=== PATIENT | female | born 1970 | race Caucasian/White ===

== ENCOUNTER 2016-10-13 09:54 | Emergency (ER) | payer BC ==
[~2016-10-13] VITALS: Ht 165.1 cm; Wt 75.7 kg
[~2016-10-13 09:54] MED LIST: ALPR0.25 PO; ALPR0.5T7 PO; CEPH500C PO; CLIN150C17 PO; CYCL10TA9 PO; DIAZ10TA PO; DIAZ10TA3 PO; DOCU100C37 PO; ESCI20TA PO; FLUC100T PO; FURO-125 PO; HYDR-3730 PO; HYDR-3816 PO; HYDR-757 PO; IBUP-1773 PO; INSASP10V SC; INSU100C7 SQ; MAGN400C PO; PROP20TA5 PO; SERT50TA9 PO; SIME80TA16 PO; SPIR50TA2 PO; SULF1TAB35 PO; [UNRECOGNIZED DRUG - CODE] PO
--- OUTSIDE RECORDS SUMMARY | 2016-10-13 10:00 | XMS REPORT | Continuity of Care Document ---
Author Author [facility] Organization [facility] Address Unknown Phone Unavailable Care Team Providers Care Packer Name Role Phone BETTE RUSH DO PCP Insurance Providers Payer Name Policy Number Subscriber Name Relationship [facility] [id number] Dayanara Caal 18 Self / Same As Patient Advance Directives Directive Response Recorded Date/Time Advance Directives No 04/16/15 8:34pm Health Care Power of Punchboard Stuffer No 04/16/15 8:34pm Organ Donor No 04/16/15 8:34pm Resuscitation Status Full Code 04/16/15 8:34pm Problems Medical Problems Problem Onset Date Status Urinary tract infection Unknown Active Type I diabetes mellitus Unknown Active Medications Medication Dose Route Sig Days/Qty Instructions Order Date Discontinued Date Status Insulin Glargine,Hum.rec.anlog 16 Unit SQ TWICE A DAY 12/08/13 Active Insulin Aspart 0 SC DIRECTED sliding scale 12/08/13 Active Cephalexin Monohydrate (Keflex) 1 Each PO FOUR TIMES DAILY 28 Qty 04/16 Active Social History Social History Problem Response Recorded Date/Time Alcohol Use Regular Use 04/16/2015 9:35pm Recreational Drug Use No 04/16/2015 8:34pm Recent Foreign Travel No 04/16/2015 8:34pm Recent Infectious Disease Exposure No 04/16/2015 8:34pm Hospitalization with Isolation Denies 04/16/2015 8:34pm Smoking Status Current Everyday Smoker 04/16/2015 8:34pm Query Response Start Date Stop Date Smoking Status Current Everyday Smoker Hospital Discharge Instructions No hospital discharge instructions. Plan of Care No plan of care. Functional Status No functional status results. Allergies, Adverse Reactions, Alerts Allergen Type Severity Reaction Status Last Updated Codeine Allergy Unknown Active 11/09/14 Immunizations No immunization records. Vital Signs Acute Vital Signs Vital Response Date/Time Temperature (Fahrenheit) 98.2 degrees F (97.6 - 99.5) Temperature (Calculated Celsius) 36.78504 degrees C (36.4 - 37.5) Pulse Rate (adult) 93 bpm (60 - 90) Respiratory Rate 18 bpm (12 - 24) O2 Sat by Pulse Oximetry 99 % (88 - 100) Blood Pressure 136/83 mm Hg Blood Pressure Mean 100 mm Hg Pain Pain Intensity 0 Height (Feet) 5 feet Height (Inches) 5 inches Height (Calculated Centimeters) 165.399167 cm Weight (Pounds) 156 pounds Weight (Calculated Kilograms) 70.062562 kilograms Calculated BMI 25.96 Results Laboratory Results Test Name Result Units Flags Reference Collection Date/Time Result Date/ Time Comments White Blood Count 8.3 10^3/uL 4.3-11.0 04/09/2015 12:52pm 04/09/2015 12 :57pm Red Blood Count 4.94 10^6/uL 4.35-5.85 04/09/2015 12:52pm 04/09/2015 12 :57pm Hemoglobin 14.3 G/DL 11.5-16.0 04/09/2015 12:52pm 04/09/2015 12:57pm Hematocrit 43 % 35-52 04/09/2015 12:52pm 04/09/2015 12:57pm Mean Corpuscular Volume 88 FL 80-99 04/09/2015 12:52pm 04/09/2015 12: 57pm Mean Corpuscular Hemoglobin 29 PG 25-34 04/09/2015 12:52pm 04/09/2015 12:57pm Mean Corpuscular Hemoglobin Concent 33 G/DL 32-36 04/09/2015 12:52pm 12:57pm Red Cell Distribution Width 14.3 % 10.0-14.5 04/09/2015 12:52pm 2014 12:57pm Platelet Count 286 10^3/uL 130-400 04/09/2015 12:52pm 04/09/2015 12: 57pm Mean Platelet Volume 10.4 FL 7.4-10.4 04/09/2015 12:52pm 04/09/2015 12: 57pm Neutrophils (%) (Auto) 52 % 42-75 04/09/2015 12:52pm 04/09/2015 12: 57pm Lymphocytes (%) (Auto) 38 % 12-44 04/09/2015 12:52pm 04/09/2015 12: 57pm Monocytes (%) (Auto) 7 % 0-12 04/09/2015 12:52pm 04/09/2015 12:57pm Eosinophils (%) (Auto) 2 % 0-10 04/09/2015 12:52pm 04/09/2015 12:57pm Basophils (%) (Auto) 1 % 0-10 04/09/2015 12:52pm 04/09/2015 12:57pm Neutrophils # (Auto) 4.3 X 10^3 1.8-7.8 04/09/2015 12:52pm 04/09/2015 12:57pm Lymphocytes # (Auto) 3.1 X 10^3 1.0-4.0 04/09/2015 12:52pm 04/09/2015 12:57pm Monocytes # (Auto) 0.6 X 10^3 0.0-1.0 04/09/2015 12:52pm 04/09/2015 12: 57pm Eosinophils # (Auto) 0.2 10^3/uL 0.0-0.3 04/09/2015 12:52pm 04/09/2015 12:57pm Basophils # (Auto) 0.0 10^3/uL 0.0-0.1 04/09/2015 12:52pm 04/09/2015 12 :57pm Sodium Level 133 MMOL/L L 135-145 04/09/2015 12:52pm 04/09/2015 1:16pm Potassium Level 4.3 MMOL/L 3.6-5.0 04/09/2015 12:52pm 04/09/2015 1: 16pm Chloride Level 100 MMOL/L 98-107 04/09/2015 12:52pm 04/09/2015 1:16pm Carbon Dioxide Level 26 MMOL/L 21-32 04/09/2015 12:52pm 04/09/2015 1: 16pm Anion Gap 7 MMOL/L 5-14 04/09/2015 12:52pm 04/09/2015 1:16pm Blood Urea Nitrogen 6 MG/DL L 7-18 04/09/2015 12:52pm 04/09/2015 1:16pm Creatinine 0.93 MG/DL 0.60-1.30 04/09/2015 12:52pm 04/09/2015 1:16pm BUN/Creatinine Ratio 6 04/09/2015 12:52pm 04/09/2015 1:16pm Estimat Glomerular Filtration Rate > 60 04/09/2015 12:52pm 2014 1:16pm GFR INTERPRETIVE DATA UNITS FOR ESTIMATED GFR (eGFR): mL/min/1.73 M2 REFERENCE RANGE FOR ESTIMATED GFR (eGFR) eGFR NORMAL eGFR >60 MODERATELY DECREASED eGFR 30-59 SEVERLY DECREASED eGFR 15-29 KIDNEY FAILURE <15 (OR DIALYSIS) Glucose Level 382 MG/DL H 70-105 04/09/2015 12:52pm 04/09/2015 1:16pm Calcium Level 8.9 MG/DL 8.5-10.1 04/09/2015 12:52pm 04/09/2015 1:16pm Total Bilirubin 0.5 MG/DL 0.1-1.0 04/09/2015 12:52pm 04/09/2015 1:16pm Alkaline Phosphatase 78 U/L 40-136 04/09/2015 12:52pm 04/09/2015 1: 16pm Aspartate Amino Transf (AST/SGOT) 14 U/L 5-34 04/09/2015 12:52pm 2014 1:16pm Alanine Aminotransferase (ALT/SGPT) 12 U/L 0-55 04/09/2015 12:52pm 1:16pm Total Protein 6.6 G/DL 6.4-8.2 04/09/2015 12:52pm 04/09/2015 1:16pm Albumin 3.8 G/DL 3.2-4.5 04/09/2015 12:52pm 04/09/2015 1:16pm Hemoglobin A1c 12.2 % H 4.5-6.2 04/09/2015 12:52pm 04/09/2015 1:37pm White Blood Count 7.9 10^3/uL 4.3-11.0 04/16/2015 9:08pm 04/16/2015 9: 22pm Red Blood Count 5.07 10^6/uL 4.35-5.85 04/16/2015 9:08pm 04/16/2015 9: 22pm Hemoglobin 14.7 G/DL 11.5-16.0 04/16/2015 9:08pm 04/16/2015 9:22pm Hematocrit 44 % 35-52 04/16/2015 9:08pm 04/16/2015 9:22pm Mean Corpuscular Volume 87 FL 80-99 04/16/2015 9:08pm 04/16/2015 9: 22pm Mean Corpuscular Hemoglobin 29 PG 25-34 04/16/2015 9:08pm 04/16/2015 9: 22pm Mean Corpuscular Hemoglobin Concent 33 G/DL 32-36 04/16/2015 9:08pm 11/2014 9:22pm Red Cell Distribution Width 14.6 % H 10.0-14.5 04/16/2015 9:08pm 2014 9:22pm Platelet Count 289 10^3/uL 130-400 04/16/2015 9:08pm 04/16/2015 9:22pm Mean Platelet Volume 9.9 FL 7.4-10.4 04/16/2015 9:08pm 04/16/2015 9: 22pm Neutrophils (%) (Auto) 44 % 42-75 04/16/2015 9:08pm 04/16/2015 9:22pm Lymphocytes (%) (Auto) 44 % 12-44 04/16/2015 9:08pm 04/16/2015 9:22pm Monocytes (%) (Auto) 10 % 0-12 04/16/2015 9:08pm 04/16/2015 9:22pm Eosinophils (%) (Auto) 2 % 0-10 04/16/2015 9:08pm 04/16/2015 9:22pm Basophils (%) (Auto) 0 % 0-10 04/16/2015 9:08pm 04/16/2015 9:22pm Neutrophils # (Auto) 3.5 X 10^3 1.8-7.8 04/16/2015 9:08pm 04/16/2015 9: 22pm Lymphocytes # (Auto) 3.5 X 10^3 1.0-4.0 04/16/2015 9:08pm 04/16/2015 9: 22pm Monocytes # (Auto) 0.8 X 10^3 0.0-1.0 04/16/2015 9:08pm 04/16/2015 9: 22pm Eosinophils # (Auto) 0.2 10^3/uL 0.0-0.3 04/16/2015 9:08pm 04/16/2015 9 :22pm Basophils # (Auto) 0.0 10^3/uL 0.0-0.1 04/16/2015 9:08pm 04/16/2015 9: 22pm Urine Color YELLOW 04/16/2015 9:14pm 04/16/2015 9:35pm Urine Clarity VERY CLOUDY * 04/16/2015 9:14pm 04/16/2015 9:35pm Urine pH 6 5-9 04/16/2015 9:14pm 04/16/2015 9:35pm Urine Specific [place] 1.020 1.016-1.022 04/16/2015 9:14pm 2014 9:35pm Urine Protein 1+ * NEGATIVE 04/16/2015 9:14pm 04/16/2015 9:35pm Urine Glucose (UA) 4+ * NEGATIVE 04/16/2015 9:14pm 04/16/2015 9:35pm Urine RBC (Auto) 1+ * NEGATIVE 04/16/2015 9:14pm 04/16/2015 9:35pm Urine Ketones NEGATIVE NEGATIVE 04/16/2015 9:14pm 04/16/2015 9:35pm Urine Nitrite NEGATIVE NEGATIVE 04/16/2015 9:14pm 04/16/2015 9:35pm Urine Bilirubin NEGATIVE NEGATIVE 04/16/2015 9:14pm 04/16/2015 9: 35pm Urine Urobilinogen NORMAL MG/DL NORMAL 04/16/2015 9:14pm 04/16/2015 9: 35pm Urine Leukocyte Esterase 3+ * NEGATIVE 04/16/2015 9:14pm 04/16/2015 9: 35pm Urine RBC 2-5 /HPF * 04/16/2015 9:14pm 04/16/2015 9:35pm Urine WBC TNTC /HPF * 04/16/2015 9:14pm 04/16/2015 9:35pm Urine Bacteria LARGE /HPF * 04/16/2015 9:14pm 04/16/2015 9:35pm Urine Squamous Epithelial Cells 10-25 /HPF * 04/16/2015 9:14pm 2014 9:35pm Urine Crystals NONE /LPF 04/16/2015 9:14pm 04/16/2015 9:35pm Urine Casts NONE /LPF 04/16/2015 9:14pm 04/16/2015 9:35pm Urine Mucus NEGATIVE /LPF 04/16/2015 9:14pm 04/16/2015 9:35pm Urine Culture Indicated YES 04/16/2015 9:14pm 04/16/2015 9:35pm Sodium Level 140 MMOL/L 135-145 04/16/2015 9:08pm 04/16/2015 9:46pm Potassium Level 3.7 MMOL/L 3.6-5.0 04/16/2015 9:08pm 04/16/2015 9:46pm Chloride Level 106 MMOL/L 98-107 04/16/2015 9:08pm 04/16/2015 9:46pm Carbon Dioxide Level 27 MMOL/L 21-32 04/16/2015 9:08pm 04/16/2015 9: 46pm Anion Gap 7 MMOL/L 5-14 04/16/2015 9:08pm 04/16/2015 9:46pm Blood Urea Nitrogen 8 MG/DL 7-18 04/16/2015 9:08pm 04/16/2015 9:46pm Creatinine 0.73 MG/DL 0.60-1.30 04/16/2015 9:08pm 04/16/2015 9:46pm BUN/Creatinine Ratio 11 04/16/2015 9:08pm 04/16/2015 9:46pm Estimat Glomerular Filtration Rate > 60 04/16/2015 9:08pm 2014 9:46pm GFR INTERPRETIVE DATA UNITS FOR ESTIMATED GFR (eGFR): mL/min/1.73 M2 REFERENCE RANGE FOR ESTIMATED GFR (eGFR) eGFR NORMAL eGFR >60 MODERATELY DECREASED eGFR 30-59 SEVERLY DECREASED eGFR 15-29 KIDNEY FAILURE <15 (OR DIALYSIS) Glucose Level 78 MG/DL 70-105 04/16/2015 9:08pm 04/16/2015 9:46pm Glucometer 62 MG/DL L 70-110 04/16/2015 9:35pm 04/16/2015 9:42pm Calcium Level 9.6 MG/DL 8.5-10.1 04/16/2015 9:08pm 04/16/2015 9:46pm Magnesium Level 2.1 MG/DL 1.8-2.4 04/16/2015 9:08pm 04/16/2015 9:46pm Total Bilirubin 0.4 MG/DL 0.1-1.0 04/16/2015 9:08pm 04/16/2015 9:46pm Alkaline Phosphatase 68 U/L 40-136 04/16/2015 9:08pm 04/16/2015 9:46pm Aspartate Amino Transf (AST/SGOT) 19 U/L 5-34 04/16/2015 9:08pm 2014 9:46pm Alanine Aminotransferase (ALT/SGPT) 13 U/L 0-55 04/16/2015 9:08pm 04/16 9:46pm Total Protein 6.6 G/DL 6.4-8.2 04/16/2015 9:08pm 04/16/2015 9:46pm Albumin 3.8 G/DL 3.2-4.5 04/16/2015 9:08pm 04/16/2015 9:46pm T[facility] Testing 2.72 UIU/ML 0.35-4.94 04/16/2015 9:08pm 04/16/2015 10:01pm Procedures No known history of procedures. Encounters Encounter Location Date/Time Departed Emergency Room [facility] 04/16/15 8:28pm Registered Clinic [facility] 04/10/15 10:15am Registered Clinic [facility] 04/09/15 12:43pm Recent Diagnosis
--- NOTE | 2016-10-13 10:28 | ED Abdominal Pain ---
General Chief Complaint: Abdominal/GI Problems Stated Complaint: LOWER ABD PAIN Nursing Triage Note: PT STATES SHE HAD A PARTIAL HYSTERECTOMY 07/10/16. PT WAITED LONGER THAN ORDERED TO HAVE SEX BUT WHEN SHE DID SHE HAD PAIN AND BLEEDING AFTER, ABOUT 2 WEEKS AGO. THURSDAY PT HAD SEX AGAIN AND HAD PAIN AND BLEEDING AGAIN. CC TODAY OF BLOATING IN LOW ABD, PAIN, AND STATES "I FEEL LIKE MY INSIDES ARE GOING TO DROP OUT." Sepsis Screen: No Definite Risk Source of Information: Patient, RN Notes Reviewed Exam Limitations: No Limitations History of Present Illness Time Seen By Provider: Initial Comments As above. Timing/Duration: 1-2 Days Severity/Quality: Moderate (7/10), Sharp, Stabbing Location: Other (vagina) Radiation: No Radiation Activities at Onset: Other (sexual intercourse) Modifying Factors: Worsens With Movement Associated Symptoms: Denies Symptoms Allergies and Home Medications Allergies Coded Allergies: codeine (Verified Allergy, Intermediate, HIVES (PATIENT HAS RECEIVED LORTAB IN THE PAST), 07/10/16) Home Medications Alprazolam 0.25 Mg Tablet 0.25 MG PO HS PRN PRN ANXIETY (Reported) Diazepam 10 Mg Tablet 10 MG PO HS PRN PRN ANXIETY (Reported) Docusate Sodium 100 Mg Capsule #40 100 MG PO BID PRN PRN CONSTIPATION Prescribed by: LAY HELM on 07/10/16916 Escitalopram Oxalate 20 Mg Tablet 20 MG PO DAILY (Reported) Fluconazole 150 Mg Tablet #2 150 MG PO as directed Prescribed by: BETTE FARRIS on 10/13/16 1349 Hydrocodone/Acetaminophen 1 Each Tablet #50 1-2 EA PO Q6H PRN PRN PAIN Prescribed by: LAY HELM on 07/10/16916 Hydrocodone/Acetaminophen 1 Each Tablet #20 1 EACH PO Q6H PRN PRN PAIN Prescribed by: BETTE FARRIS on 10/13/16 1352 Ibuprofen 600 Mg Tablet #80 600 MG PO Q6H PRN PRN PAIN Prescribed by: LAY HELM on 07/10/16916 Insulin Aspart 10 Unit/0.1 Ml Susp 0 SC UD (Reported) sliding scale Insulin Glargine,Hum.rec.anlog 100 Unit/1 Ml Cartridge 15 UNIT SQ BID (Reported ) Metronidazole 500 Mg Tablet #14 500 MG PO BID Prescribed by: BETTE FARRIS on 10/13/16 1349 Propranolol HCl 20 Mg Tablet 20 MG PO BID PRN PRN ANXIETY (Reported) Simethicone 80 Mg Tab.chew #20 40 MG PO TID PRN PRN INDIGESTION Prescribed by: LAY HELM on 07/10/16 0917 Spironolactone 50 Mg Tablet 50 MG PO PRN (Reported) Review of Systems Constitutional: see HPI Genitourinary: See HPI Pain (pelvic/vaginal) Other ((+) vag bleeding) All Other Systems Reviewed Negative Unless Noted: Yes (Negative excepted noted.) Past Nrmtsuh-Jqpgls-Zxssfo Hx Patient Social History Alcohol Use: Occasionally Uses Recreational Drug Use: No Smoking Status: Current Everyday Smoker Type Used: Cigarettes Recent Foreign Travel: No Contact w/Someone Who Travel: No Recent Infectious Disease Expo: No Recent Hopitalizations: Yes (SURGERY ) Physical Abuse Screen: No Sexual Abuse: No Immunizations Up To Date Tetanus Booster (TDap): More than 5yrs Date of Pneumonia Vaccine: Jun 18, 2016 Date of Influenza Vaccine: Jun 18, 2016 Seasonal Allergies Seasonal Allergies: No Surgeries HX Surgeries: Yes (PILONIDAL CYST SURGERY (SEVERAL), CYST FROM HAND and breast , KNEE SURG X2,) Surgeries: Breast, Hysterectomy, Orthopedic, 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 Respiratory Hx Respiratory Disorders: No Respiratory Disorders: Pneumonia Cardiovascular Hx Cardiac Disorders: Yes (HEART RACES AT TIMES) Neurological Hx Neurological Disorders: Yes (DIABETIC NEUROPATHY IN HANDS ) Neurological Disorders: Neuropathy Reproductive System Hx Reproductive Disorders: No (FIBRIODS) Sexually Transmitted Disease: No HIV/AIDS: No Female Reproductive Disorders: Menstrual Problems, Ovarian Cyst [employer] 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, 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 Genitourinary Hx Genitourinary Disorders: Yes (CYST ON KIDNEY ) Genitourinary Disorders: UTI-Chronic Gastrointestinal Hx Gastrointestinal Disorders: Yes (OCC-TAKES TUMS) Gastrointestinal Disorders: Gastroesophageal Reflux Musculoskeletal Hx Musculoskeletal Disorders: No Endocrine Hx Endocrine Disorders: Yes Endocrine Disorders: Diabetes, Insulin dep HEENT HX ENT Disorders: Yes (READING GLASSES) Loss of Vision: Bilateral Hearing Impairment: Denies Cancer Hx Cancer: Yes (LEEP PROCEDURE IN OFFICE) Cancer: Cervical Psychosocial Hx Psychiatric Problems: Yes Behavioral Health Disorders: Sleep Difficulties, Anxiety, Depression Integumentary HX Skin/Integumentary Disorder: Yes (DIABETIC SORE ON LEG ) Blood Transfusions Hx Blood Disorders: No Adverse Reaction to a Blood Tr: No Family Medical History Significant Family History: Cancer Family Medial History: Cardiovascular disease 19 FATHER Completed stroke GRANDMOTHER FH: brain cancer GRANDFATHER High cholesterol 19 MOTHER Thyroid disease 19 MOTHER Physical Exam Vital Signs VS - Last 72 Hours, by Label 10/13/16 10/13/16 10:03 14:00 Temp 98.2 98.2 Pulse 88 79 Resp 20 20 B/P 155/73 Pulse Ox 98 98 O2 Delivery Room Air Room Air Capillary Refill : Less Than 3 Seconds General Appearance: WD/WN moderate distress Respiratory: no respiratory distress Cardiovascular: regular rate, rhythm Gastrointestinal: tenderness (suprapubic) Rectal: deferred Pelvic: discharge vaginal bleeding other (cervix is red, swollen, raw, & bleeding.) Neurologic/Psychiatric: no motor/sensory deficits alert oriented x 3 Skin: warm/dry Progress/Results/Core Measures Results/Orders Lab Results Laboratory Tests Test 10/13/16 10:45 10/13/16 11:00 10/13/16 13:00 Range/Units Urine Bacteria MODERATE H /HPF Urine Bilirubin NEGATIVE NEGATIVE Urine Casts NONE /LPF Urine Clarity CLEAR Urine Color YELLOW Urine Crystals NONE /LPF Urine Culture Indicated NO Urine Glucose (UA) 4+ H NEGATIVE Urine Ketones NEGATIVE NEGATIVE Urine Leukocyte Esterase 1+ H NEGATIVE Urine Mucus NEGATIVE /LPF Urine Nitrite NEGATIVE NEGATIVE Urine Protein 1+ H NEGATIVE Urine RBC NONE /HPF Urine RBC (Auto) NEGATIVE NEGATIVE Urine Specific [place] 1.010 L 1.016-1.022 Urine Squamous Epithelial Cells TNTC H /HPF Urine Urobilinogen NORMAL NORMAL MG/DL Urine WBC 2-5 /HPF Urine pH 7 5-9 Alanine Aminotransferase (ALT/SGPT) 15 0-55 U/L Albumin 4.0 3.2-4.5 G/DL Alkaline Phosphatase 117 40-136 U/L Anion Gap 9 5-14 MMOL/L Aspartate Amino Transf (AST/SGOT) 16 5-34 U/L BUN/Creatinine Ratio 9 Basophils # (Auto) 0.0 0.0-0.1 10^3/uL Basophils (%) (Auto) 0 0-10 % Blood Urea Nitrogen 8 7-18 MG/DL Calcium Level 9.4 8.5-10.1 MG/DL Carbon Dioxide Level 27 21-32 MMOL/L Chloride Level 100 98-107 MMOL/L Creatinine 0.85 0.60-1.30 MG/DL Eosinophils # (Auto) 0.1 0.0-0.3 10^3/uL Eosinophils (%) (Auto) 1 0-10 % Estimat Glomerular Filtration Rate > 60 Glucose Level 292 H 70-105 MG/DL Hematocrit 43 35-52 % Hemoglobin 14.2 11.5-16.0 G/DL Lymphocytes # (Auto) 2.0 1.0-4.0 X 10^3 Lymphocytes (%) (Auto) 18 12-44 % Mean Corpuscular Hemoglobin 29 25-34 PG Mean Corpuscular Hemoglobin Concent 33 32-36 G/DL Mean Corpuscular Volume 86 80-99 FL Mean Platelet Volume 9.7 7.4-10.4 FL Monocytes # (Auto) 1.0 0.0-1.0 X 10^3 Monocytes (%) (Auto) 9 0-12 % Neutrophils # (Auto) 7.6 1.8-7.8 X 10^3 Neutrophils (%) (Auto) 71 42-75 % Platelet Count 268 130-400 10^3/uL Potassium Level 4.1 3.6-5.0 MMOL/L Red Blood Count 4.95 4.35-5.85 10^6/uL Red Cell Distribution Width 14.0 10.0-14.5 % Sodium Level 136 135-145 MMOL/L Total Bilirubin 0.7 0.1-1.0 MG/DL Total Protein 7.0 6.4-8.2 G/DL White Blood Count 10.7 4.3-11.0 10^3/uL Chlamydia DNA Probe Negative Negative Neisseria gonorrhoeae DNA Probe Negative Negative Micro Results Microbiology 10/13/16 Wet Prep - Final, Complete My Orders Orders-BETTE FARRIS DO Cbc With Automated Diff (10/13/16 10:28) Comprehensive Metabolic Panel (10/13/16 10:28) Ua Culture If Indicated (10/13/16 10:28) Ct Abdomen/Pelvis W (10/13/16 11:41) Iohexol Injection (Omnipaque 350 Mg/Ml 1 (10/13/16 12:00) Ns (Ivpb) (Sodium Chloride 0.9% Ivpb Bag (10/13/16 12:00) Ketorolac Injection (Toradol Injection) (10/13/16 12:30) Wet Prep (10/13/16 12:50) Neisseria Gonorrhea Dna (10/13/16 12:50) Chlam Dna Probe (10/13/16 12:50) Medications Given in ED Vital Signs/I&O Vital Sign - Last 12Hours 10/13/16 10/13/16 10:03 14:00 Temp 98.2 98.2 Pulse 88 79 Resp 20 20 B/P 155/73 Pulse Ox 98 98 O2 Delivery Room Air Room Air Blood Pressure Mean: 100 Departure Impression Impression: Primary Impression: BV (bacterial vaginosis) Additional Impressions: Pelvic pain Cervicitis, acute, non-specific Disposition: 01 HOME, SELF-CARE Condition: Stable Departure-Patient Inst. Decision time for Depature: 13:46 Referrals: LAY HELM DO Patient Instructions: Bacterial Vaginosis (DC) Scripts Hydrocodone/Acetaminophen (Hydrocodon-Acetaminophn 10-325)1 Each Tablet1 Each PO Q6H PRN PAIN #20 TAB Ref 0 Prov:BETTE FARRIS DO 10/13/16 Fluconazole 150 Mg [id number] Mg PO as directed #2 TAB Ref 1 Prov:BETTE FARRIS DO 10/13/16 Metronidazole 500 Mg [id number] Mg PO BID #14 TAB Ref 0 Prov:BETTE FARRIS DO 10/13/16 BETTE FARRIS DO Oct 13, 2016 10:28
[2016-10-13 10:54] LABS: BILIRUBIN,URINE NEGATIVE (NEGATIVE); KETONES,URINE NEGATIVE (NEGATIVE); LEUKOCYTE ESTERASE ,URINE 1+ (NEGATIVE); NITRITE,URINE NEGATIVE (NEGATIVE); PH,URINE 7 (5-9); PROTEIN,URINE 1+ (NEGATIVE); UROBILINOGEN,URINE NORMAL (NORMAL)
[2016-10-13 11:07] LABS: SQUAMOUS EPITHELIAL CELL,UR TNTC /HPF
[2016-10-13 11:11] LABS: BASOPHILS % (AUTO) 0 % (0-10); EOSINOPHILS # (AUTO) 0.1 10^3/uL (0.0-0.3); EOSINOPHILS % (AUTO) 1 % (0-10); LYMPHOCYTES % (AUTO) 18 % (12-44); MEAN CORPUSCULAR HEMOGLOBIN 29 PG (25-34); MEAN CORPUSCULAR HGB CONC 33 G/DL (32-36); MEAN CORPUSCULAR VOLUME 86 FL (80-99); MEAN PLATELET VOLUME 9.7 FL (7.4-10.4); MONOCYTES % (AUTO) 9 % (0-12); NEUTROPHILS # (AUTO) 7.6 X 10^3 (1.8-7.8); NEUTROPHILS % (AUTO) 71 % (42-75); PLATELET COUNT 268 10^3/uL (130-400); RED BLOOD COUNT 4.95 10^6/uL (4.35-5.85); WHITE BLOOD COUNT 10.7 10^3/uL (4.3-11.0)
[2016-10-13 11:32] LABS: ALANINE AMINOTRANSFERASE 15 U/L (0-55); ANION GAP 9 MMOL/L (5-14); ASPARTATE AMINO TRANSFERASE 16 U/L (5-34); BILIRUBIN,TOTAL 0.7 MG/DL (0.1-1.0); BLOOD UREA NITROGEN 8 MG/DL (7-18); BUN/CREATININE RATIO 9; CALCIUM 9.4 MG/DL (8.5-10.1); CARBON DIOXIDE 27 MMOL/L (21-32); CHLORIDE 100 MMOL/L (98-107); CREATININE SERUM 0.85 MG/DL (0.60-1.30); GFR ESTIMATED > 60; GLUCOSE 292 MG/DL (70-105); POTASSIUM 4.1 MMOL/L (3.6-5.0); SODIUM 136 MMOL/L (135-145)
[2016-10-13] MEDS ORDERED: NS 100 ML (IVPB) BAG IV ONE (12:00)
[2016-10-13] MEDS ORDERED: IOHEXOL 350 MG/ML 100 ML (OMNIPAQUE 350) VIAL IV ONE (12:00)
[2016-10-13] MEDS ORDERED: KETOROLAC 30 MG/ML VIAL IVP ONE (12:30)
--- NOTE | 2016-10-13 12:42 | Diagnostic Imaging Report ---
PROCEDURE: CT abdomen and pelvis with contrast. TECHNIQUE: Multiple contiguous axial images were obtained through the abdomen and pelvis after administration of intravenous contrast. INDICATION: Lower pelvic pain. Status post recent hysterectomy. COMPARISON: 06/24/2016. FINDINGS: The included views of the lung bases are clear. CT ABDOMEN: The kidneys, adrenal glands, spleen, pancreas, and liver have a normal appearance. The small bowel loops are nondistended. A normal appendix is identified. There is no loculated fluid collection, free fluid, or free air within the abdomen. No abnormal mesenteric or retroperitoneal adenopathy is seen. There is some mild scattered calcified aortic and arterial atherosclerosis. The bony structures show no acute abnormalities. CT PELVIS: A small amount of free fluid is noted within the pelvis. No distinct loculated drainable air/fluid collection is identified. There is no free air. There is some air within the vaginal cuff. There is also an abnormal thickened and hyperenhancing appearance to the adjacent small bowel loops in the lower pelvis. There is no pneumatosis. No abnormal adenopathy is seen. The urinary bladder is grossly unremarkable. The bony structures show no acute abnormalities. IMPRESSION: 1. Small amount of free fluid within the lower pelvis but no loculated drainable fluid collection to suggest an abscess. 2. Abnormal thickened and hyperenhancing appearance to small bowel loops within the lower pelvis. The exact etiology is indeterminate but the findings could be reactive to an underlying postsurgical infectious or inflammatory process. 3. No evidence of small bowel obstruction or acute appendicitis. Dictated by: Dictated on workstation # [id number]
[2016-10-13] MEDS ORDERED: METR500T21 PO (13:49)
[2016-10-13] MEDS ORDERED: FLUC150T2 PO (13:49)
[2016-10-13] MEDS ORDERED: HYDR-3820 PO (13:52)
[2016-10-13 14:00] VITALS: BP 126/89
[2016-10-14 07:38] LABS: CHLAMYDIA DNA PROBE PT Negative (Negative); NEISSERIA GONORRHEA DNA Negative (Negative)
== END 2016-10-13 14:00 | disposition home or self-care (01) ==
LOC: EDUNIT# 09:54 → ER 09:56
DX: R10.2 Pelvic and perineal pain (principal); N72 Inflammatory disease of cervix uteri; N76.0 Acute vaginitis; E11.9 Type 2 diabetes mellitus without complications; F17.210 Nicotine dependence, cigarettes, uncomplicated; Z79.4 Long term (current) use of insulin; Z90.711 Acquired absence of uterus with remaining cervical stump
CPT/HCPCS: 36415; 74177; 80053; 81000; 85025; 87210; 87491; 87591; 96374

== ENCOUNTER 2016-11-17 13:03 | Inpatient (IN) | payer BC ==
[~2016-11-17] VITALS: Ht 165.1 cm; Wt 79.8 kg
[~2016-11-17 13:03] MED LIST changes: +FLUC150T2 PO; +HYDR-3820 PO; +METR500T21 PO
--- OUTSIDE RECORDS SUMMARY | 2016-11-17 13:09 | XMS REPORT | Continuity of Care Document ---
Author Author [facility] Organization [facility] Address Unknown Phone Unavailable Care Team Providers Care Software Configuration Specialist Name Role Phone BETTE RUSH DO PCP Insurance Providers Payer Name Policy Number Subscriber Name Relationship [facility] [id number] Dayanara Caal 18 Self / Same As Patient Advance Directives Directive Response Recorded Date/Time Advance Directives No 10/13/16 10:11am Health Care Power of Supervisor Machining No 10/13/16 10:11am Organ Donor No 10/13/16 10:11am Resuscitation Status Full Code 10/13/16 10:11am Chief Complaint and Reason for Visit Chief Complaint Abdominal/GI Problems Reason for Visit [id number] Problems Active Problems Medical Problem Onset Date Status BV (bacterial vaginosis) Unknown Acute Facial nerve palsy, secondary Unknown Acute Pelvic pain Unknown Acute Post-operative wound abscess Unknown Acute Type I diabetes mellitus Unknown Acute Urinary tract infection Unknown Acute Urinary tract infection Unknown Acute Medications Current Home Medications Medication Dose Units Route Directions Days/Qty Instructions Start Date Insulin Glargine,Hum.rec.anlog 100 Unit/1 Ml 15 Unit Sub-Q Twice A Day 12/08/13 Insulin Aspart 10 Unit/0.1 Ml 0 Subcutaneously As Directed sliding scale 12/08/13 Escitalopram Oxalate 20 Mg 20 Mg Oral Daily 07/08/16 Alprazolam 0.25 Mg 0.25 Mg Oral Bedtime as needed for Anxiety Diazepam 10 Mg 10 Mg Oral Bedtime as needed for Anxiety 07/08/16 Propranolol Hcl 20 Mg 20 Mg Oral Twice A Day as needed for Anxiety 07/08/16 Spironolactone 50 Mg 50 Mg Oral As Needed 07/08/16 Ibuprofen 600 Mg 600 Mg Oral Every 6 Hours as needed for Pain 80 07/10 Hydrocodone/Acetaminophen 1 Each 1-2 Ea Oral Every 6 Hours as needed for Pain 50 07/10/16 Simethicone 80 Mg 40 Mg Oral Three Times A Day as needed for Indigestion 20 07/10/16 Docusate Sodium 100 Mg 100 Mg Oral Twice A Day as needed for Constipation 40 07/10/16 Metronidazole 500 Mg 500 Mg Oral Twice A Day 14 10/13/16 Fluconazole 150 Mg 150 Mg Oral As Directed 2 10/13/16 Hydrocodone/Acetaminophen 1 Each 1 Each Oral Every 6 Hours as needed for Pain 20 10/13/16 Past Home Medications Medication Directions Ordered Status Cephalexin Monohydrate (Keflex) 500 Mg Capsule, 1 Each Oral Four Times Daily 04/16/15 Discontinued Sertraline Hcl 50 Mg Tablet, 50 Mg Oral Bedtime 04/25/15 Discontinued Fluconazole 100 Mg Tablet, 100 Mg Oral Daily 04/25/15 Discontinued Diazepam 10 Mg Tablet, 10 Mg Oral Bedtime 04/25/15 Discontinued Cyclobenzaprine Hcl 10 Mg Tablet, 10 Mg Oral Bedtime 04/25/15 Discontinued Furosemide 20 Mg Tablet, 20 Mg Oral Daily 04/25/15 Discontinued Alprazolam 0.5 Mg Tablet, 0.5 Mg Oral Twice A Day as needed for Anxiety 04/25 Discontinued Magnesium Oxide 400 Mg Capsule, 400 Mg Oral Bedtime 04/25/15 Discontinued Ergocalciferol (Vitamin D2) 50,000 Unit Capsule, 81643 Unit Oral As Directed 04/25/15 Discontinued Propranolol Hcl 20 Mg Tablet, 20 Mg Oral Daily 04/26/15 Discontinued Hydrocodone/Acetaminophen 1 Each Tablet, 1-2 Each Oral Every 6 Hours Discontinued Hydrocodone/Acetaminophen 1 Each Tablet, 1 Each Oral Every 4HRS as needed for Pain 05/11/15 Discontinued Clindamycin Hcl 150 Mg Capsule, 300 Mg Oral Three Times A Day 05/11/15 Discontinued Social History Social History Problem Response Recorded Date/Time Alcohol Use Occasionally Uses 07/19/2015 9:00am Recreational Drug Use No 07/19/2015 9:00am Recent Foreign Travel No 10/13/2016 10:03am Recent Infectious Disease Exposure No 10/13/2016 10:03am Sexually Transmitted Disease No 10/13/2016 10:11am HIV/AIDS No 10/13/2016 10:11am Smoking Status Current Everyday Smoker 10/13/2016 10:11am Do you dip or chew tobacco? No 07/19/2015 9:00am Type Used Cigarettes 10/13/2016 10:11am Recent Hopitalizations Y SURGERY 10/13/2016 10:11am Sexually Transmitted Disease No 10/13/2016 10:11am Query Response Start Date Stop Date Smoking Status Current Everyday Smoker Hospital Discharge Instructions No hospital discharge instructions. Plan of Care Discharge Date 10/13/16 2:00pm Disposition 01 HOME, SELF-CARE Condition at Discharge Stable Instructions/Education Provided Bacterial Vaginosis (DC) Prescriptions See Medication Section Referrals LAY HELM DO - Functional Status No functional status results. Allergies, Adverse Reactions, Alerts Allergen Type Severity Reaction Status Last Updated Codeine Allergy Intermediate HIVES (PATIENT HAS RECEIVED LORTAB IN THE PAST ) Active 07/10/16 Immunizations No immunization records. Vital Signs Acute Vital Signs Vital Response Date/Time Temperature (Fahrenheit) 98.2 degrees F (97.6 - 99.5) 10/13/2016 10:03am Temperature (Calculated Celsius) 36.45690 degrees C (36.4 - 37.5) 10/13/2016 10:03am Temperature Source Temporal 10/13/2016 10:03am Pulse Rate (adult) 88 bpm (60 - 90) 10/13/2016 10:03am Respiratory Rate 20 bpm (12 - 24) 10/13/2016 10:03am O2 Sat by Pulse Oximetry 98 % (88 - 100) 10/13/2016 10:03am Blood Pressure 155/73 mm Hg 10/13/2016 10:03am Blood Pressure Mean 100 mm Hg 10/13/2016 10:03am Pain Numeric Pain Scale 6 10/13/2016 12:27pm Height (Feet) 5 feet 10/13/2016 10:03am Height (Inches) 5.00 inches 10/13/2016 10:03am Height (Calculated Centimeters) 165.231532 cm 10/13/2016 10:03am Weight (Pounds) 167 pounds 10/13/2016 10:03am Weight (Ounces) 0.0 oz 10/13/2016 10:03am Weight (Calculated Grams) 98771.927 gm 10/13/2016 10:03am Weight (Calculated Kilograms) 75.725622 kilograms 10/13/2016 10:03am Calculated BMI 27.8 10/13/2016 10:03am Capillary Refill Capillary Refill Less Than 3 Seconds 10/13/2016 10:03am Results Laboratory Results Test Name Result Units Flags Reference Collection Date/Time Result Date/ Time Comments White Blood Count 10.7 10^3/uL 4.3-11.0 10/13/2016 11:00am 10/13/2016 11:13am Red Blood Count 4.95 10^6/uL 4.35-5.85 10/13/2016 11:00am 10/13/2016 11 :13am Hemoglobin 14.2 G/DL 11.5-16.0 10/13/2016 11:00am 10/13/2016 11:13am Hematocrit 43 % 35-52 10/13/2016 11:00am 10/13/2016 11:13am Mean Corpuscular Volume 86 FL 80-99 10/13/2016 11:00am 10/13/2016 11: 13am Mean Corpuscular Hemoglobin 29 PG 25-34 10/13/2016 11:00am 10/13/2016 11:13am Mean Corpuscular Hemoglobin Concent 33 G/DL 32-36 10/13/2016 11:00am 11:13am Red Cell Distribution Width 14.0 % 10.0-14.5 10/13/2016 11:00am 2016 11:13am Platelet Count 268 10^3/uL 130-400 10/13/2016 11:00am 10/13/2016 11: 13am Mean Platelet Volume 9.7 FL 7.4-10.4 10/13/2016 11:00am 10/13/2016 11: 13am Neutrophils (%) (Auto) 71 % 42-75 10/13/2016 11:00am 10/13/2016 11: 13am Lymphocytes (%) (Auto) 18 % 12-44 10/13/2016 11:00am 10/13/2016 11: 13am Monocytes (%) (Auto) 9 % 0-12 10/13/2016 11:00am 10/13/2016 11:13am Eosinophils (%) (Auto) 1 % 0-10 10/13/2016 11:00am 10/13/2016 11:13am Basophils (%) (Auto) 0 % 0-10 10/13/2016 11:00am 10/13/2016 11:13am Neutrophils # (Auto) 7.6 X 10^3 1.8-7.8 10/13/2016 11:00am 10/13/2016 11:13am Lymphocytes # (Auto) 2.0 X 10^3 1.0-4.0 10/13/2016 11:00am 10/13/2016 11:13am Monocytes # (Auto) 1.0 X 10^3 0.0-1.0 10/13/2016 11:00am 10/13/2016 11: 13am Eosinophils # (Auto) 0.1 10^3/uL 0.0-0.3 10/13/2016 11:00am 10/13/2016 11:13am Basophils # (Auto) 0.0 10^3/uL 0.0-0.1 10/13/2016 11:00am 10/13/2016 11 :13am Urine Color YELLOW 10/13/2016 10:45am 10/13/2016 11:08am Urine Clarity CLEAR 10/13/2016 10:45am 10/13/2016 11:08am Urine pH 7 5-9 10/13/2016 10:45am 10/13/2016 11:08am Urine Specific [place] 1.010 * 1.016-1.022 10/13/2016 10:45am 2016 11:08am Urine Protein 1+ * NEGATIVE 10/13/2016 10:45am 10/13/2016 11:08am Urine Glucose (UA) 4+ * NEGATIVE 10/13/2016 10:45am 10/13/2016 11:08am Urine RBC (Auto) NEGATIVE NEGATIVE 10/13/2016 10:45am 10/13/2016 11: 08am Urine Ketones NEGATIVE NEGATIVE 10/13/2016 10:45am 10/13/2016 11: 08am Urine Nitrite NEGATIVE NEGATIVE 10/13/2016 10:45am 10/13/2016 11: 08am Urine Bilirubin NEGATIVE NEGATIVE 10/13/2016 10:45am 10/13/2016 11: 08am Urine Urobilinogen NORMAL MG/DL NORMAL 10/13/2016 10:45am 10/13/2016 11 :08am Urine Leukocyte Esterase 1+ * NEGATIVE 10/13/2016 10:45am 10/13/2016 11 :08am Urine RBC NONE /HPF 10/13/2016 10:45am 10/13/2016 11:08am Urine WBC 2-5 /HPF 10/13/2016 10:45am 10/13/2016 11:08am Urine Bacteria MODERATE /HPF * 10/13/2016 10:45am 10/13/2016 11:08am Urine Squamous Epithelial Cells TNTC /HPF * 10/13/2016 10:45am 2016 11:08am Urine Crystals NONE /LPF 10/13/2016 10:45am 10/13/2016 11:08am Urine Casts NONE /LPF 10/13/2016 10:45am 10/13/2016 11:08am Urine Mucus NEGATIVE /LPF 10/13/2016 10:45am 10/13/2016 11:08am Urine Culture Indicated NO 10/13/2016 10:45am 10/13/2016 11:08am SPECIMEN REJECTED FOR CULTURE DUE TO NUMEROUS AMOUNT OF SQUAMOUS EPITHELIAL CELLS, THIS IS NOT CONSIDERED A CLEAN CATCH. PLEASE SUBMIT A NEW SPECIMEN IF CULTURE IS REQUESTED. Sodium Level 136 MMOL/L 135-145 10/13/2016 11:00am 10/13/2016 11:38am Potassium Level 4.1 MMOL/L 3.6-5.0 10/13/2016 11:00am 10/13/2016 11: 38am Chloride Level 100 MMOL/L 98-107 10/13/2016 11:00am 10/13/2016 11:38am Carbon Dioxide Level 27 MMOL/L 21-32 10/13/2016 11:00am 10/13/2016 11: 38am Anion Gap 9 MMOL/L 5-14 10/13/2016 11:00am 10/13/2016 11:38am Blood Urea Nitrogen 8 MG/DL 7-18 10/13/2016 11:00am 10/13/2016 11:38am Creatinine 0.85 MG/DL 0.60-1.30 10/13/2016 11:00am 10/13/2016 11:38am BUN/Creatinine Ratio 9 10/13/2016 11:00am 10/13/2016 11:38am Estimat Glomerular Filtration Rate > 60 10/13/2016 11:00am 2016 11:38am GFR INTERPRETIVE DATA UNITS FOR ESTIMATED GFR (eGFR): mL/min/1.73 M2 REFERENCE RANGE FOR ESTIMATED GFR (eGFR) eGFR NORMAL eGFR >60 MODERATELY DECREASED eGFR 30-59 SEVERLY DECREASED eGFR 15-29 KIDNEY FAILURE <15 (OR DIALYSIS) Glucose Level 292 MG/DL H 70-105 10/13/2016 11:00am 10/13/2016 11:38am Calcium Level 9.4 MG/DL 8.5-10.1 10/13/2016 11:00am 10/13/2016 11:38am Total Bilirubin 0.7 MG/DL 0.1-1.0 10/13/2016 11:00am 10/13/2016 11: 38am Alkaline Phosphatase 117 U/L 40-136 10/13/2016 11:00am 10/13/2016 11: 38am Aspartate Amino Transf (AST/SGOT) 16 U/L 5-34 10/13/2016 11:00am 2016 11:38am Alanine Aminotransferase (ALT/SGPT) 15 U/L 0-55 10/13/2016 11:00am 11:38am Total Protein 7.0 G/DL 6.4-8.2 10/13/2016 11:00am 10/13/2016 11:38am Albumin 4.0 G/DL 3.2-4.5 10/13/2016 11:00am 10/13/2016 11:38am Procedures No known history of procedures. Encounters Encounter Location Arrival/Admit Date Discharge/Depart Date Attending Provider Departed Emergency Room [facility] 10/13/16 9:56am 10/13 2:00pm BETTE FARRIS DO Recent Diagnosis
[2016-11-17] MEDS ORDERED: NS IV 1000 ML 1,000 ML IV ONE (13:35)
[2016-11-17] MEDS ORDERED: fentaNYL INJECTION 100 MCG/2 ML AMP IVP ONE (13:45)
[2016-11-17] MEDS ORDERED: ONDANSETRON 4 MG/2 ML (SDV) Z0FRAN IVP ONE (13:45)
[2016-11-17 14:11] LABS: BASOPHILS % (AUTO) 0 % (0-10); EOSINOPHILS % (AUTO) 0 % (0-10); LYMPHOCYTES # (AUTO) 1.7 X 10^3 (1.0-4.0); LYMPHOCYTES % (AUTO) 9 % (12-44); MEAN CORPUSCULAR HEMOGLOBIN 29 PG (25-34); MEAN CORPUSCULAR HGB CONC 34 G/DL (32-36); MEAN CORPUSCULAR VOLUME 86 FL (80-99); MEAN PLATELET VOLUME 10.9 FL (7.4-10.4); MONOCYTES # (AUTO) 1.2 X 10^3 (0.0-1.0); MONOCYTES % (AUTO) 7 % (0-12); NEUTROPHILS # (AUTO) 15.2 X 10^3 (1.8-7.8); NEUTROPHILS % (AUTO) 84 % (42-75); PLATELET COUNT 218 10^3/uL (130-400); RED BLOOD COUNT 5.19 10^6/uL (4.35-5.85); WHITE BLOOD COUNT 18.2 10^3/uL (4.3-11.0)
[2016-11-17 14:36] LABS: ALANINE AMINOTRANSFERASE 15 U/L (0-55); ALBUMIN 3.5 G/DL (3.2-4.5); ANION GAP 12 MMOL/L (5-14); ASPARTATE AMINO TRANSFERASE 19 U/L (5-34); BILIRUBIN,TOTAL 0.4 MG/DL (0.1-1.0); BLOOD UREA NITROGEN 16 MG/DL (7-18); BUN/CREATININE RATIO 18; CALCIUM 8.6 MG/DL (8.5-10.1); CARBON DIOXIDE 21 MMOL/L (21-32); CHLORIDE 101 MMOL/L (98-107); CREATININE SERUM 0.91 MG/DL (0.60-1.30); GFR ESTIMATED > 60; GLUCOSE 239 MG/DL (70-105); POTASSIUM 4.3 MMOL/L (3.6-5.0); SODIUM 134 MMOL/L (135-145); TOTAL PROTEIN 6.3 G/DL (6.4-8.2)
[2016-11-17 14:40] LABS: KETONES,URINE 3+ (NEGATIVE); LEUKOCYTE ESTERASE ,URINE 3+ (NEGATIVE); NITRITE,URINE NEGATIVE (NEGATIVE); PH,URINE 5 (5-9); PROTEIN,URINE 3+ (NEGATIVE); UROBILINOGEN,URINE NORMAL (NORMAL)
[2016-11-17 14:49] LABS: BAND NEUTROPHILS 7 %; BASOPHILS % (MANUAL) 0 %; EOSINOPHILS % (MANUAL) 0 %; LYMPHOCYTES % (MANUAL) 9 %; NEUTROPHILS % (MANUAL) 80 %
[2016-11-17 14:54] LABS: BILIRUBIN,URINE 1+ (NEGATIVE); SQUAMOUS EPITHELIAL CELL,UR TNTC /HPF; WBC,URINE 25-50 /HPF
--- NOTE | 2016-11-17 14:59 | ED Abdominal Pain ---
General Chief Complaint: -Female Stated Complaint: ABD PAIN Nursing Triage Note: PT REPORTS R SUPRAPUBIC PAIN THAT BEGAN LAST NOC AFTER SEXUAL INTERCOURSE. SHE REPORTS YELLOW DISCHARGE. SHE REPORTS THAT SHE HAS HAD PAIN SIMILAR TO THIS ABOUT 1 MONTH AGO AND WAS TX FOR BACTERIAL VAGINOSIS. PT ALSO C/O N/V. Sepsis Screen: No Definite Risk Source of Information: Patient Exam Limitations: No Limitations History of Present Illness Time Seen By Provider: 13:05 Initial Comments This 46-year-old young lady presents to the emergency room with right lower quadrant pain that started last night. She had no pain during intercourse last night but the pain started shortly after intercourse. She believes there was some blood in her urine as well, but she denies dysuria. She had a hysterectomy in June. She was seen on a prior visit for pain in the same region related to bacterial vaginosis. She is in significant pain at this time rated as 9/10. Pain is exacerbated with walking and coughing. She denies any constipation or diarrhea. She has no history of renal stones. She reports her underwear was wet with clear fluid this morning and she is unsure why. She took one half of a hydrocodone tablet at home which did not seem to help her pain. She also took ibuprofen 600 mg at 11:00. She is afebrile. She had a vomiting last night and again this morning. She is a type I diabetic. Allergies and Home Medications Allergies Coded Allergies: codeine (Verified Allergy, Intermediate, HIVES (PATIENT HAS RECEIVED LORTAB IN THE PAST), 07/10/16) Home Medications Alprazolam 0.25 Mg Tablet 0.25 MG PO HS PRN PRN ANXIETY (Reported) Diazepam 10 Mg Tablet 10 MG PO HS PRN PRN ANXIETY (Reported) Docusate Sodium 100 Mg Capsule #40 100 MG PO BID PRN PRN CONSTIPATION Prescribed by: LAY HELM on 07/10/16 09 Escitalopram Oxalate 20 Mg Tablet 20 MG PO DAILY (Reported) Fluconazole 150 Mg Tablet #2 150 MG PO as directed Prescribed by: BETTE FARRIS on 10/13/16 1349 Hydrocodone/Acetaminophen 1 Each Tablet #50 1-2 EA PO Q6H PRN PRN PAIN Prescribed by: LAY HELM on 07/10/16 0917 Hydrocodone/Acetaminophen 1 Each Tablet #20 1 EACH PO Q6H PRN PRN PAIN Prescribed by: BETTE FARRIS on 10/13/16 1352 Ibuprofen 600 Mg Tablet #80 600 MG PO Q6H PRN PRN PAIN Prescribed by: LAY HELM on 07/10/16 09 Insulin Aspart 10 Unit/0.1 Ml Susp 0 SC UD (Reported) sliding scale Insulin Glargine,Hum.rec.anlog 100 Unit/1 Ml Cartridge 15 UNIT SQ BID (Reported ) Metronidazole 500 Mg Tablet #14 500 MG PO BID Prescribed by: BETTE FARRIS on 10/13/16 1349 Propranolol HCl 20 Mg Tablet 20 MG PO BID PRN PRN ANXIETY (Reported) Simethicone 80 Mg Tab.chew #20 40 MG PO TID PRN PRN INDIGESTION Prescribed by: LAY HELM on 07/10/16916 Spironolactone 50 Mg Tablet 50 MG PO PRN (Reported) Review of Systems Constitutional: no symptoms reported EENTM: No Symptoms Reported Respiratory: No Symptoms Reported Cardiovascular: No Symptoms Reported Gastrointestinal: See HPI Genitourinary: See HPI Musculoskeletal: no symptoms reported Skin: no symptoms reported Psychiatric/Neurological: No Symptoms Reported Endocrine: No Symptoms Reported Past Xaatbxm-Enynhq-Pbvyvr Hx Patient Social History Alcohol Use: Occasionally Uses Recreational Drug Use: No Smoking Status: Current Everyday Smoker Type Used: Cigarettes 2nd Hand Smoke Exposure: No Recent Foreign Travel: No Contact w/Someone Who Travel: No Recent Infectious Disease Expo: No Recent Hopitalizations: No Immunizations Up To Date Tetanus Booster (TDap): More than 5yrs Date of Pneumonia Vaccine: Jun 18, 2016 Date of Influenza Vaccine: Jun 18, 2016 Seasonal Allergies Seasonal Allergies: No Surgeries HX Surgeries: Yes (PILONIDAL CYST SURGERY (SEVERAL), CYST FROM HAND and breast , KNEE SURG X2,) Surgeries: Breast, Hysterectomy, Orthopedic, 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 Respiratory Hx Respiratory Disorders: Yes Respiratory Disorders: Pneumonia Cardiovascular Hx Cardiac Disorders: Yes (HEART RACES AT TIMES) Neurological Hx Neurological Disorders: Yes (DIABETIC NEUROPATHY IN HANDS ) Neurological Disorders: Neuropathy Reproductive System Hx Reproductive Disorders: No (FIBRIODS) Sexually Transmitted Disease: No HIV/AIDS: No Female Reproductive Disorders: Menstrual Problems, Ovarian Cyst 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, 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 Genitourinary Hx Genitourinary Disorders: Yes (CYST ON KIDNEY ) Genitourinary Disorders: UTI-Chronic Gastrointestinal Hx Gastrointestinal Disorders: Yes (OCC-TAKES TUMS) Gastrointestinal Disorders: Gastroesophageal Reflux Musculoskeletal Hx Musculoskeletal Disorders: No Endocrine Hx Endocrine Disorders: Yes Endocrine Disorders: Diabetes, Insulin dep HEENT HX ENT Disorders: Yes (READING GLASSES) Loss of Vision: Bilateral Hearing Impairment: Denies Cancer Hx Cancer: Yes (LEEP PROCEDURE IN OFFICE) Cancer: Cervical Psychosocial Hx Psychiatric Problems: Yes Behavioral Health Disorders: Sleep Difficulties, Anxiety, Depression Integumentary HX Skin/Integumentary Disorder: Yes (DIABETIC SORE ON LEG ) Blood Transfusions Hx Blood Disorders: No Adverse Reaction to a Blood Tr: No Family Medical History Significant Family History: Cancer Family Medial History: Cardiovascular disease 19 FATHER Completed stroke GRANDMOTHER FH: brain cancer GRANDFATHER High cholesterol 19 MOTHER Thyroid disease 19 MOTHER Physical Exam Vital Signs VS - Last 72 Hours, by Label 11/17/16 13:28 Temp 97.6 Pulse 120 Resp 20 B/P 133/78 Pulse Ox 98 O2 Delivery Room Air Capillary Refill : Less Than 3 Seconds General Appearance: WD/WN moderate distress HEENT: PERRL/EOMI normal ENT inspection Neck: normal inspection Respiratory: lungs clear normal breath sounds no respiratory distress no accessory muscle use Cardiovascular: no edema no murmur tachycardia Gastrointestinal: normal bowel sounds soft rebound tenderness other (positive Rovsing's) Extremities: normal inspection no pedal edema Pelvic: other (labial surfaces are erythematous, swollen, and tender. Condylomas noted in the region of the introitus. Vaginal mucosa is tender. There is purulent and watery drainage mixed in the vaginal vault. Vaginal cuff is deep and not fully visualized.) Neurologic/Psychiatric: rfid developer II-XII nml as tested no motor/sensory deficits alert normal mood/affect oriented x 3 Skin: normal color warm/dry Progress/Results/Core Measures Results/Orders Lab Results Laboratory Tests Test 11/17/16 13:50 11/17/16 14:30 11/17/16 16:12 Range/Units Alanine Aminotransferase (ALT/SGPT) 15 0-55 U/L Albumin 3.5 3.2-4.5 G/DL Alkaline Phosphatase 76 40-136 U/L Anion Gap 12 5-14 MMOL/L Aspartate Amino Transf (AST/SGOT) 19 5-34 U/L BUN/Creatinine Ratio 18 Band Neutrophils 7 % Basophils # (Auto) 0.0 0.0-0.1 10^3/uL Basophils % (Manual) 0 % Basophils (%) (Auto) 0 0-10 % Blood Morphology Comment NORMAL Blood Urea Nitrogen 16 7-18 MG/DL Calcium Level 8.6 8.5-10.1 MG/DL Carbon Dioxide Level 21 21-32 MMOL/L Chloride Level 101 98-107 MMOL/L Creatinine 0.91 0.60-1.30 MG/DL Eosinophils # (Auto) 0.0 0.0-0.3 10^3/uL Eosinophils % (Manual) 0 % Eosinophils (%) (Auto) 0 0-10 % Estimat Glomerular Filtration Rate > 60 Glucose Level 239 H 70-105 MG/DL Hematocrit 45 35-52 % Hemoglobin 14.9 11.5-16.0 G/DL Lymphocytes # (Auto) 1.7 1.0-4.0 X 10^3 Lymphocytes % (Manual) 9 % Lymphocytes (%) (Auto) 9 L 12-44 % Mean Corpuscular Hemoglobin 29 25-34 PG Mean Corpuscular Hemoglobin Concent 34 32-36 G/DL Mean Corpuscular Volume 86 80-99 FL Mean Platelet Volume 10.9 H 7.4-10.4 FL Monocytes # (Auto) 1.2 H 0.0-1.0 X 10^3 Monocytes % (Manual) 4 % Monocytes (%) (Auto) 7 0-12 % Neutrophils # (Auto) 15.2 H 1.8-7.8 X 10^3 Neutrophils % (Manual) 80 % Neutrophils (%) (Auto) 84 H 42-75 % Platelet Count 218 130-400 10^3/uL Potassium Level 4.3 3.6-5.0 MMOL/L Red Blood Count 5.19 4.35-5.85 10^6/uL Red Cell Distribution Width 14.0 10.0-14.5 % Sodium Level 134 L 135-145 MMOL/L Total Bilirubin 0.4 0.1-1.0 MG/DL Total Protein 6.3 L 6.4-8.2 G/DL White Blood Count 18.2 H 4.3-11.0 10^3/uL Urine Bacteria TRACE NONE /HPF Urine Bilirubin 1+ H NEGATIVE NEGATIVE Urine Casts NONE NONE /LPF Urine Clarity VERY CLOUDY H CLEAR Urine Color MAHESH H YELLOW Urine Crystals NONE NONE /LPF Urine Culture Indicated NO NO Urine Glucose (UA) NEGATIVE 3+ H NEGATIVE Urine Ketones 3+ H 3+ H NEGATIVE Urine Leukocyte Esterase 3+ H NEGATIVE NEGATIVE Urine Mucus SMALL H NEGATIVE /LPF Urine Nitrite NEGATIVE NEGATIVE NEGATIVE Urine Protein 3+ H 2+ H NEGATIVE Urine RBC 10-25 H NONE /HPF Urine RBC (Auto) 5+ H NEGATIVE NEGATIVE Urine Specific Blain 1.020 1.010 L 1.016-1.022 Urine Squamous Epithelial Cells TNTC H 5-10 /HPF Urine Urobilinogen NORMAL NORMAL NORMAL MG/DL Urine WBC 25-50 H NONE /HPF Urine pH 5 5 5-9 My Orders Orders-RICK MORE MD Ua Culture If Indicated (11/17/16 13:05) Cbc With Automated Diff (11/17/16 13:35) Comprehensive Metabolic Panel (11/17/16 13:35) Saline Lock/Iv-Start (11/17/16 13:35) Ns Iv 1000 Ml (Sodium Chloride 0.9%) (11/17/16 13:35) Fentanyl Injection (Sublimaze Injection (11/17/16 13:45) Ondansetron Injection (Zofran Injectio (11/17/16 13:45) Manual Differential (11/17/16 13:50) Ct Abd/Pelv W (Appendicitis) (11/17/16 14:57) Iohexol Injection (Omnipaque 350 Mg/Ml 1 (11/17/16 15:00) Ns (Ivpb) (Sodium Chloride 0.9% Ivpb Bag (11/17/16 15:00) Ua Culture If Indicated (11/17/16 15:48) Wet Prep (11/17/16 16:29) Neisseria Gonorrhea Dna (11/17/16 16:29) Chlamydia Dna (11/17/16 16:29) Genital Culture (11/17/16 16:29) Nadia Prep (11/17/16 16:29) Virus Culture (11/17/16 16:29) Abdomen/Kub 1view (11/17/16 17:05) Ampicillin/Sulbactam Injection (Unasyn 3 (11/17/16 17:15) Medications Given in ED Current Medications Medications Dose Ordered Sig/Florencio Route Start Time Stop Time Status Last Admin Dose Admin Ampicillin Sodium/ Sulbactam Sodium/ Sodium Chloride 100 ml @ 200 mls/hr ONCE ONCE IV 3/6/17 17:15 11/17/16 17:44 DC 11/17/16 17:27 200 MLS/HR Fentanyl Citrate 75 mcg ONCE ONCE IVP 11/17/16 13:45 11/17/16 13:46 DC 11/17/16 13:50 75 MCG Iohexol 100 ml ONCE ONCE IV 11/17/16 15:00 11/17/16 15:33 DC 11/17/16 15:07 100 ML Ondansetron HCl 4 mg ONCE ONCE IVP 11/17/16 13:45 11/17/16 13:46 DC 11/17/16 13:50 4 MG Sodium Chloride 1,000 ml @ 0 mls/hr Q0M ONCE IV 11/17/16 13:35 11/17/16 13:37 DC 11/17/16 13:51 0 MLS/HR Sodium Chloride 100 ml 100 ml ONCE ONCE IV 11/17/16 15:00 11/17/16 15:33 DC 11/17/16 15:07 80 ML Vital Signs/I&O Vital Sign - Last 12Hours 11/17/16 13:28 Temp 97.6 Pulse 120 Resp 20 B/P 133/78 Pulse Ox 98 O2 Delivery Room Air Blood Pressure Mean: 96 Progress Note #1: Time: 14:50 Progress Note Patient was treated with fentanyl 75 g IV. Zofran was given for nausea. A liter of IV fluids was administered. Urine showed a significant amount of WBC and RBC. However, there were many squamous cells as well. CT of the abdomen and pelvis with contrast will be ordered to evaluate for appendicitis, pyelonephritis, and ureteral stone. Progress Note #2: Time: 15:51 Progress Note Unfortunately, the CT scan showed nonspecific findings of inflammation around the bladder and small bowel with no specific etiology identified. Urine also was abnormal but fairly nonspecific. There are numerous wbc and rbc contaminated with squamous cells. Plan at this point is to try to clarify these findings by performing a pelvic exam and obtaining a urine specimen by straight catheter. Plan was communicated to patient and she is agreeable. Pain is still relatively well controlled after fentanyl. Progress Note #3: Time: 17:25 Progress Note Patient is technically septic because of SIRS criteria being met with leukocytosis and initial heart rate of 120. Repeat UA with straight catheter clarified that there is no urinary tract infection. Case was discussed with Dr. HELM. There is concern that her vaginal cuff may have not healed properly after hysterectomy due to her diabetes. There may be a communication between the vaginal cuff and the pelvis. This could lead to a PID type of infection. He recommends admission with antibiotic coverage to include Unasyn and Flagyl. We will also use acyclovir for possible herpetic infection as there is significant erythema, pain, and irritation of the labia. Vaginal swabs were collected during pelvic exam. There were white blood cells but no Trichomonas, yeast, or clue cells. A viral culture of the labia and vagina was also collected. Unasyn is being initiated in the emergency room. Dr. EHLM also requested a KUB to ensure there is no extravasation of contrast from the bladder. Bladder appeared normal on the KUB. Diagnostic Imaging Diagonstic Imaging: CT Plain Films/CT/US/NM/MRI: abdomen, pelvis Comments CT abdomen and pelvis viewed by me and report reviewed. See report below: NAME: FANY CAAL [facility] REC#: [id number] PT STATUS: REG ER : 1970 PHYSICIAN: RICK MORE MD ADMIT DATE: 11/17/16/ER Draft Date of Exam:11/17/16 CT ABD/PELV W (APPENDICITIS) PROCEDURE: CT abdomen and pelvis with contrast, rule out appendicitis. TECHNIQUE: Multiple contiguous axial images were obtained through the abdomen and pelvis after the administration of intravenous contrast. INDICATION: Vomiting, right lower quadrant pain for 1 day. COMPARISON: 10/13/2016. DISCUSSION: The visualized lung bases are unremarkable. Normal heart size. No pleural or pericardial fluid. Small hiatal hernia is again noted. The gallbladder, liver, pancreas, spleen, adrenal glands, and left kidney are unremarkable. 2 mm nonobstructing right renal calculus is noted. 1 cm right renal cyst, likely benign. No hydronephrosis. Postsurgical changes of previous hysterectomy. There are marked inflammatory changes now present within the pelvis primarily involving the adjacent small bowel and the bladder. Findings are nonspecific could be seen with a postoperative inflammatory process or infection, Crohn's disease, or a combination of enteritis and cystitis. Recommend clinical correlation. There is no drainable loculated fluid or abscess identified at this time. Trace free fluid is noted within the pelvis, likely reactive in nature. No obstruction, pneumatosis, or pneumoperitoneum. Mild constipation. The appendix is normal. No acute osseous abnormality. IMPRESSION: 1. Marked inflammatory changes are noted within the pelvis in the setting of hysterectomy. Multiple small bowel loops and the adjacent bladder are significantly inflamed and thickwalled. Etiology is indeterminate, recommend clinical correlation. No drainable fluid identified at this time. The appendix is normal. 2. Mild constipation. Dictated on workstation # [id number] Dict: 11/17/16 1529 Trans: 11/17/16 1537 [id number] Interpreted by: OFELIA ALBERTS MD Diagonstic Imaging: Xray Plain Films/CT/US/NM/MRI: abdomen, pelvis Comments KUB viewed by me and report reviewed. See report below: NAME: FANY CAAL [facility] REC#: [id number] PT STATUS: REG ER : 1970 PHYSICIAN: RICK MORE MD ADMIT DATE: 11/17/16/ER Draft Date of Exam:11/17/16 ABDOMEN/KUB 1VIEW INDICATION: Severe right-sided abdominal pain. DISCUSSION: Single view of the abdomen was obtained, comparison with CT from the same date. Constipation is noted. Contrast is noted within the collecting system and bladder from previous CT. No acute osseous abnormality. No evidence of pneumatosis or pneumoperitoneum on this supine exam. IMPRESSION: 1. Constipation. Dictated on workstation # [id number] Dict: 11/17/16 1712 Trans: 11/17/16 1714 RAJI [id number] Interpreted by: OFELIA ALBERTS MD Departure Communication Time/Spoke to Admitting Phy: 16:[address] HELM Time/Spoke to Consulting Physi: 17:05 Communication/Consulting Dr. Powell Impression Impression: Primary Impression: Sepsis Qualified Code: A41.9 - Sepsis, unspecified organism Additional Impressions: PID (acute pelvic inflammatory disease) Abdominal pain Qualified Code: R10.30 - Lower abdominal pain, unspecified Leukocytosis Qualified Code: D72.829 - Elevated white blood cell count, unspecified Nausea and vomiting Qualified Code: R11.2 - Nausea with vomiting, unspecified Type I diabetes mellitus Qualified Code: E10.8 - Type 1 diabetes mellitus with unspecified complications Disposition: ADMITTED INPATIENT Condition: Improved Decision to Admit Reason: Admit from ER (General) Decision to Admit/Date: Nov 17, 2016 Time/Decision to Admit Time: 16:45 Departure-Patient Inst. Referrals: BETTE RUSH DO (PCP/Family) Primary Care Physician RICK MORE MD Nov 17, 2016 14:59
[2016-11-17] MEDS ORDERED: NS 100 ML (IVPB) BAG IV ONE (15:00)
[2016-11-17] MEDS ORDERED: IOHEXOL 350 MG/ML 100 ML (OMNIPAQUE 350) VIAL IV ONE (15:00)
--- NOTE | 2016-11-17 15:37 | Diagnostic Imaging Report ---
PROCEDURE: CT abdomen and pelvis with contrast, rule out appendicitis. TECHNIQUE: Multiple contiguous axial images were obtained through the abdomen and pelvis after the administration of intravenous contrast. INDICATION: Vomiting, right lower quadrant pain for 1 day. COMPARISON: 10/13/2016. DISCUSSION: The visualized lung bases are unremarkable. Normal heart size. No pleural or pericardial fluid. Small hiatal hernia is again noted. The gallbladder, liver, pancreas, spleen, adrenal glands, and left kidney are unremarkable. 2 mm nonobstructing right renal calculus is noted. 1 cm right renal cyst, likely benign. No hydronephrosis. Postsurgical changes of previous hysterectomy. There are marked inflammatory changes now present within the pelvis primarily involving the adjacent small bowel and the bladder. Findings are nonspecific could be seen with a postoperative inflammatory process or infection, Crohn's disease, or a combination of enteritis and cystitis. Recommend clinical correlation. There is no drainable loculated fluid or abscess identified at this time. Trace free fluid is noted within the pelvis, likely reactive in nature. No obstruction, pneumatosis, or pneumoperitoneum. Mild constipation. The appendix is normal. No acute osseous abnormality. IMPRESSION: 1. Marked inflammatory changes are noted within the pelvis in the setting of hysterectomy. Multiple small bowel loops and the adjacent bladder are significantly inflamed and thickwalled. Etiology is indeterminate, recommend clinical correlation. No drainable fluid identified at this time. The appendix is normal. 2. Mild constipation. Dictated by: Dictated on workstation # [id number]
[2016-11-17 16:25] LABS: BILIRUBIN,URINE NEGATIVE (NEGATIVE); KETONES,URINE 3+ (NEGATIVE); LEUKOCYTE ESTERASE ,URINE NEGATIVE (NEGATIVE); NITRITE,URINE NEGATIVE (NEGATIVE); PH,URINE 5 (5-9); PROTEIN,URINE 2+ (NEGATIVE); UROBILINOGEN,URINE NORMAL (NORMAL)
[2016-11-17] MEDS ORDERED: AMPICILLIN/SULBACTAM INJECTION 3 GM in NS (IVPB) 100 ML IV ONE (17:15)
--- NOTE | 2016-11-17 17:15 | Diagnostic Imaging Report ---
INDICATION: Severe right-sided abdominal pain. DISCUSSION: Single view of the abdomen was obtained, comparison with CT from the same date. Constipation is noted. Contrast is noted within the collecting system and bladder from previous CT. No acute osseous abnormality. No evidence of pneumatosis or pneumoperitoneum on this supine exam. IMPRESSION: 1. Constipation. Dictated by: Dictated on workstation # [id number]
[2016-11-17] MEDS ORDERED: NS IV 1000 ML 1,000 ML ONE (18:13)
[2016-11-17 18:21] VITALS: BP 102/65
[2016-11-17] MEDS ORDERED: NS IV 1000 ML 1,000 ML IV SCH (18:30)
[2016-11-17] MEDS ORDERED: HYDROcodone/APAP 5 MG/325 MG (LORTAB) TAB PO PRN (18:30)
[2016-11-17] MEDS ORDERED: fentaNYL INJECTION 100 MCG/2 ML AMP IVP PRN (18:30)
[2016-11-17] MEDS ORDERED: ONDANSETRON 4 MG/2 ML (SDV) Z0FRAN IVP PRN (18:30)
[2016-11-17] MEDS ORDERED: ONDANSETRON 4 MG/2 ML (SDV) Z0FRAN IV PRN (19:00)
[2016-11-17] MEDS ORDERED: fentaNYL INJECTION 100 MCG/2 ML AMP IV PRN (19:00)
[2016-11-17] MEDS ORDERED: CATHETER FLUSH 10 ML SYR IV PRN (19:00)
[2016-11-17] MEDS ORDERED: inSUlin (REGULAR) HUMAN 1 UNIT/0.01 ML (CHARGE PER UNIT) SC SCH (19:30)
[2016-11-17] MEDS: HYDROcodone/APAP 5 MG/325 MG (LORTAB) TAB PO PRN ×2 (19:41→23:54)
[2016-11-17] MEDS ORDERED: CLIN300C11 PO (19:45)
[2016-11-17 19:50] VITALS: BP 114/67
[2016-11-17] MEDS: metroNIDAZOLE 500MG/100ML IVPB 100 ML IV SCH (20:45)
[2016-11-17] MEDS: inSUlin DETERMIR 1 UNIT/0.01 ML (LEVEMIR) CHARGE PER UNIT SQ SCH (20:45)
[2016-11-17] MEDS: ACYCLOVIR 400 MG TABLET (ZOVIRAX) PO SCH (20:56)
[2016-11-17] MEDS ORDERED: ACYCLOVIR 400 MG TABLET (ZOVIRAX) PO SCH (21:00)
[2016-11-17] MEDS ORDERED: metroNIDAZOLE 500MG/100ML IVPB 100 ML IV SCH (22:00)
[2016-11-17] MEDS: AMPICILLIN/SULBACTAM 3 GM/NS 100 ML IVPB IV SCH ×2 (23:47)
[2016-11-17 23:50] VITALS: BP 105/62
[2016-11-18] MEDS ORDERED: AMPICILLIN/SULBACTAM INJECTION 3 GM in NS (IVPB) 100 ML IV SCH ×2
[2016-11-18] MEDS: NS IV 1000 ML 1,000 ML IV SCH ×3 (02:10→18:02)
[2016-11-18 05:00] VITALS: BP 102/63
[2016-11-18] MEDS: metroNIDAZOLE 500MG/100ML IVPB 100 ML IV SCH ×3 (05:10→22:39)
[2016-11-18] MEDS: AMPICILLIN/SULBACTAM 3 GM/NS 100 ML IVPB IV SCH ×6 (05:50→22:09)
[2016-11-18 06:05] LABS: BASOPHILS % (AUTO) 0 % (0-10); EOSINOPHILS # (AUTO) 0.1 10^3/uL (0.0-0.3); EOSINOPHILS % (AUTO) 1 % (0-10); LYMPHOCYTES # (AUTO) 2.5 X 10^3 (1.0-4.0); LYMPHOCYTES % (AUTO) 19 % (12-44); MEAN CORPUSCULAR HEMOGLOBIN 29 PG (25-34); MEAN CORPUSCULAR HGB CONC 33 G/DL (32-36); MEAN CORPUSCULAR VOLUME 87 FL (80-99); MEAN PLATELET VOLUME 10.4 FL (7.4-10.4); MONOCYTES # (AUTO) 1.1 X 10^3 (0.0-1.0); MONOCYTES % (AUTO) 9 % (0-12); NEUTROPHILS # (AUTO) 9.6 X 10^3 (1.8-7.8); NEUTROPHILS % (AUTO) 72 % (42-75); PLATELET COUNT 186 10^3/uL (130-400); RED BLOOD COUNT 4.35 10^6/uL (4.35-5.85); RED CELL DISTRIBUTION WIDTH 13.9 % (10.0-14.5); WHITE BLOOD COUNT 13.3 10^3/uL (4.3-11.0)
[2016-11-18 06:56] LABS: ALANINE AMINOTRANSFERASE 10 U/L (0-55); ALBUMIN 3.1 G/DL (3.2-4.5); ANION GAP 9 MMOL/L (5-14); ASPARTATE AMINO TRANSFERASE 13 U/L (5-34); BILIRUBIN,TOTAL 0.3 MG/DL (0.1-1.0); BLOOD UREA NITROGEN 7 MG/DL (7-18); BUN/CREATININE RATIO 11; CARBON DIOXIDE 20 MMOL/L (21-32); CHLORIDE 108 MMOL/L (98-107); CREATININE SERUM 0.63 MG/DL (0.60-1.30); GFR ESTIMATED > 60; POTASSIUM 3.9 MMOL/L (3.6-5.0); SODIUM 137 MMOL/L (135-145); TOTAL PROTEIN 5.4 G/DL (6.4-8.2)
[2016-11-18] MEDS: HYDROcodone/APAP 5 MG/325 MG (LORTAB) TAB PO PRN ×3 (06:57→15:57)
[2016-11-18 07:09] LABS: GLUCOSE 44 MG/DL (70-105)
[2016-11-18 07:44] VITALS: BP 116/66
--- NOTE | 2016-11-18 08:57 | History & Physical-OB/GYN ---
History of Present Illness History of Present Illness Reason for visit/HPI This 46-year-old female presented to the emergency department with severe lower abdominal pain. The patient reports having intercourse on November 16 and after this slowly developed worsening progressive lower abdominal pain. She is also noticed watery discharge in her underwear yesterday morning. Emergency room physician evaluated the patient and there was purulent discharge noted in the vagina. Cultures were taken of this white blood cells are positive. CT was ordered and the patient was admitted on IV antibiotics. Choice of Unasyn and Flagyl was used CT showed diffuse pelvic inflammation but no loculated mass or abscess. This morning patient reports she is feeling better as far as the pain goes however "has a stomach ache". Her blood sugar this morning was 46, but she was nothing by mouth overnight and was allowed to eat after seeing lab results this morning. Date of Admission Nov 17, 2016 at 5:46 pm I consulted on this patient on 11/18/16 08:52 Attending Physician Lay Helm DO Admitting Physician Alexandro Jones DO Consult Allergies and Home Medications Allergies Coded Allergies: codeine (Verified Allergy, Intermediate, HIVES (PATIENT HAS RECEIVED LORTAB IN THE PAST), 07/10/16) Home Medications Alprazolam 0.25 Mg Tablet 0.25 MG PO HS PRN PRN ANXIETY (Reported) Clindamycin HCl 300 Mg Capsule 300 MG PO TID (Reported) Diazepam 10 Mg Tablet 10 MG PO HS PRN PRN ANXIETY (Reported) Ibuprofen 600 Mg Tablet #80 600 MG PO Q6H PRN PRN PAIN Prescribed by: LAY HELM on 07/10/16 0917 Insulin Aspart 10 Unit/0.1 Ml Susp 0 SC UD (Reported) sliding scale Insulin Glargine,Hum.rec.anlog 100 Unit/1 Ml Cartridge 15 UNIT SQ BID (Reported ) Past Nlygkcw-Jtvblc-Orhstr Hx Patient Social History Alcohol Use: Occasionally Uses Recreational Drug Use: No Smoking Status: Current Everyday Smoker Type Used: Cigarettes 2nd Hand Smoke Exposure: No Recent Foreign Travel: No Contact w/other who traveled: No Recent Hopitalizations: No Recent Infectious Disease Expo: No Immunizations Up To Date Tetanus Booster (TDap): More than 5yrs Date of Pneumonia Vaccine: Jun 19, 2016 Date of Influenza Vaccine: Jun 19, 2016 Seasonal Allergies Seasonal Allergies: No Surgeries HX Surgeries: Yes (PILONIDAL CYST SURGERY (SEVERAL), CYST FROM HAND and breast , KNEE SURG X2,) Surgeries: Breast, Hysterectomy, Orthopedic, 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 Respiratory Hx Respiratory Disorders: Yes Cardiovascular Hx Cardiovascular Disorders: Yes (HEART RACES AT TIMES) Neurological Hx Neurological Disorders: Yes (DIABETIC NEUROPATHY IN HANDS ) Neurological Disorders: Neuropathy Reproductive System Hx Reproductive Disorders: No (FIBRIODS) Sexually Transmitted Disease: No HIV/AIDS: No Female Reproductive Disorders: Menstrual Problems, Ovarian Cyst Genitourinary Hx Genitourinary Disorders: Yes (CYST ON KIDNEY ) Genitourinary Disorders: UTI-Chronic Gastrointestinal Hx Gastrointestinal Disorders: Yes (OCC-TAKES TUMS) Gastrointestinal Disorders: Gastroesophageal Reflux Musculoskeletal Hx Musculoskeletal Disorders: No Endocrine Hx Endocrine Disorders: Yes Endocrine Disorders: Diabetes, Insulin dep HEENT HX ENT Disorders: Yes (READING GLASSES) Loss of Vision: Bilateral Hearing Impairment: Denies Cancer Hx Cancer: Yes (LEEP PROCEDURE IN OFFICE) Cancer: Cervical Psychosocial Hx Psychiatric Problems: Yes Behavioral Health Disorders: Sleep Difficulties, Anxiety, Depression Integumentary HX Skin/Integumentary Disorder: Yes (DIABETIC SORE ON LEG ) Blood Transfusions Hx Blood Disorders: No Adverse Reaction to a Blood Tr: No Family Medical History Significant Family History: Cancer Family Hx: Cardiovascular disease 19 FATHER Completed stroke GRANDMOTHER FH: brain cancer GRANDFATHER High cholesterol 19 MOTHER Thyroid disease 19 MOTHER Constitutional: malaise EENTM: see HPI Respiratory: see HPI Cardiovascular: see HPI Gastrointestinal: see HPI Genitourinary: see HPI Musculoskeletal: see HPI Skin: see HPI Psychiatric/Neurological: See HPI All Other Systems Reviewed Negative Unless Noted: Yes Physical Exam Physical Exam Vital Signs Vital Signs Date Time Temp Pulse Resp B/P Pulse Ox O2 Delivery O2 Flow Rate FiO2 11/18/16 07:44 98.2 80 18 116/66 96 Room Air 11/18/16 05:00 98.4 73 18 102/63 98 Room Air 11/17/16 23:50 97.4 64 18 105/62 96 Room Air 11/17/16 19:50 98.4 79 18 114/67 99 Room Air 11/17/16 18:21 98.6 70 18 102/65 97 Room Air 11/17/16 18:01 97.6 95 16 98 11/17/16 13:28 97.6 120 20 133/78 98 Room Air I & O 11/18/16 07:00 Intake Total 1800 ml Balance 1800 ml Capillary Refill : Less Than 3 Seconds Labs Laboratory Tests 11/17/16 13:50: Alanine Aminotransferase (ALT/SGPT) 15, Albumin 3.5, Alkaline Phosphatase 76, Anion Gap 12, Aspartate Amino Transf (AST/SGOT) 19, BUN/Creatinine Ratio 18, Band Neutrophils 7, Basophils # (Auto) 0.0, Basophils % (Manual) 0, Basophils (% ) (Auto) 0, Blood Morphology Comment NORMAL, Blood Urea Nitrogen 16, Calcium Level 8.6, Carbon Dioxide Level 21, Chloride Level 101, Creatinine 0.91, Eosinophils # (Auto) 0.0, Eosinophils % (Manual) 0, Eosinophils (%) (Auto) 0, Estimat Glomerular Filtration Rate > 60, Glucose Level 239H, Hematocrit 45, Hemoglobin 14.9, Lymphocytes # (Auto) 1.7, Lymphocytes % (Manual) 9, Lymphocytes (%) (Auto) 9L, Mean Corpuscular Hemoglobin 29, Mean Corpuscular Hemoglobin Concent 34, Mean Corpuscular Volume 86, Mean Platelet Volume 10.9H, Monocytes # (Auto) 1.2H, Monocytes % (Manual) 4, Monocytes (%) (Auto) 7, Neutrophils # (Auto) 15.2H, Neutrophils % (Manual) 80, Neutrophils (%) (Auto) 84H, Platelet Count 218, Potassium Level 4.3, Red Blood Count 5.19, Red Cell Distribution Width 14.0, Sodium Level 134L, Total Bilirubin 0.4, Total Protein 6.3L, White Blood Count 18.2H 11/17/16 14:30: Urine Bacteria TRACE, Urine Bilirubin 1+H, Urine Casts NONE, Urine Clarity VERY CLOUDYH, Urine Color AMBERH, Urine Crystals NONE, Urine Culture Indicated NO, Urine Glucose (UA) NEGATIVE, Urine Ketones 3+H, Urine Leukocyte Esterase 3+H, Urine Mucus SMALLH, Urine Nitrite NEGATIVE, Urine Protein 3+H, Urine RBC 10-25H , Urine RBC (Auto) 5+H, Urine Specific [place] 1.020, Urine Squamous Epithelial Cells TNTCH, Urine Urobilinogen NORMAL, Urine WBC 25-50H, Urine pH 5 11/17/16 16:12: Urine Bacteria NONE, Urine Bilirubin NEGATIVE, Urine Casts NONE, Urine Clarity CLEAR, Urine Color YELLOW, Urine Crystals NONE, Urine Culture Indicated NO, Urine Glucose (UA) 3+H, Urine Ketones 3+H, Urine Leukocyte Esterase NEGATIVE, Urine Mucus NEGATIVE, Urine Nitrite NEGATIVE, Urine Protein 2+H, Urine RBC NONE , Urine RBC (Auto) NEGATIVE, Urine Specific [place] 1.010L, Urine Squamous Epithelial Cells 5-10, Urine Urobilinogen NORMAL, Urine WBC NONE, Urine pH 5 11/17/16 19:59: Glucometer 205H 11/18/16 05:45: Alanine Aminotransferase (ALT/SGPT) 10, Albumin 3.1L, Alkaline Phosphatase 61, Anion Gap 9, Aspartate Amino Transf (AST/SGOT) 13, BUN/Creatinine Ratio 11, Basophils # (Auto) 0.0, Basophils (%) (Auto) 0, Blood Urea Nitrogen 7, Calcium Level 8.0L, Carbon Dioxide Level 20L, Chloride Level 108H, Creatinine 0.63, Eosinophils # (Auto) 0.1, Eosinophils (%) (Auto) 1, Estimat Glomerular Filtration Rate > 60, Glucose Level 44*L, Hematocrit 38, Hemoglobin 12.5, Lymphocytes # (Auto) 2.5, Lymphocytes (%) (Auto) 19, Mean Corpuscular Hemoglobin 29, Mean Corpuscular Hemoglobin Concent 33, Mean Corpuscular Volume 87, Mean Platelet Volume 10.4, Monocytes # (Auto) 1.1H, Monocytes (%) (Auto) 9, Neutrophils # (Auto) 9.6H, Neutrophils (%) (Auto) 72, Platelet Count 186, Potassium Level 3.9, Red Blood Count 4.35, Red Cell Distribution Width 13.9, Sodium Level 137, Total Bilirubin 0.3, Total Protein 5.4L, White Blood Count 13.3H 11/18/16 06:53: Glucometer 78 11/18/16 08:28: Glucometer 120H General Appearance: No Apparent Distress, WD/WN Respiratory: Chest Non Tender Cardiovascular: Regular Rate, Rhythm Abdominal: normal bowel sounds Pelvic Exam: deferred Assessment/Plan Assessment and Plan Plan: I intend to continue IV new Rx for 24 hours and reevaluate the patient was CT tomorrow morning if improvement on CT exam as far as inflammation of the pelvis a plan on seeing the patient home on oral antibiotics for a two-week regimen and following up in the office for further pelvic examination. The patient was given strict instructions about pelvic rest going forward. I also discussed the patient once again her blood sugar control, and tobacco use increasing her risk for infection and healing delay. Admission Diagnosis Diagnosis: 42-year-old female with pelvic inflammatory disease- diffuse inflammation of the pelvis seems to be responding to IV antibiotics. Acute leukocytosis improving Uncontrolled insulin-dependent diabetic- likelihood for increased risk of infection Tobacco use Clinical Quality Measures DVT/VTE Risk/Contraindication: VTE Present on Admission: No RFS Level Per Nursing on Admit: 2=Moderate LAY HELM DO Nov 18, 2016 8:57 am
[2016-11-18] MEDS: inSUlin DETERMIR 1 UNIT/0.01 ML (LEVEMIR) CHARGE PER UNIT SQ SCH ×2 (09:17→20:18)
[2016-11-18] MEDS: ACYCLOVIR 400 MG TABLET (ZOVIRAX) PO SCH ×3 (09:59→20:18)
--- NOTE | 2016-11-18 11:56 | Consultation-Hospitalist ---
HPI History of Present Illness: HPI/Chief Complaint Mrs. Arreguin is an admittedly poorly controlled type I diabetic who noted the onset of lower pelvic pain oriented toward the right following sexual relations Thursday. She's had varying degrees for the past 6 weeks but he got progressively worse with loss of appetite and increasing intensity. She initially presented to the emergency room on 13 October with similar symptoms on pelvic examination had findings compatible with bacterial vaginosis and was given metronidazole with initial improvement in symptoms. Her Chlamydia and DNA probes at that time were negative she did reportedly have a moderate number of clue cells. She denies night sweats chills fever or dysuria but did note leaking vaginally that she did not feel was urine. She underwent hysterectomy and reported left salpingo-oophorectomy in June for" cysts" .she reports poor diabetic control for many years due to fear of hypoglycemia. She is good about taking 15 units of Levemir twice a day but does not take bolus insulin if she perceives that her meal contains no carbohydrates. It is not uncommon for her to have blood sugars over 300 for which she will rarely take more than 6 units of insulin for fear of bottoming out. Her A1c's over the past year range from 9.2-11. Diabetic complications include peripheral neuropathy and there is report in past record of mild retinopathy. She denies any past need for laser therapy. She denies any known history of nephropathy. He does have a history of frequent vaginal yeast infections and candiduria. Date Seen 11/18/16 Attending Physician Carlos Saha DO PCP Alexandro Jones DO Referring Physician Date of Admission Nov 18, 2016 at 10:29 Home Medications & Allergies Home Medications Reviewed patient Home Medication Reconciliation Form Allergies Coded Allergies: codeine (Verified Allergy, Intermediate, HIVES (PATIENT HAS RECEIVED LORTAB IN THE PAST), 07/10/16) Past Gbffafp-Ezgqnq-Tyjanv Hx Patient Social History Alcohol Use: Occasionally Uses Recreational Drug Use: No Smoking Status: Current Everyday Smoker Type Used: Cigarettes 2nd Hand Smoke Exposure: No Recent Foreign Travel: No Contact w/other who traveled: No Recent Hopitalizations: No Recent Infectious Disease Expo: No Immunizations Up To Date Tetanus Booster (TDap): More than 5yrs Date of Pneumonia Vaccine: Jun 19, 2016 Date of Influenza Vaccine: Jun 19, 2016 Seasonal Allergies Seasonal Allergies: No Surgeries HX Surgeries: Yes (PILONIDAL CYST SURGERY (SEVERAL), CYST FROM HAND and breast , KNEE SURG X2,) Surgeries: Breast, Hysterectomy, Orthopedic, 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 Respiratory Hx Respiratory Disorders: Yes Cardiovascular Hx Cardiovascular Disorders: Yes (HEART RACES AT TIMES) Neurological Hx Neurological Disorders: Yes (DIABETIC NEUROPATHY IN HANDS ) Neurological Disorders: Neuropathy Reproductive System Hx Reproductive Disorders: No (FIBRIODS) Sexually Transmitted Disease: No HIV/AIDS: No Female Reproductive Disorders: Menstrual Problems, Ovarian Cyst Genitourinary Hx Genitourinary Disorders: Yes (CYST ON KIDNEY ) Genitourinary Disorders: UTI-Chronic Gastrointestinal Hx Gastrointestinal Disorders: Yes (OCC-TAKES TUMS) Gastrointestinal Disorders: Gastroesophageal Reflux Musculoskeletal Hx Musculoskeletal Disorders: No Endocrine Hx Endocrine Disorders: Yes Endocrine Disorders: Diabetes, Insulin dep HEENT HX ENT Disorders: Yes (READING GLASSES) Loss of Vision: Bilateral Hearing Impairment: Denies Cancer Hx Cancer: Yes (LEEP PROCEDURE IN OFFICE) Cancer: Cervical Psychosocial Hx Psychiatric Problems: Yes Behavioral Health Disorders: Sleep Difficulties, Anxiety, Depression Integumentary HX Skin/Integumentary Disorder: Yes (DIABETIC SORE ON LEG ) Blood Transfusions Hx Blood Disorders: No Adverse Reaction to a Blood Tr: No Family Medical History Significant Family History: Cancer Family Hx: Cardiovascular disease 19 FATHER Completed stroke GRANDMOTHER FH: brain cancer GRANDFATHER High cholesterol 19 MOTHER Thyroid disease 19 MOTHER Review of Systems Constitutional: see HPI malaise weakness Physical Exam Physical Exam Vital Signs Vital Sign - Last 12Hours 11/17/16 13:28 Temp 97.6 Pulse 120 Resp 20 B/P 133/78 Pulse Ox 98 O2 Delivery Room Air Capillary Refill : Less Than 3 Seconds General Appearance: Anxious Mild Distress Respiratory: Lungs Clear Normal Breath Sounds No Accessory Muscle Use No Respiratory Distress Cardiovascular: Regular Rate, Rhythm No Edema No Gallop No JVD No Murmur Normal Peripheral Pulses Gastrointestinal: Normal Bowel Sounds No Organomegaly Soft Other (I lateral lower quadrant abdominal pain to palpation right greater than left there is guarding in both lower quadrants of the abdomen. No mass or organomegaly is noted. The patient also has some left upper quadrant discomfort to palpation. No rebound is noted. No abdominal distention is noted.) Extremity: Normal Capillary Refill Non Tender No Calf Tenderness Other ( bandage on left ankle where there is a small inflammatory papule it is reportedly been biopsied with no evidence for malignancy there is no drainage on the bandage and she denies past history of drainage) Neurologic/Psychiatric: Alert Oriented x3 Skin: Normal Color Warm/Dry Comments Laboratory Tests 11/17/16 13:50: Alanine Aminotransferase (ALT/SGPT) 15, Albumin 3.5, Alkaline Phosphatase 76, Anion Gap 12, Aspartate Amino Transf (AST/SGOT) 19, BUN/Creatinine Ratio 18, Band Neutrophils 7, Basophils # (Auto) 0.0, Basophils % (Manual) 0, Basophils (% ) (Auto) 0, Blood Morphology Comment NORMAL, Blood Urea Nitrogen 16, Calcium Level 8.6, Carbon Dioxide Level 21, Chloride Level 101, Creatinine 0.91, Eosinophils # (Auto) 0.0, Eosinophils % (Manual) 0, Eosinophils (%) (Auto) 0, Estimat Glomerular Filtration Rate > 60, Glucose Level 239H, Hematocrit 45, Hemoglobin 14.9, Lymphocytes # (Auto) 1.7, Lymphocytes % (Manual) 9, Lymphocytes (%) (Auto) 9L, Mean Corpuscular Hemoglobin 29, Mean Corpuscular Hemoglobin Concent 34, Mean Corpuscular Volume 86, Mean Platelet Volume 10.9H, Monocytes # (Auto) 1.2H, Monocytes % (Manual) 4, Monocytes (%) (Auto) 7, Neutrophils # (Auto) 15.2H, Neutrophils % (Manual) 80, Neutrophils (%) (Auto) 84H, Platelet Count 218, Potassium Level 4.3, Red Blood Count 5.19, Red Cell Distribution Width 14.0, Sodium Level 134L, Total Bilirubin 0.4, Total Protein 6.3L, White Blood Count 18.2H 11/17/16 14:30: Urine Bacteria TRACE, Urine Bilirubin 1+H, Urine Casts NONE, Urine Clarity VERY CLOUDYH, Urine Color AMBERH, Urine Crystals NONE, Urine Culture Indicated NO, Urine Glucose (UA) NEGATIVE, Urine Ketones 3+H, Urine Leukocyte Esterase 3+H, Urine Mucus SMALLH, Urine Nitrite NEGATIVE, Urine Protein 3+H, Urine RBC 10-25H , Urine RBC (Auto) 5+H, Urine Specific [place] 1.020, Urine Squamous Epithelial Cells TNTCH, Urine Urobilinogen NORMAL, Urine WBC 25-50H, Urine pH 5 11/17/16 16:12: Urine Bacteria NONE, Urine Bilirubin NEGATIVE, Urine Casts NONE, Urine Clarity CLEAR, Urine Color YELLOW, Urine Crystals NONE, Urine Culture Indicated NO, Urine Glucose (UA) 3+H, Urine Ketones 3+H, Urine Leukocyte Esterase NEGATIVE, Urine Mucus NEGATIVE, Urine Nitrite NEGATIVE, Urine Protein 2+H, Urine RBC NONE , Urine RBC (Auto) NEGATIVE, Urine Specific [place] 1.010L, Urine Squamous Epithelial Cells 5-10, Urine Urobilinogen NORMAL, Urine WBC NONE, Urine pH 5 11/17/16 19:59: Glucometer 205H 11/18/16 05:45: Alanine Aminotransferase (ALT/SGPT) 10, Albumin 3.1L, Alkaline Phosphatase 61, Anion Gap 9, Aspartate Amino Transf (AST/SGOT) 13, BUN/Creatinine Ratio 11, Basophils # (Auto) 0.0, Basophils (%) (Auto) 0, Blood Urea Nitrogen 7, Calcium Level 8.0L, Carbon Dioxide Level 20L, Chloride Level 108H, Creatinine 0.63, Eosinophils # (Auto) 0.1, Eosinophils (%) (Auto) 1, Estimat Glomerular Filtration Rate > 60, Glucose Level 44*L, Hematocrit 38, Hemoglobin 12.5, Lymphocytes # (Auto) 2.5, Lymphocytes (%) (Auto) 19, Mean Corpuscular Hemoglobin 29, Mean Corpuscular Hemoglobin Concent 33, Mean Corpuscular Volume 87, Mean Platelet Volume 10.4, Monocytes # (Auto) 1.1H, Monocytes (%) (Auto) 9, Neutrophils # (Auto) 9.6H, Neutrophils (%) (Auto) 72, Platelet Count 186, Potassium Level 3.9, Red Blood Count 4.35, Red Cell Distribution Width 13.9, Sodium Level 137, Total Bilirubin 0.3, Total Protein 5.4L, White Blood Count 13.3H 11/18/16 06:53: Glucometer 78 11/18/16 08:28: Glucometer 120H Results Results/Procedures Lab Laboratory Tests 11/17/16 13:50 11/18/16 05:45 Assessment/Plan Admission Diagnosis 1. Essential pelvic inflammatory disease with sepsis not severe. There is likely communication with the vaginal cuff aggravated by bacterial vaginosis and mechanical trauma. A gram-negative etiology is likely considering the patient was on clindamycin for gum disease ongoing over the past week. The patient is responding to current antibiotic therapy. We discussed the fact that all this is aggravated by poor diabetic control as is her chronic vaginal yeast infection and candiduria not to mention retinopathy and neuropathy. We will initiate low-dose bolus insulin before meals. Considering that her ongoing diabetic control is likely to be poor and that we are most likely dealing with a gram-negative infection would ere on a longer course of IV antibiotics pending repeat scan results (minimum 3 days under best case scenario). We'll continue to follow with you sincerely Binu Petersen M.D. Clinical Quality Measures DVT/VTE Risk/Contraindication: VTE Present on Admission: No RFS Level Per Nursing on Admit: 2=Moderate BINU PETERSEN MD Nov 18, 2016 11:56
[2016-11-18 13:15] VITALS: BP 113/67
[2016-11-18] MEDS ORDERED: IBUPROFEN 600 MG (MOTRIN) TAB PO ONE (14:19)
[2016-11-18 17:40] VITALS: BP 125/67
[2016-11-18] MEDS: inSUlin ASPART (NovoLOG) 1 UNIT/0.01 ML (CHARGE PER UNIT) SC SCH (18:02)
[2016-11-18 20:15] VITALS: BP 106/59
[2016-11-18] MEDS: IBUPROFEN 600 MG (MOTRIN) TAB PO SCH (20:18)
[2016-11-18 23:52] VITALS: BP 103/60
[2016-11-19] MEDS: NS IV 1000 ML 1,000 ML IV SCH ×2 (01:50→09:41)
[2016-11-19 03:00] VITALS: BP 110/66
[2016-11-19] MEDS: IBUPROFEN 600 MG (MOTRIN) TAB PO SCH ×3 (03:06→15:08)
[2016-11-19] MEDS: AMPICILLIN/SULBACTAM 3 GM/NS 100 ML IVPB IV SCH ×6 (04:35→16:15)
[2016-11-19] MEDS: metroNIDAZOLE 500MG/100ML IVPB 100 ML IV SCH (06:07)
[2016-11-19 06:14] LABS: BASOPHILS % (AUTO) 0 % (0-10); EOSINOPHILS # (AUTO) 0.1 10^3/uL (0.0-0.3); EOSINOPHILS % (AUTO) 1 % (0-10); LYMPHOCYTES # (AUTO) 1.9 X 10^3 (1.0-4.0); LYMPHOCYTES % (AUTO) 27 % (12-44); MEAN CORPUSCULAR HEMOGLOBIN 29 PG (25-34); MEAN CORPUSCULAR HGB CONC 32 G/DL (32-36); MEAN CORPUSCULAR VOLUME 89 FL (80-99); MEAN PLATELET VOLUME 11.1 FL (7.4-10.4); MONOCYTES # (AUTO) 0.4 X 10^3 (0.0-1.0); MONOCYTES % (AUTO) 6 % (0-12); NEUTROPHILS # (AUTO) 4.6 X 10^3 (1.8-7.8); NEUTROPHILS % (AUTO) 65 % (42-75); PLATELET COUNT 160 10^3/uL (130-400); RED BLOOD COUNT 4.02 10^6/uL (4.35-5.85); RED CELL DISTRIBUTION WIDTH 13.9 % (10.0-14.5)
[2016-11-19 07:11] LABS: ALANINE AMINOTRANSFERASE 9 U/L (0-55); ALBUMIN 2.8 G/DL (3.2-4.5); ANION GAP 7 MMOL/L (5-14); ASPARTATE AMINO TRANSFERASE 12 U/L (5-34); BILIRUBIN,TOTAL 0.2 MG/DL (0.1-1.0); BLOOD UREA NITROGEN 8 MG/DL (7-18); BUN/CREATININE RATIO 12; CALCIUM 7.7 MG/DL (8.5-10.1); CARBON DIOXIDE 20 MMOL/L (21-32); CHLORIDE 112 MMOL/L (98-107); CREATININE SERUM 0.65 MG/DL (0.60-1.30); GFR ESTIMATED > 60; GLUCOSE 125 MG/DL (70-105); POTASSIUM 3.7 MMOL/L (3.6-5.0); SODIUM 139 MMOL/L (135-145); TOTAL PROTEIN 5.1 G/DL (6.4-8.2)
[2016-11-19] MEDS ORDERED: IOHEXOL 350 MG/ML 100 ML (OMNIPAQUE 350) VIAL IV ONE (07:15)
[2016-11-19] MEDS ORDERED: CATHETER FLUSH 10 ML SYR IV PRN (07:15)
[2016-11-19] MEDS ORDERED: NS 100 ML (IVPB) BAG IV ONE (07:15)
[2016-11-19] MEDS: inSUlin DETERMIR 1 UNIT/0.01 ML (LEVEMIR) CHARGE PER UNIT SQ SCH (08:50)
[2016-11-19] MEDS: ACYCLOVIR 400 MG TABLET (ZOVIRAX) PO SCH (08:50)
[2016-11-19 08:55] VITALS: BP 123/70
[2016-11-19] MEDS ORDERED: AMOX-358 PO (11:05)
[2016-11-19] MEDS ORDERED: FLUC150T PO (11:05)
[2016-11-19] MEDS ORDERED: METR500T21 PO (11:05)
--- NOTE | 2016-11-19 11:08 | Discharge Inst-Women's Service ---
Discharge Inst-Women's Serv Depart Medication/Instructions New, Converted or Re-Newed RX: RX on Chart Consults/Follow Up Additional Follow Up: Yes Activity Activity: Activity as Tolerated Driving Instructions: No Driving for 1 Week NO SMOKING: NO SMOKING Nothing Inside Vagina: No Douching, No [place], No Tampons Diet Discharge Diet: ADA Diet Symptoms to Report to : Bleeding Excessive, Pain Increased, Fever Over 101 Degrees F, Vaginal Bleeding Increase, Questions/Concerns For Any Problems or Questions: Contact Your Physician Skin/Wound Care Bathing Instructions: Shower (x 2 weeks) LAY HELM DO Nov 19, 2016 11:08 am
--- NOTE | 2016-11-19 11:19 | Progress Note-Standard ---
Standard Progress Note Progress Notes/Assess & Plan Progress/Assessment & Plan Patient continues to improve this morning on current antibiotic regimen. Reports no more vaginal discharge and pelvic discomfort is better. She is having difficulty passing BM. Vital Sign - Last 24 Hours 11/18/16 11/18/16 11/18/16 11/18/16 13:15 17:40 20:15 23:52 Temp 98.8 98.9 97.5 98.0 Pulse 74 68 57 85 Resp 18 18 18 18 B/P 113/67 125/67 106/59 103/60 Pulse Ox 96 98 97 95 O2 Delivery Room Air Room Air Room Air Room Air 11/19/16 11/19/16 03:00 08:55 Temp 98.2 97.4 Pulse 60 61 Resp 18 18 B/P 110/66 123/70 Pulse Ox 96 93 O2 Delivery Room Air Room Air Intake and Output 11/18/16 11/18/16 11/19/16 14:59 22:59 06:59 Intake Total 1000 ml Balance 1000 ml Intake and Output 11/18/16 23:59 Intake Total 1700 ml Balance 1700 ml Intake Oral 700 ml IV Total 1000 ml # Voids 6 Laboratory Tests Test 11/18/16 12:06 11/18/16 14:23 11/18/16 20:14 11/19/16 05:25 Range/Units Glucometer 113 H 112 H 135 H 70-110 MG/DL Alanine Aminotransferase (ALT/SGPT) 9 0-55 U/L Albumin 2.8 L 3.2-4.5 G/DL Alkaline Phosphatase 73 40-136 U/L Anion Gap 7 5-14 MMOL/L Aspartate Amino Transf (AST/SGOT) 12 5-34 U/L BUN/Creatinine Ratio 12 Basophils # (Auto) 0.0 0.0-0.1 10^3/uL Basophils (%) (Auto) 0 0-10 % Blood Urea Nitrogen 8 7-18 MG/DL Calcium Level 7.7 L 8.5-10.1 MG/DL Carbon Dioxide Level 20 L 21-32 MMOL/L Chloride Level 112 H 98-107 MMOL/L Creatinine 0.65 0.60-1.30 MG/DL Eosinophils # (Auto) 0.1 0.0-0.3 10^3/uL Eosinophils (%) (Auto) 1 0-10 % Estimat Glomerular Filtration Rate > 60 Glucose Level 125 H 70-105 MG/DL Hematocrit 36 35-52 % Hemoglobin 11.5 11.5-16.0 G/DL Lymphocytes # (Auto) 1.9 1.0-4.0 X 10^3 Lymphocytes (%) (Auto) 27 12-44 % Mean Corpuscular Hemoglobin 29 25-34 PG Mean Corpuscular Hemoglobin Concent 32 32-36 G/DL Mean Corpuscular Volume 89 80-99 FL Mean Platelet Volume 11.1 H 7.4-10.4 FL Monocytes # (Auto) 0.4 0.0-1.0 X 10^3 Monocytes (%) (Auto) 6 0-12 % Neutrophils # (Auto) 4.6 1.8-7.8 X 10^3 Neutrophils (%) (Auto) 65 42-75 % Platelet Count 160 130-400 10^3/uL Potassium Level 3.7 3.6-5.0 MMOL/L Red Blood Count 4.02 L 4.35-5.85 10^6/uL Red Cell Distribution Width 13.9 10.0-14.5 % Sodium Level 139 135-145 MMOL/L Total Bilirubin 0.2 0.1-1.0 MG/DL Total Protein 5.1 L 6.4-8.2 G/DL White Blood Count 7.0 4.3-11.0 10^3/uL Test 11/19/16 06:09 11/19/16 09:10 11/19/16 10:45 Range/Units Glucometer 108 173 H 70-110 MG/DL Abd: soft/ mild supra pubic tenderness. No rebound or guarding Diagnosis: PID- improving as far as decrease in WBC and patient's clinical presentation. Requesting dc home DM- Seems to be much better controlled since hospital admission, patient seems more motivated to control. Mild atelectasis on CT Constipation P: Continue antibiotic regimen, if dc later today will continue on 2 weeks of flagyl and augmentin Continue insulin regimen and diet IS ordered for patient Encourage ambulation Stool softeners ordered and fluid intake. LAY HELM DO Nov 19, 2016 11:19 am
--- NOTE | 2016-11-19 11:33 | Diagnostic Imaging Report ---
PROCEDURE: CT abdomen and pelvis with and without contrast. TECHNIQUE: Precontrast acquisitions were acquired through the abdomen and pelvis. Multiple contiguous axial images were obtained through the abdomen and pelvis after the administration of intravenous contrast. INDICATION: Pelvic pain. COMPARISON: By history, the patient has had a recent hysterectomy. The CT abdomen/pelvis exam performed on 11/17/2016 noted marked inflammatory changes involving the pelvis. These are felt to be related to the patient's recent hysterectomy. There did appear to be edema/inflammation of several segments of small bowel low in the pelvis in the region of the hysterectomy site. There is no sign of bowel obstruction. The bladder wall also seemed slightly thickened. There was no drainable abscess visualized either. FINDINGS: On this exam, those findings are again evident and do not seem to have changed significantly. There are two small (1.4 x 1.6 cm and 1.2 x 2.0 cm) well-circumscribed areas of low density low in the pelvis just to the right of midline. There is another area of low density in the left pelvis measuring 0.9 x 1.6 cm. These may represent small infected fluid collections. These are unchanged in size or appearance when compared to the prior study. In the interval since the previous study, some fluid has developed about the gallbladder. There is no sign of cholelithiasis or acute cholecystitis but if further evaluation of the gallbladder is desired, then ultrasound would be recommended. The liver, spleen, pancreas, adrenals, kidneys, aorta and inferior vena cava are unremarkable for an acute abnormality. The stomach is filled with particulate matter and fluid consequently difficult to assess. There is also a considerable amount of fecal material throughout the ascending and transverse colon. This finding is similar to the prior study. In the interval since the previous study, mild bibasilar atelectasis/pneumonia and small bilateral pleural effusions have developed. The bone windows show no evidence for fracture or for destructive lesion. IMPRESSION: 1. The postsurgical changes involving the pelvis seen previously are again evident and no different. There are a few small fluid collections low in the pelvis in the operative site. These may be infected. There is no evidence for mature abscess and the small suspected infected fluid collections have not changed significantly since the prior exam. 2. There is still edema of the wall of the small bowel low in the pelvis and there is still slight thickening of the wall in the bladder. 3. Some fluid has developed about the gallbladder. There is still no evidence for cholelithiasis or acute cholecystitis but if further imaging is desired, then ultrasound would be recommended. 4. Mild bibasilar atelectasis/infiltrate and small bilateral pleural effusions are now evident. These results were discussed with Dr. Saha. Dictated by: Dictated on workstation # [id number]
[2016-11-19] MEDS: inSUlin ASPART (NovoLOG) 1 UNIT/0.01 ML (CHARGE PER UNIT) SC SCH (12:51)
[2016-11-19 12:52] VITALS: BP_SYST 123; BP_SYST 136; BP_DIAS 70; BP_DIAS 73
[2016-11-19] MEDS ORDERED: metroNIDAZOLE 500 MG (FLAGYL) TAB PO SCH (14:00)
[2016-11-19 16:54] VITALS: BP 137/76
--- NOTE | 2016-11-19 17:19 | Progress Note-Hospitalist ---
Subjective HPI/CC On Admission Mrs. Arreguin is an admittedly poorly controlled type I diabetic who noted the onset of lower pelvic pain oriented toward the right following sexual relations Thursday night. She's had varying degrees for the past 6 weeks but he got progressively worse with loss of appetite and increasing intensity. She initially presented to the emergency room on 13 October with similar symptoms on pelvic examination had findings compatible with bacterial vaginosis and was given metronidazole with initial improvement in symptoms. Her Chlamydia and DNA probes at that time were negative she did reportedly have a moderate number of clue cells. She denies night sweats chills fever or dysuria but did note leaking vaginally that she did not feel was urine. She underwent hysterectomy and reported left salpingo-oophorectomy in June for" cysts" .she reports poor diabetic control for many years due to fear of hypoglycemia. She is good about taking 15 units of Levemir twice a day but does not take bolus insulin if she perceives that her meal contains no carbohydrates. It is not uncommon for her to have blood sugars over 300 for which she will rarely take more than 6 units of insulin for fear of bottoming out. Her A1c's over the past year range from 9.2-11. Diabetic complications include peripheral neuropathy and there is report in past record of mild retinopathy. She denies any past need for laser therapy. She denies any known history of nephropathy. He does have a history of frequent vaginal yeast infections and candiduria. Date Seen 11/19/16 Subjective/Events-last exam Patient reports pelvic pain is moderating. She denies nausea or vomiting and has had no chills or fever. She is adamant about going home. She promises that she will do better about diabetic control and taking her bolus insulin. Objective Exam Vital Signs Vital Sign - Last 12Hours 11/17/16 13:28 Temp 97.6 Pulse 120 Resp 20 B/P 133/78 Pulse Ox 98 O2 Delivery Room Air Capillary Refill : Less Than 3 Seconds General Appearance: No Apparent Distress Anxious Respiratory: Chest Non Tender Lungs Clear Normal Breath Sounds No Accessory Muscle Use No Respiratory Distress Cardiovascular: Regular Rate, Rhythm No Edema No Gallop No JVD No Murmur Normal Peripheral Pulses Gastrointestinal: Normal Bowel Sounds No Organomegaly Soft Other (L bilateral lower quadrant abdominal discomfort palpation is less than yesterday right greater than left no rebound or guarding is noted.) Results/Procedures Lab Laboratory Tests 11/19/16 05:25 Assessment/Plan Assessment and Plan Assess & Plan/Chief Complaint 1. Pelvic infection probable gram-negative etiology clinically responding. The patient is afebrile white count has returned to normal and pain is diminishing. CT findings are lagging clinical response. The patient was warned that there was possibility of of infectious exacerbation leaving too early and that that would be the risks she takes. She will at least a 4 afternoon dose of IV antibiotics. She will abstain from sexual relations until okayed by Dr. HELM. 2. Type I diabetes mellitus poorly controlled due to noncompliance with bolus insulin therapy. Patient states that she will start taking at least 2 units of of NovoLog before her low heart meals and will need higher doses for carbohydrate containing meals. She was told to check her blood sugar 2 hours after meals to see if she is taking enough insulin with a goal of trying to keep to our postprandial sugars below 160 and a follow-up with Dr. Jones in several weeks bringing her blood sugar logs. BINU BUTLER MD Nov 19, 2016 17:19
== END 2016-11-19 17:15 | disposition home or self-care (01) | DRG 759 ==
LOC: EDUNIT# 13:03 → ER 13:05 → UNDOADMOB 17:46 → WS 17:46 → INTOOBSV 11-18 10:29 → OBSVTOIN 11-18 10:29 → UNDODISIN 11-19 17:15
PROVIDERS: ADMIT Obstetrics & Gynecology; ATTEND Obstetrics & Gynecology
DX: N73.0 Acute parametritis and pelvic cellulitis (principal); E10.65 Type 1 diabetes mellitus with hyperglycemia; E10.40 Type 1 diabetes mellitus with diabetic neuropathy, unspecified; E10.319 Type 1 diabetes mellitus with unspecified diabetic retinopathy without macular edema; F17.210 Nicotine dependence, cigarettes, uncomplicated; K59.00 Constipation, unspecified; Z91.14 Patient's other noncompliance with medication regimen; Z79.4 Long term (current) use of insulin
CPT/HCPCS: 36415; 74000; 74177; 74178; 80053; 81000; 82962; 85007; 85025; 85027; 87070; 87210; 87220; 87252; 87491; 87591; 94664; 96361; 96365; 96375

== ENCOUNTER → 2018-06-01 | Outpatient (CLI) | payer BC ==
[~2018-06-01] MED LIST changes: +AMOX-358 PO; +CLIN300C11 PO; +FLUC150T PO; +HYDR-34 PO; -HYDR-3816 PO; +HYDR-4226 PO; -HYDR-757 PO; -SPIR50TA2 PO; +SPIR50TA4 PO
--- NOTE | 2018-06-01 13:25 | Diagnostic Imaging Report ---
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 Time of exam: 11:59 AM Frontal and lateral views of the tibia and fibula were obtained. Note is made of the most distal aspect of the tibia and fibula are not included on the AP radiograph. The included portions of the tibia and fibula appear intact. No definite osseous erosion or bony obstructive changes are seen. No definite soft tissue gas is identified. No fractures are identified. Impression: No acute feature identified. Called to [place] at 1:24 p.m. by cvb. Dictated by: Dictated on workstation # [id number]
== END ==
LOC: RAD 11:19
PROVIDERS: ATTEND Nurse Practitioner Family
DX: E11.622 Type 2 diabetes mellitus with other skin ulcer (principal); L97.828 Non-pressure chronic ulcer of other part of left lower leg with other specified severity; L02.416 Cutaneous abscess of left lower limb
CPT/HCPCS: 73590

== ENCOUNTER → 2018-06-09 | Outpatient (CLI) | payer BC | LOC: WOUNDCARE 09:08 | PROVIDERS: ATTEND Surgery | DX: L92.1 Necrobiosis lipoidica, not elsewhere classified (principal); I89.0 Lymphedema, not elsewhere classified; E10.65 Type 1 diabetes mellitus with hyperglycemia | CPT/HCPCS: 99213 ==

== ENCOUNTER → 2018-09-13 | Day surgery (SDC) | payer BC ==
[~2018-09-13] VITALS: Ht 165.1 cm; Wt 79.8 kg
[~2018-09-13] MED LIST changes: +LIDOCAINE 1% INJ 20 ML 20 ML VIAL ONE; +METR-197 PO; -METR500T21 PO
--- OUTSIDE RECORDS SUMMARY | 2018-09-13 09:49 | XMS REPORT ---
Author Author BRADEN GREWAL [facility] Address Unknown Care Team Providers Care Cataract Lens Generator Name Role Phone BRADEN GREWAL Unavailable PROBLEMS Type Condition ICD9-CM Code [id number] Code Onset Dates Condition Status SNOMED Code Problem Need for prophylactic vaccination and inoculation, Influenza V04.81 Active 065704981 ALLERGIES Substance Reaction Event Type Date Status Codiene Unknown Non Drug Allergy Apr, Active ENCOUNTERS Encounter Location Date Diagnosis [facility] [id number] [place] [id number] Apr, Dental examination Z01.20 and Dental caries K02.9 [facility] [address] [place] [phone] Apr, Dental examination Z01.20 and Dental caries K02.9 [facility] [id number] [id number] Jun, [facility] [id number] [id number] Jun, IMMUNIZATIONS No Known Immunizations SOCIAL HISTORY Never Assessed REASON FOR VISIT Extraction PLAN OF CARE Activity Details Follow Up prn Reason:nico/hygiene VITAL SIGNS Blood pressure systolic 151 mmHg 2018-05-13 Blood pressure diastolic 88 mmHg 2018-05-13 MEDICATIONS Medication Instructions Dosage Frequency Start Date End Date Duration Status Lantus Active NovoLog Active Valium Not-Taking Xanax Active Gabapentin Active Celebrex Active RESULTS No Results PROCEDURES Procedure Date Ordered Result Body Site LTD ORAL EVALUATION - PROBLEM FOCUS May 13, 2018 INTRAORL-PERIAPICAL 1 FILM [id number] May 13, 2018 EXTRAC ERUPTED TOOTH/EXPOSED ROOT May 13, 2018 BITEWING - SINGLE FILM May 13, 2018 INSTRUCTIONS MEDICATIONS ADMINISTERED No Known Medications MEDICAL (GENERAL) HISTORY Type Description Date Medical History Pneumonia Medical History Diabetes Type I Surgical History Hysterectomy 2016 Surgical History 2016
--- OUTSIDE RECORDS SUMMARY | 2018-09-13 09:49 | XMS REPORT ---
Author Author BRADEN GREWAL [facility] Address Unknown Care Team Providers Care Box Finisher Name Role Phone BRADEN GREWAL Unavailable PROBLEMS Type Condition ICD9-CM Code CSF42-CR Code Onset Dates Condition Status SNOMED Code Problem Need for prophylactic vaccination and inoculation, Influenza V04.81 Active [id number] ALLERGIES Substance Reaction Event Type Date Status Codiene Unknown Non Drug Allergy Apr, Active ENCOUNTERS Encounter Location Date Diagnosis [facility] [address], [place] [phone] Apr, Dental examination Z01.20 and Dental caries K02.9 [facility] [address] [phone] Jun, [facility] [address] [phone] Jun, IMMUNIZATIONS No Known Immunizations SOCIAL HISTORY Never Assessed REASON FOR VISIT irasema PLAN OF CARE Activity Details Follow Up prn Reason: VITAL SIGNS Blood pressure systolic 128 mmHg 2017-05-01 Blood pressure diastolic 77 mmHg 2017-05-01 MEDICATIONS Medication Instructions Dosage Frequency Start Date End Date Duration Status Xanax Active Lantus Active NovoLog Active Valium Active RESULTS No Results PROCEDURES Procedure Date Ordered Result Body Site LTD ORAL EVALUATION - PROBLEM FOCUS May 01, 2017 INTRAORL-PERIAPICAL 1 FILM [id number] May 01, 2017 BITEWING - SINGLE FILM May 01, 2017 INTRAORL-PERIAPICAL EA ADD FILM May 01, 2017 EXTRAC ERUPTED TOOTH/EXPOSED ROOT May 01, 2017 INSTRUCTIONS MEDICATIONS ADMINISTERED No Known Medications MEDICAL (GENERAL) HISTORY Type Description Date Medical History Pneumonia Medical History Diabetes Type I Surgical History Hysterectomy 2016 Surgical History 2016
--- OUTSIDE RECORDS SUMMARY | 2018-09-13 09:51 | XMS REPORT | Continuity of Care Document ---
Author Author [facility] Organization [facility] Address Unknown Phone Unavailable Allergies Active Description Code Type Severity Reaction Onset Reported/Identified Relationship to Patient Clinical Status Yes CODEINE SULFATE MODERATE OTHER Yes codeine [id number] Drug Allergy Unknown N/A 11/09/2014 Yes codeine [id number] Drug Allergy Moderate HIVES 07/08/2016 Yes codeine [id number] Drug Allergy Moderate HIVES (PATIENT 07/10/2016 Medications Medication Packaging Start Date Stop Date Route Dosage Sig KETOROLAC VIAL INJ 30 MG/CC (TORADOL VIAL) MG 09/11/2017 09/11/2017 ONCE&1401 NORMAL SALINE 1000CC IV BAG INJ 0.9 % (NS 1000CC IV BAG) ml 09/11/2017 09/26/2017 CONTINUOUSEVERY 0 Hour FAMOTIDINE VIAL INJ 20 MG/2CC (PEPCID VIAL) MG 09/11/2017 09/11/2017 ONCE&1545 PANTOPAZOLE VIAL INJ 40 MG (PROTONIX IV) MG 09/11/2017 09/11/2017 ONCE&1545 GI COCKTAIL SINGLE DOSE LIQ (GRASSHOPPER) ML 09/11/2017 09/11/2017 ONCE&1620 Problems Date Dx Coded Attending Type Code Diagnosis Diagnosed By 07/11/2013 MANOJ REYES APRN V04.81 FLU SHOT 12/08/2013 PEÑA SPARKS MD Ot 250.01 DIAB CATHIE WO COMPL, TYPE I [JUVENILE TYP 12/08/2013 PEÑA SPARKS MD Ot V58.67 LONG-TERM (CURRENT) USE OF INSULIN 11/09/2014 IMELDA RUSHP Ot 782.3 11/09/2014 IMELDA RUSHP Ot 788.99 11/09/2014 Ot 276.51 DEHYDRATION 11/09/2014 Ot 487.1 FLU W RESP MANIFEST NEC 12/26/2014 IMELDA RUSH HOT REPAIRMAN Ot 256.4 12/26/2014 ADRIIMELDA HOT REPAIRMAN Ot 799.81 01/08/2015 ADRI IMELDA Rose HOT REPAIRMAN Ot 256.4 01/08/2015 ADRI IMELDA Rose HOT REPAIRMAN Ot 799.81 03/22/2015 Ot 620.2 03/22/2015 Ot 625.0 03/22/2015 Ot 789.04 03/22/2015 Ot 789.09 03/22/2015 ADRI IMELDA L HOT REPAIRMAN Ot 241.0 03/22/2015 ADRI IMELDA L HOT REPAIRMAN Ot 250.00 03/22/2015 ADRI IMELDA L HOT REPAIRMAN Ot 719.40 03/22/2015 ADRI IMELDA L HOT REPAIRMAN Ot 782.3 03/22/2015 ADRI IMELDA Rose HOT REPAIRMAN Ot 785.1 03/22/2015 ADRI IMELDA L HOT REPAIRMAN Ot E947.9 03/22/2015 ADRI IMELDA L HOT REPAIRMAN Ot 241.0 03/22/2015 ADRI IMELDA L HOT REPAIRMAN Ot V64.3 03/22/2015 ADRI IMELDA Rose HOT REPAIRMAN Ot 241.0 03/22/2015 BETTE RUSH DO Ot 250.00 03/22/2015 BETTE RUSH DO Ot 250.01 03/22/2015 BETTE RUSH DO Ot 382.9 03/22/2015 BETTE RUSH DO Ot 461.9 03/22/2015 BETTE RUSH DO Ot 780.60 03/22/2015 ADRI IMELDA L HOT REPAIRMAN Ot 782.3 03/22/2015 ADRI IMELDA L HOT REPAIRMAN Ot 788.99 03/22/2015 ADRI IMELDA L HOT REPAIRMAN Ot 256.4 03/22/2015 MACARIO RUSHRICIA L HOT REPAIRMAN Ot 799.81 03/22/2015 TENISHA ADAMS MD Ot 682.5 03/22/2015 SANJU RUSHIA L HOT REPAIRMAN Ot 256.4 03/22/2015 SANJU RUSHIA L HOT REPAIRMAN Ot 799.81 03/30/2015 TENISHA ADAMS MD Ot 682.5 04/05/2015 TENISHA ADAMS MD Ot 682.5 04/05/2015 IMELDA RUSH HOT REPAIRMAN Ot 256.4 04/05/2015 IMELDA RUSH HOT REPAIRMAN Ot 799.81 04/11/2015 IMELDA RUSH HOT REPAIRMAN Ot 256.4 04/11/2015 IMELDA RUSH HOT REPAIRMAN Ot 799.81 04/11/2015 TENISHA ADAMS MD Ot 682.5 04/16/2015 RICK MORE MD Ot 250.01 DIAB CATHIE WO COMPL, TYPE I [JUVENILE TYP 04/16/2015 RICK MORE MD Ot 599.0 URIN TRACT INFECTION NOS 04/16/2015 RICK MORE MD Ot V58.67 LONG-TERM (CURRENT) USE OF INSULIN 04/26/2015 TENISHA ADAMS MD Ot 250.00 DIAB CATHIE WO COMPL, TYPE II OR UNSPEC TY 04/26/2015 TENISHA ADAMS MD Ot 785.6 ENLARGEMENT LYMPH NODES 04/26/2015 TENISHA ADAMS MD Ot V58.67 LONG-TERM (CURRENT) USE OF INSULIN 05/07/2015 IMELDA RUSH HOT REPAIRMAN Ot 250.01 05/07/2015 IMELDA RUSH HOT REPAIRMAN Ot V58.69 05/07/2015 IMELDA RUSH HOT REPAIRMAN Ot 388.70 05/07/2015 IMELDA RUSH HOT REPAIRMAN Ot 785.6 05/11/2015 TENISHA ADAMS MD Ot 785.6 05/11/2015 TENISHA ADAMS MD Ot V72.63 05/11/2015 TENISHA ADAMS MD Ot V74.8 05/11/2015 KELLIE CANALES APRN Ot 250.60 DIAB W NEURO MANIFEST, TYPE II OR UNSPEC 05/11/2015 KELLIE CANALES APRN Ot 305.1 TOBACCO USE DISORDER 05/11/2015 KELLIE CANALES APRN Ot 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 05/11/2015 KELLIE CANALES APRN Ot 357.2 NEUROPATHY IN DIABETES 05/11/2015 CANALES, PETER J LOAN ASSISTANT Ot 682.1 CELLULITIS OF NECK 05/11/2015 KELLIE CANALES LOAN ASSISTANT Ot V58.67 LONG-TERM (CURRENT) USE OF INSULIN 05/11/2015 KELLIE CANALES LOAN ASSISTANT Ot V58.69 OT MED,LT,CURRENT USE 06/07/2015 TENISHA ADAMS MD Ot 682.0 07/19/2015 PEÑA SPARKS MD Ot E10.40 TYPE 1 DIABETES MELLITUS WITH DIABETIC N 07/19/2015 PEÑA SPARKS MD Ot R07.89 OTHER CHEST PAIN 07/19/2015 PEÑA SPARKS MD Ot Z91.19 PATIENT'S NONCOMPLIANCE W OT MEDICAL TR 08/15/2015 IMELDA RUSH HOT REPAIRMAN Ot R06.00 08/15/2015 IMELDA RUSH HOT REPAIRMAN Ot R09.89 08/15/2015 IMELDA RUSH HOT REPAIRMAN Ot R42 06/11/2016 Ot 620.2 OVARIAN CYST NEC/NOS 06/11/2016 Ot 625.0 DYSPAREUNIA 06/11/2016 Ot 789.04 ABDOMINAL PAIN, LEFT LOWER QUADRANT 06/11/2016 Ot 789.09 ABDOMINAL PAIN, OTHER SPECIFIED SITE 06/11/2016 IMELDA RUSH HOT REPAIRMAN Ot 241.0 NONTOX UNINODULAR GOITER 06/11/2016 IMELDA RUSH HOT REPAIRMAN Ot 250.00 DIAB CATHIE WO COMPL, TYPE II OR UNSPEC TY 06/11/2016 IMELDA RUSH HOT REPAIRMAN Ot 719.40 JOINT PAIN-UNSPEC 06/11/2016 IMELDA RUSH HOT REPAIRMAN Ot 782.3 EDEMA 06/11/2016 IMELDA RUSH HOT REPAIRMAN Ot 785.1 PALPITATIONS 06/11/2016 IMELDA RUSH HOT REPAIRMAN Ot E947.9 ADV EFF MEDICINAL NOS 06/11/2016 IMELDA RUSH HOT REPAIRMAN Ot 241.0 NONTOX UNINODULAR GOITER 06/11/2016 IMELDA RUSH HOT REPAIRMAN Ot V64.3 NO PROC FOR REASONS NEC 06/11/2016 IMELDA RUSH HOT REPAIRMAN Ot 241.0 NONTOX UNINODULAR GOITER 06/11/2016 BETTE RUSH DO Ot 250.00 DIAB CATHIE WO COMPL, TYPE II OR UNSPEC TY 06/11/2016 BETTE RUSH DO Ot 250.01 DIAB CATHIE WO COMPL, TYPE I [JUVENILE TYP 06/11/2016 BETTE RUSH DO Ot 382.9 OTITIS MEDIA NOS 06/11/2016 BETTE RUSH DO Ot 461.9 ACUTE SINUSITIS NOS 06/11/2016 BETTE RUSH DO Ot 780.60 FEVER, UNSPECIFIED 06/11/2016 IMELDA RUSH HOT REPAIRMAN Ot 782.3 EDEMA 06/11/2016 IMELDA RUSH HOT REPAIRMAN Ot 788.99 OTHER SYMPTOMS INVOLVING URINARY SYSTEM 06/11/2016 IMELDA RUSH HOT REPAIRMAN Ot 256.4 POLYCYSTIC OVARIES 06/11/2016 IMELDA RUSH HOT REPAIRMAN Ot 799.81 DECREASED LIBIDO 06/11/2016 TENISHA ADAMS MD Ot 682.5 CELLULITIS OF BUTTOCK 06/11/2016 IMELDA RUSH HOT REPAIRMAN Ot 250.01 DIAB CATHIE WO COMPL, TYPE I [JUVENILE TYP 06/11/2016 IMELDA RUSH HOT REPAIRMAN Ot V58.69 OTH MED,LT,CURRENT USE 06/11/2016 IMELDA RUSH HOT REPAIRMAN Ot 388.70 OTALGIA NOS 06/11/2016 IMELDA RUSH HOT REPAIRMAN Ot 785.6 ENLARGEMENT LYMPH NODES 06/11/2016 TENISHA ADAMS MD Ot 785.6 ENLARGEMENT LYMPH NODES 06/11/2016 TENISHA ADAMS MD Ot V72.63 PRE-PROCEDURAL LABORATORY EXAMINATION 06/11/2016 TENISHA ADAMS MD Ot V74.8 SCREEN-BACTERIAL DIS NEC 06/11/2016 TENISHA ADAMS MD Ot 682.0 CELLULITIS OF FACE 06/11/2016 IMELDA RUSH HOT REPAIRMAN Ot R06.00 DYSPNEA, UNSPECIFIED 06/11/2016 IMELDA RUSH HOT REPAIRMAN Ot R09.89 OTH SYMPTOMS AND SIGNS INVOLVING THE CIR 06/11/2016 IMELDA RUSH HOT REPAIRMAN Ot R42 DIZZINESS AND GIDDINESS 06/11/2016 BETTE RUSH DO Ot R07.9 CHEST PAIN, UNSPECIFIED 06/13/2016 RUSHIMELDA MC HOT REPAIRMAN Ot E28.2 POLYCYSTIC OVARIAN SYNDROME 06/13/2016 RUSHIMELDA MC HOT REPAIRMAN Ot R10.2 PELVIC AND PERINEAL PAIN 06/25/2016 IMELDA RUSH HOT REPAIRMAN Ot N20.0 CALCULUS OF KIDNEY 06/25/2016 IMELDA RUSH HOT REPAIRMAN Ot N85.2 HYPERTROPHY OF UTERUS 06/25/2016 RUSHIMELDA MC Rose HOT REPAIRMAN Ot R10.84 GENERALIZED ABDOMINAL PAIN 06/25/2016 URSHIMELDA MC L HOT REPAIRMAN Ot R19.09 OTHER INTRA-ABDOMINAL AND PELVIC SWELLIN 06/25/2016 RUSHIMELDA MC HOT REPAIRMAN Ot N20.0 CALCULUS OF KIDNEY 06/25/2016 RUHSIMELDA MC HOT REPAIRMAN Ot N85.2 HYPERTROPHY OF UTERUS 06/25/2016 RUSHIMELDA MC HOT REPAIRMAN Ot R10.84 GENERALIZED ABDOMINAL PAIN 06/25/2016 RUSHIMELDA MC HOT REPAIRMAN Ot R19.09 OTHER INTRA-ABDOMINAL AND PELVIC SWELLIN 06/25/2016 IMELDA RUSH HOT REPAIRMAN Ot E11.9 TYPE 2 DIABETES MELLITUS WITHOUT COMPLIC 06/25/2016 RUSHIMELDA MC HOT REPAIRMAN Ot E28.2 POLYCYSTIC OVARIAN SYNDROME 06/25/2016 RUSHIMELDA MC HOT REPAIRMAN Ot R10.2 PELVIC AND PERINEAL PAIN 07/03/2016 RUSHIMELDA MC HOT REPAIRMAN Ot N20.0 CALCULUS OF KIDNEY 07/03/2016 RUSHIMELDA MC Rose HOT REPAIRMAN Ot N85.2 HYPERTROPHY OF UTERUS 07/03/2016 RUSHIMELDA MC HOT REPAIRMAN Ot R10.84 GENERALIZED ABDOMINAL PAIN 07/03/2016 ADRIIMELDA HOT REPAIRMAN Ot R19.09 OTHER INTRA-ABDOMINAL AND PELVIC SWELLIN 07/08/2016 LAY HELM DO Ot R10.2 PELVIC AND PERINEAL PAIN 07/08/2016 LAY HELM DO Ot Z01.812 ENCOUNTER FOR PREPROCEDURAL LABORATORY E 07/08/2016 LAY HELM DO Ot Z11.2 ENCOUNTER FOR SCREENING FOR OTHER BACTER 07/09/2016 LAY HELM DO Ot R10.2 PELVIC AND PERINEAL PAIN 07/09/2016 LAY HELM DO Ot Z01.812 ENCOUNTER FOR PREPROCEDURAL LABORATORY E 07/09/2016 LAY HELM DO Ot Z11.2 ENCOUNTER FOR SCREENING FOR OTHER BACTER 07/11/2016 LAY HELM DO Ot 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 07/11/2016 LAY HELM DO Ot D25.1 INTRAMURAL LEIOMYOMA OF UTERUS 07/11/2016 LAY HELM DO Ot D25.2 SUBSEROSAL LEIOMYOMA OF UTERUS 07/11/2016 LAY HELM DO Ot D27.1 BENIGN NEOPLASM OF LEFT OVARY 07/11/2016 LAY HELM DO Ot N72 INFLAMMATORY DISEASE OF CERVIX UTERI 07/11/2016 LAY HELM DO Ot N83.202 UNSPECIFIED OVARIAN CYST, LEFT SIDE 07/14/2016 LAY HELM DO Ot 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 07/14/2016 LAY HELM DO Ot D25.1 INTRAMURAL LEIOMYOMA OF UTERUS 07/14/2016 LAY HELM DO Ot D25.2 SUBSEROSAL LEIOMYOMA OF UTERUS 07/14/2016 LAY HELM DO Ot D27.1 BENIGN NEOPLASM OF LEFT OVARY 07/14/2016 LAY HELM DO Ot N72 INFLAMMATORY DISEASE OF CERVIX UTERI 07/14/2016 LAY HELM DO Ot N83.202 UNSPECIFIED OVARIAN CYST, LEFT SIDE 07/14/2016 LAY HELM DO Ot 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 07/14/2016 LAY HELM DO Ot D25.1 INTRAMURAL LEIOMYOMA OF UTERUS 07/14/2016 LAY HELM DO Ot D25.2 SUBSEROSAL LEIOMYOMA OF UTERUS 07/14/2016 LAY HELM DO Ot D27.1 BENIGN NEOPLASM OF LEFT OVARY 07/14/2016 LAY HELM DO Ot N72 INFLAMMATORY DISEASE OF CERVIX UTERI 07/14/2016 LAY HELM DO Ot N83.202 UNSPECIFIED OVARIAN CYST, LEFT SIDE 07/17/2016 LAY HELM DO Ot 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 07/17/2016 LAY HELM DO Ot D25.1 INTRAMURAL LEIOMYOMA OF UTERUS 07/17/2016 LAY HELM DO Ot D25.2 SUBSEROSAL LEIOMYOMA OF UTERUS 07/17/2016 FENECH DO, LAY S Ot D27.1 BENIGN NEOPLASM OF LEFT OVARY 07/17/2016 FENECH DO, LAY Schuster Ot N72 INFLAMMATORY DISEASE OF CERVIX UTERI 07/17/2016 FENECH DO, LAY S Ot N83.202 UNSPECIFIED OVARIAN CYST, LEFT SIDE 07/21/2016 FENECH DO, LAY S Ot 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 07/21/2016 FENECH DO, LAY S Ot D25.1 INTRAMURAL LEIOMYOMA OF UTERUS 07/21/2016 FENECH DO, LAY S Ot D25.2 SUBSEROSAL LEIOMYOMA OF UTERUS 07/21/2016 FENECH DO, LAY S Ot D27.1 BENIGN NEOPLASM OF LEFT OVARY 07/21/2016 FENECH DO, LAY S Ot N72 INFLAMMATORY DISEASE OF CERVIX UTERI 07/21/2016 FENECH DO, LAY S Ot N83.202 UNSPECIFIED OVARIAN CYST, LEFT SIDE 10/13/2016 BETTE FARRIS DO, Ot E11.9 TYPE 2 DIABETES MELLITUS WITHOUT COMPLIC 10/13/2016 BETTE FARRIS DO, Ot F17.210 NICOTINE DEPENDENCE, CIGARETTES, UNCOMPL 10/13/2016 BETTE FARRIS DO, Ot N72 INFLAMMATORY DISEASE OF CERVIX UTERI 10/13/2016 BETTE FARRIS DO, Ot N76.0 ACUTE VAGINITIS 10/13/2016 BETTE FARRIS DO, Ot R10.2 PELVIC AND PERINEAL PAIN 10/13/2016 BETTE FARRIS DO, Ot 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 10/13/2016 BETTE FARRIS DO, Ot Z90.711 ACQUIRED ABSENCE OF UTERUS WITH REMAININ 10/14/2016 BETTE FARRIS DO, Ot E11.9 TYPE 2 DIABETES MELLITUS WITHOUT COMPLIC 10/14/2016 BETTE FARRIS DO Ot F17.210 NICOTINE DEPENDENCE, CIGARETTES, UNCOMPL 10/14/2016 BETTE FARRIS DO Ot N72 INFLAMMATORY DISEASE OF CERVIX UTERI 10/14/2016 BETTE FARRIS DO, Ot N76.0 ACUTE VAGINITIS 10/14/2016 BETTE FARRIS DO Ot R10.2 PELVIC AND PERINEAL PAIN 10/14/2016 BETTE FARRIS DO Ot 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 10/14/2016 BETTE FARRIS DO Ot Z90.711 ACQUIRED ABSENCE OF UTERUS WITH REMAININ 10/15/2016 BETTE FARRIS DO Ot E11.9 TYPE 2 DIABETES MELLITUS WITHOUT COMPLIC 10/15/2016 BETTE FARRIS DO Ot F17.210 NICOTINE DEPENDENCE, CIGARETTES, UNCOMPL 10/15/2016 BETTE FARRIS DO Ot N72 INFLAMMATORY DISEASE OF CERVIX UTERI 10/15/2016 BETTE FARRIS DO Ot N76.0 ACUTE VAGINITIS 10/15/2016 BETTE FARRIS DO Ot R10.2 PELVIC AND PERINEAL PAIN 10/15/2016 BETTE FARRIS DO Ot 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 10/15/2016 BETTE FARRIS DO, Ot Z90.711 ACQUIRED ABSENCE OF UTERUS WITH REMAININ 11/19/2016 LAY HELM DO Ot E10.319 TYPE 1 DIABETES W UNSP DIABETIC RTNOP 11/19/2016 LAY HELM DO Ot E10.40 TYPE 1 DIABETES MELLITUS WITH DIABETIC N 11/19/2016 LAY HELM DO Ot E10.65 TYPE 1 DIABETES MELLITUS WITH HYPERGLYCE 11/19/2016 LAY HELM DO Ot F17.210 NICOTINE DEPENDENCE, CIGARETTES, UNCOMPL 11/19/2016 LAY HELM DO Ot K59.00 CONSTIPATION, UNSPECIFIED 11/19/2016 LAY HELM DO Ot N73.0 ACUTE PARAMETRITIS AND PELVIC CELLULITIS 11/19/2016 LAY HELM DO Ot Z79.4 RETIREMENT (CURRENT) USE OF INSULIN 11/19/2016 LAY HELM DO Ot Z91.14 PATIENT'S OTHER NONCOMPLIANCE WITH MEDIC 11/27/2016 LAY HELM DO Ot E10.319 TYPE 1 DIABETES W UNSP DIABETIC RTNOP W11/27/2016 LAY HELM DO Ot E10.40 TYPE 1 DIABETES MELLITUS WITH DIABETIC N 11/27/2016 LAY HELM DO Ot E10.65 TYPE 1 DIABETES MELLITUS WITH HYPERGLYCE 11/27/2016 LAY HELM DO Ot F17.210 NICOTINE DEPENDENCE, CIGARETTES, UNCOMPL 11/27/2016 LAY HELM DO S Ot K59.00 CONSTIPATION, UNSPECIFIED 11/27/2016 LAY HELM DO S Ot N73.0 ACUTE PARAMETRITIS AND PELVIC CELLULITIS 11/27/2016 LAY HELM DO Ot Z79.4 RETIREMENT (CURRENT) USE OF INSULIN 11/27/2016 ALICJA SUTHERLAND LAY Schuster Ot Z91.14 PATIENT'S OTHER NONCOMPLIANCE WITH MEDIC 11/27/2016 ALICJA SUTHERLAND LAY Schuster Ot E10.319 TYPE 1 DIABETES W UNSP DIABETIC RTNOP W/ 11/27/2016 ALICJA SUTHERLAND LAY Schuster Ot E10.40 TYPE 1 DIABETES MELLITUS WITH DIABETIC N 11/27/2016 LAY HELM DO Ot E10.65 TYPE 1 DIABETES MELLITUS WITH HYPERGLYCE 11/27/2016 STANTONFLORENCE DO LAY Schuster Ot F17.210 NICOTINE DEPENDENCE, CIGARETTES, UNCOMPL 11/27/2016 ALICJA DO LAY Schsuter Ot K59.00 CONSTIPATION, UNSPECIFIED 11/27/2016 STANTONFLORENCE DO LAY Schuster Ot N73.0 ACUTE PARAMETRITIS AND PELVIC CELLULITIS 11/27/2016 ALICJA SUTHERLAND LAY Schuster Ot 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 11/27/2016 ALICJA SUTHERLAND LAY Schuster Ot Z91.14 PATIENT'S OTHER NONCOMPLIANCE WITH MEDIC 09/11/2017 Manjeet Smith 250.00 DIABETES MELLITUS WITHOUT MENTION OF COMPLICATION, TYPE II OR UNSPECIFIED TYPE, NOT STATED UNCONTROLLED 09/11/2017 Manjeet Smith 276.51 DEHYDRATION 09/11/2017 Manjeet Smith 535.00 ACUTE GASTRITIS, WITHOUT MENTION OF HEMORRHAGE 09/11/2017 Manjeet Smith E11.9 TYPE 2 DIABETES MELLITUS WITHOUT COMPLICATIONS 09/11/2017 Manjeet Smith E86.0 DEHYDRATION 09/11/2017 Manjeet Smith K29.00 ACUTE GASTRITIS WITHOUT BLEEDING 06/02/2018 IMELDA RUSH HOT REPAIRMAN Ot E11.622 TYPE 2 DIABETES MELLITUS WITH OTHER SKIN 06/02/2018 IMELDA RUSH HOT REPAIRMAN Ot L02.416 CUTANEOUS ABSCESS OF LEFT LOWER LIMB 06/02/2018 IMELDA RUSH HOT REPAIRMAN Ot L97.828 NON-PRS CHRONIC ULCER OTH PRT L LOW LEG 06/11/2018 LAY JONES MD Ot E10.65 TYPE 1 DIABETES MELLITUS WITH HYPERGLYCE 06/11/2018 LAY JONES MD Ot I89.0 LYMPHEDEMA, NOT ELSEWHERE CLASSIFIED 06/11/2018 LAY JONES MD, Ot L92.1 NECROBIOSIS LIPOIDICA, NOT ELSEWHERE CLA 06/15/2018 LAY JONES MD, Ot E10.65 TYPE 1 DIABETES MELLITUS WITH HYPERGLYCE 06/15/2018 LAY JONES MD, Ot I89.0 LYMPHEDEMA, NOT ELSEWHERE CLASSIFIED 06/15/2018 LAY JONES MD, Ot L92.1 NECROBIOSIS LIPOIDICA, NOT ELSEWHERE CLA 06/16/2018 IMELDA RUSH HOT REPAIRMAN Ot E11.622 TYPE 2 DIABETES MELLITUS WITH OTHER SKIN 06/16/2018 IMELDA RUSH HOT REPAIRMAN Ot L02.416 CUTANEOUS ABSCESS OF LEFT LOWER LIMB 06/16/2018 IMELDA RUSH HOT REPAIRMAN Ot L97.828 NON-PRS CHRONIC ULCER OTH PRT L LOW LEG 06/23/2018 LAY JONES MD, Ot E10.65 TYPE 1 DIABETES MELLITUS WITH HYPERGLYCE 06/23/2018 LAY JONES MD, Ot I89.0 LYMPHEDEMA, NOT ELSEWHERE CLASSIFIED 06/23/2018 LAY JONES MD, Ot L92.1 NECROBIOSIS LIPOIDICA, NOT ELSEWHERE CLA 08/28/2018 P G629 Polyneuropathy , unspecified 08/28/2018 S R51 Headache Procedures There is no data. Results Test Result Range Automated blood complete blood count (hemogram) panel - 06/10/16 12:30 Blood leukocytes automated count (number/volume) 11.8 10*3/uL 4.3-11.0 Blood erythrocytes automated count (number/volume) 4.84 10*6/uL 4.35-5.85 Venous blood hemoglobin measurement (mass/volume) 14.2 g/dL 11.5-16.0 Blood hematocrit (volume fraction) 42 % 35-52 Automated erythrocyte mean corpuscular volume 87 [foz_us] 80-99 Automated erythrocyte mean corpuscular hemoglobin (mass per erythrocyte) 29 pg 25-34 Automated erythrocyte mean corpuscular hemoglobin concentration measurement ( mass/volume) 34 g/dL 32-36 Automated erythrocyte distribution width ratio 13.2 % 10.0-14.5 Automated blood platelet count (count/volume) 293 10*3/uL 130-400 Automated blood platelet mean volume measurement 10.3 [foz_us] 7.4-10.4 Comprehensive metabolic panel - 06/10/16 12:30 Serum or plasma sodium measurement (moles/volume) 138 mmol/L 135-145 Serum or plasma potassium measurement (moles/volume) 4.1 mmol/L 3.6-5.0 Serum or plasma chloride measurement (moles/volume) 104 mmol/L 98-107 Carbon dioxide 23 mmol/L 21-32 Serum or plasma anion gap determination (moles/volume) 11 mmol/L 5-14 Serum or plasma urea nitrogen measurement (mass/volume) 10 mg/dL 7-18 Serum or plasma creatinine measurement (mass/volume) 0.80 mg/dL 0.60-1.30 Serum or plasma urea nitrogen/creatinine mass ratio 13 NRG Serum or plasma creatinine measurement with calculation of estimated glomerular filtration rate > NRG Serum or plasma glucose measurement (mass/volume) 251 mg/dL 70-105 Serum or plasma calcium measurement (mass/volume) 9.2 mg/dL 8.5-10.1 Serum or plasma total bilirubin measurement (mass/volume) 0.3 mg/dL 0.1-1.0 Serum or plasma alkaline phosphatase measurement (enzymatic activity/volume) 83 U/L 40-136 Serum or plasma aspartate aminotransferase measurement (enzymatic activity/ volume) 14 U/L 5-34 Serum or plasma alanine aminotransferase measurement (enzymatic activity/volume ) 12 U/L 0-55 Serum or plasma protein measurement (mass/volume) 6.8 g/dL 6.4-8.2 Serum or plasma albumin measurement (mass/volume) 4.1 g/dL 3.2-4.5 THYROID STIMULATING HORMONE - 06/10/16 12:30 THYROID STIMULATING HORMONE 1.15 u[iU]/mL 0.35-4.94 Hemoglobin A1c - 06/10/16 12:30 Hemoglobin A1c 9.0 % 4.5-6.2 Serum or plasma thyroxine (T4) free measurement (mass/volume) - 06/10/16 12:30 Serum or plasma thyroxine (T4) free measurement (mass/volume) 1.06 ng/dL 0.70-1.48 Serum or plasma C reactive protein measurement (mass/volume) - 06/10/16 12:30 Serum or plasma C reactive protein measurement (mass/volume) 0.22 mg /dL 0.00-0.50 [id number] - 06/10/16 12:30 Serum or plasma follicle stimulating hormone (FSH) and luteinizing hormone (LH ) panel (units/volume) 10.4 % NRG Luteinizing hormone (LH) measurement - 06/10/16 12:30 Luteinizing hormone (LH) measurement 3.2 % NRG Complete blood count (CBC) with automated white blood cell (WBC) differential - 07/08/16 10:00 Blood leukocytes automated count (number/volume) 8.7 10*3/uL 4.3-11.0 Blood erythrocytes automated count (number/volume) 4.74 10*6/uL 4.35-5.85 Venous blood hemoglobin measurement (mass/volume) 14.0 g/dL 11.5-16.0 Blood hematocrit (volume fraction) 43 % 35-52 Automated erythrocyte mean corpuscular volume 90 [foz_us] 80-99 Automated erythrocyte mean corpuscular hemoglobin (mass per erythrocyte) 30 pg 25-34 Automated erythrocyte mean corpuscular hemoglobin concentration measurement ( mass/volume) 33 g/dL 32-36 Automated erythrocyte distribution width ratio 13.2 % 10.0-14.5 Automated blood platelet count (count/volume) 256 10*3/uL 130-400 Automated blood platelet mean volume measurement 10.5 [foz_us] 7.4-10.4 Automated blood neutrophils/100 leukocytes 70 % 42-75 Automated blood lymphocytes/100 leukocytes 21 % 12-44 Blood monocytes/100 leukocytes 7 % 0-12 Automated blood eosinophils/100 leukocytes 1 % 0-10 Automated blood basophils/100 leukocytes 1 % 0-10 Blood neutrophils automated count (number/volume) 6.0 10*3 1.8-7.8 Blood lymphocytes automated count (number/volume) 1.8 10*3 1.0-4.0 Blood monocytes automated count (number/volume) 0.6 10*3 0.0-1.0 Automated eosinophil count 0.1 10*3/uL 0.0-0.3 Automated blood basophil count (count/volume) 0.0 10*3/uL 0.0-0.1 Comprehensive metabolic panel - 07/08/16 10:00 Serum or plasma sodium measurement (moles/volume) 136 mmol/L 135-145 Serum or plasma potassium measurement (moles/volume) 4.8 mmol/L 3.6-5.0 Serum or plasma chloride measurement (moles/volume) 102 mmol/L 98-107 Carbon dioxide 26 mmol/L 21-32 Serum or plasma anion gap determination (moles/volume) 8 mmol/L 5-14 Serum or plasma urea nitrogen measurement (mass/volume) 6 mg/dL 7-18 Serum or plasma creatinine measurement (mass/volume) 0.87 mg/dL 0.60-1.30 Serum or plasma urea nitrogen/creatinine mass ratio 7 NRG Serum or plasma creatinine measurement with calculation of estimated glomerular filtration rate > NRG Serum or plasma glucose measurement (mass/volume) 382 mg/dL 70-105 Serum or plasma calcium measurement (mass/volume) 8.8 mg/dL 8.5-10.1 Serum or plasma total bilirubin measurement (mass/volume) 0.3 mg/dL 0.1-1.0 Serum or plasma alkaline phosphatase measurement (enzymatic activity/volume) 69 U/L 40-136 Serum or plasma aspartate aminotransferase measurement (enzymatic activity/ volume) 16 U/L 5-34 Serum or plasma alanine aminotransferase measurement (enzymatic activity/volume ) 15 U/L 0-55 Serum or plasma protein measurement (mass/volume) 6.5 g/dL 6.4-8.2 Serum or plasma albumin measurement (mass/volume) 3.9 g/dL 3.2-4.5 Blood type T Indirect antibody screen panel - 07/08/16 10:00 ABO+Rh group AP NRG Blood group antibody screen NEGATIVE NRG Methicillin resistant Staphylococcus aureus (MRSA) screening culture - 10:00 Methicillin resistant Staphylococcus aureus (MRSA) screening culture NEG NRG Capillary blood glucose measurement by glucometer (mass/volume) - 07/10/16 06: 20 Capillary blood glucose measurement by glucometer (mass/volume) 156 mg/dL 70-110 Serum or plasma choriogonadotropin ( test) detection - 07/10/16 06:22 Serum or plasma choriogonadotropin ( test) detection NEGATIVE NEGATIVE Blood type T Indirect antibody screen panel - 07/10/16 06:22 ABO+Rh group AP NRG Transfusion band number [id number] NRG Blood group antibody screen NEGATIVE NRG Capillary blood glucose measurement by glucometer (mass/volume) - 07/10/16 13: 26 Capillary blood glucose measurement by glucometer (mass/volume) 284 mg/dL 70-110 Capillary blood glucose measurement by glucometer (mass/volume) - 07/10/16 18: 41 Capillary blood glucose measurement by glucometer (mass/volume) 277 mg/dL 70-110 Capillary blood glucose measurement by glucometer (mass/volume) - 07/10/16 20: 49 Capillary blood glucose measurement by glucometer (mass/volume) 168 mg/dL 70-110 Capillary blood glucose measurement by glucometer (mass/volume) - 07/11/16 05: 24 Capillary blood glucose measurement by glucometer (mass/volume) 95 mg/dL 70-110 Complete urinalysis with reflex to culture - 10/13/16 10:45 Urine color determination YELLOW NRG Urine clarity determination CLEAR NRG Urine pH measurement by test strip 7 5-9 Specific gravity of urine by test strip 1.010 1.016- 1.022 Urine protein assay by test strip, semi-quantitative 1+ NEGATIVE Urine glucose detection by automated test strip 4+ NEGATIVE Erythrocytes detection in urine sediment by light microscopy NEGATIVE NEGATIVE Urine ketones detection by automated test strip NEGATIVE NEGATIVE Urine nitrite detection by test strip NEGATIVE NEGATIVE Urine total bilirubin detection by test strip NEGATIVE NEGATIVE Urine urobilinogen measurement by automated test strip (mass/volume) NORMAL NORMAL Urine leukocyte esterase detection by dipstick 1+ NEGATIVE Automated urine sediment erythrocyte count by microscopy (number/high power field) NONE NRG Automated urine sediment leukocyte count by microscopy (number/high power field ) [HPF] NRG Bacteria detection in urine sediment by light microscopy MODERATE NRG Squamous epithelial cells detection in urine sediment by light microscopy TNTC NRG Crystals detection in urine sediment by light microscopy NONE NRG Casts detection in urine sediment by light microscopy NONE NRG Mucus detection in urine sediment by light microscopy NEGATIVE NRG Complete urinalysis with reflex to culture NO NRG Complete blood count (CBC) with automated white blood cell (WBC) differential - 10/13/16 11:00 Blood leukocytes automated count (number/volume) 10.7 10*3/uL 4.3-11.0 Blood erythrocytes automated count (number/volume) 4.95 10*6/uL 4.35-5.85 Venous blood hemoglobin measurement (mass/volume) 14.2 g/dL 11.5-16.0 Blood hematocrit (volume fraction) 43 % 35-52 Automated erythrocyte mean corpuscular volume 86 [foz_us] 80-99 Automated erythrocyte mean corpuscular hemoglobin (mass per erythrocyte) 29 pg 25-34 Automated erythrocyte mean corpuscular hemoglobin concentration measurement ( mass/volume) 33 g/dL 32-36 Automated erythrocyte distribution width ratio 14.0 % 10.0-14.5 Automated blood platelet count (count/volume) 268 10*3/uL 130-400 Automated blood platelet mean volume measurement 9.7 [foz_us] 7.4-10.4 Automated blood neutrophils/100 leukocytes 71 % 42-75 Automated blood lymphocytes/100 leukocytes 18 % 12-44 Blood monocytes/100 leukocytes 9 % 0-12 Automated blood eosinophils/100 leukocytes 1 % 0-10 Automated blood basophils/100 leukocytes 0 % 0-10 Blood neutrophils automated count (number/volume) 7.6 10*3 1.8-7.8 Blood lymphocytes automated count (number/volume) 2.0 10*3 1.0-4.0 Blood monocytes automated count (number/volume) 1.0 10*3 0.0-1.0 Automated eosinophil count 0.1 10*3/uL 0.0-0.3 Automated blood basophil count (count/volume) 0.0 10*3/uL 0.0-0.1 Comprehensive metabolic panel - 10/13/16 11:00 Serum or plasma sodium measurement (moles/volume) 136 mmol/L 135-145 Serum or plasma potassium measurement (moles/volume) 4.1 mmol/L 3.6-5.0 Serum or plasma chloride measurement (moles/volume) 100 mmol/L 98-107 Carbon dioxide 27 mmol/L 21-32 Serum or plasma anion gap determination (moles/volume) 9 mmol/L 5-14 Serum or plasma urea nitrogen measurement (mass/volume) 8 mg/dL 7-18 Serum or plasma creatinine measurement (mass/volume) 0.85 mg/dL 0.60-1.30 Serum or plasma urea nitrogen/creatinine mass ratio 9 NRG Serum or plasma creatinine measurement with calculation of estimated glomerular filtration rate > NRG Serum or plasma glucose measurement (mass/volume) 292 mg/dL 70-105 Serum or plasma calcium measurement (mass/volume) 9.4 mg/dL 8.5-10.1 Serum or plasma total bilirubin measurement (mass/volume) 0.7 mg/dL 0.1-1.0 Serum or plasma alkaline phosphatase measurement (enzymatic activity/volume) 117 U/L 40-136 Serum or plasma aspartate aminotransferase measurement (enzymatic activity/ volume) 16 U/L 5-34 Serum or plasma alanine aminotransferase measurement (enzymatic activity/volume ) 15 U/L 0-55 Serum or plasma protein measurement (mass/volume) 7.0 g/dL 6.4-8.2 Serum or plasma albumin measurement (mass/volume) 4.0 g/dL 3.2-4.5 Microscopic examination by wet preparation - 10/13/16 13:00 WET PREP RESULTS NO YEAST OBSERVED, NO TRICHOMONAS OBSERVED NRG Chlamydia trachomatis DNA detection by probe and signal amplification method - 10/13/16 13:00 Chlamydia trachomatis DNA detection by probe and target amplification method Negative Negative Neisseria gonorrhoeae DNA detection by probe and signal amplification method - 10/13/16 13:00 Gonorrhea amp DNA-urine Negative Negative Complete blood count (CBC) with automated white blood cell (WBC) differential - 11/17/16 13:50 Blood leukocytes automated count (number/volume) 18.2 10*3/uL 4.3-11.0 Blood erythrocytes automated count (number/volume) 5.19 10*6/uL 4.35-5.85 Venous blood hemoglobin measurement (mass/volume) 14.9 g/dL 11.5-16.0 Blood hematocrit (volume fraction) 45 % 35-52 Automated erythrocyte mean corpuscular volume 86 [foz_us] 80-99 Automated erythrocyte mean corpuscular hemoglobin (mass per erythrocyte) 29 pg 25-34 Automated erythrocyte mean corpuscular hemoglobin concentration measurement ( mass/volume) 34 g/dL 32-36 Automated erythrocyte distribution width ratio 14.0 % 10.0-14.5 Automated blood platelet count (count/volume) 218 10*3/uL 130-400 Automated blood platelet mean volume measurement 10.9 [foz_us] 7.4-10.4 Automated blood neutrophils/100 leukocytes 84 % 42-75 Automated blood lymphocytes/100 leukocytes 9 % 12-44 Blood monocytes/100 leukocytes 7 % 0-12 Automated blood eosinophils/100 leukocytes 0 % 0-10 Automated blood basophils/100 leukocytes 0 % 0-10 Blood neutrophils automated count (number/volume) 15.2 10*3 1.8-7.8 Blood lymphocytes automated count (number/volume) 1.7 10*3 1.0-4.0 Blood monocytes automated count (number/volume) 1.2 10*3 0.0-1.0 Automated eosinophil count 0.0 10*3/uL 0.0-0.3 Automated blood basophil count (count/volume) 0.0 10*3/uL 0.0-0.1 Comprehensive metabolic panel - 11/17/16 13:50 Serum or plasma sodium measurement (moles/volume) 134 mmol/L 135-145 Serum or plasma potassium measurement (moles/volume) 4.3 mmol/L 3.6-5.0 Serum or plasma chloride measurement (moles/volume) 101 mmol/L 98-107 Carbon dioxide 21 mmol/L 21-32 Serum or plasma anion gap determination (moles/volume) 12 mmol/L 5-14 Serum or plasma urea nitrogen measurement (mass/volume) 16 mg/dL 7-18 Serum or plasma creatinine measurement (mass/volume) 0.91 mg/dL 0.60-1.30 Serum or plasma urea nitrogen/creatinine mass ratio 18 NRG Serum or plasma creatinine measurement with calculation of estimated glomerular filtration rate > NRG Serum or plasma glucose measurement (mass/volume) 239 mg/dL 70-105 Serum or plasma calcium measurement (mass/volume) 8.6 mg/dL 8.5-10.1 Serum or plasma total bilirubin measurement (mass/volume) 0.4 mg/dL 0.1-1.0 Serum or plasma alkaline phosphatase measurement (enzymatic activity/volume) 76 U/L 40-136 Serum or plasma aspartate aminotransferase measurement (enzymatic activity/ volume) 19 U/L 5-34 Serum or plasma alanine aminotransferase measurement (enzymatic activity/volume ) 15 U/L 0-55 Serum or plasma protein measurement (mass/volume) 6.3 g/dL 6.4-8.2 Serum or plasma albumin measurement (mass/volume) 3.5 g/dL 3.2-4.5 Blood manual differential performed detection - 11/17/16 13:50 Blood monocytes/100 leukocytes 4 % NRG Manual blood segmented neutrophils/100 leukocytes 80 % NRG Blood band neutrophils/100 leukocytes 7 % NRG Manual blood lymphocytes/100 leukocytes 9 % NRG Manual eosinophils/100 leukocytes in nose 0 % NRG Manual blood basophils/100 leukocytes 0 % NRG Blood erythrocyte morphology finding identification NORMAL NRG Complete urinalysis with reflex to culture - 11/17/16 14:30 Urine color determination MAHESH NRG Urine clarity determination VERY CLOUDY NRG Urine pH measurement by test strip 5 5-9 Specific gravity of urine by test strip 1.020 1.016- 1.022 Urine protein assay by test strip, semi-quantitative 3+ NEGATIVE Urine glucose detection by automated test strip NEGATIVE NEGATIVE Erythrocytes detection in urine sediment by light microscopy 5+ NEGATIVE Urine ketones detection by automated test strip 3+ NEGATIVE Urine nitrite detection by test strip NEGATIVE NEGATIVE Urine total bilirubin detection by test strip 1+ NEGATIVE Urine urobilinogen measurement by automated test strip (mass/volume) NORMAL NORMAL Urine leukocyte esterase detection by dipstick 3+ NEGATIVE Automated urine sediment erythrocyte count by microscopy (number/high power field) [HPF] NRG Automated urine sediment leukocyte count by microscopy (number/high power field ) [HPF] NRG Bacteria detection in urine sediment by light microscopy TRACE NRG Squamous epithelial cells detection in urine sediment by light microscopy TNTC NRG Crystals detection in urine sediment by light microscopy NONE NRG Casts detection in urine sediment by light microscopy NONE NRG Mucus detection in urine sediment by light microscopy SMALL NRG Complete urinalysis with reflex to culture NO NRG Complete urinalysis with reflex to culture - 11/17/16 16:12 Urine color determination YELLOW NRG Urine clarity determination CLEAR NRG Urine pH measurement by test strip 5 5-9 Specific gravity of urine by test strip 1.010 1.016- 1.022 Urine protein assay by test strip, semi-quantitative 2+ NEGATIVE Urine glucose detection by automated test strip 3+ NEGATIVE Erythrocytes detection in urine sediment by light microscopy NEGATIVE NEGATIVE Urine ketones detection by automated test strip 3+ NEGATIVE Urine nitrite detection by test strip NEGATIVE NEGATIVE Urine total bilirubin detection by test strip NEGATIVE NEGATIVE Urine urobilinogen measurement by automated test strip (mass/volume) NORMAL NORMAL Urine leukocyte esterase detection by dipstick NEGATIVE NEGATIVE Automated urine sediment erythrocyte count by microscopy (number/high power field) NONE NRG Automated urine sediment leukocyte count by microscopy (number/high power field ) NONE NRG Bacteria detection in urine sediment by light microscopy NONE NRG Squamous epithelial cells detection in urine sediment by light microscopy 5-10 NRG Crystals detection in urine sediment by light microscopy NONE NRG Casts detection in urine sediment by light microscopy NONE NRG Mucus detection in urine sediment by light microscopy NEGATIVE NRG Complete urinalysis with reflex to culture NO NRG Bacteria identification in genital specimen by aerobe culture - 11/17/16 16:12 FREE TEXT EXTERNAL PLUS NORMAL ALLISON NRG QUANTITY OF GROWTH Moderate Growth NRG Bacteria identification in genital specimen by aerobe culture [id number] NRG Microscopic examination by IRMA preparation - 11/17/16 16:12 Microscopic examination by IRMA preparation TNP NRG Microscopic examination by wet preparation - 11/17/16 16:12 WET PREP RESULTS BY [facility] Chlamydia trachomatis DNA detection by probe and signal amplification method - 11/17/16 16:12 Chlamydia trachomatis DNA detection by probe and target amplification method Negative Negative Neisseria gonorrhoeae DNA detection by probe and signal amplification method - 11/17/16 16:12 Gonorrhea amp DNA-urine Negative Negative Virus identification by culture - 11/17/16 16:15 Virus identification by culture FOOTNOTE NRG Capillary blood glucose measurement by glucometer (mass/volume) - 11/17/16 19: 59 Capillary blood glucose measurement by glucometer (mass/volume) 205 mg/dL 70-110 Complete blood count (CBC) with automated white blood cell (WBC) differential - 11/18/16 05:45 Blood leukocytes automated count (number/volume) 13.3 10*3/uL 4.3-11.0 Blood erythrocytes automated count (number/volume) 4.35 10*6/uL 4.35-5.85 Venous blood hemoglobin measurement (mass/volume) 12.5 g/dL 11.5-16.0 Blood hematocrit (volume fraction) 38 % 35-52 Automated erythrocyte mean corpuscular volume 87 [foz_us] 80-99 Automated erythrocyte mean corpuscular hemoglobin (mass per erythrocyte) 29 pg 25-34 Automated erythrocyte mean corpuscular hemoglobin concentration measurement ( mass/volume) 33 g/dL 32-36 Automated erythrocyte distribution width ratio 13.9 % 10.0-14.5 Automated blood platelet count (count/volume) 186 10*3/uL 130-400 Automated blood platelet mean volume measurement 10.4 [foz_us] 7.4-10.4 Automated blood neutrophils/100 leukocytes 72 % 42-75 Automated blood lymphocytes/100 leukocytes 19 % 12-44 Blood monocytes/100 leukocytes 9 % 0-12 Automated blood eosinophils/100 leukocytes 1 % 0-10 Automated blood basophils/100 leukocytes 0 % 0-10 Blood neutrophils automated count (number/volume) 9.6 10*3 1.8-7.8 Blood lymphocytes automated count (number/volume) 2.5 10*3 1.0-4.0 Blood monocytes automated count (number/volume) 1.1 10*3 0.0-1.0 Automated eosinophil count 0.1 10*3/uL 0.0-0.3 Automated blood basophil count (count/volume) 0.0 10*3/uL 0.0-0.1 Comprehensive metabolic panel - 11/18/16 05:45 Serum or plasma sodium measurement (moles/volume) 137 mmol/L 135-145 Serum or plasma potassium measurement (moles/volume) 3.9 mmol/L 3.6-5.0 Serum or plasma chloride measurement (moles/volume) 108 mmol/L 98-107 Carbon dioxide 20 mmol/L 21-32 Serum or plasma anion gap determination (moles/volume) 9 mmol/L 5-14 Serum or plasma urea nitrogen measurement (mass/volume) 7 mg/dL 7-18 Serum or plasma creatinine measurement (mass/volume) 0.63 mg/dL 0.60-1.30 Serum or plasma urea nitrogen/creatinine mass ratio 11 NRG Serum or plasma creatinine measurement with calculation of estimated glomerular filtration rate > NRG Serum or plasma glucose measurement (mass/volume) 44 mg/dL 70-105 Serum or plasma calcium measurement (mass/volume) 8.0 mg/dL 8.5-10.1 Serum or plasma total bilirubin measurement (mass/volume) 0.3 mg/dL 0.1-1.0 Serum or plasma alkaline phosphatase measurement (enzymatic activity/volume) 61 U/L 40-136 Serum or plasma aspartate aminotransferase measurement (enzymatic activity/ volume) 13 U/L 5-34 Serum or plasma alanine aminotransferase measurement (enzymatic activity/volume ) 10 U/L 0-55 Serum or plasma protein measurement (mass/volume) 5.4 g/dL 6.4-8.2 Serum or plasma albumin measurement (mass/volume) 3.1 g/dL 3.2-4.5 Capillary blood glucose measurement by glucometer (mass/volume) - 11/18/16 05: 55 Capillary blood glucose measurement by glucometer (mass/volume) 43 mg/dL 70-110 Capillary blood glucose measurement by glucometer (mass/volume) - 11/18/16 06: 53 Capillary blood glucose measurement by glucometer (mass/volume) 78 mg/dL 70-110 Capillary blood glucose measurement by glucometer (mass/volume) - 11/18/16 08: 28 Capillary blood glucose measurement by glucometer (mass/volume) 120 mg/dL 70-110 Capillary blood glucose measurement by glucometer (mass/volume) - 11/18/16 12: 06 Capillary blood glucose measurement by glucometer (mass/volume) 113 mg/dL 70-110 Capillary blood glucose measurement by glucometer (mass/volume) - 11/18/16 14: 23 Capillary blood glucose measurement by glucometer (mass/volume) 112 mg/dL 70-110 Capillary blood glucose measurement by glucometer (mass/volume) - 11/18/16 20: 14 Capillary blood glucose measurement by glucometer (mass/volume) 135 mg/dL 70-110 Complete blood count (CBC) with automated white blood cell (WBC) differential - 11/19/16 05:25 Blood leukocytes automated count (number/volume) 7.0 10*3/uL 4.3-11.0 Blood erythrocytes automated count (number/volume) 4.02 10*6/uL 4.35-5.85 Venous blood hemoglobin measurement (mass/volume) 11.5 g/dL 11.5-16.0 Blood hematocrit (volume fraction) 36 % 35-52 Automated erythrocyte mean corpuscular volume 89 [foz_us] 80-99 Automated erythrocyte mean corpuscular hemoglobin (mass per erythrocyte) 29 pg 25-34 Automated erythrocyte mean corpuscular hemoglobin concentration measurement ( mass/volume) 32 g/dL 32-36 Automated erythrocyte distribution width ratio 13.9 % 10.0-14.5 Automated blood platelet count (count/volume) 160 10*3/uL 130-400 Automated blood platelet mean volume measurement 11.1 [foz_us] 7.4-10.4 Automated blood neutrophils/100 leukocytes 65 % 42-75 Automated blood lymphocytes/100 leukocytes 27 % 12-44 Blood monocytes/100 leukocytes 6 % 0-12 Automated blood eosinophils/100 leukocytes 1 % 0-10 Automated blood basophils/100 leukocytes 0 % 0-10 Blood neutrophils automated count (number/volume) 4.6 10*3 1.8-7.8 Blood lymphocytes automated count (number/volume) 1.9 10*3 1.0-4.0 Blood monocytes automated count (number/volume) 0.4 10*3 0.0-1.0 Automated eosinophil count 0.1 10*3/uL 0.0-0.3 Automated blood basophil count (count/volume) 0.0 10*3/uL 0.0-0.1 Comprehensive metabolic panel - 11/19/16 05:25 Serum or plasma sodium measurement (moles/volume) 139 mmol/L 135-145 Serum or plasma potassium measurement (moles/volume) 3.7 mmol/L 3.6-5.0 Serum or plasma chloride measurement (moles/volume) 112 mmol/L 98-107 Carbon dioxide 20 mmol/L 21-32 Serum or plasma anion gap determination (moles/volume) 7 mmol/L 5-14 Serum or plasma urea nitrogen measurement (mass/volume) 8 mg/dL 7-18 Serum or plasma creatinine measurement (mass/volume) 0.65 mg/dL 0.60-1.30 Serum or plasma urea nitrogen/creatinine mass ratio 12 NRG Serum or plasma creatinine measurement with calculation of estimated glomerular filtration rate > NRG Serum or plasma glucose measurement (mass/volume) 125 mg/dL 70-105 Serum or plasma calcium measurement (mass/volume) 7.7 mg/dL 8.5-10.1 Serum or plasma total bilirubin measurement (mass/volume) 0.2 mg/dL 0.1-1.0 Serum or plasma alkaline phosphatase measurement (enzymatic activity/volume) 73 U/L 40-136 Serum or plasma aspartate aminotransferase measurement (enzymatic activity/ volume) 12 U/L 5-34 Serum or plasma alanine aminotransferase measurement (enzymatic activity/volume ) 9 U/L 0-55 Serum or plasma protein measurement (mass/volume) 5.1 g/dL 6.4-8.2 Serum or plasma albumin measurement (mass/volume) 2.8 g/dL 3.2-4.5 Capillary blood glucose measurement by glucometer (mass/volume) - 11/19/16 06: 09 Capillary blood glucose measurement by glucometer (mass/volume) 108 mg/dL 70-110 Capillary blood glucose measurement by glucometer (mass/volume) - 11/19/16 10: 45 Capillary blood glucose measurement by glucometer (mass/volume) 173 mg/dL 70-110 Capillary blood glucose measurement by glucometer (mass/volume) - 11/19/16 15: 05 Capillary blood glucose measurement by glucometer (mass/volume) 193 mg/dL 70-110 Comprehensive Metabolic Panel - 09/11/17 14:01 Albumin 4.2 g/dL 3.6-5.1 ALP 111 U/L 35-130 ALT 17 U/L 6-45 Anion Gap 16 6-14 AST 29 U/L 2-40 BUN 10 mg/dL 5-25 Calcium 10.0 mg/dL 8.3-10.4 Chloride 101 mmol/L 95-114 CO2 25 mEq/L 22-33 Creat 1.03 mg/dL 0.50-1.50 eGFR 58 mL/min/1.73m2 >59 Globulin 3.5 g/dL 2.3-3.5 Glucose 456 mg/dL 70-110 Osmo 300 280-295 Potassium 4.7 mmol/L 3.5-5.3 Sodium 137 mmol/L 134-148 TBil 0.3 mg/dL 0.2-1.2 TP 7.7 g/dL 6.0-8.3 Encounters ACCT No. Visit Date/Time Discharge Status Pt. Type Provider Facility Loc./Unit Complaint [id number] 06/09/2018 09:08:00 06/09/2018 23:59:59 CLS Outpatient LAY JONES MD [facility] WOUNDCARE [id number] 06/01/2018 11:19:00 06/01/2018 23:59:59 CLS Outpatient IMELDA RUSH HOT REPAIRMAN [facility] RAD ABSCESS L TIB/FIB [id number] 11/20/2017 07:15:00 11/20/2017 23:59:59 CLS Preadmit BETTE RUSH DO [facility] CARD R07.9 [id number] 11/18/2016 10:29:00 11/19/2016 17:15:00 DIS Outpatient LAY HELM DO [facility] WS PID,ABD PAIN,SEPSIS,N/ V [id number] 10/13/2016 09:56:00 10/13/2016 14:00:00 DIS Emergency BETTE FARRIS DO [facility] ER LOWER ABD PAIN [id number] 07/10/2016 06:03:00 07/11/2016 11:45:00 DIS Outpatient LAY HELM DO [facility] SDC PELVIC PAIN; ENLARGED UTERUS [id number] 07/08/2016 09:14:00 07/08/2016 12:26:00 DIS Outpatient LAY HELM DO [facility] PREOP PELVIC PAIN; ENLARGED UTERUS [id number] 06/24/2016 09:52:00 06/24/2016 23:59:59 CLS Outpatient ADRIIMELDA HOT REPAIRMAN [facility] RAD PELVIC PAIN,ABD PAIN [id number] 06/11/2016 10:59:00 06/11/2016 23:59:59 CLS Outpatient RUSHIMELDA HOT REPAIRMAN [facility] RAD PELVIC PAIN [id number] 06/10/2016 12:09:00 06/10/2016 23:59:59 CLS Outpatient ADRIIMELDA HOT REPAIRMAN [facility] LAB DIABETES, PERIMENOPAUSE [id number] 08/03/2015 06:41:00 08/03/2015 23:59:59 CLS Outpatient BETTE RUSH DO [facility] CARD CHEST PAIN [id number] 07/26/2015 11:09:00 07/26/2015 23:59:59 CLS Outpatient IMELDA RUSH HOT REPAIRMAN [facility] RAD DYSPNEA,DIZZINESS [id number] 07/19/2015 08:49:00 07/19/2015 11:59:00 DIS Emergency PEÑA SPARKS MD [facility] ER ELEV BLOOD SUGAR CHEST PAIN DIZZY [id number] 05/23/2015 11:30:00 05/23/2015 23:59:59 CLS Outpatient TENISHA ADAMS MD [facility] LABNPT ABSCESS ON LEFT JAW [id number] 05/11/2015 11:19:00 05/11/2015 15:01:00 DIS Emergency KELLIE CANALES LOAN ASSISTANT [facility] ER NECK SWELLING/POSS ABSCESS [id number] 04/26/2015 08:40:00 04/26/2015 13:09:00 DIS Outpatient TENISHA AADMS MD [facility] SDC LYMPHADENOPATHY [id number] 04/25/2015 11:46:00 04/25/2015 23:59:59 CLS Outpatient TENISHA ADAMS MD [facility] PREOP LYMPADENOPATHY [id number] 04/16/2015 20:28:00 04/16/2015 22:19:00 DIS Emergency BRUEGGEMANN MD, RICK Edwards [facility] ER BS UP DOWN [id number] 04/10/2015 10:15:00 04/10/2015 23:59:59 CLS Outpatient SANJU RUSHIA L HOT REPAIRMAN [facility] RAD LYMPHATIC,EAR PAIN [id number] 04/09/2015 12:43:00 04/09/2015 23:59:59 CLS Outpatient RUSHSANJU THOMPSONIA L HOT REPAIRMAN [facility] LAB DMII,MED RISK [id number] 02/19/2015 16:00:00 02/19/2015 23:59:59 CLS Outpatient ANGIE RICH, TENISHA [facility] LABNPT LEFT BUTTOCK ABSCESS [id number] 12/19/2014 10:22:00 12/19/2014 23:59:59 CLS Outpatient SANJU RUSHIA L HOT REPAIRMAN [facility] LAB LOW LIBIDO, PCOS [id number] 10/24/2014 08:50:00 10/24/2014 23:59:59 CLS Outpatient SANJU RUSHIA L HOT REPAIRMAN [facility] RAD EDEMA, DECREASED URINARY OUTPUT [id number] 06/08/2014 10:40:00 06/08/2014 23:59:59 CLS Outpatient BETTE RUSH DO [facility] ACUTE AOM ACUTE SINUSITIS [id number] 05/03/2014 17:12:00 05/03/2014 23:59:59 CLS Outpatient BETTE RUSH DO [facility] LAB DM [id number] 02/07/2014 10:36:00 02/07/2014 23:59:59 CLS Outpatient MACARIO RUSHRICIA L HOT REPAIRMAN [facility] CARD THYROID NODULE [id number] 01/31/2014 11:03:00 01/31/2014 23:59:59 CLS Outpatient ADRI IMELDA L HOT REPAIRMAN [facility] CARD THYROID NODULE [id number] 01/03/2014 09:30:00 01/03/2014 23:59:59 CLS Outpatient ADRI IMELDA L HOT REPAIRMAN [facility] RAD THYROMEGALY [id number] 12/08/2013 11:46:00 12/08/2013 14:17:00 DIS Emergency BRIDGER RICH, PEÑA Knapp [facility] ER ELEV BLOOD SUGAR [id number] 11/09/2014 18:38:00 Document Registration [id number] 11/09/2014 16:59:00 Document Registration [id number] 01/02/2011 09:00:00 Document Registration [id number] 09/11/2017 13:10:00 09/11/2017 17:18:00 DIS Outpatient Manjeet Smith [id number] 09/11/2017 14:04:15 Document Registration [id number] 07/11/2013 13:34:00 07/11/2013 23:59:59 CLS Outpatient MANOJ REYES APRN [id number] 05/24/2015 06:53:37 ACT Document Registration [id number] 08/28/2018 10:13:00 Document Registration
--- NOTE | 2018-09-13 10:00 | NUR ---
PATIENT PRESENTS FOR LUMBAR PUNCTURE WITH OPENING PRESSURE. VSS. PLAN OF CARE REVIEWED. PATIENT HAD LABS DONE RECENTLY WELL AN MRI. 1024: LIDOCAINE 1%, 2 CC INJECTED PER Angus WALKER CRNA. 1027: OPENING PRESSURE OF 22. 1029: TUBE 1 OBTAINED. 1036: TUBE 2 OBTAINED. 1038: TUBE 3 OBTAINED. 1041: TUBE 4 OBTAINED. 1045: PATIENT BACK TO SEMI-F[facility]. DIET COKE GIVEN. PLAN OF CARE REVIEWED. 1105: LAB TRYING TO OBTAINED PERIPHERAL BLOOD. 1115: VSS. 98.8, 130/81, 79, 18, 98%. PATIENT UP TO THE BATHROOM PER WHEELCHAIR. DISCHARGE INSTRUCTIONS WENT OVER WITH THE PATIENT AND THEN PATIENT DC'D TO HOME.
[2018-09-13 11:25] VITALS: BP 147/71
[2018-09-13 11:30] LABS: APPEARANCE,CSF CLEAR; COLOR,CSF COLORLESS; CSF TUBE NUMBER 4; RED BLOOD CELL,CSF 1 CELLS (0-0); WHITE BLOOD CELL,CSF 2 CELLS (0-5)
--- NOTE | 2018-09-13 11:41 | Anesthesia-Procedure Note ---
Procedures/Interventions Procedure Start/Stop/Diagnosis Date of Procedure: Sep 13, 2018 Start Time: 12:20 Stop Time: 12:50 Lumbar Puncture Discussed Risk,Benefits: Yes Patient Consents: Yes Position: Lying, Right Sterile Technique: Yes Opening Pressure: 22 Fluid Color: CLEAR Spinal Needle Used: 20g Quinke 3 1/2inch Procedure Notes ASA 2. TOLERATED PROCEDURE WELL. CSF CLEAR. GUIDO WALKER CRNA Sep 13, 2018 11:41
[2018-09-13 12:08] LABS: CSF GLUCOSE 52 MG/DL (50-80); CSF TOTAL PROTEIN 136 MG/DL (15-40)
== END | disposition home or self-care (01) ==
LOC: SDC 09:46
PROVIDERS: ATTEND Anesthesiology
DX: G62.9 Polyneuropathy, unspecified (principal); G93.9 Disorder of brain, unspecified; E10.9 Type 1 diabetes mellitus without complications; R50.9 Fever, unspecified
CPT/HCPCS: 36415; 82784; 82945; 83873; 83916; 84157; 86618; 89051

== ENCOUNTER 2018-10-13 12:32 | Outpatient (RCR) | payer BC ==
[~2018-10-13 12:32] MED LIST changes: -LIDOCAINE 1% INJ 20 ML 20 ML VIAL ONE; +METR-145 PO; -METR-197 PO
[2018-10-13] MEDS ORDERED: INSU100V16 SQ (16:43)
[2018-10-13] MEDS ORDERED: DEPLIN (16:43)
[2018-10-13] MEDS ORDERED: INSU100V6 SQ (16:43)
[2018-10-13] MEDS ORDERED: OXYB5TAB9 PO (16:53)
[2018-10-13] MEDS ORDERED: CLON0.5T13 PO (16:53)
[2018-10-13] MEDS ORDERED: CITA20TA9 PO (16:53)
[2018-10-13] MEDS ORDERED: GABA-486 PO (16:53)
[2018-10-13] MEDS ORDERED: LEVO1CAP11 PO (16:53)
[2018-10-13] MEDS ORDERED: CEPH500T PO (16:53)
[2018-10-13] MEDS ORDERED: PREG75CA PO (16:53)
[2018-10-13] MEDS ORDERED: ESTR1PAT76 TD (16:53)
[2018-12-16] MEDS ORDERED: CLT4KB PO (16:10)
== END 2019-01-11 | disposition home or self-care (01) ==
LOC: LAB 12:32
PROVIDERS: ATTEND Psychiatry & Neurology Neurology
DX: G35 Multiple sclerosis (principal)

== ENCOUNTER → 2018-10-14 | Outpatient (CLI) | payer BC ==
[~2018-10-14] MED LIST changes: +CEPH500T PO; +CITA20TA9 PO; +CLON0.5T13 PO; +DEPLIN; +ESTR1PAT76 TD; +GABA-486 PO; +INSU100V16 SQ; +INSU100V6 SQ; +LEVO1CAP11 PO; +OXYB5TAB9 PO; +PREG75CA PO
== END ==
LOC: LABNPT 10-14 08:00
PROVIDERS: ATTEND Psychiatry & Neurology Neurology
DX: G35 Multiple sclerosis (principal)

== ENCOUNTER 2018-10-16 09:58 | Outpatient (RCR) | payer BC ==
[2018-10-13] MEDS: methylPREDNISolone SOD SUCC 1,000 MG in NS (IVPB) 100 ML IV SCH (14:03)
[2018-10-13] MEDS: PANTOPRAZOLE 40 MG (PROTONIX) TAB PO SCH (14:41)
[2018-10-13 15:25] VITALS: BP 135/79
[2018-10-14 13:10] VITALS: BP 123/96
[2018-10-14] MEDS: PANTOPRAZOLE 40 MG (PROTONIX) TAB PO SCH (13:26)
[2018-10-14] MEDS: methylPREDNISolone SOD SUCC 1,000 MG in NS (IVPB) 100 ML IV SCH (13:29)
[2018-10-15] MEDS: methylPREDNISolone SOD SUCC 1,000 MG in NS (IVPB) 100 ML IV SCH (13:24)
[2018-10-15] MEDS: PANTOPRAZOLE 40 MG (PROTONIX) TAB PO SCH (13:24)
[2018-10-15 14:25] VITALS: BP 130/84
[~2018-10-16] VITALS: Ht 165.1 cm; Wt 92.2 kg
[2018-10-16] MEDS: methylPREDNISolone SOD SUCC 1,000 MG in NS (IVPB) 100 ML IV SCH (10:15)
[2018-10-16 10:20] VITALS: BP 134/84
[2018-10-16] MEDS: PANTOPRAZOLE 40 MG (PROTONIX) TAB PO SCH (10:20)
[2018-10-17 10:01] VITALS: BP 125/74
[2018-10-17] MEDS: PANTOPRAZOLE 40 MG (PROTONIX) TAB PO SCH (10:01)
[2018-12-16] MEDS ORDERED: CLT4KB PO (16:10)
== END 2019-01-11 | disposition home or self-care (01) ==
LOC: SDC 09:58
PROVIDERS: ATTEND Psychiatry & Neurology Neurology
DX: G35 Multiple sclerosis (principal)
CPT/HCPCS: 96365

== ENCOUNTER 2018-10-22 12:55 | Emergency (ER) | payer BC ==
[~2018-10-22] VITALS: Ht 165.1 cm; Wt 92.5 kg
--- NOTE | 2018-10-22 14:49 | ED GI ---
General Chief Complaint: Abdominal/GI Problems Stated Complaint: ABD PAIN Nursing Triage Note: AMBULATED TO ROOM WITH COMPLAINTS OF LOWER ABD PAIN X2 WEEKS. HAS SEEN STEFFANIE RUSH WITH NO ANSWERS. Sepsis Screen: No Definite Risk Source of Information: Patient, Family Exam Limitations: No Limitations History of Present Illness Date Seen by Provider: Oct 22, 2018 Time Seen by Provider: 14:19 Initial Comments This 48-year-old white female presents with a complaint of lower abdominal pain and bloating is been present for the last 2 weeks. The patient has a recently diagnosed MS and has been unable to have effective bowel movements. Her last stool was yesterday after using Miralax. The patient's pain is dull lower abdominal in location made worse by pushing on the abdomen. There is no associated fever, chills, dysuria, frequency, nausea, vomiting, or diarrhea. Allergies and Home Medications Allergies Coded Allergies: codeine (Verified Allergy, Intermediate, HIVES (PATIENT HAS RECEIVED LORTAB IN THE PAST), 07/10/16) strawberry (Verified Allergy, Mild, RASH, 10/13/18) ciprofloxacin (Unverified Allergy, Unknown, STARTED HAVING MUSCULAR PROBLEMS, 09/13/18) Home Medications Cephalexin 500 Mg Tablet, 500 MG PO QID, (Reported) Citalopram Hydrobromide 20 Mg Tablet, 20 MG PO DAILY, (Reported) Clonazepam 0.5 Mg Tablet, 0.5 MG PO BID, (Reported) Estradiol 1 Each Patch.tdwk, 1 EACH TD Twice Weekly, (Reported) Gabapentin 100 Mg Capsule, 200 MG PO DAILY, (Reported) Insulin Aspart 100 Unit/1 Ml Susp, 5 UNIT SQ AC, (Reported) Insulin Glargine,Hum.rec.anlog 100 Unit/1 Ml Vial, 15 UNIT SQ BID, (Reported) Levomefolate/B6/B12/Algal Oil 1 Each Capsule, 1 EACH PO DAILY, (Reported) Oxybutynin Chloride 5 Mg Tablet, 5 MG PO DAILY, (Reported) Pregabalin 75 Mg Capsule, 75 MG PO BID, (Reported) [Deplin] Unknown Strength , 1 DAILY, (Reported) Patient Home Medication List Home Medication List Reviewed: Yes Review of Systems Review of Systems Constitutional: No chills, No fever EENTM: No No Symptoms Reported Respiratory: Denies Cough Cardiovascular: Denies Chest Pain Gastrointestinal: Abdomen Distended, Abdominal Pain, Constipated; Denies Diarrhea, Denies Vomiting Genitourinary: No Symptoms Reported; Denies Frequency Musculoskeletal: No back pain Skin: no symptoms reported Psychiatric/Neurological: No Symptoms Reported Endocrine: No Symptoms Reported Hematologic/Lymphatic: No Symptoms Reported Past Fjnphyo-Yycxvz-Nvupiw Hx Past Med/Social Hx: Reviewed Nursing Past Med/Soc Hx Patient Social History Alcohol Beverage of Choice: Beer Type Used: Cigarettes 2nd Hand Smoke Exposure: No Recent Foreign Travel: No Contact w/Someone Who Travel: No Recent Infectious Disease Expo: No Recent Hopitalizations: No Immunizations Up To Date Tetanus Booster (TDap): More than 5yrs Date of Pneumonia Vaccine: Jun 19, 2016 Date of Influenza Vaccine: Jun 19, 2016 Seasonal Allergies Seasonal Allergies: No Past Medical History Breast, Hysterectomy, Orthopedic, 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 Pneumonia Neuropathy Reproductive Disorders: No (FIBRIODS) Female Reproductive Disorders: Menstrual Problems, 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 Sexually Transmitted Disease: No HIV/AIDS: No UTI-Chronic Gastroesophageal Reflux Diabetes, Insulin dep Loss of Vision: Bilateral Hearing Impairment: Denies Cervical Sleep Difficulties, Anxiety, Depression Adverse Reaction/Blood Tranf: No Family Medical History Cardiovascular disease 19 FATHER Completed stroke GRANDMOTHER FH: brain cancer GRANDFATHER High cholesterol 19 MOTHER Thyroid disease 19 MOTHER Cancer Physical Exam Vital Signs Vital Signs - First Documented 10/22/18 13:03 Temp 96.7 Pulse 82 Resp 16 B/P (MAP) 135/82 (99) Pulse Ox 99 O2 Delivery Room Air Capillary Refill : Less Than 3 Seconds Height/Weight/BMI Height: 5'5.00" Weight: 204lbs. 4.0oz. 92.330347yy; 29.3 BMI Method:Stated General Appearance: WD/WN, no apparent distress HEENT: normal ENT inspection Neck: normal inspection Respiratory: normal breath sounds Cardiovascular: regular rate, rhythm Gastrointestinal: normal bowel sounds, non tender, abnormal bowel sounds ( decreased bowel sounds were present) Extremities: normal range of motion Back: normal inspection Neurologic/Psychiatric: no motor/sensory deficits, alert, normal mood/affect Skin: normal color, warm/dry Progress/Results/Core Measures Results/Orders My Orders Orders - BINU OROZCO MD Ct Abdomen/Pelvis Wo (10/22/18 13:58) Vital Signs/I&O 10/22/18 13:03 Temp 96.7 Pulse 82 Resp 16 B/P (MAP) 135/82 (99) Pulse Ox 99 O2 Delivery Room Air Blood Pressure Mean: 99 Progress Progress Note : Time: 15:[address] of the abdomen and pelvis were unremarkable. Departure Impression Primary Impression: LOWER ABDOMINAL PAIN, UNSPECIFIED Disposition: 01 HOME, SELF-CARE Condition: Unchanged Departure-Patient Inst. Decision time for Depature: 15:26 Referrals: NO,LOCAL PHYSICIAN (PCP) Primary Care Physician IMELDA RUSH, CHELSEA (Family) Primary Care Physician Patient Instructions: Acute Abdomen (Belly Pain), Adult (DC) Add. Discharge Instructions: Close follow-up with your doctor on Thursday. Return if any problems or questions. All discharge instructions reviewed with patient and/or family. Voiced understanding. BINU OROZCO MD Oct 22, 2018 14:49
--- NOTE | 2018-10-22 14:55 | Diagnostic Imaging Report ---
PROCEDURE: CT abdomen and pelvis without contrast. TECHNIQUE: Multiple contiguous axial images were obtained through the abdomen and pelvis without the use of intravenous contrast. INDICATION: Lower abdominal pain for two weeks. Comparison is made with prior CT from 11/19/2016. The lung bases are clear. No liver mass is identified. The gallbladder is unremarkable. No biliary duct dilatation is seen. Pancreas and spleen are unremarkable. There is no adrenal mass identified. Nonobstructing calculi in the right kidney are again noted. Tiny exophytic low density arising from the right kidney is noted suggestive of a cyst. Left kidney is unremarkable. No hydronephrosis. Aorta is non-aneurysmal. Small and large bowel loops are normal caliber. No obstruction. The appendix is visualized in the right lower quadrant and appears unremarkable. Previously noted inflammatory changes and fluid collections in the pelvis have all resolved. No inflammatory process is seen on today's study. The bladder is unremarkable. No abdominal or pelvic lymphadenopathy is seen. Bony structures are not acute. IMPRESSION: Resolution of previously noted small bilateral pleural effusions and bibasilar infiltrates since examination from 11/19/2016. In addition, the inflammatory changes and fluid collections noted in the pelvis on prior study have all resolved. No acute feature in the abdomen or pelvis is identified on today's study. Previously noted nonobstructing calculi in right kidney appears stable. Dictated by: Dictated on workstation # [id number]
[2018-10-22 16:28] VITALS: BP 135/82
== END 2018-10-22 16:28 | disposition home or self-care (01) ==
LOC: EDUNIT# 12:55 → ER 12:56
DX: R10.30 Lower abdominal pain, unspecified (principal); G35 Multiple sclerosis; K21.9 Gastro-esophageal reflux disease without esophagitis; E11.9 Type 2 diabetes mellitus without complications; F41.9 Anxiety disorder, unspecified; F32.9 Major depressive disorder, single episode, unspecified; Z90.710 Acquired absence of both cervix and uterus; Z98.890 Other specified postprocedural states; Z82.49 Family history of ischemic heart disease and other diseases of the circulatory system; Z98.51 Tubal ligation status; Z87.01 Personal history of pneumonia (recurrent); Z80.8 Family history of malignant neoplasm of other organs or systems; Z87.448 Personal history of other diseases of urinary system; Z87.440 Personal history of urinary (tract) infections; Z88.5 Allergy status to narcotic agent; Z88.8 Allergy status to other drugs, medicaments and biological substances; Z88.1 Allergy status to other antibiotic agents; Z79.4 Long term (current) use of insulin
CPT/HCPCS: 74176

== ENCOUNTER → 2018-12-15 | Outpatient (CLI) | payer MEDICAID ==
--- NOTE | 2018-12-15 13:12 | Diagnostic Imaging Report ---
INDICATION: Abdominal pain and constipation. TIME OF EXAM: 10:55 a.m. The heart size is normal. The lungs are clear. No free air is identified. Bowel gas pattern is nonobstructive. There is a large amount of stool throughout the colon, particularly the right colon and transverse colon. Small bowel is nondilated. No pathologic calcifications are seen apart from questionable densities overlying the renal shadows. It is uncertain if this represents renal calculi versus bowel contents. IMPRESSION: Findings consistent with constipation. Dictated by: Dictated on workstation # [id number]
== END ==
LOC: RAD 10:42
PROVIDERS: ATTEND Nurse Practitioner Family
DX: K59.00 Constipation, unspecified (principal); R10.9 Unspecified abdominal pain
CPT/HCPCS: 74022

== ENCOUNTER 2018-12-16 14:18 | Emergency (ER) | payer MEDICAID ==
[~2018-12-16] VITALS: Ht 165.1 cm; Wt 89.8 kg
--- OUTSIDE RECORDS SUMMARY | 2018-12-16 14:59 | XMS REPORT | Encounter Summary ---
Author Author [facility] Organization [facility] Address Unknown Phone Unavailable Care Team Providers Care Director Orange Name Role Phone PCP Unavailable Encounter Details Care Team Description Date Type Department 10/11/2018 Hospital [facility] Encounter [facility] [address] [address] Social History Date Tobacco Use Types Packs/Day Years Used Never Assessed Sex Assigned at Date Recorded Not on file Industry Job Start Date Occupation Not on file Not on file Not on file Travel End Travel History Travel Start No recent travel history available. 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 documented in this encounter Visit Diagnoses Diagnosis Diagnosis unknown Other unknown and unspecified cause of morbidity or mortality documented in this encounter
--- OUTSIDE RECORDS SUMMARY | 2018-12-16 14:59 | XMS REPORT | Encounter Summary ---
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 documented in this encounter Visit Diagnoses Diagnosis Diagnosis unknown Other unknown and unspecified cause of morbidity or mortality documented in this encounter
--- OUTSIDE RECORDS SUMMARY | 2018-12-16 14:59 | XMS REPORT | Clinical Summary ---
Author Author [facility] Organization [facility] Address Unknown Phone Unavailable Care Team Providers Care Green Meat Grader Name Role Phone PCP Unavailable Source Comments Some departments are not documenting in the electronic medical record. If you do not see the information that you expected, contact Release of Information in the Health Information Management department at [phone] for further assistance in locating additional records.[facility] Allergies Not on File Medications Not on file Active Problems Not on file Encounters Care Team Description Date Type Specialty 10/11/2018 Hospital Radiology Encounter 10/11/2018 Hospital Radiology Encounter 10/11/2018 Hospital Radiology Encounter from Last 3 Months Social History Date Tobacco Use Types Packs/Day Years Used Never Assessed Sex Assigned at Date Recorded Not on file Industry Job Start Date Occupation Not on file Not on file Not on file Travel End Travel History Travel Start No recent travel history available. Last Filed Vital Signs Not on file Plan of Treatment Health Maintenance Due Date Last Done Comments PHYSICAL (COMPREHENSIVE) 1979 EXAM HIV SCREENING 1987 DTAP/TDAP VACCINES (1990 Tdap) CERVICAL CANCER SCREENING 2002 BREAST CANCER SCREENING 2012 INFLUENZA VACCINE 04/14/2018 Procedures Comments Procedure Name Priority Date/Time Associated Diagnosis MRI HEAD EXTERNAL IMAGING Routine 10/11/2018 Diagnosis unknown 12:30 AM TISSUE COORDINATOR MRI C-SPINE EXTERNAL Routine 10/11/2018 Diagnosis unknown IMAGING 12:15 AM TISSUE COORDINATOR MRI T-SPINE EXTERNAL Routine 10/11/2018 Diagnosis unknown IMAGING 12:00 AM TISSUE COORDINATOR from Last 3 Months Results * MRI HEAD EXTERNAL IMAGING (10/11/2018 12:30 AM TISSUE COORDINATOR) Narrative Performed At This order has been auto finalized and does not contain a result. * MRI C-SPINE EXTERNAL IMAGING (10/11/2018 12:15 AM TISSUE COORDINATOR) Narrative Performed At This order has been auto finalized and does not contain a result. * MRI T-SPINE EXTERNAL IMAGING (10/11/2018 12:00 AM TISSUE COORDINATOR) Narrative Performed At This order has been auto finalized and does not contain a result. from Last 3 Months Advance Directives Patient has advance care planning documents on file. For more information, please contact: [address] [address]
--- OUTSIDE RECORDS SUMMARY | 2018-12-16 14:59 | XMS REPORT | Encounter Summary ---
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 documented in this encounter Visit Diagnoses Diagnosis Diagnosis unknown Other unknown and unspecified cause of morbidity or mortality documented in this encounter
--- OUTSIDE RECORDS SUMMARY | 2018-12-16 15:02 | XMS REPORT | Continuity of Care Document ---
Author Author [facility] Organization [facility] Address Unknown Phone Unavailable Allergies Active Description Code Type Severity Reaction Onset Reported/Identified Relationship to Patient Clinical Status Yes CODEINE SULFATE MODERATE OTHER Yes codeine [id number] Drug Allergy Unknown N/A 11/09/2014 Yes codeine [id number] Drug Allergy Moderate HIVES 07/08/2016 Yes codeine [id number] Drug Allergy Moderate HIVES (PATIENT 07/10/2016 Yes ciprofloxacin [id number] Drug Allergy Unknown STARTED HAVING 09/13/2018 Yes strawberry [id number] Drug Allergy Mild RASH 10/13/2018 Medications Medication Packaging Start Date Stop Date [...] LONG-TERM (CURRENT) USE OF INSULIN 11/09/2014 IMELDA RUSH FLESHING MACHINE OPERATOR Ot 782.3 11/09/2014 IMELDA RUSH FLESHING MACHINE OPERATOR Ot 788.99 11/09/2014 Ot 276.51 DEHYDRATION 11/09/2014 Ot 487.1 FLU W RESP MANIFEST NEC 12/26/2014 MACARIO RUSHRICIA L FLESHING MACHINE OPERATOR Ot 256.4 12/26/2014 MACARIO RUSHRICIA L FLESHING MACHINE OPERATOR Ot 799.81 01/08/2015 ADRI IMELDA L FLESHING MACHINE OPERATOR Ot 256.4 01/08/2015 MACARIO RUSHRICIA L FLESHING MACHINE OPERATOR Ot 799.81 03/22/2015 Ot 620.2 03/22/2015 Ot 625.0 03/22/2015 Ot 789.04 03/22/2015 Ot 789.09 03/22/2015 MACARIO RUSHRICIA L FLESHING MACHINE OPERATOR Ot 241.0 03/22/2015 MACARIO RUSHRICIA L FLESHING MACHINE OPERATOR Ot 250.00 03/22/2015 MACARIO RUSHRICIA L FLESHING MACHINE OPERATOR Ot 719.40 03/22/2015 MACARIO RUSHRICIA L FLESHING MACHINE OPERATOR Ot 782.3 03/22/2015 SANJU RUSHIA L FLESHING MACHINE OPERATOR Ot 785.1 03/22/2015 MACARIO RUSHRICIA L FLESHING MACHINE OPERATOR Ot E947.9 03/22/2015 MACARIO RUSHRICIA L FLESHING MACHINE OPERATOR Ot 241.0 03/22/2015 MACARIO RUSHRICIA L FLESHING MACHINE OPERATOR Ot V64.3 03/22/2015 MACARIO RUSHRICIA L FLESHING MACHINE OPERATOR Ot 241.0 03/22/2015 BETTE RUSH DO Ot 250.00 03/22/2015 BETTE RUSH DO Ot 250.01 03/22/2015 BETTE RUSH DO Ot 382.9 03/22/2015 BETTE RUSH DO Ot 461.9 03/22/2015 BETTE RUSH DO Ot 780.60 03/22/2015 MACARIO RUSHRICIA L FLESHING MACHINE OPERATOR Ot 782.3 03/22/2015 MACARIO RUSHRICIA L FLESHING MACHINE OPERATOR Ot 788.99 03/22/2015 ADRI IMELDA L FLESHING MACHINE OPERATOR Ot 256.4 03/22/2015 MACARIO RUSHRICIA L FLESHING MACHINE OPERATOR Ot 799.81 03/22/2015 TENISHA ADAMS MD Ot 682.5 03/22/2015 SANJU RUSHIA L FLESHING MACHINE OPERATOR Ot 256.4 03/22/2015 IMELDA RUSH FLESHING MACHINE OPERATOR Ot 799.81 03/30/2015 ANGIE RICH, TENISHA Ot 682.5 04/05/2015 TENISHA ADAMS MD Ot 682.5 04/05/2015 IMELDA RUSH FLESHING MACHINE OPERATOR Ot 256.4 04/05/2015 IMELDA RUSH FLESHING MACHINE OPERATOR Ot 799.81 04/11/2015 IMELDA RUSH FLESHING MACHINE OPERATOR Ot 256.4 04/11/2015 IMELDA RUSH FLESHING MACHINE OPERATOR Ot 799.81 04/11/2015 ANGIE RICH, TENISHA Ot 682.5 04/16/2015 ARGENIS RICH, RICK T Ot 250.01 DIAB CATHIE WO COMPL, TYPE I [JUVENILE TYP 04/16/2015 ARGENIS RICH, RICK T Ot 599.0 URIN TRACT INFECTION NOS 04/16/2015 RICK MORE MD T Ot V58.67 LONG-TERM (CURRENT) USE OF INSULIN 04/26/2015 TENISHA ADAMS MD Ot 250.00 DIAB CATHIE WO COMPL, TYPE II OR UNSPEC TY 04/26/2015 TENISHA ADAMS MD Ot 785.6 ENLARGEMENT LYMPH NODES 04/26/2015 TENISHA ADAMS MD Ot V58.67 LONG-TERM (CURRENT) USE OF INSULIN 05/07/2015 IMELDA RUSH FLESHING MACHINE OPERATOR Ot 250.01 05/07/2015 IMELDA RUSH FLESHING MACHINE OPERATOR Ot V58.69 05/07/2015 IMELDA RUSH FLESHING MACHINE OPERATOR Ot 388.70 05/07/2015 IMELDA RUSH FLESHING MACHINE OPERATOR Ot 785.6 05/11/2015 TENISHA ADAMS MD Ot 785.6 05/11/2015 TENISHA ADAMS MD Ot V72.63 05/11/2015 TENISHA ADAMS MD Ot V74.8 05/11/2015 KELLIE CANALES APRN Ot 250.60 DIAB W NEURO MANIFEST, TYPE II OR UNSPEC 05/11/2015 KELLIE CANALES SAW SHARPENER Ot 305.1 TOBACCO USE DISORDER 05/11/2015 KELLIE CANALES SAW SHARPENER Ot 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 05/11/2015 KELLIE CANALES SAW SHARPENER Ot 357.2 NEUROPATHY IN DIABETES 05/11/2015 KELLIE CANALES SAW SHARPENER Ot 682.1 CELLULITIS OF NECK 05/11/2015 KELLIE CANALES SAW SHARPENER Ot V58.67 LONG-TERM (CURRENT) USE OF INSULIN 05/11/2015 KELLIE CANALES SAW SHARPENER Ot V58.69 OT MED,LT,CURRENT USE 06/07/2015 ANGIE RICH, TENISHA Ot 682.0 07/19/2015 BRIDGER RICH, PEÑA Knapp Ot E10.40 TYPE 1 DIABETES MELLITUS WITH DIABETIC N 07/19/2015 BRIDGER RICH, PEÑA Knapp Ot R07.89 OTHER CHEST PAIN 07/19/2015 BRIDGER RICH, PEÑA Knapp Ot Z91.19 PATIENT'S NONCOMPLIANCE W [facility] 08/15/2015 IMELDA RUSH FLESHING MACHINE OPERATOR Ot R06.00 08/15/2015 IMELDA RUSH FLESHING MACHINE OPERATOR Ot R09.89 08/15/2015 IMELDA RUSH FLESHING MACHINE OPERATOR Ot R42 06/11/2016 Ot 620.2 OVARIAN CYST NEC/NOS 06/11/2016 Ot 625.0 DYSPAREUNIA 06/11/2016 Ot 789.04 ABDOMINAL PAIN, LEFT LOWER QUADRANT 06/11/2016 Ot 789.09 ABDOMINAL PAIN, OTHER SPECIFIED SITE 06/11/2016 IMELDA RUSH FLESHING MACHINE OPERATOR Ot 241.0 NONTOX UNINODULAR GOITER 06/11/2016 IMELDA RUSH FLESHING MACHINE OPERATOR Ot 250.00 DIAB CATHIE WO COMPL, TYPE II OR UNSPEC TY 06/11/2016 IMELDA RUSH FLESHING MACHINE OPERATOR Ot 719.40 JOINT PAIN-UNSPEC 06/11/2016 IMELDA RUSH FLESHING MACHINE OPERATOR Ot 782.3 EDEMA 06/11/2016 IMELDA RUSH FLESHING MACHINE OPERATOR Ot 785.1 PALPITATIONS 06/11/2016 IMELDA RUSH FLESHING MACHINE OPERATOR Ot E947.9 ADV EFF MEDICINAL NOS 06/11/2016 IMELDA RUSH FLESHING MACHINE OPERATOR Ot 241.0 NONTOX UNINODULAR GOITER 06/11/2016 IMELDA RUSH FLESHING MACHINE OPERATOR Ot V64.3 NO PROC FOR REASONS NEC 06/11/2016 IMELDA RUSH FLESHING MACHINE OPERATOR Ot 241.0 NONTOX UNINODULAR GOITER 06/11/2016 BETTE RUSH DO Ot 250.00 DIAB CATHIE WO COMPL, TYPE II OR UNSPEC TY 06/11/2016 ADRI SUTHERLAND BETTE Salcido Ot 250.01 DIAB CAHTIE WO COMPL, TYPE I [JUVENILE TYP 06/11/2016 ADRI SUTHERLAND BETTE Omari Ot 382.9 OTITIS MEDIA NOS 06/11/2016 BETTE RUSH DO Ot 461.9 ACUTE SINUSITIS NOS 06/11/2016 BETTE RUSH DO Ot 780.60 FEVER, UNSPECIFIED 06/11/2016 IMELDA RUSH FLESHING MACHINE OPERATOR Ot 782.3 EDEMA 06/11/2016 IMELDA RUSH FLESHING MACHINE OPERATOR Ot 788.99 OTHER SYMPTOMS INVOLVING URINARY SYSTEM 06/11/2016 IMELDA RUSH FLESHING MACHINE OPERATOR Ot 256.4 POLYCYSTIC OVARIES 06/11/2016 IMELDA RUSH FLESHING MACHINE OPERATOR Ot 799.81 DECREASED LIBIDO 06/11/2016 TENISHA ADAMS MD Ot 682.5 CELLULITIS OF BUTTOCK 06/11/2016 IMELDA RUSH FLESHING MACHINE OPERATOR Ot 250.01 DIAB CATHIE WO COMPL, TYPE I [JUVENILE TYP 06/11/2016 IMELDA RUSH FLESHING MACHINE OPERATOR Ot V58.69 OTH MED,LT,CURRENT USE 06/11/2016 IMELDA RUSH FLESHING MACHINE OPERATOR Ot 388.70 OTALGIA NOS 06/11/2016 IMELDA RUSH FLESHING MACHINE OPERATOR Ot 785.6 ENLARGEMENT LYMPH NODES 06/11/2016 TENISHA ADAMS MD Ot 785.6 ENLARGEMENT LYMPH NODES 06/11/2016 TENISHA ADAMS MD Ot V72.63 PRE-PROCEDURAL LABORATORY EXAMINATION 06/11/2016 TENISHA ADAMS MD Ot V74.8 SCREEN-BACTERIAL DIS NEC 06/11/2016 TENISHA ADAMS MD Ot 682.0 CELLULITIS OF FACE 06/11/2016 IMELDA RUSH FLESHING MACHINE OPERATOR Ot R06.00 DYSPNEA, UNSPECIFIED 06/11/2016 IMELDA RUSH FLESHING MACHINE OPERATOR Ot R09.89 OTH SYMPTOMS AND SIGNS INVOLVING THE CIR 06/11/2016 IMELDA RUSH FLESHING MACHINE OPERATOR Ot R42 DIZZINESS AND GIDDINESS 06/11/2016 RUSHBETTE MC DO Ot R07.9 CHEST PAIN, UNSPECIFIED 06/13/2016 IMELDA RUSH FLESHING MACHINE OPERATOR Ot E28.2 POLYCYSTIC OVARIAN SYNDROME 06/13/2016 IMELDA RUSH FLESHING MACHINE OPERATOR Ot R10.2 PELVIC AND PERINEAL PAIN 06/25/2016 IMELDA RUSH FLESHING MACHINE OPERATOR Ot N20.0 CALCULUS OF KIDNEY 06/25/2016 IMELDA RUSH FLESHING MACHINE OPERATOR Ot N85.2 HYPERTROPHY OF UTERUS 06/25/2016 RUSHIMELDA MC FLESHING MACHINE OPERATOR Ot R10.84 GENERALIZED ABDOMINAL PAIN 06/25/2016 RUSHIMELDA MC FLESHING MACHINE OPERATOR Ot R19.09 OTHER INTRA-ABDOMINAL AND PELVIC SWELLIN 06/25/2016 RUSHIMELDA MC FLESHING MACHINE OPERATOR Ot N20.0 CALCULUS OF KIDNEY 06/25/2016 RUSHIMELDA MC FLESHING MACHINE OPERATOR Ot N85.2 HYPERTROPHY OF UTERUS 06/25/2016 RUSHIMELDA MC FLESHING MACHINE OPERATOR Ot R10.84 GENERALIZED ABDOMINAL PAIN 06/25/2016 RUSHIMELDA MC FLESHING MACHINE OPERATOR Ot R19.09 OTHER INTRA-ABDOMINAL AND PELVIC SWELLIN 06/25/2016 IMELDA RUSH FLESHING MACHINE OPERATOR Ot E11.9 TYPE 2 DIABETES MELLITUS WITHOUT COMPLIC 06/25/2016 RUSHIMELDA MC FLESHING MACHINE OPERATOR Ot E28.2 POLYCYSTIC OVARIAN SYNDROME 06/25/2016 RUSHIMELDA MC FLESHING MACHINE OPERATOR Ot R10.2 PELVIC AND PERINEAL PAIN 07/03/2016 RUSHIMELDA MC FLESHING MACHINE OPERATOR Ot N20.0 CALCULUS OF KIDNEY 07/03/2016 RUSHIMELDA MC FLESHING MACHINE OPERATOR Ot N85.2 HYPERTROPHY OF UTERUS 07/03/2016 RUSHIMELDA FLESHING MACHINE OPERATOR Ot R10.84 GENERALIZED ABDOMINAL PAIN 07/03/2016 RUSHIMELDA FLESHING MACHINE OPERATOR Ot R19.09 OTHER INTRA-ABDOMINAL AND PELVIC SWELLIN [...] FOR PREPROCEDURAL LABORATORY E 07/09/2016 LAY HELM DO, Ot Z11.2 ENCOUNTER FOR SCREENING FOR OTHER [...] Ot 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 07/14/2016 ALY HELM DO Ot D25.1 INTRAMURAL LEIOMYOMA OF [...] Ot 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 07/17/2016 ALICJA SUTHERLANDLAY S Ot D25.1 INTRAMURAL LEIOMYOMA OF UTERUS 07/17/2016 FENECH DO, LAY S Ot D25.2 SUBSEROSAL LEIOMYOMA OF UTERUS 07/17/2016 STANTONECH DOLAY S Ot D27.1 BENIGN NEOPLASM OF LEFT OVARY 07/17/2016 STANTONECH DOLAY Ot N72 INFLAMMATORY DISEASE OF CERVIX UTERI 07/17/2016 FENECH DOLAY S Ot N83.202 UNSPECIFIED OVARIAN CYST, LEFT SIDE 07/21/2016 FENECH DOLAY S Ot 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 07/21/2016 FENECH DOLAY S Ot D25.1 INTRAMURAL LEIOMYOMA OF UTERUS 07/21/2016 FENECH DO, LAY S Ot D25.2 SUBSEROSAL LEIOMYOMA OF UTERUS 07/21/2016 FENECH DO, LAY S Ot D27.1 BENIGN NEOPLASM OF LEFT OVARY 07/21/2016 FENECH DOLAY Ot N72 INFLAMMATORY DISEASE OF CERVIX UTERI 07/21/2016 ALICJA DOLAY S Ot N83.202 UNSPECIFIED OVARIAN CYST, LEFT [...] PAIN 10/13/2016 BETTE FARRIS DO, Ot Z79.4 LONG-TERM (CURRENT) USE OF INSULIN 10/13/2016 BETTE FARRIS DO, Ot Z90.711 ACQUIRED ABSENCE OF UTERUS WITH REMAININ 10/14/2016 BETTE FARRIS DO, Ot E11.9 TYPE 2 DIABETES MELLITUS WITHOUT COMPLIC 10/14/2016 BETTE FARRIS DO, Ot F17.210 NICOTINE DEPENDENCE, CIGARETTES, UNCOMPL 10/14/2016 BETTE FARRIS DO, Ot N72 INFLAMMATORY DISEASE OF CERVIX UTERI 10/14/2016 BETTE FARRIS DO, Ot N76.0 ACUTE VAGINITIS 10/14/2016 BETTE FARRIS DO, Ot R10.2 PELVIC AND PERINEAL PAIN 10/14/2016 BETTE FARRIS DO, Ot Z79.4 LONG-TERM (CURRENT) USE OF INSULIN 10/14/2016 BETTE FARRIS DO, Ot Z90.711 ACQUIRED ABSENCE OF UTERUS WITH REMAININ 10/15/2016 BETTE FARRIS DO Ot E11.9 TYPE 2 DIABETES MELLITUS WITHOUT COMPLIC 10/15/2016 BETTE FARRIS DO, Ot F17.210 NICOTINE DEPENDENCE, CIGARETTES, UNCOMPL 10/15/2016 BETTE FARRIS DO Ot N72 INFLAMMATORY DISEASE OF CERVIX UTERI 10/15/2016 BETTE FARRIS DO Ot N76.0 ACUTE VAGINITIS 10/15/2016 BETTE FARRIS DO Ot R10.2 PELVIC AND PERINEAL PAIN 10/15/2016 BETTE FARRIS DO, Ot Z79.4 LONG-TERM (CURRENT) USE OF INSULIN 10/15/2016 BETTE FARRIS DO, Ot Z90.711 ACQUIRED ABSENCE OF UTERUS WITH REMAININ 11/19/2016 LAY HELM DO S Ot E10.319 TYPE 1 DIABETES W UNSP DIABETIC RTNOP W/ 11/19/2016 LAY HELM DO Ot E10.40 TYPE 1 DIABETES MELLITUS WITH DIABETIC N 11/19/2016 LAY HELM DO Ot E10.65 TYPE 1 DIABETES MELLITUS WITH HYPERGLYCE 11/19/2016 LAY HELM DO Ot F17.210 NICOTINE DEPENDENCE, CIGARETTES, UNCOMPL 11/19/2016 LAY HELM DO Ot K59.00 CONSTIPATION, UNSPECIFIED 11/19/2016 LAY HELM DO Ot N73.0 ACUTE PARAMETRITIS AND PELVIC CELLULITIS 11/19/2016 LAY HELM DO Ot Z79.4 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) USE OF INSULIN 11/19/2016 LAY HELM DO Ot Z91.14 PATIENT'S OTHER NONCOMPLIANCE WITH MEDIC 11/27/2016 LAY HELM DO Ot E10.319 TYPE 1 DIABETES W UNSP DIABETIC RTNOP W/ 11/27/2016 LAY HELM DO S Ot E10.40 TYPE 1 DIABETES MELLITUS WITH DIABETIC N 11/27/2016 LAY HELM DO S Ot E10.65 TYPE 1 DIABETES MELLITUS WITH HYPERGLYCE 11/27/2016 LAY HELM DO S Ot F17.210 NICOTINE DEPENDENCE, CIGARETTES, UNCOMPL 11/27/2016 LAY HELM DO S Ot K59.00 CONSTIPATION, UNSPECIFIED 11/27/2016 ALICJA SUTHERLAND LAY Schuster Ot N73.0 ACUTE PARAMETRITIS AND PELVIC CELLULITIS 11/27/2016 ALICJA SUTHERLAND LAY Schuster Ot Z79.4 LONG-TERM (CURRENT) USE OF INSULIN 11/27/2016 ALICJA SUTHERLAND LAY Schuster Ot Z91.14 PATIENT'S OTHER NONCOMPLIANCE WITH MEDIC 11/27/2016 ALICJA SUTHERLAND LAY Schuster Ot E10.319 TYPE 1 DIABETES W UNSP DIABETIC RTNOP W/ 11/27/2016 ALICJA SUTHERLAND LAY S Ot E10.40 TYPE 1 DIABETES MELLITUS WITH DIABETIC N 11/27/2016 ALICJA DO LAY S Ot E10.65 TYPE 1 DIABETES MELLITUS WITH HYPERGLYCE 11/27/2016 ALICJA SUTHERLAND LAY Schuster Ot F17.210 NICOTINE DEPENDENCE, CIGARETTES, UNCOMPL 11/27/2016 ALICJA SUTHERLAND LAY Schuster Ot K59.00 CONSTIPATION, UNSPECIFIED 11/27/2016 ALICJA SUTHERLAND LAY Schuster Ot N73.0 ACUTE PARAMETRITIS AND PELVIC CELLULITIS 11/27/2016 ALICJA SUTHERLAND LAY Schuster Ot Z79.4 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) USE OF INSULIN 11/27/2016 ALICJA SUTHERLAND [...] ACUTE GASTRITIS WITHOUT BLEEDING 06/02/2018 IMELDA RUSH FLESHING MACHINE OPERATOR Ot E11.622 TYPE 2 DIABETES MELLITUS WITH OTHER SKIN 06/02/2018 IMELDA RUSH FLESHING MACHINE OPERATOR Ot L02.416 CUTANEOUS ABSCESS OF LEFT LOWER LIMB 06/02/2018 IMELDA RUSH FLESHING MACHINE OPERATOR Ot L97.828 NON-PRS CHRONIC ULCER OTH PRT L LOW LEG 06/11/2018 LAY JONES MD Ot E10.65 TYPE 1 DIABETES MELLITUS WITH HYPERGLYCE 06/11/2018 LAY JONES MD Ot I89.0 LYMPHEDEMA, NOT ELSEWHERE CLASSIFIED 06/11/2018 LAY JONES MD Ot L92.1 NECROBIOSIS LIPOIDICA, NOT ELSEWHERE CLA 06/15/2018 LAY JONES MD Ot E10.65 TYPE 1 DIABETES MELLITUS WITH HYPERGLYCE 06/15/2018 LAY JONES MD Ot I89.0 LYMPHEDEMA, NOT ELSEWHERE CLASSIFIED 06/15/2018 LAY JONES MD Ot L92.1 NECROBIOSIS LIPOIDICA, NOT ELSEWHERE CLA 06/16/2018 IMELDA RUSH FLESHING MACHINE OPERATOR Ot E11.622 TYPE 2 DIABETES MELLITUS WITH OTHER SKIN 06/16/2018 IMELDA RUSH FLESHING MACHINE OPERATOR Ot L02.416 CUTANEOUS ABSCESS OF LEFT LOWER LIMB 06/16/2018 IMELDA RUSH FLESHING MACHINE OPERATOR Ot L97.828 NON-PRS CHRONIC ULCER OTH PRT L LOW LEG 06/23/2018 LAY JONES MD Ot E10.65 TYPE 1 DIABETES MELLITUS WITH HYPERGLYCE 06/23/2018 LAY JONES MD, Ot I89.0 LYMPHEDEMA, NOT ELSEWHERE CLASSIFIED 06/23/2018 LAY JONES MD, Ot L92.1 NECROBIOSIS LIPOIDICA, NOT ELSEWHERE CLA 08/28/2018 P G629 Polyneuropathy , unspecified 08/28/2018 S R51 Headache 09/10/2018 IMELDA RUSH FLESHING MACHINE OPERATOR Ot 241.0 NONTOX UNINODULAR GOITER 09/10/2018 IMELDA RUSH FLESHING MACHINE OPERATOR Ot 250.00 DIAB CATHIE WO COMPL, TYPE II OR UNSPEC TY 09/10/2018 IMELDA RUSH FLESHING MACHINE OPERATOR Ot 719.40 JOINT PAIN-UNSPEC 09/10/2018 IMELDA RUSH FLESHING MACHINE OPERATOR Ot 782.3 EDEMA 09/10/2018 IMELDA RUSH FLESHING MACHINE OPERATOR Ot 785.1 PALPITATIONS 09/10/2018 IMELDA RUSH FLESHING MACHINE OPERATOR Ot E947.9 ADV EFF MEDICINAL NOS 09/10/2018 IMELDA RUSH FLESHING MACHINE OPERATOR Ot 241.0 NONTOX UNINODULAR GOITER 09/10/2018 MIELDA RUSH FLESHING MACHINE OPERATOR Ot V64.3 NO PROC FOR REASONS NEC 09/10/2018 IMEDLA RUSH FLESHING MACHINE OPERATOR Ot 241.0 NONTOX UNINODULAR GOITER 09/10/2018 BETTE RUSH DO Ot 250.00 DIAB CATHIE WO COMPL, TYPE II OR UNSPEC TY 09/10/2018 BETTE RUSH DO Ot 250.01 DIAB CATHIE WO COMPL, TYPE I [JUVENILE TYP 09/10/2018 BETTE RUSH DO Ot 382.9 OTITIS MEDIA NOS 09/10/2018 BETTE RUSH DO Ot 461.9 ACUTE SINUSITIS NOS 09/10/2018 BETTE RUSH DO Ot 780.60 FEVER, UNSPECIFIED 09/10/2018 MACARIO RUSHRICIA L FLESHING MACHINE OPERATOR Ot 782.3 EDEMA 09/10/2018 MACARIO RUSHRICIA L FLESHING MACHINE OPERATOR Ot 788.99 OTHER SYMPTOMS INVOLVING URINARY SYSTEM 09/10/2018 SANJU RUSHIA L FLESHING MACHINE OPERATOR Ot 256.4 POLYCYSTIC OVARIES 09/10/2018 MACARIO RUSHRICIA L FLESHING MACHINE OPERATOR Ot 799.81 DECREASED LIBIDO 09/10/2018 TENISHA ADAMS MD Ot 682.5 CELLULITIS OF BUTTOCK 09/10/2018 SANJU RUSHIA L FLESHING MACHINE OPERATOR Ot 250.01 DIAB CATHIE WO COMPL, TYPE I [JUVENILE TYP 09/10/2018 MACARIO RUSHRICIA L FLESHING MACHINE OPERATOR Ot V58.69 OTH MED,LT,CURRENT USE 09/10/2018 SANJU RUSHIA L FLESHING MACHINE OPERATOR Ot 388.70 OTALGIA NOS 09/10/2018 MACARIO RUSHRICIA L FLESHING MACHINE OPERATOR Ot 785.6 ENLARGEMENT LYMPH NODES 09/10/2018 TENISHA ADAMS MD Ot 785.6 ENLARGEMENT LYMPH NODES 09/10/2018 TENISHA ADAMS MD Ot V72.63 PRE-PROCEDURAL LABORATORY EXAMINATION 09/10/2018 TENISHA ADAMS MD Ot V74.8 SCREEN-BACTERIAL DIS NEC 09/10/2018 TENISHA ADAMS MD Ot 682.0 CELLULITIS OF FACE 09/10/2018 SANJU RUSHIA L FLESHING MACHINE OPERATOR Ot R06.00 DYSPNEA, UNSPECIFIED 09/10/2018 MACARIO RUSHRICIA L FLESHING MACHINE OPERATOR Ot R09.89 OTH SYMPTOMS AND SIGNS INVOLVING THE CIR 09/10/2018 SANJU RUSHIA L FLESHING MACHINE OPERATOR Ot R42 DIZZINESS AND GIDDINESS 09/10/2018 BETTE RUSH DO Ot R07.9 CHEST PAIN, UNSPECIFIED 09/10/2018 IMELDA RUSH FLESHING MACHINE OPERATOR Ot E11.9 TYPE 2 DIABETES MELLITUS WITHOUT COMPLIC 09/10/2018 RUSHIMELDA MC FLESHING MACHINE OPERATOR Ot E28.2 POLYCYSTIC OVARIAN SYNDROME 09/10/2018 RUSHIMELDA MC FLESHING MACHINE OPERATOR Ot R10.2 PELVIC AND PERINEAL PAIN 09/10/2018 RUSHIMELDA MC FLESHING MACHINE OPERATOR Ot N20.0 CALCULUS OF KIDNEY 09/10/2018 RUSHIMELDA MC FLESHING MACHINE OPERATOR Ot N85.2 HYPERTROPHY OF UTERUS 09/10/2018 RUSHIMELDA MC FLESHING MACHINE OPERATOR Ot R10.84 GENERALIZED ABDOMINAL PAIN 09/10/2018 RUSHIMELDA MC FLESHING MACHINE OPERATOR Ot R19.09 OTHER INTRA-ABDOMINAL AND PELVIC SWELLIN 09/10/2018 RUSHIMELDA MC FLESHING MACHINE OPERATOR Ot E11.622 TYPE 2 DIABETES MELLITUS WITH OTHER SKIN 09/10/2018 ADRI IMELDA Rose FLESHING MACHINE OPERATOR Ot L02.416 CUTANEOUS ABSCESS OF LEFT LOWER LIMB 09/10/2018 ADRIIMELDA FLESHING MACHINE OPERATOR Ot L97.828 NON-PRS CHRONIC ULCER OTH PRT L LOW LEG 09/10/2018 LAY JONES MD Ot E10.65 TYPE 1 DIABETES MELLITUS WITH HYPERGLYCE 09/10/2018 ROBERT RICH, LAY Benavides Ot I89.0 LYMPHEDEMA, NOT ELSEWHERE CLASSIFIED 09/10/2018 LAY JONES MD Ot L92.1 NECROBIOSIS LIPOIDICA, NOT ELSEWHERE CLA 09/16/2018 TRENT SALCEDO DO Ot E10.9 TYPE 1 DIABETES MELLITUS WITHOUT COMPLIC 09/16/2018 TRENT SALCEDO DO, Ot G62.9 POLYNEUROPATHY, UNSPECIFIED 09/16/2018 TRENT SALCEDO DO Ot G93.9 DISORDER OF BRAIN, UNSPECIFIED 09/16/2018 TRENT SALCEDO DO Ot R50.9 FEVER, UNSPECIFIED 09/19/2018 TRENT SALCEDO DO Ot E10.9 TYPE 1 DIABETES MELLITUS WITHOUT COMPLIC 09/19/2018 TRENT SALCEDO DO, Ot G62.9 POLYNEUROPATHY, UNSPECIFIED 09/19/2018 [facility] TRENT Duvall Ot G93.9 DISORDER OF BRAIN, UNSPECIFIED 09/19/2018 [facility] [place] Ot R50.9 FEVER, UNSPECIFIED 09/30/2018 [facility] TRENT Duvall Ot E10.9 TYPE 1 DIABETES MELLITUS WITHOUT COMPLIC 09/30/2018 [facility] TR[facility] [place] Ot G62.9 POLYNEUROPATHY, UNSPECIFIED 09/30/2018 [facility] TRENT [place]vall Ot G93.9 DISORDER OF BRAIN, UNSPECIFIED 09/30/2018 [facility] DO TRENT Duvall Ot R50.9 FEVER, UNSPECIFIED 10/07/2018 IMELDA RUSH FLESHING MACHINE OPERATOR Ot 241.0 NONTOX UNINODULAR GOITER 10/07/2018 IMELDA RUSH FLESHING MACHINE OPERATOR Ot 250.00 DIAB CATHIE WO COMPL, TYPE II OR UNSPEC TY 10/07/2018 IMELDA RUSH FLESHING MACHINE OPERATOR Ot 719.40 JOINT PAIN-UNSPEC 10/07/2018 IMELDA RUSH FLESHING MACHINE OPERATOR Ot 782.3 EDEMA 10/07/2018 IMELDA RUSH FLESHING MACHINE OPERATOR Ot 785.1 PALPITATIONS 10/07/2018 IMELDA RUSH FLESHING MACHINE OPERATOR Ot E947.9 ADV EFF MEDICINAL NOS 10/07/2018 IMELDA RUSH FLESHING MACHINE OPERATOR Ot 241.0 NONTOX UNINODULAR GOITER 10/07/2018 IMELDA RUSH FLESHING MACHINE OPERATOR Ot V64.3 NO PROC FOR REASONS NEC 10/07/2018 IMELDA RUSHP Ot 241.0 NONTOX UNINODULAR GOITER 10/07/2018 BETTE RUSH DO Ot 250.00 DIAB CATHIE WO COMPL, TYPE II OR UNSPEC TY 10/07/2018 BETTE RUSH DO Ot 250.01 DIAB CATHIE WO COMPL, TYPE I [JUVENILE TYP 10/07/2018 BETTE RUSH DO Ot 382.9 OTITIS MEDIA NOS 10/07/2018 BETTE RUSH DO Ot 461.9 ACUTE SINUSITIS NOS 10/07/2018 BETTE RUSH DO Ot 780.60 FEVER, UNSPECIFIED 10/07/2018 IMELDA RUSHP Ot 782.3 EDEMA 10/07/2018 IMELDA RUSH FLESHING MACHINE OPERATOR Ot 788.99 OTHER SYMPTOMS INVOLVING URINARY SYSTEM 10/07/2018 IMELDA RUSH FLESHING MACHINE OPERATOR Ot 256.4 POLYCYSTIC OVARIES 10/07/2018 IMELDA RUSH FLESHING MACHINE OPERATOR Ot 799.81 DECREASED LIBIDO 10/07/2018 TENISHA ADAMS MD Ot 682.5 CELLULITIS OF BUTTOCK 10/07/2018 IMELDA RUSH FLESHING MACHINE OPERATOR Ot 250.01 DIAB CATHIE WO COMPL, TYPE I [JUVENILE TYP 10/07/2018 IMELDA RUSH FLESHING MACHINE OPERATOR Ot V58.69 OTH MED,LT,CURRENT USE 10/07/2018 IMELDA RUSH FLESHING MACHINE OPERATOR Ot 388.70 OTALGIA NOS 10/07/2018 IMELDA RUSH FLESHING MACHINE OPERATOR Ot 785.6 ENLARGEMENT LYMPH NODES 10/07/2018 TENISHA ADAMS MD Ot 785.6 ENLARGEMENT LYMPH NODES 10/07/2018 TENISHA ADAMS MD Ot V72.63 PRE-PROCEDURAL LABORATORY EXAMINATION 10/07/2018 TENISHA ADAMS MD Ot V74.8 SCREEN-BACTERIAL DIS NEC 10/07/2018 TENISHA ADAMS MD Ot 682.0 CELLULITIS OF FACE 10/07/2018 IMELDA RUSH FLESHING MACHINE OPERATOR Ot R06.00 DYSPNEA, UNSPECIFIED 10/07/2018 IMELDA RUSH FLESHING MACHINE OPERATOR Ot R09.89 OT SYMPTOMS AND SIGNS INVOLVING THE CIR 10/07/2018 IMELDA RUSH FLESHING MACHINE OPERATOR Ot R42 DIZZINESS AND GIDDINESS 10/07/2018 BETTE RUSH DO Ot R07.9 CHEST PAIN, UNSPECIFIED 10/07/2018 IMELDA RUSH FLESHING MACHINE OPERATOR Ot E11.9 TYPE 2 DIABETES MELLITUS WITHOUT COMPLIC 10/07/2018 IMELDA RUSH FLESHING MACHINE OPERATOR Ot E28.2 POLYCYSTIC OVARIAN SYNDROME 10/07/2018 IMELDA RUSH FLESHING MACHINE OPERATOR Ot R10.2 PELVIC AND PERINEAL PAIN 10/07/2018 IMELDA RUSH FLESHING MACHINE OPERATOR Ot N20.0 CALCULUS OF KIDNEY 10/07/2018 IMELDA RUSH FLESHING MACHINE OPERATOR Ot N85.2 HYPERTROPHY OF UTERUS 10/07/2018 IMELDA RUSH FLESHING MACHINE OPERATOR Ot R10.84 GENERALIZED ABDOMINAL PAIN 10/07/2018 IMELDA RUSH FLESHING MACHINE OPERATOR Ot R19.09 OTHER INTRA-ABDOMINAL AND PELVIC SWELLIN 10/07/2018 IMELDA RUSH FLESHING MACHINE OPERATOR Ot E11.622 TYPE 2 DIABETES MELLITUS WITH OTHER SKIN 10/07/2018 IMELDA RUSH FLESHING MACHINE OPERATOR Ot L02.416 CUTANEOUS ABSCESS OF LEFT LOWER LIMB 10/07/2018 IMELDA RUSH FLESHING MACHINE OPERATOR Ot L97.828 NON-PRS CHRONIC ULCER OTH PRT L LOW LEG 10/07/2018 LAY JONES MD Ot E10.65 TYPE 1 DIABETES MELLITUS WITH HYPERGLYCE 10/07/2018 LAY JONES MD Ot I89.0 LYMPHEDEMA, NOT ELSEWHERE CLASSIFIED 10/07/2018 LAY JONES MD Ot L92.1 NECROBIOSIS LIPOIDICA, NOT ELSEWHERE CLA 10/07/2018 NIEDERKLTRENT CARVAJAL DO Ot E10.9 TYPE 1 DIABETES MELLITUS WITHOUT COMPLIC 10/07/2018 TRENT SALCEDO DO Ot G62.9 POLYNEUROPATHY, UNSPECIFIED 10/07/2018 TRENT SALCEDO DO Ot G93.9 DISORDER OF BRAIN, UNSPECIFIED 10/07/2018 FREDYTRENT CARVAJAL DO Ot R50.9 FEVER, UNSPECIFIED 10/07/2018 RUSHIMELDA MC FLESHING MACHINE OPERATOR Ot E11.622 TYPE 2 DIABETES MELLITUS WITH OTHER SKIN 10/07/2018 RUSHIMELDA MC FLESHING MACHINE OPERATOR Ot L02.416 CUTANEOUS ABSCESS OF LEFT LOWER LIMB 10/07/2018 RUSHIMELDA MC FLESHING MACHINE OPERATOR Ot L97.828 NON-PRS CHRONIC ULCER OTH PRT L LOW LEG 10/13/2018 GARCIA MARTINEZ MD, Ot Z53.9 PROCEDURE AND TREATMENT NOT CARRIED OUT, 10/14/2018 GARCIA MARTINEZ MD, Ot G35 MULTIPLE SCLEROSIS 10/15/2018 GARCIA MARTINEZ MD, Ot G35 MULTIPLE SCLEROSIS 10/16/2018 GARCIA MARTINEZ MD, Ot G35 MULTIPLE SCLEROSIS 10/17/2018 GARCIA MARTINEZ MD, Ot G35 MULTIPLE SCLEROSIS 10/17/2018 GARCIA MARTINEZ MD, Ot G35 MULTIPLE SCLEROSIS 10/18/2018 GARCIA MARTINEZ MD, Ot G35 MULTIPLE SCLEROSIS 10/19/2018 GARCIA MARTINEZ MD, Ot Z53.9 PROCEDURE AND TREATMENT NOT CARRIED OUT, 10/19/2018 GARCIA MARTINEZ MD, Ot G35 MULTIPLE SCLEROSIS 10/19/2018 [facility] E10.9 TYPE 1 DIABETES MELLITUS WITHOUT COMPLIC 10/19/[address] [facility] Ot G62.9 POLYNEUROPATHY, UNSPECIFIED 10/19/2018 [facility], TRENT M Ot G93.9 DISORDER OF BRAIN, UNSPECIFIED 10/19/2018 [facility] R50.9 FEVER, UNSPECIFIED 10/19/2018 IMELDA RUSH FLESHING MACHINE OPERATOR Ot E11.622 TYPE 2 DIABETES MELLITUS WITH OTHER SKIN 10/19/2018 IMELDA RUSH FLESHING MACHINE OPERATOR Ot L02.416 CUTANEOUS ABSCESS OF LEFT LOWER LIMB 10/19/2018 IMELDA RUSH FLESHING MACHINE OPERATOR Ot L97.828 NON-PRS CHRONIC ULCER OTH PRT L LOW LEG 10/21/2018 GARCIA MARTINEZ MD, Ot G35 MULTIPLE SCLEROSIS 10/22/2018 PAM RICH, BINU Schuster Ot E11.9 TYPE 2 DIABETES MELLITUS WITHOUT COMPLIC 10/22/2018 PAM RICH, BINU Schuster Ot F32.9 MAJOR DEPRESSIVE DISORDER, SINGLE EPISOD 10/22/2018 PAM RICH, BINU Schuster Ot F41.9 ANXIETY DISORDER, UNSPECIFIED 10/22/2018 BINU OROZCO MD, Ot G35 MULTIPLE SCLEROSIS 10/22/2018 BINU OROZCO MD, Ot K21.9 GASTRO-ESOPHAGEAL REFLUX DISEASE WITHOUT 10/22/2018 BINU OROZCO MD Ot R10.30 LOWER ABDOMINAL PAIN, UNSPECIFIED 10/22/2018 BINU OROZCO MD Ot Z79.4 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) USE OF INSULIN 10/22/2018 BINU OROZCO MD, Ot Z80.8 FAMILY HISTORY OF MALIGNANT NEOPLASM OF 10/22/2018 BINU OROZCO MD Ot Z82.49 FAMILY HX OF ISCHEM HEART DIS AND OTH DI 10/22/2018 BINU OROZCO MD, Ot Z87.01 PERSONAL HISTORY OF PNEUMONIA (RECURRENT 10/22/2018 PAM RICH, BINU Schuster Ot Z87.440 PERSONAL HISTORY OF URINARY (TRACT) INFE 10/22/2018 PAM RICH, BINU Schuster Ot Z87.448 PERSONAL HISTORY OF OTHER DISEASES OF UR 10/22/2018 PAM RICH, BINU Schuster Ot Z88.1 ALLERGY STATUS TO OTHER ANTIBIOTIC AGENT 10/22/2018 PAM RICH, BINU Schuster Ot Z88.5 ALLERGY STATUS TO NARCOTIC AGENT STATUS 10/22/2018 PAM RICH, BINU Schuster Ot Z88.8 ALLERGY STATUS TO OT DRUG/MEDS/BIOL SUB 10/22/2018 BINU OROZCO MD Ot Z90.710 ACQUIRED ABSENCE OF BOTH CERVIX AND UTER 10/22/2018 PAM RICH, BINU Schuster Ot Z98.51 TUBAL LIGATION STATUS 10/22/2018 BINU OROZCO MD Ot Z98.890 OTHER SPECIFIED POSTPROCEDURAL STATES 10/25/2018 BINU OROZCO MD Ot E11.9 TYPE 2 DIABETES MELLITUS WITHOUT COMPLIC 10/25/2018 PAM RICH, BINU Schuster Ot F32.9 MAJOR DEPRESSIVE DISORDER, SINGLE EPISOD 10/25/2018 BINU OROZCO MD Ot F41.9 ANXIETY DISORDER, UNSPECIFIED 10/25/2018 BINU OROZCO MD Ot G35 MULTIPLE SCLEROSIS 10/25/2018 BINU OROZCO MD Ot K21.9 GASTRO-ESOPHAGEAL REFLUX DISEASE WITHOUT 10/25/2018 BINU OROZCO MD Ot R10.30 LOWER ABDOMINAL PAIN, UNSPECIFIED 10/25/2018 BINU OROZCO MD Ot Z79.4 LONG-TERM (CURRENT) USE OF INSULIN 10/25/2018 BINU OROZCO MD Ot Z80.8 FAMILY HISTORY OF MALIGNANT NEOPLASM OF 10/25/2018 BINU OROZCO MD Ot Z82.49 FAMILY HX OF ISCHEM HEART DIS AND OTH DI 10/25/2018 BINU OROZCO MD Ot Z87.01 PERSONAL HISTORY OF PNEUMONIA (RECURRENT 10/25/2018 BINU OROZCO MD Ot Z87.440 PERSONAL HISTORY OF URINARY (TRACT) INFE 10/25/2018 BINU OROZCO MD Ot Z87.448 PERSONAL HISTORY OF OTHER DISEASES OF UR 10/25/2018 BINU OROZCO MD Ot Z88.1 ALLERGY STATUS TO OTHER ANTIBIOTIC AGENT 10/25/2018 PAM RICH, BINU Mariely Ot Z88.5 ALLERGY STATUS TO NARCOTIC AGENT STATUS 10/25/2018 PAM IRCH, BINU Mariely Ot Z88.8 ALLERGY STATUS TO OTH DRUG/MEDS/BIOL SUB 10/25/2018 PAM RICH, BINU Schuster Ot Z90.710 ACQUIRED ABSENCE OF BOTH CERVIX AND UTER 10/25/2018 PAM RICH, BINU Mariely Ot Z98.51 TUBAL LIGATION STATUS 10/25/2018 PAM RICH, BINU Mariely Ot Z98.890 OTHER SPECIFIED POSTPROCEDURAL STATES 10/27/2018 GARCIA MARTINEZ MD Ot G35 MULTIPLE SCLEROSIS 11/02/2018 IMELDA RUSH FLESHING MACHINE OPERATOR Ot 241.0 NONTOX UNINODULAR GOITER 11/02/2018 IMELDA RUSH FLESHING MACHINE OPERATOR Ot 250.00 DIAB CATHIE WO COMPL, TYPE II OR UNSPEC TY 11/02/2018 IMELDA RUSH FLESHING MACHINE OPERATOR Ot 719.40 JOINT PAIN-UNSPEC 11/02/2018 IMELDA RUSH FLESHING MACHINE OPERATOR Ot 782.3 EDEMA 11/02/2018 IMELAD RUSH FLESHING MACHINE OPERATOR Ot 785.1 PALPITATIONS 11/02/2018 IMELDA RUSH FLESHING MACHINE OPERATOR Ot E947.9 ADV EFF MEDICINAL NOS 11/02/2018 IMELDA RUSH FLESHING MACHINE OPERATOR Ot 241.0 NONTOX UNINODULAR GOITER 11/02/2018 IMELDA RUSH FLESHING MACHINE OPERATOR Ot V64.3 NO PROC FOR REASONS NEC 11/02/2018 IMELDA RUSHP Ot 241.0 NONTOX UNINODULAR GOITER 11/02/2018 BETTE RUSH DO Ot 250.00 DIAB CATHIE WO COMPL, TYPE II OR UNSPEC TY 11/02/2018 BETTE RUSH DO Ot 250.01 DIAB CATHIE WO COMPL, TYPE I [JUVENILE TYP 11/02/2018 BETTE RUSH DO Ot 382.9 OTITIS MEDIA NOS 11/02/2018 BETTE RUSH DO Ot 461.9 ACUTE SINUSITIS NOS 11/02/2018 BETTE RUSH DO Ot 780.60 FEVER, UNSPECIFIED 11/02/2018 IMELDA RUSHP Ot 782.3 EDEMA 11/02/2018 IMELDA RUSH FLESHING MACHINE OPERATOR Ot 788.99 OTHER SYMPTOMS INVOLVING URINARY SYSTEM 11/02/2018 IMELDA RUSH FLESHING MACHINE OPERATOR Ot 256.4 POLYCYSTIC OVARIES 11/02/2018 IMELDA RUSH FLESHING MACHINE OPERATOR Ot 799.81 DECREASED LIBIDO 11/02/2018 ANGIE RICH, TENISHA Ot 682.5 CELLULITIS OF BUTTOCK 11/02/2018 IMELDA RUSH FLESHING MACHINE OPERATOR Ot 250.01 DIAB CATHIE WO COMPL, TYPE I [JUVENILE TYP 11/02/2018 IMELDA RUSH FLESHING MACHINE OPERATOR Ot V58.69 OTH MED,LT,CURRENT USE 11/02/2018 IMELDA RUSH FLESHING MACHINE OPERATOR Ot 388.70 OTALGIA NOS 11/02/2018 IMELDA RUSH FLESHING MACHINE OPERATOR Ot 785.6 ENLARGEMENT LYMPH NODES 11/02/2018 ANGIE RICH, TENISHA Ot 785.6 ENLARGEMENT LYMPH NODES 11/02/2018 ANGIE RICH, TENISHA Ot V72.63 PRE-PROCEDURAL LABORATORY EXAMINATION 11/02/2018 ANGIE RICH, TENISHA Ot V74.8 SCREEN-BACTERIAL DIS NEC 11/02/2018 ANGIE RICH, TENISHA Ot 682.0 CELLULITIS OF FACE 11/02/2018 IMELDA RUSH FLESHING MACHINE OPERATOR Ot R06.00 DYSPNEA, UNSPECIFIED 11/02/2018 IMELDA RUSH FLESHING MACHINE OPERATOR Ot R09.89 OT SYMPTOMS AND SIGNS INVOLVING THE CIR 11/02/2018 IMELDA RUSH FLESHING MACHINE OPERATOR Ot R42 DIZZINESS AND GIDDINESS 11/02/2018 BETTE RUSH DO Ot R07.9 CHEST PAIN, UNSPECIFIED 11/02/2018 IMELDA RUSH FLESHING MACHINE OPERATOR Ot E11.9 TYPE 2 DIABETES MELLITUS WITHOUT COMPLIC 11/02/2018 IMELDA RUSH FLESHING MACHINE OPERATOR Ot E28.2 POLYCYSTIC OVARIAN SYNDROME 11/02/2018 IMELDA RUSH FLESHING MACHINE OPERATOR Ot R10.2 PELVIC AND PERINEAL PAIN 11/02/2018 IMELDA RUSH FLESHING MACHINE OPERATOR Ot N20.0 CALCULUS OF KIDNEY 11/02/2018 IMELDA RUSH FLESHING MACHINE OPERATOR Ot N85.2 HYPERTROPHY OF UTERUS 11/02/2018 IMELDA RUSH FLESHING MACHINE OPERATOR Ot R10.84 GENERALIZED ABDOMINAL PAIN 11/02/2018 IMELDA RUSH FLESHING MACHINE OPERATOR Ot R19.09 OTHER INTRA-ABDOMINAL AND PELVIC SWELLIN 11/02/2018 IMELDA RUSH FLESHING MACHINE OPERATOR Ot E11.622 TYPE 2 DIABETES MELLITUS WITH OTHER SKIN 11/02/2018 IMELDA RUSH FLESHING MACHINE OPERATOR Ot L02.416 CUTANEOUS ABSCESS OF LEFT LOWER LIMB 11/02/2018 IMELDA RUSH FLESHING MACHINE OPERATOR Ot L97.828 NON-PRS CHRONIC ULCER OTH PRT L LOW LEG 11/02/2018 LAY JONES MD Ot E10.65 TYPE 1 DIABETES MELLITUS WITH HYPERGLYCE 11/02/2018 LAY JONES MD, Ot I89.0 LYMPHEDEMA, NOT ELSEWHERE CLASSIFIED 11/02/2018 LAY JONES MD, Ot L92.1 NECROBIOSIS LIPOIDICA, NOT ELSEWHERE CLA 11/02/2018 TRENT SALCEDO DO Ot E10.9 TYPE 1 DIABETES MELLITUS WITHOUT COMPLIC 11/02/2018 TRENT SALCEDO DO, Ot G62.9 POLYNEUROPATHY, UNSPECIFIED 11/02/2018 TRENT SALCEDO DO, Ot G93.9 DISORDER OF BRAIN, UNSPECIFIED 11/02/2018 TRENT SALCEDO DO, Ot R50.9 FEVER, UNSPECIFIED 11/02/2018 GARCIA MARTINEZ MD, Ot G35 MULTIPLE SCLEROSIS 11/02/2018 GARCIA MARTINEZ MD, Ot G35 MULTIPLE SCLEROSIS 11/02/2018 GARCIA MARTINEZ MD, Ot G35 MULTIPLE SCLEROSIS 11/02/2018 GARCIA MARTINEZ MD, Ot G35 MULTIPLE SCLEROSIS Procedures There is no data. Results Test [...] protein measurement (mass/volume) 0.22 mg /dL 0.00-0.50 [id number] - 06/10/16 12:30 Serum or plasma follicle [...] ABO+Rh group AP NRG Transfusion band number [id number] NRG Blood group antibody screen NEGATIVE NRG [...] identification in genital specimen by aerobe culture [id number] NRG Microscopic examination by IRMA preparation - 11/17/16 16:12 Microscopic examination by IRMA preparation TNP NRG Microscopic examination by wet preparation - 11/17/16 16:12 WET PREP RESULTS BY NRG Chlamydia trachomatis DNA detection by probe [...] 0.3 mg/dL 0.2-1.2 TP 7.7 g/dL 6.0-8.3 Cerebrospinal fluid cell count - 09/13/18 10:29 Cerebrospinal fluid appearance description CLEAR NRG Cerebrospinal fluid color identification COLORLESS NRG Cerebrospinal fluid leukocytes count (number/volume) 2 % 0-5 Cerebrospinal fluid erythrocytes count (number/volume) 1 % 0-0 Cerebrospinal fluid cell count on specimen from last tube collected 4 NRG Cerebrospinal fluid glucose measurement (mass/volume) - 09/13/18 10:29 Cerebrospinal fluid glucose measurement (mass/volume) 52 mg/dL 50-80 Cerebrospinal fluid protein measurement (mass/volume) - 09/13/18 10:29 Cerebrospinal fluid protein measurement (mass/volume) 136 mg/dL 15-40 * Reference lab test name - 09/13/18 10:29 * Reference lab test results NMO/AQP4 IgG CSF NRG Cerebrospinal fluid myelin basic protein measurement - 09/13/18 11:10 Myelin basic protein [mass/volume] in serum < ug/L 2.0- 4.0 IMMUNOGLOBULIN IGG IGA IGM CSF - 09/13/18 11:10 24 hour urine IgG measurement (mass/volume) 6.1 % 0.0- 6.0 IGA CSF 0.9 % 0.0-0.7 IgM CSF < % 0.0-0.7 Cerebrospinal fluid oligoclonal bands detection - 09/13/18 11:10 Cerebrospinal fluid oligoclonal bands detection BANDS NOTED NO BANDS Cerebrospinal fluid Borrelia burgdorferi IgG and IgM antibody assay - 09/13/18 11:10 Cerebrospinal fluid Borrelia burgdorferi IgG antibody detection <1: 4 <1:4 Cerebrospinal fluid Borrelia burgdorferi IgM antibody detection <1: 2 <1:2 Encounters ACCT No. Visit Date/Time Discharge Status Pt. Type Provider Facility Loc./Unit Complaint [id number] 10/22/2018 12:56:00 10/22/2018 16:28:00 DIS Emergency BINU OROZCO MD [facility] ER ABD PAIN [id number] 10/16/2018 09:58:00 10/16/2018 23:59:59 CLS Outpatient GARCIA MARTINEZ MD [facility] MS [id number] 10/14/2018 08:00:00 10/14/2018 23:59:59 CLS Outpatient GARCIA MARTINEZ MD [facility] MULTIPLE SCLEROSIS [id number] 10/13/2018 12:32:00 10/13/2018 23:59:59 CLS Outpatient GARCIA MARTINEZ MD [facility] LAB MULTIPLE SCLEROSIS [id number] 09/13/2018 10:00:00 09/13/2018 23:59:59 [id number] 09/13/2018 09:46:00 09/13/2018 23:59:59 CLS Outpatient TRENT SALCEDO DO [facility] LUMBAR PUNCTURE [id number] 06/09/2018 09:08:00 06/09/2018 23:59:59 CLS Outpatient LAY JONES MD [facility] WOUNDCARE [id number] 06/01/2018 11:19:00 06/01/2018 23:59:59 CLS Outpatient IMELDA RUSH FLESHING MACHINE OPERATOR [facility] RAD ABSCESS L TIB/FIB [id number] 11/20/2017 07:15:00 11/20/2017 23:59:59 CLS Preadmit BETTE RUSH DO [facility] CARD R07.9 [id number] 11/18/2016 10:29:00 11/19/2016 17:15:00 DIS Inpatient ALICJA LAY Schuster [facility] WS PID,ABD PAIN,SEPSIS,N/V [id number] 10/13/2016 09:56:00 10/13/2016 14:00:00 DIS Emergency BETTE FARRIS DO [facility] ER LOWER ABD PAIN [id number] 07/10/2016 06:03:00 07/11/2016 11:45:00 DIS Outpatient ALICJA LAY SUTHERLAND [facility] SDC PELVIC PAIN; ENLARGED UTERUS [id number] 07/08/2016 09:14:00 07/08/2016 12:26:00 DIS Outpatient STANTONLAY HENRIQUEZ DO [facility] PREOP PELVIC PAIN; ENLARGED UTERUS [id number] 06/24/2016 09:52:00 06/24/2016 23:59:59 CLS Outpatient SANJU RUSHIA L FLESHING MACHINE OPERATOR [facility] RAD PELVIC PAIN,ABD PAIN [id number] 06/11/2016 10:59:00 06/11/2016 23:59:59 CLS Outpatient SANJU RUSHIA L FLESHING MACHINE OPERATOR [facility] RAD PELVIC PAIN [id number] 06/10/2016 12:09:00 06/10/2016 23:59:59 CLS Outpatient SANJU RUSHIA L FLESHING MACHINE OPERATOR [facility] LAB DIABETES, PERIMENOPAUSE [id number] 08/03/2015 06:41:00 08/03/2015 23:59:59 CLS Outpatient BETTE RUSH DO [facility] CARD CHEST PAIN [id number] 07/26/2015 11:09:00 07/26/2015 23:59:59 CLS Outpatient SANJU RUSHIA L FLESHING MACHINE OPERATOR [facility] RAD DYSPNEA,DIZZINESS [id number] 07/19/2015 08:49:00 07/19/2015 11:59:00 DIS Emergency ODGERS MD, PEÑA Knapp [facility] ER ELEV BLOOD SUGAR CHEST PAIN DIZZY [id number] 05/23/2015 11:30:00 05/23/2015 23:59:59 CLS Outpatient TENISHA ADAMS MD [facility] LABNPT ABSCESS ON LEFT JAW [id number] 05/11/2015 11:19:00 05/11/2015 15:01:00 DIS Emergency KELLIE CANALES APRN [facility] ER NECK SWELLING/POSS ABSCESS [id number] 04/26/2015 08:40:00 04/26/2015 13:09:00 DIS Outpatient TENISHA ADAMS MD [facility] SDC LYMPHADENOPATHY [id number] 04/25/2015 11:46:00 04/25/2015 23:59:59 CLS Outpatient TENISHA ADAMS MD [facility] PREOP LYMPADENOPATHY [id number] 04/16/2015 20:28:00 04/16/2015 22:19:00 DIS Emergency RICK MORE MD [facility] ER BS UP DOWN [id number] 04/10/2015 10:15:00 04/10/2015 23:59:59 CLS Outpatient IMELDA RUSHP [facility] RAD LYMPHATIC,EAR PAIN [id number] 04/09/2015 12:43:00 04/09/2015 23:59:59 CLS Outpatient IMELDA RUSHP [facility] LAB DMII,MED RISK [id number] 02/19/2015 16:00:00 02/19/2015 23:59:59 CLS Outpatient TENISHA ADAMS MD [facility] LABNPT LEFT BUTTOCK ABSCESS [id number] 12/19/2014 10:22:00 12/19/2014 23:59:59 CLS Outpatient IMELDA RUSHP [facility] LAB LOW LIBIDO, PCOS [id number] 10/24/2014 08:50:00 10/24/2014 23:59:59 CLS Outpatient IMELDA RUSH FLESHING MACHINE OPERATOR [facility] RAD EDEMA, DECREASED URINARY OUTPUT [id number] 06/08/2014 10:40:00 06/08/2014 23:59:59 CLS Outpatient BETTE RUSH DO [facility] ACUTE AOM ACUTE SINUSITIS [id number] 05/03/2014 17:12:00 05/03/2014 23:59:59 CLS Outpatient BETTE RUSH DO [facility] LAB DM [id number] 02/07/2014 10:36:00 02/07/2014 23:59:59 CLS Outpatient RUSH, IMELDA L FLESHING MACHINE OPERATOR [facility] CARD THYROID NODULE [id number] 01/31/2014 11:03:00 01/31/2014 23:59:59 CLS Outpatient RUSH IMELDA L FLESHING MACHINE OPERATOR [facility] CARD THYROID NODULE [id number] 01/03/2014 09:30:00 01/03/2014 23:59:59 CLS Outpatient RUSH, IMELDA Rose FLESHING MACHINE OPERATOR [facility] RAD THYROMEGALY [id number] 12/08/2013 11:46:00 12/08/2013 14:17:00 DIS Emergency BRIDGER RICH, PEÑA Knapp [facility] ER ELEV BLOOD SUGAR [id number] 11/09/2014 18:38:00 Document Registration [id number] 11/09/2014 16:59:00 Document Registration [id number] 01/02/2011 09:00:00 Document Registration [id number] 09/11/2017 13:10:00 09/11/2017 17:18:00 DIS Outpatient ShahramkeerthiManjeet [id number] 09/11/2017 14:04:15 Document Registration [id number] 07/11/2013 13:34:00 07/11/2013 23:59:59 CLS Outpatient MANOJ REYES APRN [id number] 05/24/2015 06:53:37 ACT Document Registration [id number] 08/28/2018 10:13:00 Document Registration
--- NOTE | 2018-12-16 15:14 | ED GI ---
General Chief Complaint: Abdominal/GI Problems Stated Complaint: ABD PAIN Nursing Triage Note: PATIETN WITH MS HERE FOR CONCERNS ABOUT HER BOWELS. SHE HAS BEEN STRUGGLING WITH CONSTIPATION FOR 2 MONTHS. HER PCP HAD HER GO FOR IMAGING YESTERDAY THAT REVEALED AN IMPACTION AND SHE WAS TOLD TO COME TO THE ER FOR "A COLON CLEANSE." Sepsis Screen: No Definite Risk Source of Information: Patient Exam Limitations: No Limitations History of Present Illness Date Seen by Provider: Dec 16, 2018 Time Seen by Provider: 15:11 Initial Comments Has had some abdominal bloating for a few days without a bowel movement. She's tried fleets enema, MiraLAX, magnesium citrate. She had an outpatient x-ray done yesterday showing constipation. She was advised by primary care to come to the emergency room for "colon cleanse". Timing/Duration: 1-2 Days Severity/Quality: Moderate Location: Generalized Abdomen Radiation: No Radiation Activities at Onset: None Associated Symptoms: No Fever/Chills; Nausea/Vomiting (2 times in the past week none current) Allergies and Home Medications Allergies Coded Allergies: codeine (Verified Allergy, Intermediate, HIVES (PATIENT HAS RECEIVED LORTAB IN THE PAST), 07/10/16) strawberry (Verified Allergy, Mild, RASH, 10/13/18) ciprofloxacin (Unverified Allergy, Unknown, STARTED HAVING MUSCULAR PROBLEMS, 09/13/18) Home Medications Cephalexin 500 Mg Tablet, 500 MG PO QID, (Reported) Citalopram Hydrobromide 20 Mg Tablet, 20 MG PO DAILY, (Reported) Clonazepam 0.5 Mg Tablet, 0.5 MG PO BID, (Reported) Estradiol 1 Each Patch.tdwk, 1 EACH TD Twice Weekly, (Reported) Gabapentin 100 Mg Capsule, 200 MG PO DAILY, (Reported) Insulin Aspart 100 Unit/1 Ml Susp, 5 UNIT SQ AC, (Reported) Insulin Glargine,Hum.rec.anlog 100 Unit/1 Ml Vial, 15 UNIT SQ BID, (Reported) Levomefolate/B6/B12/Algal Oil 1 Each Capsule, 1 EACH PO DAILY, (Reported) Oxybutynin Chloride 5 Mg Tablet, 5 MG PO DAILY, (Reported) Peg/Electrolytes 4,000 Ml Soln, 240 ML PO Q15M 8 ounces every 15 minutes until bowel movement. Prescribed by: KELLIE CANALES on 12/16/18 1610 Pregabalin 75 Mg Capsule, 75 MG PO BID, (Reported) [Deplin] Unknown Strength , 1 DAILY, (Reported) Patient Home Medication List Home Medication List Reviewed: Yes Review of Systems Review of Systems Constitutional: see HPI EENTM: No Symptoms Reported Respiratory: No Symptoms Reported Cardiovascular: No Symptoms Reported Gastrointestinal: See HPI, Constipated, Nausea Genitourinary: No Symptoms Reported Musculoskeletal: no symptoms reported Skin: no symptoms reported Psychiatric/Neurological: No Symptoms Reported Endocrine: No Symptoms Reported Past Sfblpjp-Gvormg-Winhks Hx Patient Social History Alcohol Use: Denies Use Number of Drinks Today: AA Alcohol Beverage of Choice: Beer Recreational Drug Use: No Smoking Status: Current Everyday Smoker Type Used: Cigarettes 2nd Hand Smoke Exposure: No Recent Foreign Travel: No Contact w/Someone Who Travel: No Recent Infectious Disease Expo: No Recent Hopitalizations: No Physical Abuse: No Sexual Abuse: No Immunizations Up To Date Tetanus Booster (TDap): More than 5yrs Date of Pneumonia Vaccine: Jun 19, 2016 Date of Influenza Vaccine: Jun 19, 2016 Seasonal Allergies Seasonal Allergies: No Past Medical History Surgeries: Yes (PILONIDAL CYST SURGERY (SEVERAL), CYST FROM HAND and breast, KNEE SURG X2,) Breast, Hysterectomy, Orthopedic, 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 Respiratory: Yes Pneumonia Cardiac: Yes (HEART RACES AT TIMES) Neurological: Yes (DIABETIC NEUROPATHY IN HANDS ) Neuropathy Reproductive Disorders: No (FIBRIODS) Female Reproductive Disorders: Menstrual Problems, Ovarian Cyst 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 Sexually Transmitted Disease: No HIV/AIDS: No UTI-Chronic Gastrointestinal: Yes (OCC-TAKES TUMS) Gastroesophageal Reflux Musculoskeletal: No Endocrine: Yes Diabetes, Insulin dep Loss of Vision: Bilateral Hearing Impairment: Denies Cancer: Yes (LEEP PROCEDURE IN OFFICE) Cervical Psychosocial: Yes Sleep Difficulties, Anxiety, Depression Integumentary: Yes (DIABETIC SORE ON LEG ) Blood Disorders: No Adverse Reaction/Blood Tranf: No Family Medical History Cardiovascular disease 19 FATHER Completed stroke GRANDMOTHER FH: brain cancer GRANDFATHER High cholesterol 19 MOTHER Thyroid disease 19 MOTHER Cancer Physical Exam Vital Signs Vital Signs - First Documented 12/16/18 14:22 Temp 96.2 Pulse 83 Resp 20 B/P (MAP) 162/83 (109) Pulse Ox 98 O2 Delivery Room Air Capillary Refill : Less Than 3 Seconds Height/Weight/BMI Height: 5'5.00" Weight: 198lbs. 0oz. 89.142294ad; 29.3 BMI Method:Stated General Appearance: WD/WN, no apparent distress HEENT: PERRL/EOMI, normal ENT inspection Neck: non-tender, full range of motion Respiratory: no respiratory distress, no accessory muscle use Gastrointestinal: normal bowel sounds, non tender, soft Extremities: normal range of motion, non-tender Neurologic/Psychiatric: alert, normal mood/affect, oriented x 3 Skin: normal color, warm/dry Progress/Results/Core Measures Results/Orders Vital Signs/I&O 12/16/18 14:22 Temp 96.2 Pulse 83 Resp 20 B/P (MAP) 162/83 (109) Pulse Ox 98 O2 Delivery Room Air Blood Pressure Mean: 109 Departure Communication (Admissions) It is not entirely clear to me why primary care would refer her to the emergency room for a colon cleanse if this is actually true given that she has no vomiting or nausea today, no fevers or chills and minimal abdominal pain. 1637- patient had a large bowel movement after soapsuds enema Impression Primary Impression: Constipation Qualified Codes: K59.00 - Constipation, unspecified Disposition: HOME, SELF-CARE Condition: Stable Departure-Patient Inst. Decision time for Depature: 16:08 Referrals: BETTE RUSH DO (PCP) Primary Care Physician IMELDA RUSH DNP (Family) Primary Care Physician Patient Instructions: Constipation, Adult (DC) Add. Discharge Instructions: Mixup the jug of GoLYTELY. For yourself and 8 ounce glass and drink one of these every 10-15 minutes until you have a bowel movement All discharge instructions reviewed with patient and/or family. Voiced understanding. Scripts Peg/Electrolytes (Golytely Solution) 4,000 Ml Soln 240 ML PO Q15M, #4000 ML 8 ounces every 15 minutes until bowel movement. Prov: KELLIE CANALES APRN 12/16/18 KELLIE CANALES APRN Dec 16, 2018 15:14
[2018-12-16] MEDS ORDERED: CLT4KB PO (16:10)
[2018-12-16 16:55] VITALS: BP 162/83
== END 2018-12-16 16:55 | disposition home or self-care (01) ==
LOC: EDUNIT# 14:18 → ER 14:19
DX: K59.00 Constipation, unspecified (principal); E11.40 Type 2 diabetes mellitus with diabetic neuropathy, unspecified; K21.9 Gastro-esophageal reflux disease without esophagitis; F41.9 Anxiety disorder, unspecified; F32.9 Major depressive disorder, single episode, unspecified; F17.210 Nicotine dependence, cigarettes, uncomplicated; Z87.440 Personal history of urinary (tract) infections; Z82.49 Family history of ischemic heart disease and other diseases of the circulatory system; Z80.8 Family history of malignant neoplasm of other organs or systems; Z88.5 Allergy status to narcotic agent; Z88.1 Allergy status to other antibiotic agents; Z87.448 Personal history of other diseases of urinary system; Z79.4 Long term (current) use of insulin; Z98.890 Other specified postprocedural states; Z90.710 Acquired absence of both cervix and uterus; Z98.51 Tubal ligation status; Z87.01 Personal history of pneumonia (recurrent)
CPT/HCPCS: 99282

== ENCOUNTER 2019-01-29 09:02 | Outpatient (RCR) | payer MEDICAID ==
[2019-01-27 12:20] VITALS: BP 138/77
[2019-01-27] MEDS: methylPREDNISolone SOD SUCC 1,000 MG in NS (IVPB) 100 ML IV SCH (13:06)
[2019-01-27 13:26] LABS: ALANINE AMINOTRANSFERASE 13 U/L (0-55); ALBUMIN 4.1 GM/DL (3.2-4.5); ALKALINE PHOSPHATASE 115 U/L (40-136); BILIRUBIN,TOTAL 0.4 MG/DL (0.1-1.0); BUN/CREATININE RATIO 10; CALCIUM 9.3 MG/DL (8.5-10.1); CARBON DIOXIDE 23 MMOL/L (21-32); CHLORIDE 102 MMOL/L (98-107); CREATININE SERUM 0.81 MG/DL (0.60-1.30); GFR ESTIMATED > 60; GLUCOSE 160 MG/DL (70-105); POTASSIUM 3.9 MMOL/L (3.6-5.0); SODIUM 135 MMOL/L (135-145); TOTAL PROTEIN 6.8 GM/DL (6.4-8.2)
[2019-01-27 14:05] VITALS: BP 143/82
[2019-01-28 11:47] VITALS: BP 137/74
[2019-01-28] MEDS: methylPREDNISolone SOD SUCC 1,000 MG in NS (IVPB) 100 ML IV SCH (12:00)
[2019-01-28 13:10] VITALS: BP 137/69
[~2019-01-29] VITALS: Ht 165.1 cm; Wt 91.6 kg
[~2019-01-29 09:02] MED LIST changes: +CLT4KB PO
[2019-01-29] MEDS: methylPREDNISolone SOD SUCC 1,000 MG in NS (IVPB) 100 ML IV SCH (09:20)
[2019-01-29 10:52] VITALS: BP_SYST 127; BP_SYST 134; BP_DIAS 80; BP_DIAS 87
[2019-01-29 11:15] LABS: ALBUMIN 4.2 GM/DL (3.2-4.5); BILIRUBIN,TOTAL 0.4 MG/DL (0.1-1.0); CREATININE SERUM 1.11 MG/DL (0.60-1.30); POTASSIUM 4.4 MMOL/L (3.6-5.0)
--- NOTE | 2019-01-29 11:41 | NUR ---
AT APPROXIMATELY 1120 RECEIVED A PHONE CALL FROM LAB REPORTING CRITICAL GLUCOSE OF 484. ATTEMPTED TO CALL PATIENT TO REPORT RESULTS, NO ANSWER ON CELL PHONE OR HOME NUMBER. ATTEMPTED PATIENT'S MOTHER WHO ACCOMPANIED HER ON TODAY'S VISIT, NO ANSWER. ATTEMPTED PATIENT'S CELL PHONE, LEFT VOICE MESSAGE TO RETURN CALL. THIS RN CALLED HOME NUMBER, REACHED PATIENT, REPORTED RESULTS. PATIENT STATES SHE USUALLY TAKES INSULIN, NOVOLOG, TO TREAT HIGH BLOOD SUGARS. PATIENT ALSO STATES SHE WILL TAKE SOME NOW AND MONITOR HER BLOOD SUGAR AFTERWARDS.
== END 2019-01-29 10:52 | disposition home or self-care (01) ==
LOC: SDC 09:02
PROVIDERS: ATTEND Psychiatry & Neurology Neurology
DX: G35 Multiple sclerosis (principal)
CPT/HCPCS: 36415; 80053; 96365; 96366

== ENCOUNTER 2019-02-08 18:19 | Emergency (ER) | payer MEDICAID ==
[~2019-02-08] VITALS: Ht 165.1 cm; Wt 91.6 kg
[2019-02-08] MEDS ORDERED: NS IV 1000 ML 1,000 ML IV ONE (18:34)
[2019-02-08 18:58] LABS: BASOPHILS % (AUTO) 0 % (0-10); EOSINOPHILS # (AUTO) 0.1 10^3/uL (0.0-0.3); EOSINOPHILS % (AUTO) 1 % (0-10); HEMATOCRIT 43 % (35-52); HEMOGLOBIN 14.3 G/DL (11.5-16.0); LYMPHOCYTES # (AUTO) 2.2 X 10^3 (1.0-4.0); LYMPHOCYTES % (AUTO) 21 % (12-44); MEAN CORPUSCULAR HEMOGLOBIN 30 PG (25-34); MEAN CORPUSCULAR HGB CONC 34 G/DL (32-36); MEAN CORPUSCULAR VOLUME 88 FL (80-99); MONOCYTES # (AUTO) 0.9 X 10^3 (0.0-1.0); MONOCYTES % (AUTO) 9 % (0-12); NEUTROPHILS % (AUTO) 69 % (42-75); PLATELET COUNT 260 10^3/uL (130-400); RED CELL DISTRIBUTION WIDTH 13.7 % (10.0-14.5); WHITE BLOOD COUNT 10.2 10^3/uL (4.3-11.0)
[2019-02-08 19:02] LABS: BILIRUBIN,URINE NEGATIVE (NEGATIVE); CLARITY,URINE CLEAR; COLOR,URINE YELLOW; GLUCOSE, URINE (UA) 4+ (NEGATIVE); KETONES,URINE NEGATIVE (NEGATIVE); LEUKOCYTE ESTERASE ,URINE 2+ (NEGATIVE); NITRITE,URINE NEGATIVE (NEGATIVE); PH,URINE 7 (5-9); PROTEIN,URINE NEGATIVE (NEGATIVE); UROBILINOGEN,URINE NORMAL (NORMAL)
[2019-02-08 19:10] LABS: BACTERIA,URINE FEW /HPF; WBC,URINE 25-50 /HPF
[2019-02-08 19:15] LABS: ALANINE AMINOTRANSFERASE 6 U/L (0-55); ALBUMIN 3.7 GM/DL (3.2-4.5); ALKALINE PHOSPHATASE 104 U/L (40-136); BILIRUBIN,TOTAL 0.2 MG/DL (0.1-1.0); BUN/CREATININE RATIO 6; CALCIUM 8.7 MG/DL (8.5-10.1); CARBON DIOXIDE 29 MMOL/L (21-32); CHLORIDE 99 MMOL/L (98-107); CREATININE SERUM 0.97 MG/DL (0.60-1.30); GFR ESTIMATED > 60; LIPASE 22 U/L (8-78); MAGNESIUM 2.1 MG/DL (1.8-2.4); POTASSIUM 4.6 MMOL/L (3.6-5.0); SODIUM 134 MMOL/L (135-145); TOTAL PROTEIN 6.3 GM/DL (6.4-8.2)
[2019-02-08 19:16] LABS: ERYTHROCYTE SEDIMENTATION RATE 16 MM/HR (0-20)
[2019-02-08 19:19] LABS: GLUCOSE 432 MG/DL (70-105)
[2019-02-08] MEDS ORDERED: inSUlin (REGULAR) HUMAN 1 UNIT/0.01 ML (CHARGE PER UNIT) IV ONE (19:30)
[2019-02-08] MEDS ORDERED: LACTATED RINGERS 1,000 ML IV ONE (19:47)
[2019-02-08] MEDS ORDERED: HOLD METFORMIN - RECEIVED CONTRAST 20 ML VIAL IV SCH (20:00)
[2019-02-08] MEDS ORDERED: NS 100 ML (IVPB) BAG IV ONE (20:00)
[2019-02-08] MEDS ORDERED: IOHEXOL 350 MG/ML 100 ML (OMNIPAQUE 350) VIAL IV ONE (20:00)
--- NOTE | 2019-02-08 20:27 | Diagnostic Imaging Report ---
PROCEDURE: CT abdomen and pelvis with contrast. TECHNIQUE: Multiple contiguous axial images were obtained through the abdomen and pelvis after administration of intravenous contrast. Auto Exposure Controls were utilized during the CT exam to meet ALARA standards for radiation dose reduction. INDICATION: Abdominal and pelvic pain with nausea, vomiting and fever. Past surgical history includes hysterectomy. COMPARISON: 10/22/2018. FINDINGS: The heart size is normal. The lung bases are clear. The liver is normal in size without focal lesions. The gallbladder is contracted. There is no biliary dilatation. The spleen is normal. The pancreas and adrenal glands are unremarkable. The kidneys are normal in appearance. 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 There are nonobstructing stones again seen in the right kidney. The aorta is nonaneurysmal. Bowel gas pattern is nonspecific. Appendix is normal. There is no free air. There is no ascites. There are no focal inflammatory changes. Bladder is normal. The osseous structures are unremarkable. IMPRESSION: 1. Nonobstructive right renal calculi. 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 There is however no evidence of obstructive uropathy. 2. No other acute abnormality in the abdomen or pelvis. Dictated by: Dictated on workstation # [id number]
[2019-02-08] MEDS ORDERED: cefTRIAXone FOR IV USE 1,000 MG in WATER (STERILE) FOR INJECTION 10 ML IV ONE (20:45)
[2019-02-08] MEDS: KETOROLAC 30 MG/ML VIAL IVP ONE ×2 (21:15→21:19)
[2019-02-08] MEDS ORDERED: CEPH-507 PO (21:26)
--- NOTE | 2019-02-08 21:27 | ED Abdominal Pain ---
General Chief Complaint: Abdominal/GI Problems Stated Complaint: DX WITH MS,FEVER Nursing Triage Note: PT STATES HISTORY OF MS AND CONSTIPATION. PT STATE SHE WAS SEEN AT HER MS DOCTOR AT TODAY AND WAS HE WANTED TO ADMIT HER TO THE HOSPITAL. PT REFUSED ADMITTANCE. PT WAS THEN SEEN BY DR. FORMAN OFFICE WHERE SHE HAD A FEVER AND WAS ADVISED TO BE ADMITTED TO THE HOSPTIAL THROUGH THE ER. PT STATES SHE HAS NOT HAD A BOWEL MOVEMENT IN A MONTH. PT STATES SHE HAS TO TAKE MILK OF MAG OR DUCALOX TO BE ABLE TO HAVE BMS AND THEY ARE "WATERY AND FLAKY" PT BOWEL SOUNDS ARE DECREASED TO AUSCULTATION. Sepsis Screen: No Definite Risk Source of Information: Patient Exam Limitations: No Limitations History of Present Illness Date Seen by Provider: February 08, 2019 Time Seen by Provider: 18:26 Initial Comments This 48-year-old woman presents to the emergency room with complaints of generalized abdominal pain and constipation. She was seen at [facility] earlier today by her MS specialist. Evaluation for possible admission was recommended by her specialist due to her abdominal pain and presumed constipation. Patient did not want to do this in [place]. She wanted to return home. She came home and discussed the situation with Dr. Jones's office and she was referred to the emergency room for workup. She reports having no significant bowel movements over the last month. The bowel movements she does have are watery and flaky. Patient reports having brown emesis yesterday. Her pain is primarily in the upper abdomen. She also has a symptom of pruritus. Reportedly temperature was 100.[address] oJnes's office. She is afebrile in the ER. Allergies and Home Medications Allergies Coded Allergies: codeine (Verified Allergy, Intermediate, HIVES (PATIENT HAS RECEIVED LORTAB IN THE PAST), 07/10/16) strawberry (Verified Allergy, Mild, RASH, 10/13/18) ciprofloxacin (Unverified Allergy, Unknown, STARTED HAVING MUSCULAR PROBLEMS, 09/13/18) Home Medications Cephalexin 500 Mg Tablet, 500 MG PO QID, (Reported) Cephalexin 500 Mg Capsule, 500 MG PO TID Prescribed by: RCIK SCHAEFER on 02/08/192125 Citalopram Hydrobromide 20 Mg Tablet, 20 MG PO DAILY, (Reported) Clonazepam 0.5 Mg Tablet, 0.5 MG PO BID, (Reported) Estradiol 1 Each Patch.tdwk, 1 EACH TD Twice Weekly, (Reported) Gabapentin 100 Mg Capsule, 200 MG PO DAILY, (Reported) Insulin Aspart 100 Unit/1 Ml Susp, 5 UNIT SQ AC, (Reported) Insulin Glargine,Hum.rec.anlog 100 Unit/1 Ml Vial, 15 UNIT SQ BID, (Reported) Levomefolate/B6/B12/Algal Oil 1 Each Capsule, 1 EACH PO DAILY, (Reported) Oxybutynin Chloride 5 Mg Tablet, 5 MG PO DAILY, (Reported) Peg/Electrolytes 4,000 Ml Soln, 240 ML PO Q15M 8 ounces every 15 minutes until bowel movement. Prescribed by: KELLIE CANALES on 12/16/18 1610 Pregabalin 75 Mg Capsule, 75 MG PO BID, (Reported) [Deplin] Unknown Strength , 1 DAILY, (Reported) Patient Home Medication List Home Medication List Reviewed: Yes Review of Systems Review of Systems Constitutional: see HPI EENTM: No Symptoms Reported Respiratory: No Symptoms Reported Cardiovascular: No Symptoms Reported Gastrointestinal: See HPI Genitourinary: No Symptoms Reported Musculoskeletal: see HPI Skin: no symptoms reported Psychiatric/Neurological: See HPI Endocrine: No Symptoms Reported Hematologic/Lymphatic: No Symptoms Reported Past Rfhzpwl-Ftvpuv-Pwciks Hx Past Med/Social Hx: Reviewed Nursing Past Med/Soc Hx Patient Social History Alcohol Use: Denies Use Number of Drinks Today: AA Alcohol Beverage of Choice: Beer Recreational Drug Use: No Type Used: Cigarettes 2nd Hand Smoke Exposure: No Recent Foreign Travel: No Contact w/Someone Who Travel: No Recent Infectious Disease Expo: No Recent Hopitalizations: No Physical Abuse: No Sexual Abuse: No Mistreated: No Fear: No Immunizations Up To Date Tetanus Booster (TDap): More than 5yrs Date of Pneumonia Vaccine: Jun 19, 2016 Date of Influenza Vaccine: Jun 19, 2016 Seasonal Allergies Seasonal Allergies: No Past Medical History Surgeries: Yes (PILONIDAL CYST SURGERY (SEVERAL), CYST FROM HAND and breast, KNEE SURG X2,) Breast, Hysterectomy, Orthopedic, 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 Respiratory: Yes Pneumonia Cardiac: Yes (HEART RACES AT TIMES) Neurological: Yes (DIABETIC NEUROPATHY IN HANDS) Multiple Sclerosis, Neuropathy Reproductive Disorders: No (FIBRIODS) Female Reproductive Disorders: Menstrual Problems, Ovarian Cyst VISCOSITY 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 Sexually Transmitted Disease: No HIV/AIDS: No UTI-Chronic Gastrointestinal: Yes (OCC-TAKES TUMS) Gastroesophageal Reflux Musculoskeletal: No Endocrine: Yes Diabetes, Insulin dep Loss of Vision: Bilateral Hearing Impairment: Denies Cancer: Yes (LEEP PROCEDURE IN OFFICE) Cervical Psychosocial: Yes Sleep Difficulties, Anxiety, Depression Integumentary: Yes (DIABETIC SORE ON LEG ) Blood Disorders: No Adverse Reaction/Blood Tranf: No Family Medical History Cardiovascular disease 19 FATHER Completed stroke GRANDMOTHER FH: brain cancer GRANDFATHER High cholesterol 19 MOTHER Thyroid disease 19 MOTHER Cancer Physical Exam Vital Signs Vital Signs - First Documented 02/08/19 02/08/19 18:31 21:31 Temp 98.7 Pulse 92 Resp 18 B/P (MAP) 150/91 (110) Pulse Ox 99 Capillary Refill : Less Than 3 Seconds Height/Weight/BMI Height: 5'5.00" Weight: 202lbs. 0.0oz. 91.513884mw; 29.3 BMI Method:Stated General Appearance: WD/WN, no apparent distress HEENT: PERRL/EOMI, normal ENT inspection, pharynx normal Neck: normal inspection Respiratory: lungs clear, normal breath sounds, no respiratory distress, no accessory muscle use Cardiovascular: regular rate, rhythm, no edema, no murmur Gastrointestinal: normal bowel sounds, soft, tenderness (generalized tenderness, most prominent in the upper quadrants) Extremities: normal inspection, no pedal edema Neurologic/Psychiatric: machine sander II-XII nml as tested, no motor/sensory deficits, alert, oriented x 3, other (anxious) Skin: normal color, warm/dry Progress/Results/Core Measures Results/Orders Lab Results Laboratory Tests Test 02/08/19 18:48 02/08/19 18:55 02/08/19 21:30 Range/Units White Blood Count 10.2 4.3-11.0 10^3/uL Red Blood Count 4.82 4.35-5.85 10^6/uL Hemoglobin 14.3 11.5-16.0 G/DL Hematocrit 43 35-52 % Mean Corpuscular Volume 88 80-99 FL Mean Corpuscular Hemoglobin 30 25-34 PG Mean Corpuscular Hemoglobin Concent 34 32-36 G/DL Red Cell Distribution Width 13.7 10.0-14.5 % Platelet Count 260 130-400 10^3/uL Mean Platelet Volume 10.0 7.4-10.4 FL Neutrophils (%) (Auto) 69 42-75 % Lymphocytes (%) (Auto) 21 12-44 % Monocytes (%) (Auto) 9 0-12 % Eosinophils (%) (Auto) 1 0-10 % Basophils (%) (Auto) 0 0-10 % Neutrophils # (Auto) 7.0 1.8-7.8 X 10^3 Lymphocytes # (Auto) 2.2 1.0-4.0 X 10^3 Monocytes # (Auto) 0.9 0.0-1.0 X 10^3 Eosinophils # (Auto) 0.1 0.0-0.3 10^3/uL Basophils # (Auto) 0.0 0.0-0.1 10^3/uL Erythrocyte Sedimentation Rate 16 0-20 MM/HR Sodium Level 134 L 135-145 MMOL/L Potassium Level 4.6 3.6-5.0 MMOL/L Chloride Level 99 98-107 MMOL/L Carbon Dioxide Level 29 21-32 MMOL/L Anion Gap 6 5-14 MMOL/L Blood Urea Nitrogen 6 L 7-18 MG/DL Creatinine 0.97 0.60-1.30 MG/DL Estimat Glomerular Filtration Rate > 60 BUN/Creatinine Ratio 6 Glucose Level 432 *H 70-105 MG/DL Calcium Level 8.7 8.5-10.1 MG/DL Corrected Calcium 8.9 8.5-10.1 MG/DL Magnesium Level 2.1 1.8-2.4 MG/DL Total Bilirubin 0.2 0.1-1.0 MG/DL Aspartate Amino Transf (AST/SGOT) 13 5-34 U/L Alanine Aminotransferase (ALT/SGPT) 6 0-55 U/L Alkaline Phosphatase 104 40-136 U/L C-Reactive Protein High Sensitivity 1.16 H 0.00-0.50 MG/DL Total Protein 6.3 L 6.4-8.2 GM/DL Albumin 3.7 3.2-4.5 GM/DL Lipase 22 8-78 U/L Urine Color YELLOW Urine Clarity CLEAR Urine pH 7 5-9 Urine Specific [place] 1.010 L 1.016-1.022 Urine Protein NEGATIVE NEGATIVE Urine Glucose (UA) 4+ H NEGATIVE Urine Ketones NEGATIVE NEGATIVE Urine Nitrite NEGATIVE NEGATIVE Urine Bilirubin NEGATIVE NEGATIVE Urine Urobilinogen NORMAL NORMAL MG/DL Urine Leukocyte Esterase 2+ H NEGATIVE Urine RBC (Auto) NEGATIVE NEGATIVE Urine RBC NONE /HPF Urine WBC 25-50 H /HPF Urine Squamous Epithelial Cells 10-25 H /HPF Urine Crystals NONE /LPF Urine Bacteria FEW H /HPF Urine Casts NONE /LPF Urine Mucus NEGATIVE /LPF Urine Culture Indicated YES Glucometer 225 H 70-110 MG/DL My Orders Orders - RICK MORE MD Cbc With Automated Diff (02/08/19 18:34) Comprehensive Metabolic Panel (02/08/19 18:34) Hs C Reactive Protein (02/08/19 18:34) Lipase (02/08/19 18:34) Magnesium (02/08/19 18:34) Ua Culture If Indicated (02/08/19 18:34) Erythrocyte Sedimentation Rate (02/08/19 18:34) Ed Iv/Invasive Line Start (02/08/19 18:34) Ns Iv 1000 Ml (Sodium Chloride 0.9%) (02/08/19 18:34) Urine Culture (02/08/19 18:55) Insulin (Regular) Human (Humulin R (Per (02/08/19 19:30) Accucheck Stat ONCE (02/08/19 19:26) Ct Abdomen/Pelvis W (02/08/19 19:46) Lactated Ringers (Lr 1000 Ml Iv Solution (02/08/19 19:47) Iohexol Injection (Omnipaque 350 Mg/Ml 1 (02/08/19 20:00) Received Contrast (Hold Metformin- Contr (02/08/19 20:00) Ns (Ivpb) (Sodium Chloride 0.9% Ivpb Bag (02/08/19 20:00) Ketorolac Injection (Toradol Injection) (02/08/19 20:45) Ceftriaxone For Iv Use (Rocephin For I (02/08/19 20:45) Medications Given in ED Current Medications Medications Dose Ordered Sig/Florencio Route Start Time Stop Time Status Last Admin Dose Admin Ceftriaxone Sodium 1000 mg/ Sterile Water 10 ml @ 200 mls/hr ONCE ONCE IV 02/08/19 20:45 02/08/19 20:47 DC 02/08/19 21:14 200 MLS/HR Insulin Human Regular 5 unit ONCE ONCE IV 02/08/19 19:30 5/28/19 19:31 DC 02/08/19 19:36 5 UNIT Iohexol 100 ml ONCE ONCE IV 02/08/19 20:00 02/08/19 20:01 DC 02/08/19 20:10 100 ML Lactated Ringer's 1,000 ml @ 0 mls/hr Q0M ONCE IV 02/08/19 19:47 02/08/19 19:48 DC 02/08/19 20:30 0 MLS/HR Sodium Chloride 100 ml ONCE ONCE IV 02/08/19 20:00 02/08/19 20:01 DC 02/08/19 20:12 100 ML Vital Signs/I&O 02/08/19 02/08/19 02/08/19 18:31 21:19 21:31 Temp 98.7 98.7 98.7 Pulse 92 92 Resp 18 18 B/P (MAP) 150/91 (110) 150/91 (110) Pulse Ox 99 02/09/19 00:00 Intake Total 2009 ml Balance 2010 ml Blood Pressure Mean: 110 Progress Progress Note : Progress Note Patient was hydrated and insulin was given for hyperglycemia. CT showed no acute abnormalities requiring urgent treatment. Patient was advised in regard to constipation management. Toradol was given for additional treatment of pain. Rocephin was given for urinary tract infection. Blood sugar was trending down nicely after hydration and insulin. Diagnostic Imaging Diagonstic Imaging: CT Plain Films/CT/US/NM/MRI: abdomen, pelvis Comments CT abdomen and pelvis demonstrated no significant problems. Viewed by me and stat rad report reviewed. Departure Impression Primary Impression: Generalized abdominal pain Additional Impressions: Urinary tract infection Qualified Codes: N39.0 - Urinary tract infection, site not specified Hyperglycemia Disposition: 01 HOME, SELF-CARE Condition: Improved Departure-Patient Inst. Decision time for Depature: 21:24 Referrals: BETTE JONES DO (PCP) Primary Care Physician IMELDA JONES DNP (Family) Primary Care Physician Patient Instructions: Acute Abdomen (Belly Pain), Adult (DC), Urinary Tract Infections in Adults Add. Discharge Instructions: Drink plenty of clear liquids. Observe a clear liquid diet until you pass anoth er bowel movement. For constipation you may use MiraLAX (polyethylene glycol) up to 3 times daily as needed. This may be purchased [id number]. Fill the cap to the fill line and dissolve in 8-12 ounces of liquid. Follow-up with your primary care provider soon as possible. Return to the emergency room if you have worsening symptoms. For pain, try Tylenol (acetaminophen) up to 1000 mg every 6 hours as needed. For more severe pain or pain not relieved by Tylenol, you may add ibuprofen up to 600 mg every 6 hours as needed. Trial a couple weeks of antacid medication such as omeprazole 20 mg daily or Pepcid (famotidine) 20 mg twice daily. This may be purchased [id number]. Monitor your blood sugars closely and communicate high or low trends to your [facility] care provider. Finish your antibiotic as prescribed and follow-up with your doctor late this week to review culture results. All discharge instructions reviewed with patient and/or family. Voiced understanding. Scripts Cephalexin (Keflex) 500 Mg Capsule 500 MG PO TID, #20 CAP Prov: RICK MORE MD 02/08/19 Copy Copies To 1: BETTE JONES JOSHUA T MD February 08, 2019 21:26
[2019-02-08 21:31] VITALS: BP 150/91
== END 2019-02-08 21:31 | disposition home or self-care (01) ==
LOC: EDUNIT# 18:19 → ER 18:20
DX: N39.0 Urinary tract infection, site not specified (principal); E11.65 Type 2 diabetes mellitus with hyperglycemia; G35 Multiple sclerosis; E11.40 Type 2 diabetes mellitus with diabetic neuropathy, unspecified; K21.9 Gastro-esophageal reflux disease without esophagitis; F41.9 Anxiety disorder, unspecified; F32.9 Major depressive disorder, single episode, unspecified; Z85.41 Personal history of malignant neoplasm of cervix uteri; Z87.440 Personal history of urinary (tract) infections; Z87.448 Personal history of other diseases of urinary system; Z82.49 Family history of ischemic heart disease and other diseases of the circulatory system; Z80.8 Family history of malignant neoplasm of other organs or systems; Z88.5 Allergy status to narcotic agent; Z88.1 Allergy status to other antibiotic agents; Z79.4 Long term (current) use of insulin; Z98.890 Other specified postprocedural states; Z90.710 Acquired absence of both cervix and uterus; Z98.51 Tubal ligation status; Z87.01 Personal history of pneumonia (recurrent)
CPT/HCPCS: 36415; 74177; 80053; 81000; 82962; 83690; 83735; 85025; 85652; 86141; 87088; 96361; 96374; 96375

== ENCOUNTER → 2019-02-14 | Outpatient (CLI) | payer MEDICAID ==
[~2019-02-14] MED LIST changes: +CEPH-507 PO
--- NOTE | 2019-02-14 13:12 | Diagnostic Imaging Report ---
INDICATION: Routine screening. COMPARISON: No prior mammograms are available for comparison. This is a baseline study. TECHNIQUE: 2D and 3D bilateral screening mammography was performed with CAD. FINDINGS: Both breasts are heterogeneously dense, limiting the sensitivity of mammography. A circumscribed density is identified in the retroareolar and slightly outer aspect of the right breast, perhaps a cyst. Additional views are recommended. No other mass or malignant appearing microcalcifications are seen. The axillae are unremarkable. IMPRESSION: Right breast density, as described. Further evaluation with additional views and ultrasound would be recommended. ACR BI-RADS Category 0: Incomplete. (Needs additional imaging evaluation). Result letter will be mailed to the patient. Note: At least 10% of breast cancer is not imaged by mammography. Dictated by: Dictated on workstation # [id number]
== END ==
LOC: RAD 10:07
PROVIDERS: ATTEND Nurse Practitioner Family
DX: Z12.31 Encounter for screening mammogram for malignant neoplasm of breast (principal); R92.8 Other abnormal and inconclusive findings on diagnostic imaging of breast
CPT/HCPCS: 77067

== ENCOUNTER → 2019-02-14 | Outpatient (CLI) | payer MEDICAID | LOC: LAB 10:09 | PROVIDERS: ATTEND Psychiatry & Neurology Neurology | DX: G35 Multiple sclerosis (principal) | CPT/HCPCS: 36415; 82784 ==

== ENCOUNTER → 2019-02-23 | Outpatient (CLI) | payer MEDICAID ==
--- NOTE | 2019-02-23 19:07 | Diagnostic Imaging Report ---
INDICATION: Abnormal mammogram. EXAMINATION: Ultrasound of the right breast, limited. FINDINGS: The diagnostic mammogram performed earlier today noted a small persistent nodular density in the lateral aspect of the breast. On this study, there is a 1.7 x 0.9 cm fairly well circumscribed hypoechoic lesion with a small amount of internal vascularity. On the longitudinal images this lesion has a taller than wide appearance and this finding is worrisome for malignancy. I would recommend that an ultrasound-guided biopsy be performed. No other abnormality is identified. IMPRESSION: 1. The small solid lesion in the 9 o'clock position of the right breast is worrisome for malignancy. Biopsy would be recommended. 2. These results were discussed with Dr. Nicole Jones. ACR BI-RADS Category 4: Suspicious abnormality. Result letter will be mailed to the patient. Note: At least 10% of breast cancer is not imaged by mammography. Dictated by: Dictated on workstation # [id number]
--- NOTE | 2019-02-23 19:51 | Diagnostic Imaging Report ---
EXAMINATION: Unilateral diagnostic right mammogram. INDICATION: Abnormal mammogram. FINDINGS: The baseline screening mammogram performed on 02/14/2019 noted a roughly 1 cm circumscribed density in the lateral retroareolar region of the right breast. On the compression views of this region, the density in question seems to persist. I would recommend that ultrasound be performed for further study. IMPRESSION: Ultrasound will be recommended for further evaluation of the nodular density in the lateral retroareolar region of the right breast. ACR BI-RADS Category 0: Incomplete. (Needs additional imaging evaluation). Result letter will be mailed to the patient. Note: At least 10% of breast cancer is not imaged by mammography. Dictated by: Dictated on workstation # [id number]
== END ==
LOC: RAD 13:34
PROVIDERS: ATTEND Nurse Practitioner Family
DX: N64.89 Other specified disorders of breast (principal); R92.2 Inconclusive mammogram

== ENCOUNTER → 2019-03-02 | Outpatient (CLI) | payer MEDICAID ==
[~2019-03-02] MED LIST changes: +LIDOCAINE 1% INJ 20 ML 20 ML VIAL INJ ONE
--- NOTE | 2019-03-02 14:42 | Diagnostic Imaging Report ---
INDICATION: Right breast mass. Patient presents for ultrasound guided biopsy. TECHNIQUE: The patient was brought to the procedure room and placed on the table in the supine position. Ultrasound imaging over the right breast was performed to evaluate for an appropriate entry site. The right breast was then prepped and draped in the usual sterile fashion. A small amount of 1% lidocaine was utilized for local anesthesia. A total of three core biopsies was made through the hypoechoic mass at the 9 o'clock location of the right breast approximately 3 cm from the nipple utilizing a 14-gauge Achieve needle. A marker clip was then deployed. Hemostasis was obtained with manual compression. The patient tolerated the procedure well and was sent for a post procedure mammogram in satisfactory condition. IMPRESSION: Successful ultrasound guided core biopsy of the hypoechoic mass in the right breast at the 9 o'clock location. The pathologic results are pending. Dictated by: Dictated on workstation # [id number]
--- NOTE | 2019-03-02 21:13 | Diagnostic Imaging Report ---
INDICATION: Right breast nodule, status post ultrasound-guided biopsy. EXAMINATION: 2D CC and ML views of the right breast were obtained. FINDINGS: There is a marker clip in the retroareolar and slightly outer right breast. IMPRESSION: Marker clip retroareolar right breast, as described, status post ultrasound biopsy. Dictated by: Dictated on workstation # [id number]
== END ==
LOC: RAD 13:57
PROVIDERS: ATTEND Nurse Practitioner Family
DX: D24.1 Benign neoplasm of right breast (principal)
CPT/HCPCS: 19083; 88305

== ENCOUNTER → 2019-06-14 | Outpatient (CLI) | payer MEDICAID ==
[~2019-06-14] MED LIST changes: -LIDOCAINE 1% INJ 20 ML 20 ML VIAL INJ ONE
[2019-06-14 14:53] LABS: BASOPHILS % (AUTO) 1 % (0-10); EOSINOPHILS # (AUTO) 0.2 10^3/uL (0.0-0.3); EOSINOPHILS % (AUTO) 2 % (0-10); HEMATOCRIT 47 % (35-52); HEMOGLOBIN 15.3 G/DL (11.5-16.0); LYMPHOCYTES # (AUTO) 1.9 X 10^3 (1.0-4.0); LYMPHOCYTES % (AUTO) 23 % (12-44); MEAN CORPUSCULAR HEMOGLOBIN 30 PG (25-34); MEAN CORPUSCULAR HGB CONC 32 G/DL (32-36); MEAN CORPUSCULAR VOLUME 93 FL (80-99); MEAN PLATELET VOLUME 10.6 FL (7.4-10.4); MONOCYTES # (AUTO) 0.7 X 10^3 (0.0-1.0); MONOCYTES % (AUTO) 8 % (0-12); NEUTROPHILS # (AUTO) 5.2 X 10^3 (1.8-7.8); NEUTROPHILS % (AUTO) 66 % (42-75); PLATELET COUNT 250 10^3/uL (130-400); RED CELL DISTRIBUTION WIDTH 13.8 % (10.0-14.5); WHITE BLOOD COUNT 7.9 10^3/uL (4.3-11.0)
[2019-06-14 15:13] LABS: BAND NEUTROPHILS 1 %; BASOPHILS % (MANUAL) 0 %; EOSINOPHILS % (MANUAL) 1 %; LYMPHOCYTES % (MANUAL) 20 %; MONOCYTES % (MANUAL) 6 %; NEUTROPHILS % (MANUAL) 72 %; RBC MORPH NORMAL
[2019-06-14 15:17] LABS: ALANINE AMINOTRANSFERASE 15 U/L (0-55); ALBUMIN 4.1 GM/DL (3.2-4.5); ALKALINE PHOSPHATASE 170 U/L (40-136); AMYLASE 39 U/L (25-125); BILIRUBIN,TOTAL 0.3 MG/DL (0.1-1.0); BUN/CREATININE RATIO 9; CALCIUM 9.2 MG/DL (8.5-10.1); CARBON DIOXIDE 29 MMOL/L (21-32); CHLORIDE 104 MMOL/L (98-107); CREATININE SERUM 0.88 MG/DL (0.60-1.30); GFR ESTIMATED > 60; GLUCOSE 335 MG/DL (70-105); LIPASE < 4 U/L (8-78); POTASSIUM 4.5 MMOL/L (3.6-5.0); SODIUM 138 MMOL/L (135-145); TOTAL PROTEIN 6.9 GM/DL (6.4-8.2)
== END ==
LOC: LAB 14:35
PROVIDERS: ATTEND Nurse Practitioner Family
DX: R10.11 Right upper quadrant pain (principal); R94.5 Abnormal results of liver function studies
CPT/HCPCS: 36415; 80053; 82150; 83690; 85007; 85027; 86141

== ENCOUNTER → 2019-06-15 | Outpatient (CLI) | payer MEDICAID ==
--- NOTE | 2019-06-15 10:03 | Diagnostic Imaging Report ---
PROCEDURE: US Gallbladder. TECHNIQUE: Multiple real-time grayscale images were obtained over the right upper quadrant in various projections. INDICATION: Abdominal pain There are no prior gallbladder ultrasound examinations available for comparison. The CT abdomen/pelvis exam of 02/08/2019 noted that the gallbladder was contracted and difficult to assess. On this exam, there is no evidence for cholelithiasis or acute cholecystitis and the common bile duct is not dilated. The liver does not appear to be enlarged and there is no focal mass involving the liver. Spectral and color-flow imaging of the portal vein shows that the vein is patent and that there is normal directional flow within the vein. The right kidney is generally unremarkable. The nonobstructive calculi within the right kidney reported on the CT abdomen/pelvis exam are not well appreciated on this study. The pancreas was obscured by bowel gas. The proximal aorta and the inferior vena cava were not well imaged either. IMPRESSION: 1. There is no evidence for cholelithiasis or acute cholecystitis. 2. If clinical concern regarding an acute abnormality of the gallbladder persists and further imaging is desired, then nuclear medicine hepatobiliary scan would be recommended. 3. The non-obstructive calculi within the right kidney seen on the CT exam are not well visualized on this study. Dictated by: Dictated on workstation # [id number]
== END ==
LOC: RAD 07:08
PROVIDERS: ATTEND Nurse Practitioner Family
DX: N20.0 Calculus of kidney (principal)
CPT/HCPCS: 76705

== ENCOUNTER → 2019-09-30 | Outpatient (CLI) | payer MEDICAID ==
[~2019-09-30] MED LIST changes: -CLON0.5T13 PO; +CLON0.5T4 PO; +OXYB5TAB13 PO; -OXYB5TAB9 PO
[2019-09-30 11:50] LABS: BASOPHILS # (AUTO) 0.1 10^3/uL (0.0-0.1); BASOPHILS % (AUTO) 0 % (0-10); EOSINOPHILS # (AUTO) 0.3 10^3/uL (0.0-0.3); EOSINOPHILS % (AUTO) 2 % (0-10); HEMATOCRIT 46 % (35-52); HEMOGLOBIN 15.1 G/DL (11.5-16.0); LYMPHOCYTES # (AUTO) 2.5 X 10^3 (1.0-4.0); LYMPHOCYTES % (AUTO) 22 % (12-44); MEAN CORPUSCULAR HEMOGLOBIN 30 PG (25-34); MEAN CORPUSCULAR HGB CONC 33 G/DL (32-36); MEAN CORPUSCULAR VOLUME 92 FL (80-99); MEAN PLATELET VOLUME 10.9 FL (7.4-10.4); MONOCYTES # (AUTO) 0.8 X 10^3 (0.0-1.0); MONOCYTES % (AUTO) 7 % (0-12); NEUTROPHILS # (AUTO) 7.9 X 10^3 (1.8-7.8); NEUTROPHILS % (AUTO) 69 % (42-75); PLATELET COUNT 286 10^3/uL (130-400); RED CELL DISTRIBUTION WIDTH 13.4 % (10.0-14.5); WHITE BLOOD COUNT 11.5 10^3/uL (4.3-11.0)
[2019-09-30 12:03] LABS: ALANINE AMINOTRANSFERASE 13 U/L (0-55); ALBUMIN 4.1 GM/DL (3.2-4.5); ALKALINE PHOSPHATASE 167 U/L (40-136); BILIRUBIN,TOTAL 0.2 MG/DL (0.1-1.0); BUN/CREATININE RATIO 9; CALCIUM 9.3 MG/DL (8.5-10.1); CARBON DIOXIDE 25 MMOL/L (21-32); CHLORIDE 101 MMOL/L (98-107); CREATININE SERUM 0.78 MG/DL (0.60-1.30); GFR ESTIMATED > 60; GLUCOSE 139 MG/DL (70-105); POTASSIUM 4.6 MMOL/L (3.6-5.0); SODIUM 136 MMOL/L (135-145); TOTAL PROTEIN 7.1 GM/DL (6.4-8.2)
== END ==
LOC: LAB 11:01
PROVIDERS: ATTEND Psychiatry & Neurology Neurology
DX: G35 Multiple sclerosis (principal); Z79.899 Other long term (current) drug therapy
CPT/HCPCS: 36415; 80053; 82784; 85025; 86360

== ENCOUNTER → 2020-04-09 | Outpatient (CLI) | payer MEDICAID ==
[~2020-04-09] MED LIST changes: +ACHYD1T PO; -HYDR-3820 PO
== END ==
LOC: WOUNDCARE 10:38
PROVIDERS: ATTEND Surgery
DX: E10.42 Type 1 diabetes mellitus with diabetic polyneuropathy (principal); E10.65 Type 1 diabetes mellitus with hyperglycemia; E10.52 Type 1 diabetes mellitus with diabetic peripheral angiopathy with gangrene; I70.261 Atherosclerosis of native arteries of extremities with gangrene, right leg; L92.1 Necrobiosis lipoidica, not elsewhere classified; L97.221 Non-pressure chronic ulcer of left calf limited to breakdown of skin; M79.604 Pain in right leg; T65.222D Toxic effect of tobacco cigarettes, intentional self-harm, subsequent encounter; F17.218 Nicotine dependence, cigarettes, with other nicotine-induced disorders
CPT/HCPCS: 99214

== ENCOUNTER 2020-04-20 12:10 | Observation (INO) | payer MEDICAID ==
[~2020-04-20] VITALS: Ht 162 cm; Wt 96.0 kg
[2020-04-20] VITALS (7 sets, daily range): BP systolic 109–147; BP diastolic 65–88
[2020-04-20] MEDS ORDERED: ACETAMINOPHEN 325 MG TABLET PO PRN (13:15)
[2020-04-20] MEDS ORDERED: ASPIRIN 81 MG CHEW (CHILDREN'S ASA) PO ONE (13:15)
[2020-04-20] MEDS ORDERED: ASPIRIN 81 MG CHEW (CHILDREN'S ASA) ONE ×2 (13:17→17:41)
[2020-04-20] MEDS ORDERED: NS IV 1000 ML 0 ML ONE (13:18)
[2020-04-20] MEDS: NS IV 1000 ML 1,000 ML IV SCH ×2 (13:22→18:55)
[2020-04-20 13:35] LABS: HEMOGLOBIN 14.7 G/DL (11.5-16.0); MEAN PLATELET VOLUME 10.7 FL (7.4-10.4); RED CELL DISTRIBUTION WIDTH 13.4 % (10.0-14.5); WHITE BLOOD COUNT 10.8 10^3/uL (4.3-11.0)
[2020-04-20 13:37] LABS: INR 0.9 (0.8-1.4); PROTHROMBIN TIME PATIENT 12.8 SEC (12.2-14.7)
[2020-04-20 13:47] LABS: BUN/CREATININE RATIO 9; CALCIUM 9.5 MG/DL (8.5-10.1); CARBON DIOXIDE 28 MMOL/L (21-32); CHLORIDE 102 MMOL/L (98-107); CREATININE SERUM 0.75 MG/DL (0.60-1.30); GFR ESTIMATED > 60; GLUCOSE 65 MG/DL (70-105); SODIUM 139 MMOL/L (135-145)
[2020-04-20] MEDS ORDERED: MOM10U PO (14:26)
[2020-04-20] MEDS ORDERED: OCRE300V IV (14:26)
[2020-04-20] MEDS ORDERED: GABA300C PO (14:26)
[2020-04-20] MEDS ORDERED: CITA40TA11 PO (14:26)
[2020-04-20] MEDS ORDERED: INSU100I23 SC (14:26)
--- NOTE | 2020-04-20 14:35 | NUR ---
SPOKE WITH THE PT AND WENT THRU THE EXT MED HISTORY TO COMPLETE THE MED REC THE PT HAD A MED LIST THAT I ATTACHED TO HER CHART ON 04-02-2020 PT RECEIVED AN OCREVUS INFUSION FROM YARITZA ROSUVASTATIN WAS FILLED IN MARCH 2020 HOWEVER THE PT HAD AN ADVERSE REACTION AND QUIT TAKING OTC MEDS: MILK OF MAGNESIA
[2020-04-20] MEDS ORDERED: ONDANSETRON 4 MG/2 ML (SDV) Z0FRAN IV PRN (15:00)
[2020-04-20] MEDS ORDERED: diphenhydrAMINE 25 MG TAB (BENADRYL) PO PRN (15:00)
[2020-04-20] MEDS ORDERED: polyethylene glycoL POWDER 17 GM (MIRALAX) PACK PO PRN (15:00)
[2020-04-20] MEDS ORDERED: ANTACID SUSP 30 ML UDC (MYLANTA) PO PRN (15:00)
[2020-04-20] MEDS ORDERED: BISACODYL 10 MG SUPP (DULCOLAX) PR PRN (15:00)
[2020-04-20] MEDS ORDERED: ONDANSETRON 4 MG (ZOFRAN) ORAL DISSOLVE TAB PO PRN (15:00)
[2020-04-20] MEDS ORDERED: MELATONIN 3 MG TABLET PO PRN (15:00)
[2020-04-20] MEDS ORDERED: LIDOCAINE 1% INJ 20 ML 20 ML VIAL ONE (15:37)
[2020-04-20] MEDS ORDERED: HEParin (CATH LAB) 2,000 ML IV ONE (15:37)
[2020-04-20] MEDS ORDERED: NS IV 1000 ML 1,000 ML ONE (15:38)
[2020-04-20] MEDS ORDERED: fentaNYL INJECTION 100 MCG/2 ML AMP ONE ×2 (15:40→16:18)
[2020-04-20] MEDS ORDERED: MIDAZOLAM 5 MG/5 ML (VERSED) VIAL ONE ×2 (15:40→16:18)
--- NOTE | 2020-04-20 16:24 | Cardiac Procedure Note-CS/ASA ---
Pre-Procedure Note Pre-Op Procedure Note H&P Reviewed The H&P was reviewed, patient examined and no changes noted. Date H&P Reviewed: Apr 20, 2020 Time H&P Reviewed: 16:24 Conscious Sedation Pre-Proced Time 16:24 ASA Score 3, 4 For ASA 3 and 4: Consider anesthesia and medical clearance. Also, for patients with a history of failed moderate sedation consider anesthesia. Airway Lungs Heart ASA score ASA 1: a normal healthy patient ASA 2: a patient with a mild systemic disease (mid diabetes, controlled hypertension, obesity ASA 3: a patient with a severe systemic disease that limits activity (angina, COPD, prior Myocardial infarction) ASA 4: a patient with an incapacitating disease that is a constant threat to life (CHF, renal failure) ASA 5: a moribund patient not expected to survive 24 hrs. (ruptured aneurysm) ASA 6: a declared brain- patient whose organs are being harvested. For emergent operations, add the letter E after the classification Mallampati Classification Grade 2 Sedation Plan Analgesia, Amnesia, Plan communicated to team members, Discussed options with patient/fam, Discussed risks with patient/fam The patient is an appropriate candidate to undergo the planned procedure, sedation, and anesthesia. The patient immediately re-assessed prior to indication. COLLINS CHAPMAN MD FACP FAC CCDS Apr 20, 2020 16:24
[2020-04-20] MEDS ORDERED: HEParin 1000 UNIT/ML (10ML VIAL) FOR BOLUS ONE (16:41)
[2020-04-20] MEDS ORDERED: NITRO DRIP 25000 MCG/D5W 250 ML IV ONE (16:44)
[2020-04-20] MEDS ORDERED: HEParin (CATH LAB) 1,000 ML IV ONE (17:29)
[2020-04-20] MEDS ORDERED: CLOPIDOGREL 300 MG (PLAVIX) TABLET PO ONE (17:41)
[2020-04-20] MEDS: inSUlin ASPART (NovoLOG) 1 UNIT/0.01 ML (CHARGE PER UNIT) SC SCH ×2 (18:05→21:00)
[2020-04-20] MEDS ORDERED: PATIENT MAY USE OWN MEDS, ALL PO SCH (18:15)
[2020-04-20] MEDS: morphine INJ 4 MG/ML 1 ML (VIAL/SYRINGE) IVP PRN ×3 (19:58→23:07)
--- NOTE | 2020-04-20 20:25 | NUR ---
PTT GREATER THAN 200, UNABLE TO PULL SHEATH AT THIS TIME, PTT ORDERED FOR 2300
[2020-04-20] MEDS: SENNOSIDES 8.6 MG (SENOKOT) TAB PO SCH (21:00)
[2020-04-20] MEDS: DOCUSATE SODIUM 100 MG (COLACE) CAP PO SCH (21:00)
[2020-04-20] MEDS: GABAPENTIN 300 MG (NEURONTIN) CAP PO SCH (21:00)
[2020-04-20] MEDS: clonazePAM 0.5 MG (KlonoPIN) TAB PO SCH (21:00)
[2020-04-20] MEDS ORDERED: ATROPINE INJ 0.4 MG/ML SDV ONE (23:45)
[2020-04-21] VITALS (13 sets, daily range): BP systolic 97–150; BP diastolic 50–87
[2020-04-21] MEDS: morphine INJ 4 MG/ML 1 ML (VIAL/SYRINGE) IVP PRN ×5 (00:35→09:45)
--- NOTE | 2020-04-21 00:45 | NUR ---
PTT 28. SHEATH PULLED AT THIS TIME WITH MANUAL PRESSURE HELD FOR 25 MINUTES, PT SEEMA WELL. NO SIGNS OR SX OF BLEEDING. SAND BAG PLACED
--- NOTE | 2020-04-21 01:22 | OPERATIVE REPORT ---
DATE OF SERVICE: 04/20/2020 PERIPHERAL ANGIOGRAPHY AND INTERVENTION REPORT The patient is a 50-year-old lady with risk factors of peripheral arterial disease, who has been experiencing right foot numbness and loss of sensation. A noninvasive study indicated no significant flow below the popliteal level. She was hospitalized and urgent peripheral angiography was carried out. Informed consent was obtained for peripheral angiography and for ad hoc intervention, if needed. PROCEDURE: She was brought to the cardiac catheterization laboratory. The left groin was prepared and draped in the usual sterile fashion. Lidocaine 1% used for local anesthesia. Modified Seldinger technique was used to advance a 5-Danish sheath into right femoral artery. A 5-Danish pigtail catheter was used for abdominal aortic angiography with the catheter placed at the level of L1. Subsequently, the catheter was pulled down to just above the level of the aortoiliac bifurcation and bilateral leg artery angiography was carried out with runoff down to the level of the feet. Subsequently, percutaneous intervention was performed to the right distal superficial femoral artery. She was found to be occluded in a fairly long segment. ABDOMINAL AORTIC ANGIOGRAPHY: Abdominal aortic angiography did not indicate any significant abdominal aortic aneurysm or dissection. Renal arteries are identified and do not exhibit significant disease. Aortoiliac bifurcation appears to be normal and the proximal iliac arteries do not exhibit significant disease. BILATERAL LEG ARTERY ANGIOGRAPHY: Bilateral leg artery angiography shows intact iliac arteries and common femoral arteries. The superficial femoral arteries on both sides have moderate disease in a diffuse fashion and, in addition, the right superficial femoral artery has a long segment of occlusion in its distal portion to which successful balloon angioplasty was carried out, followed by stenting as described below. There is 3-vessel runoff in both legs. PERCUTANEOUS INTERVENTION TO THE RIGHT SUPERFICIAL FEMORAL ARTERY: We used a crossover catheter to advance a Storq wire into the right superficial femoral artery and we were then able to exchange the short 5-Danish sheath for a long 6-Danish sheath and the tip of which extended into the proximal portion of the right superficial femoral artery. We were then able to advance the Storq wire across the complete occlusion in the distal right superficial femoral and carried out balloon angioplasty with a 4.0 x 100 mm balloon. This restored good antegrade flow, but there was still significant stenosis and a distal dissection. Accordingly, the balloon was removed and we stented this segment with Absolute Pro 6.0 x 100 mm stent following which there was no significant residual stenosis and flow throughout the vessel is normal and the patient has a 3-vessel distal runoff. She tolerated the procedure well. The long sheath was exchanged over a wire for a short 6-Danish sheath and that was sutured in place and the patient was transferred to the floor for manual sheath removal. CONCLUSIONS: 1. Long, distal occlusion of the right superficial femoral to which successful balloon angioplasty was carried out followed by stenting with Absolute Pro 6.0 x 100 mm stent. 2. Diffuse moderate disease of both superficial femoral arteries. Job ID: [id number] DocumentID: [id number] Dictated Date: 04/20/2020 18:14:51 Transit Driver Date: 04/21/2020 01:22:16 Dictated By: COLLINS CHAPMAN MD, MA, FACP, FACC, MTDD
--- NOTE | 2020-04-21 02:07 | NUR ---
NO BLEEDING OR HEMATOMA NOTED, SANDBAG REMOVED AND HOB TO 30 DEGREES
[2020-04-21 03:15] LABS: HEMOGLOBIN 14.3 G/DL (11.5-16.0); MEAN PLATELET VOLUME 10.5 FL (7.4-10.4); RED CELL DISTRIBUTION WIDTH 13.3 % (10.0-14.5)
[2020-04-21] MEDS: NS IV 1000 ML 1,000 ML IV SCH ×2 (03:31→13:00)
[2020-04-21 03:32] LABS: BUN/CREATININE RATIO 14; CALCIUM 8.5 MG/DL (8.5-10.1); CARBON DIOXIDE 25 MMOL/L (21-32); CHLORIDE 107 MMOL/L (98-107); CREATININE SERUM 0.76 MG/DL (0.60-1.30); GFR ESTIMATED > 60; GLUCOSE 71 MG/DL (70-105); POTASSIUM 4.3 MMOL/L (3.6-5.0); SODIUM 141 MMOL/L (135-145)
[2020-04-21] MEDS: inSUlin ASPART (NovoLOG) 1 UNIT/0.01 ML (CHARGE PER UNIT) SC SCH ×2 (04:53→11:20)
--- NOTE | 2020-04-21 05:00 | NUR ---
BEDREST COMPLETE, UP TO BSC, SEEMA WELL
[2020-04-21] MEDS: clonazePAM 0.5 MG (KlonoPIN) TAB PO SCH ×2 (05:18→08:30)
[2020-04-21] MEDS: SENNOSIDES 8.6 MG (SENOKOT) TAB PO SCH (08:21)
[2020-04-21] MEDS: GABAPENTIN 300 MG (NEURONTIN) CAP PO SCH (08:21)
[2020-04-21] MEDS: DOCUSATE SODIUM 100 MG (COLACE) CAP PO SCH (08:21)
[2020-04-21] MEDS ORDERED: ASPIRIN 81 MG CHEW (CHILDREN'S ASA) PO SCH (09:00)
[2020-04-21] MEDS ORDERED: CLOPIDOGREL 75 MG (PLAVIX) TABLET PO SCH (09:00)
--- NOTE | 2020-04-21 12:10 | Consultation - Hospitalist ---
HPI History of Present Illness: HPI/Chief Complaint Dayanara Arreguin is a 50-year-old female with past medical history of type I diabetes mellitus, anxiety, depression, who was admitted due to arterial occlusion of the right lower extremity. Cardiology occurred to the catheter lab and performed a balloon angioplasty followed by stent placement in the right superficial femoral artery. She reports having some pain in her right foot. She denies any fevers or chills. She denies any chest pain. She denies any shortness of breath or cough. She denies any abdominal pain, nausea, vomiting, or diarrhea. He has no other complaints or concerns. She is asking when she will be able to go home. Source: patient Exam Limitations: no limitations Date Seen 04/21/20 Attending Physician Federica Mcintosh MD Facp [facility] Ccds PCP Alexandro Jones DO Referring Physician Date of Admission Apr 20, 2020 at 12:45 Home Medications & Allergies Home Medications Reviewed patient Home Medication Reconciliation performed by pharmacy medication reconciliations sugarcane research technician and/or nursing. Patients Allergies have been reviewed. Allergies Allergies Coded Allergies codeine (Verified Allergy, Intermediate, HIVES (PATIENT HAS RECEIVED LORTAB IN THE PAST), 07/10/16) strawberry (Verified Allergy, Mild, RASH, 10/13/18) ciprofloxacin (Unverified Allergy, Unknown, STARTED HAVING MUSCULAR PROBLEMS, 09/13/18) Past Zutqflk-Nlwugj-Pzfzdm Hx Past Med/Social Hx: Reviewed Nursing Past Med/Soc Hx Patient Social History Alcohol Beverage of Choice: Beer Type Used: Cigarettes 2nd Hand Smoke Exposure: No Recent Hopitalizations: No Immunizations Up To Date Tetanus Booster (TDap): More than 5yrs Date of Pneumonia Vaccine: Jun 19, 2016 Date of Influenza Vaccine: Jun 19, 2016 Seasonal Allergies Seasonal Allergies: No Past Medical History Surgeries: Breast, Hysterectomy, Orthopedic, 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 Neurological: Multiple Sclerosis, Neuropathy Reproductive: No (FIBRIODS) Sexually Transmitted Disease: No HIV/AIDS: No Female Reproductive Disorders: Menstrual Problems, Ovarian Cyst Hysterectomy Genitourinary: UTI-Chronic Gastrointestinal: Gastroesophageal Reflux Endocrine: Diabetes, Insulin dep Loss of Vision: Bilateral Hearing Impairment: Denies Cancer: Cervical Psychosocial: Sleep Difficulties, Anxiety, Depression History of Blood Disorders: No Adverse Reaction to Blood Grubbs: No Family History Cardiovascular disease 19 FATHER Completed stroke GRANDMOTHER FH: brain cancer GRANDFATHER High cholesterol 19 MOTHER Thyroid disease 19 MOTHER Cancer Review of Systems Constitutional: no symptoms reported EENTM: no symptoms reported Respiratory: no symptoms reported Cardiovascular: no symptoms reported Gastrointestinal: no symptoms reported Genitourinary: no symptoms reported Musculoskeletal: muscle pain Skin: no symptoms reported Psychiatric/Neurological: No Symptoms Reported Physical Exam Physical Exam Vital Signs Vital Signs - First Documented 04/20/20 04/20/20 04/21/20 13:00 13:26 06:00 Temp 36.2 Pulse 78 Resp 18 B/P (MAP) 144/80 (101) Pulse Ox 96 O2 Delivery Room Air O2 Flow Rate 2.00 Capillary Refill : Less Than 3 Seconds Height, Weight, BMI Height: 5'5.00" Weight: 202lbs. 0.0oz. 91.438039hr; 36.46 BMI Method:Stated General Appearance: No Apparent Distress, Obese HEENT: PERRL/EOMI, Pharynx Normal Neck: Normal Inspection, Supple Respiratory: Lungs Clear, Normal Breath Sounds, No Respiratory Distress Cardiovascular: Regular Rate, Rhythm, No Edema, No Murmur; No Normal Peripheral Pulses (Right dorsalis pedis not palpable, left dorsalis pedis 2+) Gastrointestinal: Normal Bowel Sounds, Non Tender, Soft Extremity: Non Tender, No Pedal Edema Neurologic/Psychiatric: Alert, Normal Mood/Affect; No Disoriented Skin: Normal Color, Warm/Dry Results Results/Procedures Labs Laboratory Tests 04/20/20 13:16 04/21/20 03:08 Patient resulted labs reviewed. Assessment/Plan Assessment and Plan Assess & Plan/Chief Complaint Superficial femoral artery occlusion Peripheral arterial disease Type I diabetes mellitus Cardiology primary Underwent balloon angioplasty and stent placement in the right superficial femoral 04/20 Continue aspirin and Plavix Pain regimen ordered Home regimen: Lantus 15 units twice daily, lispro 5 units with meals Continue Levemir 8 units twice daily Sliding scale A Diagnosis/Problems Diagnosis/Problems (1) Superficial femoral artery occlusion Status: Acute (2) PAD (peripheral artery disease) Status: Acute (3) Type I diabetes mellitus Status: Chronic Qualifiers: Diabetes mellitus complication status: with circulatory complication Diabetes mellitus complication detail: with peripheral angiopathy without gangrene Qualified Codes: E10.51 - Type 1 diabetes mellitus with diabetic peripheral angiopathy without gangrene Clinical Quality Measures DVT/VTE Risk/Contraindication: Risk Factor Score Per Nursin RFS Level Per Nursing on Admit: 3=High DAXA AVELAR MD Apr 21, 2020 12:10
--- NOTE | 2020-04-21 13:10 | NUR ---
This nurse notified of patients temperature of 100.2 f (37.9 c). No new orders received att. Getting patient up to walk. Pt is asymptomatic. VSS.
--- NOTE | 2020-04-21 14:37 | Progress Note - Cardiology ---
Cardiology SOAP Progress Note Subjective: R foot pain after R leg revascularization yesterday, now resolved No cp or palp or syncope or shortness of breath No focal weakness No n/v/e Objective: I&O/Vital Signs 04/21/20 04/21/20 04/21/20 04/21/20 03:00 04:00 04:00 04:00 Pulse 90 90 Resp 12 12 B/P (MAP) 105/67 (80) 106/83 (91) Pulse Ox 93 O2 Delivery Room Air Room Air Room Air Room Air 04/21/20 04/21/20 04/21/20 04/21/20 05:00 06:00 07:00 07:00 Pulse 97 88 87 89 Resp 12 12 10 B/P (MAP) 109/85 (93) 115/87 (96) Pulse Ox 98 O2 Delivery Room Air Nasal Cannula Nasal Cannula O2 Flow Rate 2.00 2.00 04/21/20 04/21/20 04/21/20 04/21/20 07:47 07:50 08:00 08:00 Temp 37.1 Pulse 57 Resp 10 B/P (MAP) 133/50 (77) Pulse Ox 94 97 O2 Delivery Room Air Room Air Nasal Cannula O2 Flow Rate 2.00 04/21/20 04/21/20 04/21/20 04/21/20 09:00 09:00 10:00 11:00 Pulse 91 81 89 Resp 10 13 14 B/P (MAP) 128/72 (90) 120/73 (89) 97/61 (73) Pulse Ox 90 94 92 91 O2 Delivery Nasal Cannula Room Air Nasal Cannula Nasal Cannula O2 Flow Rate 2.00 2.00 2.00 04/21/20 04/21/20 04/21/20 04/21/20 12:00 12:00 12:00 12:55 Temp 37.8 Pulse 84 84 Resp 17 B/P (MAP) 114/68 (83) Pulse Ox 89 O2 Delivery Nasal Cannula Room Air O2 Flow Rate 2.00 04/21/20 04/21/20 04/21/20 13:00 13:10 13:18 Temp 37.9 Pulse 110 Resp 11 B/P (MAP) 150/61 (90) Pulse Ox 93 O2 Delivery Nasal Cannula Room Air O2 Flow Rate 2.00 04/21/20 00:00 Intake Total 560 ml Balance 560 ml Weight (Pounds): 202 Weight (Ounces): 0.0 Weight (Calculated Kilograms): 91.939142 Groin site without hematoma: Yes Bruising: mild bruising Constitutional: AAO x 3, well-developed, well-nourished Cardiovascular: regular rate-rhythm, S1 and S2, systolic murmur (faint NANCY at card base), other (peripheral pulses palpable and Dopplerable) Gastrointestional: No tender; soft; No guarding, No rebound; audible bowel sounds Extremities: No clubbing, No cyanosis, No significant edema Neurologic/Psychiatric: oriented x 3, other (moves all limb equally) Skin: warm/dry; No cyanosis, No cool, No diaphoresis, No rash, No ulcerations Results/Procedures: Labs Laboratory Tests 04/20/20 18:05: Glucometer 62L 04/20/20 18:42: Glucometer 79 04/20/20 19:30: Activated Partial Thromboplast Time > 200*H 04/20/20 20:34: Glucometer 98 04/20/20 22:59: Activated Partial Thromboplast Time 28 04/21/20 03:08: White Blood Count 9.0, Red Blood Count 4.75, Hemoglobin 14.3, Hematocrit 43, Mean Corpuscular Volume 91, Mean Corpuscular Hemoglobin 30, Mean Corpuscular Hemoglobin Concent 33, Red Cell Distribution Width 13.3, Platelet Count 261, Mean Platelet Volume 10.5H, Sodium Level 141, Potassium Level 4.3, Chloride Level 107, Carbon Dioxide Level 25, Anion Gap 9, Blood Urea Nitrogen 11, Creatinine 0.76, Estimat Glomerular Filtration Rate > 60, BUN/Creatinine Ratio 14, Glucose Level 71, Calcium Level 8.5 04/21/20 08:26: Glucometer 99 04/21/20 10:48: Glucometer 105 04/21/20 13:11: Glucometer 76 Laboratory Tests 04/20/20 13:16 04/21/20 03:08 A/P: Assessment: Ischemic R leg due to occlusion of distal R sup fem that was treated with placement of Absolute Pro 6 x 100 mm stent on 04/20/20 Quit smoking on 04/15/20 (40 pack yrs prior to that) Type I insulin Multiple sclerosis H/o bilateral peripheral neuropathy (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
[2020-04-21] MEDS ORDERED: ATOR10TA66 PO (14:40)
[2020-04-21] MEDS ORDERED: CLOP75TA69 PO (14:40)
[2020-04-21] MEDS ORDERED: ASPI-999 PO (14:40)
--- NOTE | 2020-04-21 14:41 | Discharge Inst-Cardiology ---
Discharge Inst-Cardiac Discharge Medications New Medications: Aspirin (Aspirin) 81 Mg Tab.chew 81 MG PO DAILY, #90 TAB 3 Refills Atorvastatin Calcium (Atorvastatin Calcium) 10 Mg Tablet 10 MG PO HS, #90 TAB 3 Refills Clopidogrel Bisulfate (Plavix) 75 Mg Tablet 75 MG PO DAILY for 90 Days, #90 TAB 3 Refills Continued Medications: Citalopram Hydrobromide (Citalopram HBr) 40 Mg Tablet 40 MG PO DAILY, TAB Clonazepam (Clonazepam) 0.5 Mg Tablet 1 MG PO BID, TAB TAKES 2 (0.5MG) TABS Gabapentin (Neurontin) 300 Mg Capsule 300 MG PO TID, CAP Insulin Glargine,Hum.rec.anlog (Lantus) 100 Unit/1 Ml Vial 15 UNIT SQ BID, VIAL Insulin Lispro (Humalog Kwikpen) 100 Unit/1 Ml Insuln.pen 5 UNITS SC TIDWM, UNITS Magnesium Hydroxide (Milk of Magnesia) 2,400 Mg/10 Ml Oral.susp 30 MG PO DAILY, ML Ocrelizumab (Ocrevus) 300 Mg/10 Ml Vial 300 MG IV EVERY 6 MONTHS, VIAL Patient Instructions Patient Instructions: No smoking COLLINS CHAPMAN MD FACP FAC CCDS Apr 21, 2020 14:41
--- NOTE | 2020-04-21 14:42 | Discharge Inst-Post CATH ---
Discharge Inst-CATH/EP Post Cardiac Cath/EP D/C Inst Follow Up/Plan F/u with Dr Mcintosh in 2 weeks ACTIVITY * Go Home directly and rest. * Limit activity of the leg (or wrist if it was used) for 7 days including aerobics, swimming, jogging, bicycling, etc. * Restrict stair-climbing for 7 days if possible, if not, climb up with your n on-cath leg, then bring together on the same step. * Avoid lifting, pushing, pulling or excessive movement of the affected ex tremity for 7 days. * Customary sexual activity may be resumed after 2 days-use caution not to use a position that strains or causes pain to the affected extremity. * No driving for 24 hours. * NO SMOKING. * Avoid straining for bowel movements for 7 days. * Gentle walking on level ground is allowed. * Returning to work will depend on the type of procedure and the results. Your doctor will discuss this with you. CALL YOUR DOCTOR FOR ANY OF THE FOLLOWING: *If bleeding from the puncture site occurs- Apply gentle pressure to site with clean cloth and call your doctor or EMS. * If a knot or lump forms under the skin, increases in size, or causes pain. * If bruising appears to be worsening or moving further down your leg instead of disappearing. * Temperature above 101 F. CARE OF YOUR GROIN INCISION; * Bruising or purple discoloration of the skin near the puncture site is common. * You may shower only, no bathtub bathing for 5 days. Be careful to avoid slipping as your leg may feel stiff. * If a closure device was used on your femoral artery, please see the attached guide regarding care of the device and your leg. * Leave dressing on FOR 24 hours. CARE OF YOUR WRIST INCISION; * Bruising or purple discoloration of the skin near the puncture site is common. * You may shower. * DO NOT submerge wrist. * Leave dressing on FOR 24 hours. COLLINS MCINTOSH MD [facility] CCDS Apr 21, 2020 14:42
--- NOTE | 2020-04-21 14:48 | Cardiology Discharge Summary ---
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 Patients Allergies have been reviewed. Discharge Home Medications: Reviewed and agree with Discharge Medication list on patient's Discharge Instruction sheet Instructions to patient/family F/u with Dr Mcintosh in 2 weeks Clinical Quality Measures DVT/VTE Risk/Contraindication: Risk Factor Score Per Nursin RFS Level Per Nursing on Admit: 3=High COLLINS MCINTOSH MD FACP FAC CCDS Apr 21, 2020 14:48
== END 2020-04-21 15:45 | disposition home or self-care (01) ==
LOC: CSD 12:45 → ICU 18:00
PROVIDERS: ADMIT Internal Medicine Cardiovascular Disease; ATTEND Internal Medicine Cardiovascular Disease
DX: E10.51 Type 1 diabetes mellitus with diabetic peripheral angiopathy without gangrene (principal); E10.42 Type 1 diabetes mellitus with diabetic polyneuropathy; G35 Multiple sclerosis; E66.9 Obesity, unspecified; Z68.36 Body mass index [BMI] 36.0-36.9, adult; Z79.899 Other long term (current) drug therapy; Z88.5 Allergy status to narcotic agent; Z88.1 Allergy status to other antibiotic agents; Z91.018 Allergy to other foods; Z87.891 Personal history of nicotine dependence; Z80.9 Family history of malignant neoplasm, unspecified; Z82.3 Family history of stroke; Z83.511 Family history of glaucoma
CPT/HCPCS: 36415; 75625; 75716; 80048; 82962; 85027; 85610; 85730

== ENCOUNTER → 2020-12-19 | Outpatient (CLI) | payer MEDICARE, MEDICAID ==
[~2020-12-19] MED LIST changes: +ASPI-999 PO; +ATOR10TA66 PO; +CITA40TA11 PO; -CLIN150C17 PO; +CLIN150C18 PO; -CLIN300C11 PO; +CLIN300C12 PO; +CLOP75TA69 PO; +GABA300C PO; +INSU100I23 SC; +MOM10U PO; +OCRE300V IV; +SERT-413 PO; -SERT50TA9 PO
--- NOTE | 2020-12-19 12:25 | Diagnostic Imaging Report ---
PROCEDURE: US Bilateral lower extremity arterial. TECHNIQUE: Multiple real-time grayscale images are obtained through both lower extremity arterial systems with color Doppler imaging and color Doppler spectral analysis. INDICATION: Bilateral lower extremity claudication symptoms. History of right vascular stent. CORRELATION STUDY: None FINDINGS: The major arteries of both lower extremities are patent to level of the ankles. There is however a diffusely dampened monophasic waveforms noted throughout the major arteries. On the right, mild velocity change through the mid to distal aspect of the superficial femoral artery and popliteal artery could be reflective of mild areas of narrowing. Overall diminished pulsatility below the level of the tibial peroneal trifurcation. Definitive stents in the right leg is not identified. On the left, there is slight change in velocity from the proximal to mid aspect superficial femoral artery may reflect a very mild narrowing. There is also dampened fluid below the tibial peroneal trifurcation's . IMPRESSION: 1. Patency of the major arteries of both legs. There is no evidence for large vessel occlusion. 2. There is however diffusely dampened monophasic waveforms present. May be very slight velocity change at the superficial femoral arteries may be reflective a very mild narrowing. 3. Findings do suggest small vessel disease below the tibial peroneal trifurcation's. Dictated by: Dictated on workstation # [id number]
== END ==
LOC: RAD 11:00
PROVIDERS: ATTEND Nurse Practitioner Family
DX: I73.9 Peripheral vascular disease, unspecified (principal)
CPT/HCPCS: 93925

== ENCOUNTER 2021-01-22 09:00 | Day surgery (SDC) | payer MEDICARE, MEDICAID ==
[~2021-01-22] VITALS: Ht 165 cm; Wt 96.0 kg
[2021-01-22] VITALS (12 sets, daily range): BP systolic 100–157; BP diastolic 59–81
[2021-01-22 07:53] LABS: HEMOGLOBIN 14.8 g/dL (11.5-16.0); MEAN PLATELET VOLUME 10.5 fL (9.0-12.2); WHITE BLOOD COUNT 10.1 10^3/uL (4.3-11.0)
[2021-01-22 08:13] LABS: INR 0.9 (0.8-1.4)
[2021-01-22 08:16] LABS: ALANINE AMINOTRANSFERASE 15 U/L (0-55); ALKALINE PHOSPHATASE 120 U/L (40-136); BILIRUBIN,TOTAL 0.5 MG/DL (0.1-1.0); BUN/CREATININE RATIO 14; CARBON DIOXIDE 28 MMOL/L (21-32); CHLORIDE 99 MMOL/L (98-107); CHOLESTEROL 187 MG/DL (< 200); CREATININE SERUM 0.88 MG/DL (0.60-1.30); GFR ESTIMATED > 60; GLUCOSE 174 MG/DL (70-105); HDL CHOLESTEROL 35 MG/DL (40-60); POTASSIUM 3.8 MMOL/L (3.6-5.0); SODIUM 141 MMOL/L (135-145); TOTAL PROTEIN 6.5 GM/DL (6.4-8.2); TRIGLYCERIDES 167 MG/DL (<150); VLDL CHOLESTEROL 33 MG/DL (5-40)
[~2021-01-22 09:00] MED LIST changes: +AMLO2.5T4 PO; +HEParin (CATH LAB) 2,000 ML IV ONE; +LIDOCAINE 1% INJ 20 ML 20 ML VIAL ONE; +NS IV 1000 ML 1,000 ML IV SCH; +NS IV 1000 ML 1,000 ML ONE; +NYST1POW22 TOP; +OXYC-464 PO
[2021-01-22] MEDS ORDERED: MIDAZOLAM 5 MG/5 ML (VERSED) VIAL ONE ×2 (10:25→10:57)
[2021-01-22] MEDS ORDERED: fentaNYL INJ 100 MCG/2 ML AMP ONE ×3 (10:25→14:30)
[2021-01-22] MEDS ORDERED: LIDOCAINE 1% INJ 20 ML 20 ML VIAL ONE (11:12)
[2021-01-22] MEDS ORDERED: HYDROmorphone 2 MG/ML VIAL (DILAUDID) ONE (11:46)
[2021-01-22] MEDS ORDERED: HEParin 1000 UNIT/ML (10ML VIAL) FOR BOLUS ONE (11:47)
[2021-01-22] MEDS ORDERED: CLOPIDOGREL 300 MG (PLAVIX) TABLET PO ONE (11:54)
[2021-01-22] MEDS ORDERED: ASPIRIN 81 MG CHEW (CHILDREN'S ASA) ONE (11:55)
[2021-01-22] MEDS ORDERED: PATIENT MAY USE OWN MEDS, ALL PO SCH (12:15)
--- NOTE | 2021-01-22 12:43 | Cardiac Procedure Note-CS/ASA ---
Pre-Procedure Note Pre-Op Procedure Note H&P Reviewed The H&P was reviewed, patient examined and no changes noted. Date H&P Reviewed: January 22, 2021 Time H&P Reviewed: 11:00 Conscious Sedation Pre-Proced Time 11:00 ASA Score 3 For ASA 3 and 4: Consider anesthesia and medical clearance. Also, for patients with a history of failed moderate sedation consider anesthesia. Airway Lungs Heart ASA score ASA 1: a normal healthy patient ASA 2: a patient with a mild systemic disease (mid diabetes, controlled hypertension, obesity ASA 3: a patient with a severe systemic disease that limits activity (angina, COPD, prior Myocardial infarction) ASA 4: a patient with an incapacitating disease that is a constant threat to life (CHF, renal failure) ASA 5: a moribund patient not expected to survive 24 hrs. (ruptured aneurysm) ASA 6: a declared brain- patient whose organs are being harvested. For emergent operations, add the letter E after the classification Mallampati Classification Grade 3 Sedation Plan Analgesia, Amnesia, Plan communicated to team members, Discussed options with patient/fam, Discussed risks with patient/fam The patient is an appropriate candidate to undergo the planned procedure, sedation, and anesthesia. The patient immediately re-assessed prior to indication. COLLINS CHAPMAN MD FACP FAC CCDS January 22, 2021 12:43
[2021-01-22] MEDS ORDERED: NON-FORMULARY MEDICATION 1 EA EA (Insulin Lispro (Humalog Kwikpen) 5 UNITS) SC SCH (13:00)
[2021-01-22] MEDS ORDERED: GABAPENTIN 300 MG (NEURONTIN) CAP PO SCH (13:00)
[2021-01-22] MEDS ORDERED: ATROPINE INJ 0.4 MG/ML SDV ONE (14:30)
--- NOTE | 2021-01-22 15:15 | OPERATIVE REPORT ---
DATE OF SERVICE: 01/22/2021 PERIPHERAL ANGIOGRAPHY AND INTERVENTION REPORT The patient is a 50-year-old lady, who is known to have peripheral arterial disease and has had stenting of the right superficial femoral artery in 2019. She has had recurrence of right leg claudication, which is severe. She also notes discomfort of the left leg with walking. Accordingly, peripheral angiography was recommended and informed consent was obtained for peripheral angiography and ad hoc peripheral intervention, if needed. DESCRIPTION OF PROCEDURE: She was brought to the cardiac catheterization laboratory. The left groin was prepared and draped in the usual sterile fashion. Lidocaine 1% was used for local anesthesia. Modified Seldinger technique was used to advance a 5-Swedish sheath into the left femoral artery. We used the sheath to advance a 5-Swedish pigtail catheter into the abdominal aorta and the catheter was placed at the level of L1. Abdominal aortic angiography was performed. The catheter was then pulled down to the level just above the aortoiliac bifurcation and bilateral leg artery angiography was performed with runoff down to the level of the ankles. Subsequently, selective angiography was performed of the right superficial femoral artery after we had used a crossover catheter to gain entry into the right iliac artery and advanced a 0.035 inch Storq wire into the right superficial femoral artery and exchanged the 5-Swedish sheath over this wire for a 6-Swedish sheath with the tip of the sheath placed in the distal right common femoral artery. Subsequently, we performed percutaneous intervention to the right superficial femoral artery, which is described below. PERCUTANEOUS INTERVENTION TO THE RIGHT SUPERFICIAL FEMORAL ARTERY: As stated above, we had exchanged the sheath for a long 6-Swedish sheath, the tip of which was placed into the distal right common femoral artery and we advanced a 0.035 inch Storq wire across the 99% to 100% in-stent restenosis in the distal part of the right superficial femoral artery and placed the wire in the distal circulation. We then advanced an Ashaway-35, 6.0 x 120 mm balloon and performed balloon angioplasty within the stent restenosis. The stent is known to be Absolute 6.0 x 100 mm stent. Following balloon angioplasty, there was 0% residual stenosis within the stent and distal flow was brisk and normal. The patient tolerated the procedure well. She received 5000 units of intravenous heparin during the procedure. At the end of the procedure, we placed a long sheath with a 6-Swedish short sheath over a wire. The sheath was sutured in place and the patient was transferred to the floor for manual sheath removal. ABDOMINAL AORTIC ANGIOGRAPHY: Abdominal aortic angiography did not indicate any abdominal aortic aneurysm or dissection. Renal arteries are identified. They do not exhibit any significant stenosis. The aortoiliac bifurcation appears normal and there is no disease in the proximal portion of the iliac arteries on either side. BILATERAL LEG ARTERY ANGIOGRAPHY: Bilateral leg artery angiography indicated that that iliac and the common femoral were intact on both sides. The superficial femoral on the right side exhibits a distal vessel stent that had 99% to 100% in-stent restenosis to which successful intervention was performed, as described above. Following this intervention, there is no significant residual stenosis within the stent and there is normal distal runoff and the trifurcation vessels in the right leg are intact. On the left side, the superficial femoral artery exhibits 50% to 60% proximal vessel stenoses. The popliteal artery and the trifurcation muscles are intact in the left leg. CONCLUSIONS: 1. Peripheral arterial disease, primarily consisting of 99% to 100% in-stent restenosis in the distal right superficial femoral to which successful balloon angioplasty was carried out with Ashaway-35, 6.0 x 120 mm balloon with reduction of stenosis to no significant residual. 2. Left superficial femoral artery exhibits 50% to 60% proximal stenosis. Job ID: [id number] DocumentID: [id number] Dictated Date: 01/22/2021 12:38:57 Powerhouse Oiler Date: 01/22/2021 15:15:03 Dictated By: COLLINS CHAPMAN MD, MA, FACP, FACC,
[2021-01-22] MEDS ORDERED: ASPI-999 PO (15:23)
[2021-01-22] MEDS ORDERED: CLOP75TA69 PO (15:23)
[2021-01-22] MEDS ORDERED: CILO50TA PO (15:23)
[2021-01-22] MEDS ORDERED: BUSP5TAB59 PO (15:23)
[2021-01-22] MEDS ORDERED: NYST50002 PO (15:28)
[2021-01-22] MEDS ORDERED: MOM10U PO (15:33)
[2021-01-22] MEDS ORDERED: MICONAZOLE 2% POWDER (DESENEX AF) 90 GM TOP PRN (16:15)
[2021-01-22] MEDS: oxyCODONE/APAP 7.5-325 MG (PERCOCET 7.5) TABLET PO PRN ×2 (16:43→21:55)
[2021-01-22] MEDS: NS IV 1000 ML 1,000 ML IV SCH ×2 (17:24→22:17)
[2021-01-22] MEDS: inSUlin ASPART (NovoLOG) 1 UNIT/0.01 ML (CHARGE PER UNIT) SC SCH (17:25)
[2021-01-22] MEDS: clonazePAM 0.5 MG (KlonoPIN) TAB PO SCH (20:00)
[2021-01-22] MEDS: GABAPENTIN 600 MG (NEURONTIN) TAB PO SCH (20:00)
[2021-01-22] MEDS: MICONAZOLE 2% POWDER (DESENEX AF) 90 GM TOP SCH (20:01)
[2021-01-22] MEDS ORDERED: ATORVASTATIN 10 MG TABLET PO SCH ×2 (21:00)
[2021-01-22] MEDS ORDERED: NON-FORMULARY MEDICATION 1 EA EA (Insulin Glargine,Hum.rec.anlog (Lantus) 15 UNIT) SQ SCH (21:00)
[2021-01-23] VITALS (10 sets, daily range): BP systolic 117–132; BP diastolic 59–96
[2021-01-23 03:14] LABS: BASOPHILS % (AUTO) 0 % (0-10); EOSINOPHILS # (AUTO) 0.2 10^3/uL (0.0-0.3); EOSINOPHILS % (AUTO) 4 % (0-10); HEMATOCRIT 41 % (35-52); HEMOGLOBIN 13.1 g/dL (11.5-16.0); LYMPHOCYTES # (AUTO) 1.7 10^3/uL (1.0-4.0); LYMPHOCYTES % (AUTO) 28 % (12-44); MEAN CORPUSCULAR HEMOGLOBIN 29 pg (25-34); MEAN CORPUSCULAR HGB CONC 32 g/dL (32-36); MEAN CORPUSCULAR VOLUME 91 fL (80-99); MEAN PLATELET VOLUME 10.5 fL (9.0-12.2); MONOCYTES # (AUTO) 0.6 10^3/uL (0.0-1.0); MONOCYTES % (AUTO) 10 % (0-12); NEUTROPHILS # (AUTO) 3.7 10^3/uL (1.8-7.8); NEUTROPHILS % (AUTO) 58 % (42-75); PLATELET COUNT 291 10^3/uL (130-400); WHITE BLOOD COUNT 6.3 10^3/uL (4.3-11.0)
[2021-01-23 03:24] LABS: CHLORIDE 104 MMOL/L (98-107); POTASSIUM 3.5 MMOL/L (3.6-5.0); SODIUM 140 MMOL/L (135-145)
[2021-01-23 03:26] LABS: CALCIUM 8.1 MG/DL (8.5-10.1); GLUCOSE 107 MG/DL (70-105)
[2021-01-23 03:27] LABS: CARBON DIOXIDE 24 MMOL/L (21-32)
[2021-01-23 03:30] LABS: CREATININE SERUM 0.75 MG/DL (0.60-1.30); GFR ESTIMATED > 60
[2021-01-23 03:31] LABS: BUN/CREATININE RATIO 13
[2021-01-23 03:32] LABS: MAGNESIUM 1.7 MG/DL (1.6-2.4)
[2021-01-23] MEDS: oxyCODONE/APAP 7.5-325 MG (PERCOCET 7.5) TABLET PO PRN (05:55)
--- NOTE | 2021-01-23 08:00 | Progress Note - Cardiology ---
Cardiology SOAP Progress Note Objective: I&O/Vital Signs Weight (Pounds): 202 Weight (Ounces): 0.0 Weight (Calculated Kilograms): 91.714604 Side: left Groin site without hematoma: Yes Bruising: mild bruising Constitutional: AAO x 3, well-developed, well-nourished Respiratory: No accessory muscle use, No respiratory distress Cardiovascular: regular rate-rhythm Gastrointestional: No tender; soft, round, audible bowel sounds Extremities: no lower extremity edema bilateral Neurologic/Psychiatric: grossly intact (moves all extremities) Skin: No rash on exposed areas Results/Procedures: Labs Microbiology 01/22/21 MRSA Screen - Final, Complete MRSA not isolated A/P: Assessment: PAD - Ischemic R leg due to occlusion of the distal R sup fem that was treated with placement of Absolute Pro 6 x 100 mm stent on 04/20/20 - Recurrent R leg and foot pain since late 2019 - Peripheral angiogram 01-22-21 - Peripheral arterial disease, primarily consisting of 99% to 100% in-stent restenosis in the distal right superficial femoral to which successful balloon angioplasty was carried out with Lamont-35, 6.0 x 120 mm balloon with reduction of stenosis to no significant residual. Left superficial femoral artery exhibits 50% to 60% proximal stenosis. 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
[2021-01-23] MEDS: GABAPENTIN 600 MG (NEURONTIN) TAB PO SCH (08:35)
[2021-01-23] MEDS: clonazePAM 0.5 MG (KlonoPIN) TAB PO SCH (08:41)
[2021-01-23] MEDS: MICONAZOLE 2% POWDER (DESENEX AF) 90 GM TOP SCH (08:42)
[2021-01-23] MEDS ORDERED: NON-FORMULARY MEDICATION 1 EA EA (Citalopram Hydrobromide (Citalopram HBr) 40 MG) PO SCH (09:00)
[2021-01-23] MEDS ORDERED: amLODIPine 2.5MG (NORVASC) TAB PO SCH (09:00)
[2021-01-23] MEDS ORDERED: ASPIRIN 81 MG CHEW (CHILDREN'S ASA) PO SCH (09:00)
[2021-01-23] MEDS ORDERED: CLOPIDOGREL 75 MG (PLAVIX) TABLET PO SCH (09:00)
[2021-01-23] MEDS ORDERED: NON-FORMULARY MEDICATION 1 EA EA (Nystatin 1 EACH) MC SCH (09:00)
--- NOTE | 2021-01-23 09:02 | Discharge Inst-Cardiology ---
Discharge Inst-Cardiac Discharge Medications Continued Medications: Amlodipine Besylate (Amlodipine Besylate) 2.5 Mg Tablet 2.5 MG PO DAILY, TAB Aspirin (Aspirin) 81 Mg Tab.chew 81 MG PO DAILY, TAB Atorvastatin Calcium (Atorvastatin Calcium) 10 Mg Tablet 10 MG PO HS, TAB LAST FILLED 12-03-2020 #30/30 DAY SUPPLY Cilostazol (Cilostazol) 50 Mg Tablet 50 MG PO DAILY, TAB LAST FILLED 11-07-2020 #30 Citalopram Hydrobromide (Citalopram HBr) 40 Mg Tablet 40 MG PO DAILY, TAB Clonazepam (Clonazepam) 0.5 Mg Tablet 1 MG PO BID, TAB TAKES 2 (0.5MG) TABS Clopidogrel Bisulfate (Plavix) 75 Mg Tablet 75 MG PO DAILY, TAB LAST FILLED 12-03-2020 #30/30 DAY SUPPLY Gabapentin (Neurontin) 300 Mg Capsule 600 MG PO BID, CAP TAKES 2 (300MG) CAPS Insulin Glargine,Hum.rec.anlog (Lantus) 100 Unit/1 Ml Vial 15 UNIT SQ BID, VIAL Insulin Lispro (Humalog Kwikpen) 100 Unit/1 Ml Insuln.pen UNITS SC TIDWM, UNITS Magnesium Hydroxide (Milk of Magnesia) 2,400 Mg/10 Ml Oral.susp 30 ML PO BID PRN for CONSTIPATION-7TH LINE, ML Nystatin (Nystatin) 1 Each Powder.ea. 1 APPLIC TOP BID PRN for YEAST, UNIT Nystatin (Nystatin) 500,000 Unit Tablet 680343 UNIT PO DAILY PRN for YEAST, TAB Oxycodone HCl/Acetaminophen (Oxycodon-Acetaminophen 7.5-325) 1 Each Tablet 1 EACH PO Q8H PRN for PAIN-MODERATE MDD 4 for 7 Days, TAB Patient Instructions Patient Instructions: Please schedule follow up to see Dr. Mcintosh in 2 weeks ZINA LYNCH January 23, 2021 09:02
[2021-01-23] MEDS ORDERED: KCL 20 MEQ TAB (K-DUR) PO ONE ×2 (09:15→09:16)
[2021-01-23] MEDS: NS IV 1000 ML 1,000 ML IV SCH (09:30)
[2021-01-23] MEDS: inSUlin ASPART (NovoLOG) 1 UNIT/0.01 ML (CHARGE PER UNIT) SC SCH (10:15)
--- NOTE | 2021-01-23 12:51 | Progress Note - Cardiology ---
Cardiology SOAP Progress Note Subjective: No groin or leg discomfort No cp or palp or syncope No shortness of breath No n/v/d Wishes to go home Objective: I&O/Vital Signs 01/23/21 01/23/21 01/23/21 01/23/21 01:00 01:00 02:00 03:00 Pulse 77 77 74 69 Resp 19 18 10 B/P (MAP) 120/63 (84) 117/63 (80) 120/63 (84) Pulse Ox 94 93 92 O2 Delivery Room Air Room Air Room Air 01/23/21 01/23/21 01/23/21 01/23/21 03:14 03:14 04:00 05:00 Temp 36.6 Pulse 68 66 Resp 10 14 B/P (MAP) 131/65 (87) 132/65 (87) Pulse Ox 93 92 94 O2 Delivery Room Air Room Air Room Air 01/23/21 01/23/21 01/23/21 01/23/21 06:00 06:55 07:00 08:00 Pulse 76 69 68 73 Resp 12 11 10 B/P (MAP) 126/59 (81) 125/66 (85) Pulse Ox 94 92 94 O2 Delivery Room Air Room Air Room Air 01/23/21 01/23/21 01/23/21 01/23/21 08:00 08:13 09:00 10:47 Temp 36.0 36.0 Pulse 64 64 Resp 11 11 B/P (MAP) 127/76 (93) 127/96 Pulse Ox 96 94 94 O2 Delivery Room Air Room Air Room Air 01/23/21 00:00 Intake Total 400 ml Output Total 120 ml Balance 280 ml Weight (Pounds): 202 Weight (Ounces): 0.0 Weight (Calculated Kilograms): [id number] Side: left Groin site without hematoma: Yes Condition: DP/PT pulses palpable Bruising: mild bruising Constitutional: AAO x 3, well-developed, well-nourished Respiratory: No accessory muscle use, No respiratory distress Cardiovascular: regular rate-rhythm Gastrointestional: No tender; soft, round, audible bowel sounds Extremities: no lower extremity edema bilateral Neurologic/Psychiatric: grossly intact (moves all extremities) Skin: No rash on exposed areas Results/Procedures: Labs Laboratory Tests 01/22/21 15:32: Glucometer 105 01/22/21 20:17: Glucometer 150H 01/23/21 02:48: White Blood Count 6.3, Red Blood Count 4.46, Hemoglobin 13.1, Hematocrit 41, Mean Corpuscular Volume 91, Mean Corpuscular Hemoglobin 29, Mean Corpuscular Hemoglobin Concent 32, Red Cell Distribution Width 13.2, Platelet Count 291, Mean Platelet Volume 10.5, Immature Granulocyte % (Auto) 0, Neutrophils (%) (Auto) 58, Lymphocytes (%) (Auto) 28, Monocytes (%) (Auto) 10, Eosinophils (%) (Auto) 4, Basophils (%) (Auto) 0, Neutrophils # (Auto) 3.7, Lymphocytes # (Auto) 1.7, Monocytes # (Auto) 0.6, Eosinophils # (Auto) 0.2, Basophils # (Auto) 0.0, Immature Granulocyte # (Auto) 0.0, Sodium Level 140, Potassium Level 3.5L, Chloride Level 104, Carbon Dioxide Level 24, Anion Gap 12, Blood Urea Nitrogen 10, Creatinine 0.75, Estimat Glomerular Filtration Rate > 60, BUN/Creatinine Ratio 13, Glucose Level 107H, Calcium Level 8.1L, Magnesium Level 1.7 Microbiology 01/22/21 MRSA Screen - Final, Complete MRSA not isolated Laboratory Tests 01/22/21 07:40 01/23/21 02:48 A/P: Assessment: PAD - Ischemic R leg due to occlusion of the distal R sup fem that was treated with placement of Absolute Pro 6 x 100 mm stent on 04/20/20 - Recurrent R leg and foot pain since late 2019 - Peripheral angiogram 01-22-21 - Peripheral arterial disease, primarily consisting of 99% to 100% in-stent restenosis in the distal right superficial femoral to which successful balloon angioplasty was carried out with [place]-35 6.0 x 120 mm balloon with reduction of stenosis to no significant residual. Left superficial femoral artery exhibits 50% to 60% proximal stenosis. Quit smoking on 04/15/20 (40 pack yrs prior to that) resumed in Oct 2019 Type I insulin Multiple sclerosis H/o bilateral peripheral neuropathy (stocking and glove distribution) Intertrigo (groin folds) Plan: Reports improvement in leg discomfort Discussed results of peripheral angio with her Reviewed d/c meds Continue dual anti-platelet tx Smoking cessation advised Advised f/u with and treatment of intertrigo by her pcp. She understands and states will comply OK to d/c home today with out pt f/u in 1-2 weeks COLLINS CHAPMAN MD FACP FAC CCDS January 23, 2021 12:51
== END 2021-01-23 10:45 | disposition home or self-care (01) ==
LOC: CATH 09:00 → ICU 12:30 → CATH 01-23 10:45
PROVIDERS: ATTEND Internal Medicine Cardiovascular Disease
DX: T82.856A Stenosis of peripheral vascular stent, initial encounter (principal); I70.221 Atherosclerosis of native arteries of extremities with rest pain, right leg; I70.202 Unspecified atherosclerosis of native arteries of extremities, left leg; E10.9 Type 1 diabetes mellitus without complications; G35 Multiple sclerosis; F41.9 Anxiety disorder, unspecified; Z88.5 Allergy status to narcotic agent; Z88.1 Allergy status to other antibiotic agents; Z91.018 Allergy to other foods; Z79.82 Long term (current) use of aspirin; Z79.4 Long term (current) use of insulin; Z79.899 Other long term (current) drug therapy; Z79.02 Long term (current) use of antithrombotics/antiplatelets; Z79.891 Long term (current) use of opiate analgesic; F17.210 Nicotine dependence, cigarettes, uncomplicated; Z98.51 Tubal ligation status; Z80.9 Family history of malignant neoplasm, unspecified; Z83.3 Family history of diabetes mellitus
CPT/HCPCS: 36415; 75625; 75716; 80048; 80053; 80061; 82947; 83735; 85025; 85027; 85610; 85730; 87081

== ENCOUNTER 2021-02-20 07:44 | Outpatient (CLI) | payer MEDICARE, MEDICAID ==
[~2021-02-20] VITALS: Ht 165 cm; Wt 96.3 kg
[~2021-02-20 07:44] MED LIST changes: +BUSP5TAB59 PO; +CILO50TA PO; -HEParin (CATH LAB) 2,000 ML IV ONE; -LIDOCAINE 1% INJ 20 ML 20 ML VIAL ONE; -NS IV 1000 ML 1,000 ML IV SCH; -NS IV 1000 ML 1,000 ML ONE; +NYST50002 PO
[2021-02-20] MEDS ORDERED: diphenhydrAMINE 50 MG/ML INJ (BENADRYL) IVP PRN (08:30)
[2021-02-20] MEDS ORDERED: methylPREDNISolone 125 MG (Solu-MEDROL) VIAL IVP ONE (08:30)
[2021-02-20] MEDS ORDERED: ACETAMINOPHEN 500 MG TAB (TYLENOL) PO PRN (08:30)
[2021-02-20] MEDS ORDERED: diphenhydrAMINE 50 MG/ML INJ (BENADRYL) IVP ONE (08:30)
[2021-02-20] MEDS ORDERED: ACETAMINOPHEN 500 MG TAB (TYLENOL) PO ONE (08:30)
[2021-02-20] MEDS ORDERED: OCRELIZUMAB IV SCH (08:30)
[2021-02-20] MEDS ORDERED: NORMAL SALINE IV SCH (08:30)
[2021-02-20 08:40] LABS: HEMATOCRIT 44 % (35-52); HEMOGLOBIN 14.3 g/dL (11.5-16.0); MEAN CORPUSCULAR HEMOGLOBIN 30 pg (25-34); MEAN CORPUSCULAR HGB CONC 32 g/dL (32-36); MEAN CORPUSCULAR VOLUME 92 fL (80-99); MEAN PLATELET VOLUME 10.2 fL (9.0-12.2); PLATELET COUNT 257 10^3/uL (130-400)
[2021-02-20] MEDS ORDERED: EPINEPHrine INJECTION 1 MG/ML AMP IM PRN (08:45)
[2021-02-20 08:57] LABS: ALANINE AMINOTRANSFERASE 21 U/L (0-55); ALBUMIN 3.5 GM/DL (3.2-4.5); ALKALINE PHOSPHATASE 126 U/L (40-136); BILIRUBIN,TOTAL 0.2 MG/DL (0.1-1.0); BUN/CREATININE RATIO 13; CALCIUM 9.4 MG/DL (8.5-10.1); CARBON DIOXIDE 29 MMOL/L (21-32); CHLORIDE 100 MMOL/L (98-107); CREATININE SERUM 0.84 MG/DL (0.60-1.30); GFR ESTIMATED > 60; GLUCOSE 206 MG/DL (70-105); POTASSIUM 4.5 MMOL/L (3.6-5.0); SODIUM 138 MMOL/L (135-145); TOTAL PROTEIN 5.7 GM/DL (6.4-8.2)
[2021-02-20] MEDS: CATHETER FLUSH 10 ML SYR IV SCH ×4 (10:00→14:45)
[2021-02-20 12:00] VITALS: BP 135/71
[2021-02-20 13:00] VITALS: BP 130/71
[2021-02-20 14:00] VITALS: BP 133/70
[2021-02-20 14:45] VITALS: BP 134/72
[2021-02-20 14:50] VITALS: BP 136/71
== END 2021-02-20 14:50 | disposition home or self-care (01) ==
LOC: SDC 07:44 → EDSTATUS 14:00 → SDC 14:50
PROVIDERS: ATTEND Psychiatry & Neurology Neurology
DX: G35 Multiple sclerosis (principal)
CPT/HCPCS: 36415; 80053; 82784; 85027; 96365; 96366; 96374; 96375

== ENCOUNTER 2021-08-13 08:00 | Day surgery (SDC) | payer MEDICARE, MEDICAID ==
[~2021-08-13] VITALS: Ht 165 cm; Wt 97.1 kg
[2021-08-13] VITALS (15 sets, daily range): BP systolic 107–136; BP diastolic 51–71
[2021-08-13 07:32] LABS: HEMATOCRIT 45 % (35-52); HEMOGLOBIN 14.5 g/dL (11.5-16.0); MEAN CORPUSCULAR HEMOGLOBIN 30 pg (25-34); MEAN CORPUSCULAR HGB CONC 32 g/dL (32-36); MEAN CORPUSCULAR VOLUME 92 fL (80-99); MEAN PLATELET VOLUME 10.8 fL (9.0-12.2); PLATELET COUNT 298 10^3/uL (130-400); WHITE BLOOD COUNT 9.1 10^3/uL (4.3-11.0)
[2021-08-13 07:45] LABS: INR 0.9 (0.8-1.4)
[2021-08-13 07:54] LABS: ALBUMIN 3.7 GM/DL (3.2-4.5); BILIRUBIN,TOTAL 0.5 MG/DL (0.1-1.0); CALCIUM 9.2 MG/DL (8.5-10.1); CREATININE SERUM 0.87 MG/DL (0.60-1.30); POTASSIUM 3.9 MMOL/L (3.6-5.0); TOTAL PROTEIN 6.2 GM/DL (6.4-8.2)
[~2021-08-13 08:00] MED LIST changes: -CITA40TA11 PO; +CITA40TA13 PO; +CLIN-144 PO; -CLIN150C18 PO; +CLIN150C20 PO; -CLIN300C12 PO; +CYCL10TA25 PO; -CYCL10TA9 PO; +DIVA-76 PO; +FURO20TA4 PO; +GBPN600T PO; +HEParin (CATH LAB) 2,000 ML IV ONE; +INSU100I32 SQ; +LIDOCAINE 1% INJ 20 ML 20 ML VIAL ONE; +NS IV 1000 ML 1,000 ML IV SCH; +NS IV 1000 ML 1,000 ML ONE; -OXYC-464 PO; +OXYC-556 PO; +OXYC1TAB15 PO; +PANT40TA52 PO; -SULF1TAB35 PO; +SULF1TAB38 PO
[2021-08-13] MEDS ORDERED: fentaNYL INJ 100 MCG/2 ML AMP ONE (08:27)
[2021-08-13] MEDS ORDERED: MIDAZOLAM 5 MG/5 ML (VERSED) VIAL ONE (08:27)
[2021-08-13] MEDS ORDERED: NITRO DRIP 25000 MCG/D5W 0 ML IV ONE (09:08)
[2021-08-13] MEDS ORDERED: HEParin 1000 UNIT/ML (10ML VIAL) FOR BOLUS ONE (09:08)
[2021-08-13] MEDS ORDERED: CLOPIDOGREL 75 MG (PLAVIX) TABLET ONE (09:43)
[2021-08-13] MEDS ORDERED: ASPIRIN 81 MG CHEW (CHILDREN'S ASA) ONE (09:43)
--- NOTE | 2021-08-13 09:57 | Cardiac Procedure Note-CS/ASA ---
Pre-Procedure Note Pre-Op Procedure Note H&P Reviewed The H&P was reviewed, patient examined and no changes noted. Date H&P Reviewed: Aug 13, 2021 Time H&P Reviewed: 08:40 Conscious Sedation Pre-Proced Time 08:40 ASA Score 3 For ASA 3 and 4: Consider anesthesia and medical clearance. Also, for patients with a history of failed moderate sedation consider anesthesia. Airway Lungs Heart ASA score ASA 1: a normal healthy patient ASA 2: a patient with a mild systemic disease (mid diabetes, controlled hypertension, obesity ASA 3: a patient with a severe systemic disease that limits activity (angina, COPD, prior Myocardial infarction) ASA 4: a patient with an incapacitating disease that is a constant threat to life (CHF, renal failure) ASA 5: a moribund patient not expected to survive 24 hrs. (ruptured aneurysm) ASA 6: a declared brain- patient whose organs are being harvested. For emergent operations, add the letter E after the classification Mallampati Classification Grade 2 Sedation Plan Analgesia, Amnesia, Plan communicated to team members, Discussed options with patient/fam, Discussed risks with patient/fam The patient is an appropriate candidate to undergo the planned procedure, sedation, and anesthesia. The patient immediately re-assessed prior to indication. COLLINS CHAPMAN MD FACP FAC CCDS Aug 13, 2021 09:57
[2021-08-13] MEDS ORDERED: PATIENT MAY USE OWN MEDS, ALL PO SCH (10:00)
[2021-08-13] MEDS ORDERED: NS IV 1000 ML 1,000 ML IV SCH (10:00)
--- NOTE | 2021-08-13 10:02 | Discharge Inst-Post CATH ---
Discharge Inst-CATH/EP Post Cardiac Cath/EP D/C Inst Follow Up/Plan F/u with Dr Mcintosh in 2 weeks ACTIVITY * Go Home directly and rest. * Limit activity of the leg (or wrist if it was used) for 7 days including aerobics, swimming, jogging, bicycling, etc. * Restrict stair-climbing for 7 days if possible, if not, climb up with your n on-cath leg, then bring together on the same step. * Avoid lifting, pushing, pulling or excessive movement of the affected ex tremity for 7 days. * Customary sexual activity may be resumed after 2 days-use caution not to use a position that strains or causes pain to the affected extremity. * No driving for 24 hours. * NO SMOKING. * Avoid straining for bowel movements for 7 days. * Gentle walking on level ground is allowed. * Returning to work will depend on the type of procedure and the results. Your doctor will discuss this with you. CALL YOUR DOCTOR FOR ANY OF THE FOLLOWING: *If bleeding from the puncture site occurs- Apply gentle pressure to site with clean cloth and call your doctor or EMS. * If a knot or lump forms under the skin, increases in size, or causes pain. * If bruising appears to be worsening or moving further down your leg instead of disappearing. * Temperature above 101 F. CARE OF YOUR GROIN INCISION; * Bruising or purple discoloration of the skin near the puncture site is common. * You may shower only, no bathtub bathing for 5 days. Be careful to avoid slipping as your leg may feel stiff. * If a closure device was used on your femoral artery, please see the attached guide regarding care of the device and your leg. * Leave dressing on FOR 24 hours. CARE OF YOUR WRIST INCISION; * Bruising or purple discoloration of the skin near the puncture site is common. * You may shower. * DO NOT submerge wrist. * Leave dressing on FOR 24 hours. COLLINS MCINTOSH MD [facility] CCDS Aug 13, 2021 10:02
--- NOTE | 2021-08-13 10:03 | Discharge Inst-Cardiology ---
Discharge Inst-Cardiac Discharge Medications Continued Medications: Amlodipine Besylate (Amlodipine Besylate) 2.5 Mg Tablet 2.5 MG PO DAILY, TAB Atorvastatin Calcium (Atorvastatin Calcium) 10 Mg Tablet 10 MG PO HS, TAB Citalopram Hydrobromide (Citalopram HBr) 40 Mg Tablet 40 MG PO DAILY, TAB Clonazepam (Clonazepam) 0.5 Mg Tablet 1 MG PO BID, TAB TAKES 2 (0.5MG) TABS Clopidogrel Bisulfate (Plavix) 75 Mg Tablet 75 MG PO DAILY, TAB Divalproex Sodium (Divalproex Sodium) 500 Mg Tablet.dr 500 MG PO DAILY, TAB Furosemide (Furosemide) 20 Mg Tablet 20 MG PO DAILY, TAB Gabapentin (Gabapentin) 600 Mg Tablet 600 MG PO TID, TAB Insulin Degludec (Tresiba Flextouch U-100) 100 Unit/1 Ml Insuln.pen 14 UNIT SQ BID, EA Insulin Lispro (Humalog Kwikpen) 100 Unit/1 Ml Insuln.pen UNITS SC TIDWM, UNITS Nystatin (Nystatin) 500,000 Unit Tablet 758873 UNIT PO DAILY PRN for YEAST, TAB Oxycodone HCl/Acetaminophen (Oxycodone-Acetaminophen 10-325) 1 Each Tablet 1 EACH PO BID MDD 3 for 7 Days, TAB TAKES 1/2 TABLET FOUR TIMES A DAY FOR A TOTAL OF 2 WHOLE TABLETS DAILY Pantoprazole Sodium (Pantoprazole Sodium) 40 Mg Tablet.dr 40 MG PO DAILY, TAB COLLINS CHAPMAN MD [facility] CCDS Aug 13, 2021 10:03
--- NOTE | 2021-08-13 10:31 | OPERATIVE REPORT ---
DATE OF SERVICE: 08/13/2021 PERIPHERAL ANGIOGRAPHY AND INTERVENTION REPORT INDICATIONS: The patient is a 51-year-old lady who is known to have coronary artery disease and who had stenting of the right superficial femoral artery in 2019. She received an Absolute 6.0 x 100 mm stent. She has since had balloon angioplasty of that stent in 01/2021. This was for recurrence of right leg claudication. She has continued to smoke cigarettes. She has again had recurrence of the right leg claudication and came in today for peripheral angiography and possible intervention. Informed consent was obtained. DESCRIPTION OF PROCEDURE: She was brought to the cardiac catheterization laboratory. The left groin was prepared and draped in the usual sterile fashion. Lidocaine 1% was used for local anesthesia. Modified Seldinger technique was used to advance a 5-[place] sheath into the left femoral artery. We used a 5-[place]yr[place] pigtail catheter to carry out abdominal aortic angiography. The catheter was placed at the level of L1, and abdominal aortic angiography was performed. The catheter was then pulled back to just above the level of the aortoiliac bifurcation and bilateral leg artery angiography was performed. Subsequently, we used a crossover catheter to selectively engage the right common femoral artery and peripheral angiography was performed that included the right superficial femoral artery and distal runoff. This was followed by percutaneous intervention to the right superficial femoral artery that is described below. PERCUTANEOUS INTERVENTION OF THE RIGHT SUPERFICIAL FEMORAL ARTERY: We advanced a Storq wire across the lesion in the standard segment of the right superficial femoral artery and the tip of the wire was placed in the right anterior tibial artery. We then advanced a Lutonix 6.0 x 150 mm balloon. This was used to cover the lesion in the standard segment and segment of the vessel just proximal to the stented segment. The balloon was inflated at 7 atmospheres. It was kept inflated for 2 minutes. The balloon was then collapsed and removed. Subsequent angiography revealed no significant residual stenosis at the previous site of up to 90% stenosis within the stented segment of the right superficial femoral artery. Flow throughout the vessel is normal. She tolerated the procedure well. The angioplasty equipment was removed. The long 6-[place] sheath was replaced by a short 6-[place]yr[place] sheath. Angiography of the left femoral artery was carried out. Mynx was used to achieve hemostasis. She tolerated the procedure well. ABDOMINAL AORTIC ANGIOGRAPHY: Abdominal aortic angiography did not indicate any abdominal aortic aneurysm or dissection. Renal arteries are identified and do not exhibit any significant disease. The aortoiliac bifurcation appears normal. There did not appear to be any disease in the proximal portion of the iliac arteries on either side. BILATERAL LEG ARTERY ANGIOGRAPHY: Bilateral leg artery angiography indicated that the iliac and common femoral arteries were intact on both sides. The superficial femoral artery on the right side exhibited a distal vessel stent that had up to 99% stenosis to which successful balloon angioplasty was carried out as described above. Following this intervention, there is no significant residual stenosis and there is normal flow in the vessels. On the left side, the superficial femoral artery had mild stenosis of up to 30% to 40%. The popliteal artery and the trifurcation vessels are intact in the left leg. CONCLUSIONS: 1. Peripheral arterial disease, primarily consisting up to 99% in-stent restenosis in the right superficial femoral artery to which successful balloon angioplasty was carried out with reduction of stenosis to no significant residual. 2. Mild stenosis of the left superficial femoral artery. Job ID: [id number] DocumentID: [id number] Dictated Date: 08/13/2021 10:11:55 [employer] Die [employer] Date: 08/13/2021 10:30:57 Dictated By: COLLINS CHAPMAN MD, MA, FACP, FACC,
== END 2021-08-13 15:15 | disposition home or self-care (01) ==
LOC: CATH 08:00 → CSD 09:50 → CATH 15:15
PROVIDERS: ATTEND Internal Medicine Cardiovascular Disease
DX: T82.856A Stenosis of peripheral vascular stent, initial encounter (principal); I70.202 Unspecified atherosclerosis of native arteries of extremities, left leg; E10.9 Type 1 diabetes mellitus without complications; G35 Multiple sclerosis; R07.89 Other chest pain; F17.210 Nicotine dependence, cigarettes, uncomplicated; F41.9 Anxiety disorder, unspecified; Z79.82 Long term (current) use of aspirin; Z79.899 Other long term (current) drug therapy; Z79.02 Long term (current) use of antithrombotics/antiplatelets; Z79.891 Long term (current) use of opiate analgesic; Z83.3 Family history of diabetes mellitus
CPT/HCPCS: 36415; 75625; 75716; 80053; 80061; 85027; 85610; 85730; 87081

== ENCOUNTER 2021-08-27 07:57 | Outpatient (RCR) | payer MEDICARE, MEDICAID ==
[2021-08-20 08:41] LABS: BASOPHILS # (AUTO) 0.1 10^3/uL (0.0-0.1); BASOPHILS % (AUTO) 1 % (0-10); EOSINOPHILS # (AUTO) 0.2 10^3/uL (0.0-0.3); EOSINOPHILS % (AUTO) 2 % (0-10); HEMATOCRIT 45 % (35-52); LYMPHOCYTES # (AUTO) 1.9 10^3/uL (1.0-4.0); LYMPHOCYTES % (AUTO) 15 % (12-44); MEAN CORPUSCULAR HEMOGLOBIN 29 pg (25-34); MEAN CORPUSCULAR HGB CONC 31 g/dL (32-36); MEAN CORPUSCULAR VOLUME 94 fL (80-99); MEAN PLATELET VOLUME 11.2 fL (9.0-12.2); MONOCYTES % (AUTO) 8 % (0-12); NEUTROPHILS # (AUTO) 9.2 10^3/uL (1.8-7.8); NEUTROPHILS % (AUTO) 74 % (42-75); PLATELET COUNT 305 10^3/uL (130-400); WHITE BLOOD COUNT 12.4 10^3/uL (4.3-11.0)
[2021-08-20 08:51] LABS: ALBUMIN 3.7 GM/DL (3.2-4.5); BILIRUBIN,TOTAL 0.4 MG/DL (0.1-1.0); CALCIUM 9.1 MG/DL (8.5-10.1); CREATININE SERUM 1.09 MG/DL (0.60-1.30); POTASSIUM 4.2 MMOL/L (3.6-5.0); TOTAL PROTEIN 6.1 GM/DL (6.4-8.2)
[2021-08-20 09:07] VITALS: BP 125/62
[~2021-08-27 07:57] MED LIST changes: +ACETAMINOPHEN 500 MG TAB (TYLENOL) PO ONE; +CATHETER FLUSH 10 ML SYR IV SCH; +EPINEPHrine INJECTION 1 MG/ML AMP IM PRN; -HEParin (CATH LAB) 2,000 ML IV ONE; -LIDOCAINE 1% INJ 20 ML 20 ML VIAL ONE; +NORMAL SALINE IV SCH; -NS IV 1000 ML 1,000 ML IV SCH; -NS IV 1000 ML 1,000 ML ONE; +OCRELIZUMAB IV SCH; +diphenhydrAMINE 50 MG/ML INJ (BENADRYL) IVP ONE; +diphenhydrAMINE 50 MG/ML INJ (BENADRYL) IVP PRN; +methylPREDNISolone 125 MG (Solu-MEDROL) VIAL IVP ONE
[2021-08-27 08:00] VITALS: BP 125/68
[2021-08-27] MEDS ORDERED: methylPREDNISolone 125 MG (Solu-MEDROL) VIAL ONE (08:11)
[2021-08-27] MEDS: ACETAMINOPHEN 500 MG TAB (TYLENOL) PO PRN ×2 (08:24→09:15)
[2021-08-27 09:00] VITALS: BP 123/62
[2021-08-27 10:00] VITALS: BP 120/64
[2021-08-27 11:00] VITALS: BP 101/55
[2021-08-27 12:00] VITALS: BP 122/64
[2021-08-27 12:41] VITALS: BP 115/60
== END 2021-08-27 12:40 | disposition home or self-care (01) ==
LOC: SDC 07:57
PROVIDERS: ATTEND Psychiatry & Neurology Neurology
DX: G35 Multiple sclerosis (principal)
CPT/HCPCS: 36415; 80053; 82784; 85025; 86353; 86359; 86360; 96365; 96366; 96374; 96375

== ENCOUNTER 2022-04-02 13:34 | Emergency (ER) | payer MEDICARE, MEDICAID ==
[~2022-04-02] VITALS: Ht 165.1 cm; Wt 96.0 kg
[~2022-04-02 13:34] MED LIST changes: -ACETAMINOPHEN 500 MG TAB (TYLENOL) PO ONE; -CATHETER FLUSH 10 ML SYR IV SCH; -EPINEPHrine INJECTION 1 MG/ML AMP IM PRN; -FLUC150T2 PO; +FLUC150T41 PO; -NORMAL SALINE IV SCH; -OCRELIZUMAB IV SCH; -diphenhydrAMINE 50 MG/ML INJ (BENADRYL) IVP ONE; -diphenhydrAMINE 50 MG/ML INJ (BENADRYL) IVP PRN; -methylPREDNISolone 125 MG (Solu-MEDROL) VIAL IVP ONE
[2022-04-02] MEDS ORDERED: NS IV 1000 ML 1,000 ML IV STA ×2 (14:04→15:16)
--- NOTE | 2022-04-02 14:12 | ED Abdominal Pain ---
General Stated Complaint: DKA Source of Information: Patient Exam Limitations: No Limitations History of Present Illness Date Seen by Provider: Apr 02, 2022 Time Seen by Provider: 14:08 Initial Comments Patient is a 51-year-old female with a history of MS, type 1 diabetes, peripheral artery disease who presents ED with multiple complaints. Patient states she has fallen 3 times over the past week. She states she did hit her head and currently on a blood thinner. No loss of consciousness. She states these were mechanical and denies of any loss of consciousness or syncope. She also reports burning sensation in her chest, upper abdominal pain, lower abdominal pain over the past week. Described as crampy pain with intermittent sharp pain. No radiation. Started having diarrhea 2 days ago with 10+ episodes without any blood or mucus. No recent antibiotic use or travels. She has had intermittent vomiting since . She reports some pain in her chest with shortness of breath. Described as burning. She does have some headache and dizziness. She states she did fall on her face but denies any current facial pain or neck pain. She reports neuropathy type pain in her lower extremities that is chronic. Takes oxycodone and gabapentin. Schedule follow-up with Dr. Mcintosh secondary to her history of vascular disease in her lower extremities. She reports numbness and tingling sensation worse on the left. Vascular stent right leg. No worsening pain today. Denies of fever, chills, visual changes, back pain, unilateral muscle weakness or sensory changes. Patient states she has not been able to eat secondary to making her sick. Decreased urine output. She is concerned she is in DKA Allergies and Home Medications Allergies Coded Allergies: codeine (Verified Allergy, Intermediate, HIVES (PATIENT HAS RECEIVED KRISTEN TAB IN THE PAST), 07/10/16) strawberry (Verified Allergy, Mild, RASH, 10/13/18) ciprofloxacin (Unverified Allergy, Unknown, STARTED HAVING MUSCULAR PROBLEMS, 09/13/18) Patient Home Medication List Home Medication List Reviewed: Yes Amlodipine Besylate (Amlodipine Besylate) 2.5 Mg Tablet, 2.5 MG PO DAILY, ( Reported) Entered as Reported by: SINGH DE LOS SANTOS on 01/22/21 0805 Atorvastatin Calcium (Atorvastatin Calcium) 10 Mg Tablet, 10 MG PO HS, (Reported) Entered as Reported by: DARIEL VALLEJO on 08/13/21 0737 Cephalexin (Cephalexin) 500 Mg Tablet, 500 MG PO BID Prescribed by: IAM MERCADO on 04/02/22 1618 Citalopram Hydrobromide (Citalopram HBr) 40 Mg Tablet, 40 MG PO DAILY, (Reported) Entered as Reported by: PIOTR REYNOSO on 04/20/20 142 Clonazepam (Clonazepam) 0.5 Mg Tablet, 1 MG PO BID, (Reported) Entered as Reported by: CANDY GRANADO on 10/13/18 1653 Clopidogrel Bisulfate (Plavix) 75 Mg Tablet, 75 MG PO DAILY, (Reported) Entered as Reported by: DARIEL VALLEJO on 08/13/21736 Divalproex Sodium (Divalproex Sodium) 500 Mg Tablet.dr, 500 MG PO DAILY, (Reported) Entered as Reported by: DARIEL VALLEJO on 08/13/21736 Furosemide (Furosemide) 20 Mg Tablet, 20 MG PO DAILY, (Reported) Entered as Reported by: DARIEL VALLEJO on 08/13/21736 Gabapentin (Gabapentin) 600 Mg Tablet, 600 MG PO TID, (Reported) Entered as Reported by: DARIEL VALLEJO on 08/13/21736 Insulin Degludec (Tresiba Flextouch U-100) 100 Unit/1 Ml Insuln.pen, 14 UNIT SQ BID, (Reported) Entered as Reported by: DARIEL VALLEJO on 08/13/21736 Insulin Lispro (Humalog Kwikpen) 100 Unit/1 Ml Insuln.pen, UNITS SC TIDWM, (Reported) Entered as Reported by: PIOTR REYNOSO on 04/20/20 142 Nystatin (Nystatin) 500,000 Unit Tablet, 500,000 UNIT PO DAILY PRN for YEAST, (Reported) Entered as Reported by: PIOTR REYNOSO on 01/22/21 1528 Ondansetron (Ondansetron Odt) 4 Mg Tab.rapdis, 4 MG PO Q4H Prescribed by: IAM MERCADO on 04/02/22 1618 Oxycodone HCl/Acetaminophen (Oxycodone-Acetaminophen 10-325) 1 Each Tablet, 1 EACH PO BID, (Reported) Entered as Reported by: DARIEL VALLEJO on 08/13/2137 Pantoprazole Sodium (Pantoprazole Sodium) 40 Mg Tablet.dr, 40 MG PO DAILY, (Reported) Entered as Reported by: DARIEL VALLEJO on 08/13/2137 Review of Systems Review of Systems Constitutional: chills, weakness EENTM: No Blurred Vision, No Double Vision Respiratory: Denies Cough; SOA at Rest Cardiovascular: Chest Pain; Denies Edema Gastrointestinal: Abdominal Pain, Diarrhea, Nausea, Vomiting Genitourinary: Denies Burning, Denies Discharge Musculoskeletal: No back pain, No joint pain Skin: No change in color, No change in hair/nails Psychiatric/Neurological: Denies Depressed Endocrine: Denies Excessive Sweating, Denies Flushing All Other Systems Reviewed Negative Unless Noted: Yes Past Nuwutck-Hphhxq-Fzcnon Hx Immunizations Up To Date Tetanus Booster (TDap): More than 5yrs Seasonal Allergies Seasonal Allergies: No Past Medical History Surgeries: Yes (PILONIDAL CYST SURGERY (SEVERAL), CYST FROM HAND and breast, KNEE SURG X2,) Breast, Hysterectomy, Orthopedic, 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 Respiratory: Yes Pneumonia Cardiac: Yes (HEART RACES AT TIMES) Peripheral Vascular Neurological: Yes (DIABETIC NEUROPATHY IN HANDS) Multiple Sclerosis, Neuropathy Reproductive Disorders: No (FIBRIODS) Female Reproductive Disorders: Menstrual Problems, 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 Sexually Transmitted Disease: No HIV/AIDS: No UTI-Chronic Gastrointestinal: Yes (OCC-TAKES TUMS) Gastroesophageal Reflux Musculoskeletal: No Endocrine: Yes Diabetes, Insulin dep Loss of Vision: Bilateral Hearing Impairment: Denies Cancer: Yes (LEEP PROCEDURE IN OFFICE) Cervical Psychosocial: Yes Sleep Difficulties, Anxiety, Depression Integumentary: Yes (DIABETIC SORE ON LEG ) Blood Disorders: No Adverse Reaction/Blood Tranf: No Family Medical History Cardiovascular disease 19 FATHER Completed stroke GRANDMOTHER FH: brain cancer GRANDFATHER High cholesterol 19 MOTHER Thyroid disease 19 MOTHER Cancer Physical Exam Vital Signs Vital Signs - First Documented 04/02/22 04/02/22 13:50 17:00 Temp 36.6 Pulse 88 Resp 18 B/P (MAP) 145/86 (105) Pulse Ox 96 O2 Delivery Room Air Capillary Refill : Height/Weight/BMI Height: 5'5.00" Weight: 202lbs. 0.0oz. [id number]; 35.66 BMI Method:Stated General Appearance: WD/WN, no apparent distress HEENT: PERRL/EOMI, normal ENT inspection, TMs normal Neck: non-tender, full range of motion, supple, normal inspection Respiratory: chest non-tender, lungs clear, normal breath sounds, no accessory muscle use Cardiovascular: regular rate, rhythm, no edema, no gallop, no JVD Gastrointestinal: normal bowel sounds, soft, no organomegaly, tenderness (Epigastric and lower abdominal tenderness) Extremities: normal range of motion, non-tender, other (Cap refill less than 2 bilateral lower extremity. +2 dorsalis pedis right leg, +1 dorsalis pedis left leg.) Back: normal inspection, no CVA tenderness, no vertebral tenderness Focused Exam Lactate Level 04/02/22 14:41: Lactic Acid Level 1.20 Lactic Acid Level Laboratory Tests Test 04/02/22 14:41 Lactic Acid Level 1.20 MMOL/L (0.50-2.00) Progress/Results/Core Measures Results/Orders Lab Results Laboratory Tests Test 04/02/22 13:53 04/02/22 14:17 04/02/22 14:20 04/02/22 14:41 Range/Units Glucometer 362 H 70-110 MG/DL Influenza Type A (RT-PCR) Not Detected Not Detecte Influenza Type B (RT-PCR) Not Detected Not Detecte SARS-CoV-2 RNA (RT-PCR) Not Detected Not Detecte White Blood Count 12.2 H 4.3-11.0 10^3/uL Red Blood Count 4.97 3.80-5.11 10^6/uL Hemoglobin 15.1 11.5-16.0 g/dL Hematocrit 46 35-52 % Mean Corpuscular Volume 93 80-99 fL Mean Corpuscular Hemoglobin 30 25-34 pg Mean Corpuscular Hemoglobin Concent 33 32-36 g/dL Red Cell Distribution Width 12.9 10.0-14.5 % Platelet Count 300 130-400 10^3/uL Mean Platelet Volume 10.7 9.0-12.2 fL Immature Granulocyte % (Auto) 1 % Neutrophils (%) (Auto) 74 42-75 % Lymphocytes (%) (Auto) 15 12-44 % Monocytes (%) (Auto) 7 0-12 % Eosinophils (%) (Auto) 3 0-10 % Basophils (%) (Auto) 0 0-10 % Neutrophils # (Auto) 9.0 H 1.8-7.8 10^3/uL Lymphocytes # (Auto) 1.8 1.0-4.0 10^3/uL Monocytes # (Auto) 0.9 0.0-1.0 10^3/uL Eosinophils # (Auto) 0.4 H 0.0-0.3 10^3/uL Basophils # (Auto) 0.1 0.0-0.1 10^3/uL Immature Granulocyte # (Auto) 0.1 0.0-0.1 10^3/uL Sodium Level 139 135-145 MMOL/L Potassium Level 3.7 3.6-5.0 MMOL/L Chloride Level 99 98-107 MMOL/L Carbon Dioxide Level 26 21-32 MMOL/L Anion Gap 14 5-14 MMOL/L Blood Urea Nitrogen 12 7-18 MG/DL Creatinine 0.85 0.60-1.30 MG/DL Estimat Glomerular Filtration Rate 84 BUN/Creatinine Ratio 14 Glucose Level 411 *H 70-105 MG/DL Calcium Level 9.3 8.5-10.1 MG/DL Corrected Calcium 9.5 8.5-10.1 MG/DL Total Bilirubin 0.3 0.1-1.0 MG/DL Aspartate Amino Transf (AST/SGOT) 12 5-34 U/L Alanine Aminotransferase (ALT/SGPT) < 6 0-55 U/L Alkaline Phosphatase 116 40-136 U/L Troponin I < 0.028 <0.028 NG/ML Total Protein 6.1 L 6.4-8.2 GM/DL Albumin 3.8 3.2-4.5 GM/DL Lipase < 4 L 8-78 U/L Beta-Hydroxybutyrate (Chem panel) 0.16 0.00-0.27 MMOL/L Lactic Acid Level 1.20 0.50-2.00 MMOL/L Test 04/02/22 15:20 04/02/22 15:55 04/02/22 16:05 04/02/22 16:55 Range/Units Glucometer 359 H 344 H 297 H 70-110 MG/DL Urine Color YELLOW Urine Clarity CLEAR Urine pH 6.0 5-9 Urine Specific [place] <=1.005 1.016-1.022 Urine Protein NEGATIVE NEGATIVE Urine Glucose (UA) 3+ H NEGATIVE Urine Ketones NEGATIVE NEGATIVE Urine Nitrite NEGATIVE NEGATIVE Urine Bilirubin NEGATIVE NEGATIVE Urine Urobilinogen 0.2 < = 1.0 MG/DL Urine Leukocyte Esterase NEGATIVE NEGATIVE Urine RBC (Auto) NEGATIVE NEGATIVE Urine RBC 2-5 H /HPF Urine WBC 5-10 H /HPF Urine Squamous Epithelial Cells 2-5 /HPF Urine Crystals NONE /LPF Urine Bacteria LARGE H /HPF Urine Casts NONE /LPF Urine Mucus NEGATIVE /LPF Urine Culture Indicated YES My Orders Orders - OVI KAUR PA Urinalysis (04/02/22 13:39) Accucheck Stat ONCE (04/02/22 13:40) Comprehensive Metabolic Panel (04/02/22 14:04) Lipase (04/02/22 14:04) Ed Iv/Invasive Line Start (04/02/22 14:04) Cbc With Automated Diff (04/02/22 14:04) Ct Abdomen/Pelvis W (04/02/22 14:04) Beta Hydroxybutyrate (04/02/22 14:04) Lactic Acid Analyzer (04/02/22 14:04) Ct Head Wo (04/02/22 14:04) Troponin I [place] (04/02/22 14:04) Chest 1 View, Ap/Pa Only (04/02/22 14:04) Ekg Tracing (04/02/22 14:04) Covid 19 Inhouse Test (04/02/22 14:04) Influenza A And B By Pcr (04/02/22 14:04) Ns Iv 1000 Ml (Sodium Chloride 0.9%) (04/02/22 14:04) Pantoprazole Injection (Protonix Injecti (04/02/22 14:15) Ondansetron Injection (Zofran Injectio (04/02/22 14:15) Iohexol Injection (Omnipaque 350 Mg/Ml 1 (04/02/22 14:15) Received Contrast (Hold Metformin- Contr (04/02/22 14:15) Sodium Chloride Flush (Catheter Flush Sy (04/02/22 14:15) Ns (Ivpb) (Sodium Chloride 0.9% Ivpb Bag (04/02/22 14:15) Fentanyl Inj (Sublimaze Injection) (04/02/22 14:29) Ns Iv 1000 Ml (Sodium Chloride 0.9%) (04/02/22 15:16) Insulin (Regular) Human (Novolin R (Per (04/02/22 15:30) Morphine Injection (Morphine Injection (04/02/22 15:45) Urine Culture (04/02/22 15:55) Medications Given in ED Current Medications Medications Dose Ordered Sig/Florencio Route Start Time Stop Time Status Last Admin Dose Admin Insulin Human Regular 10 unit ONCE ONCE SC 04/02/22 15:30 04/02/22 15:31 DC 04/02/22 15:27 10 UNIT Iohexol 100 ml ONCE ONCE IV 04/02/22 14:15 04/02/22 14:26 DC 04/02/22 15:14 100 ML Morphine Sulfate 4 mg ONCE ONCE IVP 04/02/22 15:45 04/02/22 15:46 DC 04/02/22 16:01 4 MG Ondansetron HCl 4 mg ONCE ONCE IVP 04/02/22 14:15 04/02/22 14:16 DC 04/02/22 14:33 4 MG Pantoprazole 40 mg ONCE ONCE IV 04/02/22 14:15 04/02/22 14:16 DC 04/02/22 14:36 40 MG Sodium Chloride 10 ml NEEDED PRN IV 04/02/22 14:15 04/02/22 17:12 DC 04/02/22 15:14 10 ML Sodium Chloride 100 ml ONCE ONCE IV 04/02/22 14:15 04/02/22 14:26 DC 04/02/22 15:14 80 ML Vital Signs/I&O 04/02/22 04/02/22 13:50 17:00 Temp 36.6 Pulse 88 75 Resp 18 18 B/P (MAP) 145/86 (105) 135/73 Pulse Ox 96 98 O2 Delivery Room Air FSBG Bedside Testing Finger Stick Blood Glucose: 326 Blood Glucose Action Taken: rn notified Departure Communication (PCP) Patient with a history of MS. Patient with multiple complaints. Patient has fallen 3 times over the past week. She did hit her head without loss conscious. Currently on blood thinners. CT scan of the head was unremarkable. She had no facial pain or cervical midline or neck pain. Patient has no focal neural deficits. Chronic neuropathy lower extremities. Pulses noted bilateral lower extremity. No coolness. Cap refill less than 2. Pulses noted bilateral. History of vascular stent right leg. Patient with generalized abdominal pain to her lower abdomen upper abdomen. Patient with slight elevated white blood count. She was afebrile. Denies of any dark tarry stool, mucousy stool. No history of inflammatory bowel disease. She reports history of intermittent diarrhea and then constipation. Patient with hyperglycemia. Does not appear in DKA. Urinalysis concerning for UTI. Will discharge keflex. She was given 10 units of regular insulin with improvement of her blood sugar uto 297. She was given 2 L of fluid. Pain control with IV pain medication. She was given IV Zofran. Tolerating p.o. fluids at bedside. She states she is feeling much better at this time. CT abdomen pelvis was otherwise unremarkable. Symptoms may be viral in nature. I did recommend stool culture due to excessive diarrhea but patient was not able to provide a sample. If any worsening diarrhea may consider stool culture. Patient acknowledges. Will discharge with Zofran. If any worsening diarrhea, fever and pain patient would likely benefit with stool culture rule out other potential etiologies such as C. difficile. No recent antibiotic use. No surgical abdomen. Return precaution were discussed with patient. Impression Primary Impression: Hyperglycemia Additional Impressions: Abdominal pain UTI (urinary tract infection) Disposition: HOME, SELF-CARE Condition: Stable Departure-Patient Inst. Decision time for Depature: 16:17 Referrals: BETTE RUSH DO (PCP/Family) Primary Care Physician Patient Instructions: Abdominal Pain, Adult ED Scripts Ondansetron (Ondansetron Odt) 4 Mg Tab.rapdis 4 MG PO Q4H, #10 TAB Prov: OVI KAUR 04/02/22 Cephalexin (Cephalexin) 500 Mg Tablet 500 MG PO BID for 7 Days, #14 TAB Prov: OVI KAUR 04/02/22 Work/School Note: Work Release Form Date Seen in the Emergency Department: Apr 02, 2022 Return to Work: Apr 05, 2022 OVI KAUR Apr 02, 2022 14:12
[2022-04-02] MEDS ORDERED: HOLD METFORMIN - RECEIVED CONTRAST 20 ML VIAL IV SCH (14:15)
[2022-04-02] MEDS ORDERED: PANTOPRAZOLE 40 MG (PROTONIX) VIAL IV ONE (14:15)
[2022-04-02] MEDS ORDERED: CATHETER FLUSH 10 ML SYR IV PRN (14:15)
[2022-04-02] MEDS ORDERED: NS 100 ML (IVPB) BAG IV ONE (14:15)
[2022-04-02] MEDS ORDERED: ONDANSETRON 4 MG/2 ML (SDV) Z0FRAN IVP ONE (14:15)
[2022-04-02] MEDS ORDERED: IOHEXOL 350 MG/ML 100 ML (OMNIPAQUE 350) VIAL IV ONE (14:15)
[2022-04-02 14:28] LABS: BASOPHILS # (AUTO) 0.1 10^3/uL (0.0-0.1); BASOPHILS % (AUTO) 0 % (0-10); EOSINOPHILS # (AUTO) 0.4 10^3/uL (0.0-0.3); EOSINOPHILS % (AUTO) 3 % (0-10); HEMATOCRIT 46 % (35-52); HEMOGLOBIN 15.1 g/dL (11.5-16.0); LYMPHOCYTES # (AUTO) 1.8 10^3/uL (1.0-4.0); LYMPHOCYTES % (AUTO) 15 % (12-44); MEAN CORPUSCULAR HEMOGLOBIN 30 pg (25-34); MEAN CORPUSCULAR HGB CONC 33 g/dL (32-36); MEAN CORPUSCULAR VOLUME 93 fL (80-99); MEAN PLATELET VOLUME 10.7 fL (9.0-12.2); MONOCYTES # (AUTO) 0.9 10^3/uL (0.0-1.0); MONOCYTES % (AUTO) 7 % (0-12); NEUTROPHILS % (AUTO) 74 % (42-75); PLATELET COUNT 300 10^3/uL (130-400); WHITE BLOOD COUNT 12.2 10^3/uL (4.3-11.0)
[2022-04-02] MEDS ORDERED: fentaNYL INJ 100 MCG/2 ML AMP IVP STA (14:29)
[2022-04-02 14:45] LABS: ALBUMIN 3.8 GM/DL (3.2-4.5); CHLORIDE 99 MMOL/L (98-107)
--- NOTE | 2022-04-02 14:45 | Diagnostic Imaging Report ---
CHEST 1 VIEW, AP/PA ONLY Indication: Chest pain. Comparison: 12/15/2018 Findings: No focal airspace disease in the visualized lungs. Please note that the posterior lower lobes are poorly evaluated by portable radiography. No pleural effusion or pneumothorax. Normal cardiomediastinal silhouette. Impression: 1. No acute cardiopulmonary process by portable radiography. Dictated by: Dictated on workstation # [id number]
[2022-04-02 14:46] LABS: POTASSIUM 3.7 MMOL/L (3.6-5.0); SODIUM 139 MMOL/L (135-145)
[2022-04-02 14:47] LABS: CALCIUM 9.3 MG/DL (8.5-10.1)
[2022-04-02 14:48] LABS: TOTAL PROTEIN 6.1 GM/DL (6.4-8.2)
[2022-04-02 14:49] LABS: CARBON DIOXIDE 26 MMOL/L (21-32)
[2022-04-02 14:50] LABS: BILIRUBIN,TOTAL 0.3 MG/DL (0.1-1.0)
[2022-04-02 14:51] LABS: ALKALINE PHOSPHATASE 116 U/L (40-136); CREATININE SERUM 0.85 MG/DL (0.60-1.30); GFR ESTIMATED 84
[2022-04-02 14:53] LABS: BUN/CREATININE RATIO 14
[2022-04-02 14:54] LABS: ALANINE AMINOTRANSFERASE < 6 U/L (0-55); GLUCOSE 411 MG/DL (70-105)
[2022-04-02 14:55] LABS: LIPASE < 4 U/L (8-78)
--- NOTE | 2022-04-02 15:18 | Diagnostic Imaging Report ---
EXAMINATION: CT head without contrast. TECHNIQUE: Multiple contiguous axial images were obtained through the brain without the use of intravenous contrast. All CT scans use one or more of the following dose optimizing techniques: automated exposure control, MA and/or KvP adjustment based on patient size and exam type or iterative reconstruction. HISTORY: Nausea and diarrhea for one week. Weakness. Hyperglycemia. COMPARISON: None available. FINDINGS: No large acute territorial ischemia, mass, or hemorrhage. No midline shift or mass effect. Nonspecific area of decreased attenuation is seen in the periventricular white matter in the right frontal lobe. The ventricles, cortical sulci, and basilar cisterns are patent and unremarkable. The orbits are normal. Paranasal sinuses are normal. Mastoid air cells are clear. No soft tissue abnormality is seen. No osseus lesions or fractures are seen. IMPRESSION: 1. No large acute territorial ischemia, mass, or hemorrhage. 2. Nonspecific area of decreased attenuation in the periventricular white matter in the right frontal lobe. Findings may represent age-indeterminate ischemia or an area of demyelination. Recommend correlation with patient history and symptoms and if indicated MRI of the brain to further evaluate. Dictated by: Dictated on workstation # [id number]
[2022-04-02] MEDS ORDERED: inSUlin (REGULAR) HUMAN 1 UNIT/0.01 ML (CHARGE PER UNIT) SC ONE (15:30)
--- NOTE | 2022-04-02 15:39 | Diagnostic Imaging Report ---
PROCEDURE: CT abdomen and pelvis with contrast. TECHNIQUE: Multiple contiguous axial images were obtained through the abdomen and pelvis after administration of intravenous contrast. Auto Exposure Controls were utilized during the CT exam to meet ALARA standards for radiation dose reduction. All CT scans use one or more of the following dose optimizing techniques: automated exposure control, MA and/or KvP adjustment based on patient size and exam type or iterative reconstruction. INDICATION: Nausea and diarrhea for one week. Correlation is made with prior CT from 02/08/2029. The lung bases are clear. No discrete liver mass is detected. Gallbladder is unremarkable. There is no biliary duct dilatation. Pancreas, adrenal glands and kidneys are unremarkable. Aorta is nonaneurysmal. Bowel loops are normal caliber. There is no obstruction. Appendix is unremarkable. There is a small fat-containing umbilical hernia. No free fluid or fluid collection is seen. Bladder is unremarkable. IMPRESSION: Essentially unremarkable CT of the abdomen and pelvis with contrast. No acute abnormality is detected. Dictated by: Dictated on workstation # [id number]
[2022-04-02] MEDS ORDERED: morphine INJ 10 MG/ML 1ML (SYR OR VIAL) IVP ONE (15:45)
[2022-04-02 16:04] LABS: BILIRUBIN,URINE NEGATIVE (NEGATIVE); CLARITY,URINE CLEAR; COLOR,URINE YELLOW; GLUCOSE, URINE (UA) 3+ (NEGATIVE); KETONES,URINE NEGATIVE (NEGATIVE); LEUKOCYTE ESTERASE ,URINE NEGATIVE (NEGATIVE); NITRITE,URINE NEGATIVE (NEGATIVE); PROTEIN,URINE NEGATIVE (NEGATIVE)
[2022-04-02 16:12] LABS: BACTERIA,URINE LARGE /HPF
[2022-04-02] MEDS ORDERED: ONDA4TAB11 PO (16:18)
[2022-04-02] MEDS ORDERED: CEPH500T PO (16:18)
[2022-04-02 17:00] VITALS: BP 135/73
== END 2022-04-02 17:00 | disposition home or self-care (01) ==
LOC: EDUNIT# 13:34 → ER 13:35
DX: N39.0 Urinary tract infection, site not specified (principal); E11.65 Type 2 diabetes mellitus with hyperglycemia; E11.40 Type 2 diabetes mellitus with diabetic neuropathy, unspecified; Z79.4 Long term (current) use of insulin; Z20.822 Contact with and (suspected) exposure to COVID-19; Z28.310 Unvaccinated for COVID-19
CPT/HCPCS: 36415; 70450; 71045; 74177; 80053; 81000; 82010; 82947; 83605; 83690; 84484; 85025; 87077; 87088; 87636; 93005

== ENCOUNTER 2022-04-04 15:25 | Emergency (ER) | payer MEDICARE, MEDICAID ==
[~2022-04-04 15:25] MED LIST changes: +ONDA4TAB11 PO
[2022-04-04 16:24] LABS: BASOPHILS # (AUTO) 0.1 10^3/uL (0.0-0.1); BASOPHILS % (AUTO) 0 % (0-10); EOSINOPHILS # (AUTO) 0.8 10^3/uL (0.0-0.3); EOSINOPHILS % (AUTO) 4 % (0-10); HEMATOCRIT 47 % (35-52); HEMOGLOBIN 15.4 g/dL (11.5-16.0); LYMPHOCYTES % (AUTO) 10 % (12-44); MEAN CORPUSCULAR HEMOGLOBIN 31 pg (25-34); MEAN CORPUSCULAR HGB CONC 33 g/dL (32-36); MEAN CORPUSCULAR VOLUME 94 fL (80-99); MEAN PLATELET VOLUME 10.5 fL (9.0-12.2); MONOCYTES # (AUTO) 1.3 10^3/uL (0.0-1.0); MONOCYTES % (AUTO) 6 % (0-12); NEUTROPHILS # (AUTO) 15.9 10^3/uL (1.8-7.8); NEUTROPHILS % (AUTO) 78 % (42-75); PLATELET COUNT 320 10^3/uL (130-400); WHITE BLOOD COUNT 20.3 10^3/uL (4.3-11.0)
[2022-04-04 16:32] VITALS: BP 115/70
[2022-04-04 16:35] LABS: CALCIUM 8.7 MG/DL (8.5-10.1)
--- NOTE | 2022-04-04 16:35 | ED General ---
General Chief Complaint: Glucose Problems Stated Complaint: HYPOGLYCEMIA Nursing Triage Note: PT TO [facility] BY [facility] WITH C/O LOW BLOOD SUGAR. EMS STATES ON THEIR INITIAL READ IT WAS TOO LOW, THEY GAVE ORAL GLUCSE AND STARTED D10 AND ON ARRIVAL BS WAS 75. PT ALSO STATES SHE IS STILL HAVING DIARRHEA Source of Information: Patient, EMS Exam Limitations: No Limitations History of Present Illness Date Seen by Provider: Apr 04, 2022 Time Seen by Provider: 15:59 Initial Comments This 51-year-old woman presents to the emergency room via EMS with a hypoglycemic episode. Blood sugar was initially too low to read. After receiving oral glucose and a partial bag of D10, blood sugar was 75 for EMS. Her initial check in the ER was 113. Patient was seen in the ER a couple days ago for falls, diarrhea, and hyperglycemia. See that note for details. She was also diagnosed with urinary tract infection and has been prescribed Keflex. By the time I arrived in the room to examine the patient, she was alert, oriented, and insistent on being discharged. She reported feeling at baseline. She is uncertain of how her blood sugar dropped so low. Patient has history of multiple sclerosis and insulin-dependent diabetes. Her primary care provider is Felisha Jones. Allergies and Home Medications Allergies Coded Allergies: codeine (Verified Allergy, Intermediate, HIVES (PATIENT HAS RECEIVED LORTAB IN THE PAST), 07/10/16) strawberry (Verified Allergy, Mild, RASH, 10/13/18) ciprofloxacin (Unverified Allergy, Unknown, STARTED HAVING MUSCULAR PROBLEMS, 09/13/18) Patient Home Medication List Home Medication List Reviewed: Yes Amlodipine Besylate (Amlodipine Besylate) 2.5 Mg Tablet, 2.5 MG PO DAILY, (Reported) Entered as Reported by: SINGH DE LOS SANTOS on 01/22/21 0805 Atorvastatin Calcium (Atorvastatin Calcium) 10 Mg Tablet, 10 MG PO HS, (Reported) Entered as Reported by: DARIEL VALLEJO on 08/13/21 0737 Cephalexin (Cephalexin) 500 Mg Tablet, 500 MG PO BID Prescribed by: IAM MERCADO on 04/02/22 1618 Citalopram Hydrobromide (Citalopram HBr) 40 Mg Tablet, 40 MG PO DAILY, (Reported) Entered as Reported by: PIOTR REYNOSO on 04/20/20 1426 Clonazepam (Clonazepam) 0.5 Mg Tablet, 1 MG PO BID, (Reported) Entered as Reported by: CANDY GRANADO on 10/13/18 1653 Clopidogrel Bisulfate (Plavix) 75 Mg Tablet, 75 MG PO DAILY, (Reported) Entered as Reported by: DARIEL VALLEJO on 08/13/21736 Divalproex Sodium (Divalproex Sodium) 500 Mg Tablet.dr, 500 MG PO DAILY, (Reported) Entered as Reported by: DARIEL VALLEJO on 08/13/21736 Furosemide (Furosemide) 20 Mg Tablet, 20 MG PO DAILY, (Reported) Entered as Reported by: DARIEL VALLEJO on 08/13/21736 Gabapentin (Gabapentin) 600 Mg Tablet, 600 MG PO TID, (Reported) Entered as Reported by: DARIEL VALLEJO on 08/13/21736 Insulin Degludec (Tresiba Flextouch U-100) 100 Unit/1 Ml Insuln.pen, 14 UNIT SQ BID, (Reported) Entered as Reported by: DARIEL VALLEJO on 08/13/21736 Insulin Lispro (Humalog Kwikpen) 100 Unit/1 Ml Insuln.pen, UNITS SC TIDWM, (Reported) Entered as Reported by: PIOTR REYNOSO on 04/20/20 1426 Nystatin (Nystatin) 500,000 Unit Tablet, 500,000 UNIT PO DAILY PRN for YEAST, (Reported) Entered as Reported by: PIOTR REYNOSO on 01/22/21 1528 Ondansetron (Ondansetron Odt) 4 Mg Tab.rapdis, 4 MG PO Q4H Prescribed by: IAM MERCADO on 04/02/22 1618 Oxycodone HCl/Acetaminophen (Oxycodone-Acetaminophen 10-325) 1 Each Tablet, 1 EACH PO BID, (Reported) Entered as Reported by: DARIEL VALLEJO on 08/13/21736 Pantoprazole Sodium (Pantoprazole Sodium) 40 Mg Tablet.dr, 40 MG PO DAILY, (Reported) Entered as Reported by: DARIEL VALLEJO on 08/13/21736 Review of Systems Review of Systems Constitutional: see HPI EENTM: no symptoms reported Respiratory: no symptoms reported Cardiovascular: no symptoms reported Gastrointestinal: no symptoms reported Genitourinary: no symptoms reported : No Musculoskeletal: no symptoms reported Skin: no symptoms reported Psychiatric/Neurological: No Symptoms Reported Hematologic/Lymphatic: No Symptoms Reported Immunological/Allergic: no symptoms reported Past Yxelvbt-Drmftn-Qpyryf Hx Patient Social History Tobacco Use?: Yes Tobacco type used: Cigarettes Substance use?: No Alcohol Use?: Yes Alcohol type: Wine Alcohol Frequency: Rarely Pt feels they are or have been: No Immunizations Up To Date Tetanus Booster (TDap): More than 5yrs Influenza Vaccine Up-to-Date: No; Not Current First/Initial COVID19 Vaccinat: DECLINED Second COVID19 Vaccination Tito: DECLINED Third COVID19 Vaccination Date: DECLINED Seasonal Allergies Seasonal Allergies: No Past Medical History Surgery/Hospitalization HX: DM, MS, NEUROPATHY Surgeries: Yes (PILONIDAL CYST SURGERY (SEVERAL), CYST FROM HAND and breast, KNEE SURG X2,) Breast, Hysterectomy, Orthopedic, 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 Respiratory: Yes Pneumonia Cardiac: Yes (HEART RACES AT TIMES) Peripheral Vascular Neurological: Yes (DIABETIC NEUROPATHY IN HANDS) Multiple Sclerosis, Neuropathy Reproductive Disorders: No (FIBRIODS) Female Reproductive Disorders: Menstrual Problems, 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 Sexually Transmitted Disease: No HIV/AIDS: No UTI-Chronic Gastrointestinal: Yes (OCC-TAKES TUMS) Gastroesophageal Reflux Musculoskeletal: No Endocrine: Yes Diabetes, Insulin dep Loss of Vision: Bilateral Hearing Impairment: Denies Cancer: Yes (LEEP PROCEDURE IN OFFICE) Cervical Psychosocial: Yes Sleep Difficulties, Anxiety, Depression Integumentary: Yes (DIABETIC SORE ON LEG ) Blood Disorders: No Adverse Reaction/Blood Tranf: No Family Medical History Cardiovascular disease 19 FATHER Completed stroke GRANDMOTHER FH: brain cancer GRANDFATHER High cholesterol 19 MOTHER Thyroid disease 19 MOTHER Cancer Physical Exam Vital Signs Vital Signs - First Documented 04/04/22 15:30 Temp 36.6 Pulse 84 Resp 16 B/P (MAP) 117/75 (89) Capillary Refill : Height, Weight, BMI Height: 5'5.00" Weight: 202lbs. 0.0oz. 91.716496wh; 35.00 BMI Method:Stated General Appearance: No Apparent Distress, WD/WN HEENT: PERRL/EOMI, Normal ENT Inspection Respiratory: Lungs Clear, Normal Breath Sounds, No Accessory Muscle Use Cardiovascular: Regular Rate, Rhythm, No Edema, No Murmur Neurologic/Psychiatric: Alert, Oriented x3, Normal Mood/Affect Skin: Normal Color, Warm/Dry Progress/Results/Core Measures Suspected Sepsis SIRS Temperature: Pulse: 82 Respiratory Rate: 16 Laboratory Tests 04/04/22 16:10: White Blood Count 20.3H Blood Pressure 115 /70 Mean: 85 Laboratory Tests 04/04/22 16:10: Creatinine 0.80, Platelet Count 320 Results/Orders Lab Results Laboratory Tests Test 04/04/22 15:31 04/04/22 16:10 04/04/22 16:27 Range/Units Glucometer 113 H 112 H 70-110 MG/DL White Blood Count 20.3 H 4.3-11.0 10^3/uL Red Blood Count 4.99 3.80-5.11 10^6/uL Hemoglobin 15.4 11.5-16.0 g/dL Hematocrit 47 35-52 % Mean Corpuscular Volume 94 80-99 fL Mean Corpuscular Hemoglobin 31 25-34 pg Mean Corpuscular Hemoglobin Concent 33 32-36 g/dL Red Cell Distribution Width 13.2 10.0-14.5 % Platelet Count 320 130-400 10^3/uL Mean Platelet Volume 10.5 9.0-12.2 fL Immature Granulocyte % (Auto) 1 % Neutrophils (%) (Auto) 78 H 42-75 % Lymphocytes (%) (Auto) 10 L 12-44 % Monocytes (%) (Auto) 6 0-12 % Eosinophils (%) (Auto) 4 0-10 % Basophils (%) (Auto) 0 0-10 % Neutrophils # (Auto) 15.9 H 1.8-7.8 10^3/uL Lymphocytes # (Auto) 2.0 1.0-4.0 10^3/uL Monocytes # (Auto) 1.3 H 0.0-1.0 10^3/uL Eosinophils # (Auto) 0.8 H 0.0-0.3 10^3/uL Basophils # (Auto) 0.1 0.0-0.1 10^3/uL Immature Granulocyte # (Auto) 0.2 H 0.0-0.1 10^3/uL Neutrophils % (Manual) 76 % Lymphocytes % (Manual) 8 % Monocytes % (Manual) 9 % Eosinophils % (Manual) 4 % Reactive Lymphocytes 3 % Blood Morphology Comment NORMAL Sodium Level 143 135-145 MMOL/L Potassium Level 3.0 L 3.6-5.0 MMOL/L Chloride Level 99 98-107 MMOL/L Carbon Dioxide Level 27 21-32 MMOL/L Anion Gap 17 H 5-14 MMOL/L Blood Urea Nitrogen 15 7-18 MG/DL Creatinine 0.80 0.60-1.30 MG/DL Estimat Glomerular Filtration Rate 90 BUN/Creatinine Ratio 19 Glucose Level 99 70-105 MG/DL Calcium Level 8.7 8.5-10.1 MG/DL My Orders Orders - RICK MORE MD Basic Metabolic Panel (04/04/22 15:59) Cbc With Automated Diff (04/04/22 15:59) Accucheck Stat ONCE (04/04/22 15:59) Accucheck Stat ONCE (04/04/22 15:59) Manual Differential (04/04/22 16:10) Vital Signs/I&O 04/04/22 04/04/22 15:30 16:32 Temp 36.6 36.6 Pulse 84 82 Resp 16 16 B/P (MAP) 117/75 (89) 115/70 Capillary Refill : Blood Pressure Mean: 85 Point of Care Testing Finger Stick Blood Glucose: 112 Blood Glucose Action Taken: NOTIFIED Progress Note : Time: 16:34 Progress Note Patient arrived via EMS and labs were ordered. Blood sugar was stable after 3 measurements. Patient was insistent on being discharged shortly after arrival and was threatening to leave AGAINST MEDICAL ADVICE. She reported feeling at baseline by the time of my exam. I was able to briefly examine her and discuss her hypoglycemia with her. Labs were reviewed after discharge. Patient was contacted the following morning (April 05) and advised to have her hypokalemia. I had also reviewed the urine cultures from prior visit and will add Macrobid to her therapy based on culture results. I advised patient that I will prescribe her potassium supplementation and Macrobid. She reported she is still having problems with hypoglycemia, vomiting, and diarrhea. I will provide her with a refill on Zofran as well. She complained on the phone that she felt she needed to be admitted even though she was insistent on leaving the emergency room promptly yesterday. I explained that we would be happy to see her again in the emergency room and encouraged her to come back if she felt her symptoms warranted a repeat visit or she thought she needed to be admitted. Patient was given crackers to eat at the time of discharge to support her blood sugar in route home. Departure Impression Primary Impression: Hypoglycemia Additional Impression: Hypokalemia Disposition: 01 HOME, SELF-CARE Condition: Improved Departure-Patient Inst. Decision time for Depature: 16:34 Referrals: BETTE JONES DO (PCP/Family) Primary Care Physician Patient Instructions: Low Blood Sugar in People With Diabetes Add. Discharge Instructions: Check your blood sugar immediately when you return home, and check your blood sugars every 1-2 hours for the rest of the day. Have food or drink with sugar and carbohydrates available should you have another low blood sugar event. Monitor your blood sugars closely through the weekend and call your primary care provider on Thursday. Return to the ER if you have worsening symptoms. All discharge instructions reviewed with patient and/or family. Voiced understanding. Scripts Potassium Chloride (Potassium Chloride) 20 Meq Tablet.er 20 MEQ PO BID, #6 TAB Prov: RICK MORE MD 04/05/22 Ondansetron (Ondansetron Odt) 4 Mg Tab.rapdis 4 MG SL Q4H PRN for NAUSEA/VOMITING, #10 TAB Prov: RICK MORE MD 04/05/22 Nitrofurantoin Monohyd/M-Cryst (Macrobid 100 mg Capsule) 100 Mg Capsule 1 TAB PO BID, #14 CAP Prov: RICK MORE MD 04/05/22 Copy Copies To 1: BETTE JONES JOSHUA T MD Apr 04, 2022 16:35
[2022-04-04 16:39] LABS: CREATININE SERUM 0.8 MG/DL (0.60-1.30)
[2022-04-04 17:11] LABS: NEUTROPHILS % (MANUAL) 76 %
[2022-04-04 17:12] LABS: EOSINOPHILS % (MANUAL) 4 %; LYMPHOCYTES % (MANUAL) 8 %; MONOCYTES % (MANUAL) 9 %
[2022-04-04 17:15] LABS: RBC MORPH NORMAL; REACTIVE LYMPHOCYTES 3 %
[2022-04-05] MEDS ORDERED: POTA-51 PO (06:52)
[2022-04-05] MEDS ORDERED: NITR-65 PO (06:52)
[2022-04-05] MEDS ORDERED: ONDA4TAB11 SL (06:52)
== END 2022-04-04 16:39 | disposition home or self-care (01) ==
LOC: ER 15:25
DX: E11.649 Type 2 diabetes mellitus with hypoglycemia without coma (principal); E87.6 Hypokalemia; E11.40 Type 2 diabetes mellitus with diabetic neuropathy, unspecified; F17.210 Nicotine dependence, cigarettes, uncomplicated; Z28.310 Unvaccinated for COVID-19; Z79.4 Long term (current) use of insulin
CPT/HCPCS: 36415; 80048; 82947; 85007; 85027

== ENCOUNTER → 2022-04-07 | Outpatient (CLI) | payer OTHER, MEDICARE, MEDICAID ==
[~2022-04-07] MED LIST changes: +NITR-65 PO; +ONDA4TAB11 SL; +POTA-51 PO
== END ==
LOC: GIR 14:15
PROVIDERS: ATTEND Nurse Practitioner Family
DX: Z01.89 Encounter for other specified special examinations (principal)
CPT/HCPCS: 83605

== ENCOUNTER → 2022-04-07 | Outpatient (CLI) | payer OTHER, MEDICARE, MEDICAID | LOC: LABNPT 17:59 | PROVIDERS: ATTEND Nurse Practitioner Family | DX: Z01.89 Encounter for other specified special examinations (principal) | CPT/HCPCS: 83605 ==

== ENCOUNTER → 2022-04-08 | Outpatient (CLI) | payer MEDICARE, MEDICAID ==
[2022-04-08 15:01] LABS: ABSOLUTE RETIC # 85 10e9/uL (24-90); RETICULOCYTE % 1.81 % (0.50-2.40)
[2022-04-09 15:56] LABS: EOSINOPHILS % (MANUAL) 25 %; LYMPHOCYTES % (MANUAL) 13 %; MONOCYTES % (MANUAL) 6 %; NEUTROPHILS % (MANUAL) 53 %; RBC MORPH NORMAL; REACTIVE LYMPHOCYTES 3 %
== END ==
LOC: LABNPT 09:52
PROVIDERS: ATTEND Family Medicine
DX: D72.829 Elevated white blood cell count, unspecified (principal)
CPT/HCPCS: 85007; 85027; 85045; 85055